=== PATIENT | female | born 1955 | race Caucasian/White ===

== ENCOUNTER → 2017-07-31 09:47 | Outpatient (CLI) | payer OTHER, SELFPAY ==
[2017-07-31 12:36] LABS: Absolute Lymphocyte Count 2.56 X10^3/ul (0.83-4.51); Absolute Neutrophil Count 3.4 X10^3/uL (2.0-7.7); Basophil# 0.04 X10^3/uL; Basophil% 0.6 % (0-1); Eosinophils% 4.4 % (0-5); Hematocrit 40.9 % (37-47); Hemoglobin 12.9 g/dl (12.0-15.0); Lymphocyte # 2.56 X10^3/ul (4.0); Lymphocyte % 37.5 % (19-41); Mean Corp Hgb Conc 31.5 g/gl (32-36); Mean Corpuscular Hgb 28.5 pg (27.0-32.0); Mean Corpuscular Volume 90.5 fL (81-99); Mean Platelet Vol. 10.8 fl (6.2-12.0); Monocyte# 0.53 X10^3/uL; Monocyte% 7.8 % (0-10); Neutrophil # 3.39 X10^3/uL (2.7-7.7); Neutrophil % 49.6 % (47-70); POSITIVE COUNT NO; POSITIVE DIFFERENTIAL NO; POSITIVE MORPHOLOGY NO; Platelet Count 311 K/mm3 (150-450); RBC Distribution Width CV 12.8 % (11.6-14.6); RBC Distribution Width SD 41.9 fl (35.1-43.9); Red Blood Count 4.52 M/mm3 (4.2-5.4); White Blood Count 6.8 K/mm3 (4.4-11.0)
[2017-07-31 12:59] LABS: ALB/GLOB Ratio 1.1 RATIO (0.9-2.4); AST(SGOT) 19 U/L (15-37); Alanine Aminotransfer ALT/SGPT 23 U/L (13-56); Albumin, Serum 3.7 g/dL (3.2-5.0); Alkaline Phosphatase 93 U/L (45-117); Anion Gap 7 (5-15); BUN 17 mg/dL (7-18); BUN/Creat Ratio 21.9 RATIO (10-20); Calcium,Total 8.9 mg/dL (8.5-10.1); Chloride 106 mmol/L (98-107); Cholesterol 204 mg/dL (200); Creatinine, Serum 0.78 mg/dL (0.55-1.02); EST Glomerular Filtration Rate 80 mL/min (>60); Est Glom Filt Rate - Afr Amer 97 mL/min (>60); Globulin 3.5 g/dL (2.2-4.2); Glucose 92 mg/dL (74-106); High Density Lipoprotein 53 mg/dL; Protein, Total 7.2 g/dL (6.4-8.2); Sodium Level 143 mmol/L (136-145); Triglycerides 93 mg/dL; Very Low Density Lipoprotein 19 mg/dL (5-40)
== END ==
PROVIDERS: Family Provider Family Medicine; PCP Family Medicine; Visit Provider Family Medicine
DX: Z00.01 Encounter for general adult medical examination with abnormal findings (principal); E55.9 Vitamin D deficiency, unspecified
CPT/HCPCS: 36415; 80053; 80061; 82306; 85025

== ENCOUNTER → 2017-08-04 16:40 | Outpatient (CLI) | payer OTHER, SELFPAY ==
--- NOTE | 2017-08-04 16:47 | BI_ITS ---
MAMMOGRAPHY - BILATERAL SCREENING REASON FOR EXAM: Female, 62 years old. Routine annual screening examination. PERTINENT HISTORY: Non-contributory. TECHNIQUE: Digital bilateral breast dayday (3D mammographic acquisition) in the CC and MLO projections. 2-D mediolateral oblique (MLO) and craniocaudad (CC) views of both breasts were obtained. CAD: Full Field Digital Mammography with Computer Added Detection was performed. COMPARISON: Comparison is made with prior study dated December 27, 2015. FINDINGS: Breast Composition: The breasts are heterogeneously dense, which may obscure small masses. There are no dominant masses or suspicious calcifications. No other significant abnormalities are identified. There has been no significant change since the prior study. BI/SCREENING MAMM (CAD), BILAT IMPRESSION: Stable bilateral screening mammogram. Yearly follow-up mammogram recommended. (A) ASSESSMENT CATEGORY: BIRADS Category 1: Negative. A letter regarding these results will be sent to the patient by the facility within 30 days. Approximately 10% of breast cancers are not detected by mammography. A normal mammogram should not delay biopsy of a clinically suspicious abnormality. [id number] Electronically Signed: Nando Weber MD at 8:36 EDT Tel [phone], Service support ,
== END ==
PROVIDERS: Family Provider Family Medicine; PCP Family Medicine; Visit Provider Obstetrics & Gynecology
DX: Z12.31 Encounter for screening mammogram for malignant neoplasm of breast (principal)
CPT/HCPCS: 77063; 77067

== ENCOUNTER → 2018-01-06 16:25 | Outpatient (CLI) | payer OTHER, SELFPAY ==
[2018-01-06 18:29] LABS: AST(SGOT) 16 U/L (15-37); Alanine Aminotransfer ALT/SGPT 23 U/L (13-56); Albumin, Serum 3.6 g/dL (3.2-5.0); Alkaline Phosphatase 107 U/L (45-117); Anion Gap 8 (5-15); BUN 19 mg/dL (7-18); BUN/Creat Ratio 18.1 RATIO (10-20); Calcium,Total 8.9 mg/dL (8.5-10.1); Chloride 104 mmol/L (98-107); Creatinine, Serum 1.05 mg/dL (0.55-1.02); EST Glomerular Filtration Rate 57 mL/min (>60); Est Glom Filt Rate - Afr Amer 69 mL/min (>60); Globulin 3.6 g/dL (2.2-4.2); Glucose 94 mg/dL (74-106); Iron 79 ug/dL (50-170); Potassium 4.3 mmol/L (3.5-5.1); Protein, Total 7.2 g/dL (6.4-8.2); Sodium Level 140 mmol/L (136-145); Thyroid Stim Hormone (TSH) 0.81 uIU/mL (0.358-3.74)
[2018-01-06 20:46] LABS: Vitamin B12 452 pg/mL (211-911); Vitamin D,25 Hydroxy 15.4 ng/mL (29.95-100.01)
== END ==
PROVIDERS: Family Provider Family Medicine; PCP Family Medicine; Visit Provider Family Medicine
DX: E55.9 Vitamin D deficiency, unspecified (principal); E53.8 Deficiency of other specified B group vitamins; E61.1 Iron deficiency; R53.83 Other fatigue
CPT/HCPCS: 36415; 80053; 82306; 82607; 83540; 84443

== ENCOUNTER → 2018-07-07 16:38 | Outpatient (CLI) | payer OTHER, SELFPAY ==
[2018-07-07 17:59] LABS: ALB/GLOB Ratio 1.1 RATIO (0.9-2.4); AST(SGOT) 15 U/L (15-37); Alanine Aminotransfer ALT/SGPT 23 U/L (13-56); Alkaline Phosphatase 80 U/L (45-117); Anion Gap 6 (5-15); BUN 18 mg/dL (7-18); Calcium,Total 8.7 mg/dL (8.5-10.1); Chloride 106 mmol/L (98-107); EST Glomerular Filtration Rate 68 mL/min (>60); Est Glom Filt Rate - Afr Amer 82 mL/min (>60); Globulin 3.5 g/dL (2.2-4.2); Glucose 87 mg/dL (74-106); Potassium 4.1 mmol/L (3.5-5.1); Protein, Total 7.5 g/dL (6.4-8.2); Sodium Level 139 mmol/L (136-145)
[2018-07-07 18:09] LABS: Vitamin B12 > 2000 pg/mL (211-911); Vitamin D,25 Hydroxy 90.1 ng/mL (29.95-100.01)
== END ==
PROVIDERS: Family Provider Family Medicine; PCP Family Medicine; Visit Provider Family Medicine
DX: E55.9 Vitamin D deficiency, unspecified (principal); E53.8 Deficiency of other specified B group vitamins; Z51.81 Encounter for therapeutic drug level monitoring
CPT/HCPCS: 36415; 80053; 82306; 82607

== ENCOUNTER → 2018-10-13 08:46 | Outpatient (CLI) | payer OTHER, SELFPAY ==
--- NOTE | 2018-10-13 08:50 | BI_ITS ---
MAMMOGRAPHY - BILATERAL SCREENING REASON FOR EXAM: Female, 63 years old. Routine annual screening examination. PERTINENT HISTORY: Non-contributory. TECHNIQUE: Digital bilateral breast faviola (3D mammographic acquisition) in the CC and MLO projections. 2-D mediolateral oblique (MLO) and craniocaudad (CC) views of both breasts were obtained. CAD: Full Field Digital Mammography with Computer Added Detection was performed. COMPARISON: Comparison is made with prior study dated August 04, 2017 and December 27, 2015. FINDINGS: Breast Composition: The breasts are heterogeneously dense, which may obscure small masses. Questionable subtle focal area of architectural distortion in the deep central portion of the left breast. Correlation with ultrasound is recommended. No other significant abnormalities are identified. BI/SCREEN MAMM (CAD) W/FAVIOLA BILAT IMPRESSION: Questionable focal area of architectural distortion in the deep central aspect of the left breast as described. Correlation with ultrasound is recommended. ASSESSMENT CATEGORY: BIRADS Category 0: Incomplete. Need additional imaging evaluation. A letter regarding these results will be sent to the patient by the facility within 30 days. Approximately 10% of breast cancers are not detected by mammography. A normal mammogram should not delay biopsy of a clinically suspicious abnormality. [id number] Electronically Signed: Nando Weber, at 9:39 EDT , Service support ,
== END ==
PROVIDERS: Family Provider Family Medicine; PCP Family Medicine; Referring Provider Obstetrics & Gynecology; Visit Provider Obstetrics & Gynecology
DX: Z12.31 Encounter for screening mammogram for malignant neoplasm of breast (principal)
CPT/HCPCS: 77063; 77067

== ENCOUNTER → 2018-10-14 | Outpatient (CLI) | payer OTHER, SELFPAY ==
--- NOTE | 2018-10-14 14:57 | US_ITS ---
STUDY: ULTRASOUND BREAST - LEFT REASON FOR EXAM: Female, 63 years old. Abnormal mammogram TECHNIQUE: Axial and longitudinal images of the LEFT breast were performed with a high resolution ultrasound transducer. COMPARISON: Mammogram from 10/13/2018. FINDINGS: LEFT Breast: There is a 0.4 x 0.3 x 0.2 cm well-defined anechoic retroareolar cyst. There are also prominent retroareolar ducts. There is no sonographic evidence of a suspicious shadowing solid mass or architectural distortion. US/Breast Limited Unilateral IMPRESSION: No suspicious sonographic findings, dilated ducts and a simple retroareolar cyst noted. ASSESSMENT CATEGORY: BIRADS Category 2: Benign. A letter regarding these results will be sent to the patient by the facility within 30 days. Electronically Signed: Jeison Obregon MD at 10:10 EDT , Service support ,
== END | disposition home or self-care (01) ==
LOC: OPUS 14:55
PROVIDERS: Family Provider Family Medicine; PCP Family Medicine; Referring Provider Obstetrics & Gynecology; Visit Provider Obstetrics & Gynecology
DX: N60.02 Solitary cyst of left breast (principal)
CPT/HCPCS: 76642

== ENCOUNTER → 2020-08-27 10:43 | Outpatient (CLI) | payer OTHER, SELFPAY ==
[2020-08-27 12:19] LABS: Absolute Lymphocyte Count 3.24 X10^3/uL (0.83-4.51); Absolute Neutrophil Count 3.3 X10^3/uL (2.0-7.7); Basophil# 0.07 X10^3/uL; Basophil% 0.9 % (0-1); Eosinophil# 0.33 X10^3/uL; Eosinophils% 4.5 % (0-5); Hematocrit 40.4 % (37-47); Hemoglobin 12.7 g/dL (12.0-15.0); Lymphocyte # 3.24 X10^3/ul (0.83-4.51); Lymphocyte % 43.7 % (19-41); Mean Corp Hgb Conc 31.4 g/dL (32-36); Mean Corpuscular Hgb 28.3 pg (27.0-32.0); Mean Platelet Vol. 10.5 fl (6.2-12.0); Monocyte# 0.49 X10^3/uL; Monocyte% 6.6 % (0-10); NRBC Flagged by Analyzer 0 % (0-5); Neutrophil # 3.26 X10^3/uL (2.7-7.7); Platelet Count 314 K/mm3 (150-450); RBC Distribution Width SD 39.7 fl (35.1-43.9); Red Blood Count 4.49 M/mm3 (4.2-5.4); White Blood Count 7.4 K/mm3 (4.4-11.0)
[2020-08-27 12:35] LABS: Ferritin 38 ng/mL (8-252); Iron 90 ug/dL (50-170)
[2020-08-27 12:40] LABS: Vitamin B12 523 pg/mL (211-911)
== END ==
PROVIDERS: PCP Family Medicine; Referring Provider Family Medicine; Visit Provider Family Medicine
DX: E61.1 Iron deficiency (principal); G25.81 Restless legs syndrome; R53.83 Other fatigue
CPT/HCPCS: 36415; 82607; 82728; 83540; 85025

== ENCOUNTER → 2020-12-12 | Outpatient (CLI) | payer OTHER, SELFPAY | END | disposition home or self-care (01) | PROVIDERS: Visit Provider Family Medicine | DX: J02.9 Acute pharyngitis, unspecified (principal) | CPT/HCPCS: 87070 ==

== ENCOUNTER 2021-01-02 06:33 | Day surgery (SDC) | payer OTHER, SELFPAY ==
[2021-01-02] VITALS (7 sets, daily range): BP systolic 115–134; BP diastolic 68–87; PULSE 99–116; RESP 16; TEMP 36.2–36.7; O2SAT 93–98; BMI 26.2
--- NOTE | 2021-01-02 | IMM_PTH ---
PATIENT: SLUAIMAN ESTES LOC: EN U#:[id number] AGE/SX: 65/F ROOM: RE01/02/[address]: Dr. Madonna Meadows MD : 1955 BED: DIS: 01/02/2021 SPEC #: [id number] RECD: 01/02/21 13:58 STATUS: PRIMO REKris #: [id number] DARREN: 01/02/21 00:[address]: Madonna Meadows DEPT: IMMUNOHISTOCHEMISTRY RECD BY: Laura Tobar ENTERED: 01/02/21 14:00 SP TYPE: IMMUNO OTHR DR: Dr. Silvana Arrieta, DO Tissues: Gastric mucous membrane Procedures: H Pylori (initial) PHYSICIAN & INSTITUTION [place] [id number] SPECIMEN INFORMATION: Tissue Source: Antrum biopsy Clinical Info: Chronic cough Specimen Number: [id number] CPT code: 60730 METHODOLOGY: Deparaffinized sections of prefer/formalin-fixed tissue or PAP/DQ stained slides are incubated with monoclonal/polyclonal antibodies/oligonucleotide probes. Localization is made via biotin free immunoperoxidase method. Appropriate controls are performed and reacted as expected. Results on target cell population are indicated in the following table: RESULTS: ANTIBODY / CLONE RESULT H Pylori (polyclonal) negative These tests were developed and their performance characteristics determined by [facility]. They may not have been cleared or approved by the U.S. Food and Drug Administration. The FDA has determined that such clearance or approval is not necessary. The above immunohistochemical/dualISH markers are ordered and reviewed by the Pathologist. INTERPRETATION: Gastric antrum, biopsy: Negative for Helicobacter pylori organisms. AM:chris 01/03/21
--- NOTE | 2021-01-02 06:54 | PCM.HP.BLA ---
History and Physical Date of Admission: 01/02/21 Date of Service: 12/24/20 MR#:[id number]:[id number]: SULAIMAN ESTES [facility] #:[id number]:1955 Provider:Jolene Beebe/Sex: 65/F [facility] Int[facility] Vital Signs 12/24/20 13:43 Height 5 ft 1 in Weight: 141 lb BMI 26.6 BP 122/76 H Blood Pressure Location Rt brachial Position Sitting Respiration 18 Pulse 115 H Pulse Source NIBP Temp 97.6 F L Temp Source Temporal Pulse Oximetry (%) 97 Intake Visit Reasons: EGD/Cough Chief Complaint: chronic cough Conservation Or Heritage Architect Required: No Is patient in pain?: No Allergies codeine Allergy (Mild, Verified 12/24/20 13:45) itching phenobarbital Allergy (Mild, Verified 12/24/20 13:45) rash Sulfa (Sulfonamide Antibiotics) Allergy (Mild, Verified 12/24/20 13:45) rash amoxicillin [From Augmentin] Adverse Reaction (Intermediate, Verified 12/24/20 13:45) gi upset clavulanic acid [From Augmentin] Adverse Reaction (Intermediate, Verified 12/24/20 13:45) gi upset Medications alprazolam 0.5 mg tablet 0.5 mg PO TID tab 12/24/20 [History Confirmed 12/24/20] cyanocobalamin (vitamin B-12) 1,000 mcg/mL injection solution 1,000 mcg IM QMONTH ml 12/24/20 [History Confirmed 12/24/20] duloxetine 30 mg capsule,delayed release cap PO 12/24/20 [History Confirmed 12/24/20] fluoxetine 20 mg capsule 20 mg PO DAILY cap 12/24/20 [History Confirmed 12/24/20] fluticasone furoate 100 mcg-vilanterol 25 mcg/dose inhalation powder ea INHALATION 12/24/20 [History Confirmed 12/24/20] Is last menstrual period known: No Post menopausal: Yes Patient : No PFSH Medical History (Updated 12/24/20 @ 16:[address] Madonna Meadows MD) Anxiety Chronic cough Depression Environmental and seasonal allergies Vitamin D deficiency Surgical History (Updated 12/24/20 @ 13:42 by Noris Lara) History of partial hysterectomy History of rotator cuff surgery Family History (Updated 12/24/20 @ 13:42 by Noris Lara) Mother Alzheimers disease Father Optic atrophy Hyperlipidemia Social History (Updated 12/24/20 @ 13:43 by Noris Lara) Smoking Status: Former smoker HPI HPI HPI: SULAIMAN ESTES, is a 65 F who presents to the office today for for chronic cough. Patient states she had this for about 13 years. Patient does have occasional reflux/burning of her esophagus. Patient has tried taking Nexium for a month or 2 and had no change in this chronic cough. Patient is never had a previous EGD has seen ENT and this had a looked irritated in that area. Patient states that the cough seems to be worse after food or later in the day. She states occasionally she will have some epigastric pain. Currently patient is not on any PPIs. Patient did a Cologuard about 2 years ago that was negative. Patient states she can feel better if she lays down. She also states that she feels like there is some itching sensation in her upper esophagus. ROS General General: Yes fatigue; No weight change, appetite, colon cancer, breast cancer or weakness HEENT HEENT: No difficulty swallowing, eye injury, eye surgery, swollen glands or hoarseness Endo Endocrine: No thyroid disease, diabetes mellitus, thyroid cancer, Hair loss, heat intolerance or cold intolerance Cardio Cardiovascular: No murmur, pacemaker, heart disease, atrial fibrillation, high blood pressure, heart attack, heart stent, palpitations, shortness of breat with exertion or chest pain Psych Psychiatric: Yes anxiety; No depression or hearing voices Resp Respiratory: Yes shortness of breath, No sleep apnea, Yes cough, No COPD, No asthma, No emphysema and No wheezing Gastro Gastrointestinal: No abdominal pain, No nausea or vomiting, No diarrhea, No constipation, No blood in stool, No acid reflux, No hemorrhoids, No ulcers, No gallbladder problem and No black,tarry stools Artemio Hematologic: No blood thinners, No blood disorders, No bleeding, No anemia and No blood clots Neuro Neurologic: No weakness Exam Const General: cooperative, healthy appearing, comfortable and no acute distress Neck Neck: normal visual inspection Resp Effort & Inspection: normal respiratory effort Cardio Rate: regular rate GI Inspection: non-distended Palpation: soft, no guarding and nontender Skin General: no rashes or lesions noted Neuro General: patient oriented x3 Psych Affect: normal affect COVID (Procedure Consent) Procedure Criteria Procedure Criteria: Yes Elective The surgeon/proceduralist and patient have discussed in detail the risk of exposure to and/or potential harm posed by the COVID-19 virus with having a surgery/procedure at this time versus the risk of delaying the surgery/procedure. It is not possible to know either the risk of delaying the surgery or procedure or chance of getting an infection with perfect accuracy, but a joint decision was made between the patient and the surgeon/proceduralist to proceed at this time with the scheduled surgery/procedure as indicated on the consent form. Assessment and Plan Assessment and Plan (1) Chronic cough: Status: Acute Plan - Dr. Madonna Meadows MD: Discussed with patient that her symptoms are atypical reflux especially with the Nexium not really working too well. But did discuss that with the EGD we could take a look possibly biopsy her esophagus or least rule out reflux/gastritis. Patient was agreeable to proceed. As she has already seen styrene dehydration reactor operator as well as ENT in the past. I have discussed the above with the patient. I have offered the patient EGD for evaluation. I have explained the risks/benefits of the procedure and described the procedure. I have discussed the risks with the patient, including but not limited to: infection, bleeding, perforation of the GI tract requiring emergency surgery, inability to complete the procedure, injury to any internal organs, complications of anesthesia, etc. - the patient understands and agrees to proceed. I have answered all the patient's questions to the patient's satisfaction and the patient has no further questions. Ranjit Larkin MD Pager: [facility] [address] [place] [address], [address] [place] [address] Office: Plan Details Other Orders: Orders: EGD Today Coding Level of Care Code Off vis,new,level 3 Diagnoses Chronic cough R05 12/24/20 1639<Electronically signed by Madonna Meadows MD>Date Madonna Meadows MD
[2021-01-02] MEDS: Lactated Ringers 1,000 ML 100 ML IV (07:04)
--- NOTE | 2021-01-02 08:07 | OP.EGD_ITS ---
Patient Name: Camilla Calzada Procedure Date: 01/02/2021 7:44 AM Date of : 1955 Age: 65 Procedure: Upper GI endoscopy Indications: Chronic cough Providers: Madonna Meadows MD Medicines: Monitored Anesthesia Care Patient Profile: This is a 65 year old female. Complications: No immediate complications. Procedure: Pre-Anesthesia Assessment: - Prior to the procedure, a History and Physical was performed, and patient medications and allergies were reviewed. The patient's tolerance of previous anesthesia was also reviewed. The risks and benefits of the procedure and the sedation options and risks were discussed with the patient. All questions were answered, and informed consent was obtained. Prior Anticoagulants: The patient has taken no previous anticoagulant or antiplatelet agents. ASA Grade Assessment: Per anesthesia. After reviewing the risks and benefits, the patient was deemed in satisfactory condition to undergo the procedure. After obtaining informed consent, the endoscope was passed under direct vision. Throughout the procedure, the patient's blood pressure, pulse, and oxygen saturations were monitored continuously. The gastroscope was introduced through the mouth, and advanced to the second part of duodenum. The upper GI endoscopy was accomplished without difficulty. The patient tolerated the procedure well. Scope In: 7:55:52 AM Scope Out: 8:00:07 AM Total Procedure Duration Time 0 hours 4 minutes 15 seconds Findings: The Z-line was variable and was found 35 cm from the incisors. Biopsies were taken with a cold forceps for histology. Mildly erythematous mucosa without bleeding was found in the gastric antrum. Biopsies were taken with a cold forceps for histology. Biopsies were taken with a cold forceps for Helicobacter pylori cultures. The cardia and gastric fundus were normal on retroflexion. Impression: - Z-line variable, 35 cm from the incisors. Biopsied. - Erythematous mucosa in the antrum. Biopsied. Recommendation: - Await pathology results. - Discharge patient to home. - Resume previous diet. - Continue present medications. Procedure Code(s): --- Professional --- 04258, Esophagogastroduodenoscopy, flexible, transoral; with biopsy, single or multiple Diagnosis Code(s): --- Professional --- K22.8, Other specified diseases of esophagus K31.89, Other diseases of stomach and duodenum R05, Cough CPT copyright 2017 [employer]. All rights reserved. The codes documented in this report are preliminary and upon seismograph observer review may be revised to meet current compliance requirements. MD Madonna Taylor MD 01/02/2021 8:06:49 AM This report has been signed electronically. Number of Addenda: 0 Note Initiated On: 01/02/2021 7:44 AM
--- NOTE | 2021-01-02 08:30 | EGD_PTH ---
PATIENT: SULAIMAN ESTES LOC: EN U#:[id number] AGE/SX: 65/F ROOM: RE01/02/[address]: Dr. Madonna Meadows MD : 1955 BED: DIS: 01/02/2021 SPEC #: [id number] RECD: 01/02/21 11:11 STATUS: PRIMO PAVEL #: [id number] DARREN: 01/02/21 08:[address]: Madonna Meadows DEPT: SURGICAL PATHOLOGY RECD BY: Lauren Waterman ENTERED: 01/02/21 12:56 SP TYPE: EGD BIOPSY [facility] DR: Dr. Silvana Arrieta DO Tissues: A - Gastric mucous membrane B - Stomach, NOS Procedures: Surgery Specimen Level IV HEADER OPERATION: EGD ([facility]) PRE-OP DIAGNOSIS: Chronic cough TISSUE SUBMITTED: A. Antrum biopsy, B. GE junction biopsy MICROSCOPIC DIAGNOSIS A. Gastric antrum, biopsy: Mild chronic inflammation. B.GE junction, biopsy: Mild chronic inflammation. No evidence of goblet cell metaplasia. AM:am 01/03/21 COMMENT A. Immunohistochemistry ([id number]) for H. pylori will be reported separately. B. AB/PAS stain with matched control is negative for goblet cells MICROSCOPIC DESCRIPTION Slides are reviewed. GROSS DESCRIPTION A. Received is one container labeled with the patient name and designated antrum biopsy. The specimen consists of one irregular fragment of light chao soft tissue that measures 0.2 x 0.2 x 0.1m. The specimen is totally submitted in one cassette. B. Received is one container labeled with the patient name and designated GE junction. The specimen consists of two irregular fragment of light chao soft tissue that together measure 0.7 x 0.5 x <0.1cm. The specimen is totally submitted in one cassette. /AM:am 01/02/21 TC:3 CPT:50113e7, 15931
== END 2021-01-02 08:56 | disposition home or self-care (01) ==
LOC: EN 06:34 → AC 06:37
PROVIDERS: PCP Family Medicine; Referring Provider Surgery; Visit Provider Surgery
PROC: 0DJ08ZZ Inspection of Upper Intestinal Tract, Via Natural or Artificial Opening Endoscopic (ICD-10-PCS; CPT 43235; principal; 2021-01-02 08:25)
DX: K22.8 Other specified diseases of esophagus (principal); K31.89 Other diseases of stomach and duodenum; R05 Cough; F41.9 Anxiety disorder, unspecified; Z79.899 Other long term (current) drug therapy; Z87.891 Personal history of nicotine dependence
CPT/HCPCS: 43239; 88305; 88342; J7120; J2405

== ENCOUNTER → 2021-01-03 | Outpatient (CLI) | payer OTHER, SELFPAY | END | disposition home or self-care (01) | LOC: LABSPEC 13:42 | PROVIDERS: PCP Family Medicine; Referring Provider Family Medicine; Visit Provider Family Medicine | DX: Z20.822 Contact with and (suspected) exposure to COVID-19 (principal) | CPT/HCPCS: 87635; U0005; U0003 ==

== ENCOUNTER 2021-07-01 15:47 | Outpatient (CLI) | payer OTHER, SELFPAY ==
--- NOTE | 2021-07-01 15:50 | BI_ITS ---
MAMMOGRAPHY - BILATERAL SCREENING REASON FOR EXAM: Female, 65 years old. Routine annual screening examination. PERTINENT HISTORY: Non-contributory. TECHNIQUE: Digital bilateral breast faviola (3D mammographic acquisition) in the CC and MLO projections. 2-D mediolateral oblique (MLO) and craniocaudad (CC) views of both breasts were obtained. CAD: Full Field Digital Mammography with Computer Added Detection was performed. COMPARISON: Comparison is made with prior study dated 10/13/2018 and 08/04/2017. FINDINGS: Breast Composition: The breasts are heterogeneously dense, which may obscure small masses. I suspect a 1.1 cm nodular density in the central deep portion of the right breast. Correlation with ultrasound is recommended. Stable small benign-appearing bilateral axillary lymph nodes. No other significant abnormalities are identified. BI/SCRN MAMM (CAD)W/FAVIOLA BILAT IMPRESSION: 1.1 cm nodular density in the central deep portion of the right breast. Correlation with ultrasound is recommended. ASSESSMENT CATEGORY: BIRADS Category 0: Incomplete. Need additional imaging evaluation. A letter regarding these results will be sent to the patient by the facility within 30 days. Approximately 10% of breast cancers are not detected by mammography. A normal mammogram should not delay biopsy of a clinically suspicious abnormality. [id number] Electronically Signed: Nando Weber MD at 8:07 EST ,
== END 2021-07-01 23:59 | disposition home or self-care (01) ==
LOC: OPBI 15:48
PROVIDERS: PCP Family Medicine; Visit Provider Family Medicine
DX: Z12.31 Encounter for screening mammogram for malignant neoplasm of breast (principal)
CPT/HCPCS: 77063; 77067

== ENCOUNTER 2021-07-03 07:56 | Outpatient (CLI) | payer OTHER, SELFPAY ==
--- NOTE | 2021-07-03 07:58 | US_ITS ---
STUDY: ULTRASOUND BREAST - RIGHT REASON FOR EXAM: Female, 65 years old. Abnormal screening mammogram. TECHNIQUE: Axial and longitudinal images of the RIGHT breast were performed with a high resolution ultrasound transducer. # OF IMAGES: 30 COMPARISON: Comparison is made with prior mammogram dated 07/01/2021. FINDINGS: RIGHT Breast: Targeted imaging of the right breast was obtained. There is dense fibroglandular tissue. No sonographic abnormality is seen. Additional mammographic views will be obtained of the right breast. US/Breast Limited Unilateral IMPRESSION: Unremarkable sonographic examination. Additional mammographic views will be obtained. ASSESSMENT CATEGORY: BIRADS Category 0: Incomplete. Need additional imaging evaluation. A letter regarding these results will be sent to the patient by the facility within 30 days. Electronically Signed: Nando Weber MD at 13:58 EST ,
--- NOTE | 2021-07-03 08:15 | BI_ITS ---
MAMMOGRAPHY - UNILATERAL DIAGNOSTIC: RIGHT BREAST REASON FOR EXAM: Female, 65 years old. Abnormal screening mammogram. PERTINENT HISTORY: Non-contributory. TECHNIQUE: Rolled medial and lateral views of the right breast were obtained. CAD: Full Field Digital Mammography with Computer Added Detection was performed. COMPARISON: Comparison is made with prior mammogram dated 07/01/2021. FINDINGS: Breast Composition: The breasts are heterogeneously dense, which may obscure small masses. There are no dominant masses or suspicious calcifications. No other significant abnormalities are identified. BI/DIAG MAMM W/CAD, UNILAT IMPRESSION: Stable unilateral diagnostic mammogram. One year follow-up mammogram recommended. (A) ASSESSMENT CATEGORY: BIRADS Category 2: Benign. A letter regarding these results will be sent to the patient by the facility within 30 days. Approximately 10% of breast cancers are not detected by mammography. A normal mammogram should not delay biopsy of a clinically suspicious abnormality. Electronically Signed: Nando Weber MD at 9:15 EST ,
== END 2021-07-03 23:59 | disposition home or self-care (01) ==
PROVIDERS: PCP Family Medicine; Visit Provider Family Medicine
DX: R92.8 Other abnormal and inconclusive findings on diagnostic imaging of breast (principal)
CPT/HCPCS: 76642; 77065

== ENCOUNTER → 2021-11-07 | Outpatient (CLI) | payer OTHER, SELFPAY ==
[2021-11-07 12:10] LABS: Erythrocyte Sedimentation Rate 31 mm/hr (0-30)
[2021-11-07 12:11] LABS: Absolute Lymphocyte Count 2.93 X10^3/uL (0.83-4.51); Absolute Neutrophil Count 3.1 X10^3/uL (2.0-7.7); Basophil# 0.04 X10^3/uL; Basophil% 0.6 % (0-1); Eosinophil# 0.44 X10^3/uL; Eosinophils% 6.1 % (0-5); Hematocrit 39.5 % (37-47); Hemoglobin 12.9 g/dL (12.0-15.0); Lymphocyte # 2.93 X10^3/ul (0.83-4.51); Lymphocyte % 40.5 % (19-41); Mean Corp Hgb Conc 32.7 g/dL (32-36); Mean Corpuscular Hgb 28.7 pg (27.0-32.0); Mean Platelet Vol. 10.6 fl (6.2-12.0); Monocyte# 0.73 X10^3/uL; Monocyte% 10.1 % (0-10); NRBC Flagged by Analyzer 0 % (0-5); Neutrophil # 3.08 X10^3/uL (2.7-7.7); Neutrophil % 42.4 % (47-70); Platelet Count 303 K/mm3 (150-450); RBC Distribution Width CV 12.4 % (11.6-14.6); RBC Distribution Width SD 40.1 fl (35.1-43.9); Red Blood Count 4.49 M/mm3 (4.2-5.4); White Blood Count 7.2 K/mm3 (4.4-11.0)
[2021-11-07 12:28] LABS: Vitamin B12 427 pg/mL (211-911); Vitamin D,25 Hydroxy 41.9 ng/mL
[2021-11-07 12:43] LABS: AST(SGOT) 17 U/L (15-37); Alanine Aminotransfer ALT/SGPT 19 U/L (13-56); Albumin, Serum 3.6 g/dL (3.2-5.0); Alkaline Phosphatase 87 U/L (45-117); Anion Gap 5 (5-15); BUN 16 mg/dL (7-18); BUN/Creat Ratio 18.2 RATIO (10-20); CRP 4.21 mg/L (0.0-3.0); Calcium,Total 9.3 mg/dL (8.5-10.1); Chloride 106 mmol/L (98-107); Creatinine, Serum 0.88 mg/dL (0.55-1.02); EST Glomerular Filtration Rate 69 mL/min (>60); Est Glom Filt Rate - Afr Amer 83 mL/min (>60); Ferritin 32 ng/mL (8-252); Free T3 3.1 pg/mL (2.18-3.98); Globulin 3.6 g/dL (2.2-4.2); Glucose 97 mg/dL (74-106); Iron 68 ug/dL (50-170); Potassium 4.1 mmol/L (3.5-5.1); Protein, Total 7.2 g/dL (6.4-8.2); Sodium Level 138 mmol/L (136-145); T4 Free Direct 0.93 ng/dL (0.76-1.46); Thyroid Stim Hormone (TSH) 0.47 uIU/mL (0.358-3.74)
[2021-11-08 09:33] LABS: Rheumatoid Factor < 10.0 IU/mL (<15)
[2021-11-12 13:58] LABS: CCP IgG Antibodies 9 units (0-19)
[2021-11-14 14:50] LABS: ANTINUCLEAR ANTIBODIES DIRECT Negative (Negative)
== END | disposition home or self-care (01) ==
PROVIDERS: PCP Family Medicine; Referring Provider Family Medicine; Visit Provider Family Medicine
DX: M25.50 Pain in unspecified joint (principal); M79.10 Myalgia, unspecified site; E55.9 Vitamin D deficiency, unspecified; E53.8 Deficiency of other specified B group vitamins; D64.9 Anemia, unspecified; R53.83 Other fatigue
CPT/HCPCS: 36415; 80053; 82306; 82607; 82728; 83540; 84439; 84443; 84481; 85025; 85652; 86038; 86140; 86200; 86225; 86235; 86431

== ENCOUNTER → 2022-04-23 | Outpatient (CLI) | payer OTHER, SELFPAY ==
--- NOTE | 2022-04-23 10:00 | ECHOD_ITS ---
Reason For Study: Tachycardia Procedure This was a 2D Doppler, Color Flow transthoracic echocardiogram. The exam was of adequate technical quality. Exam performed in department. Left Ventricle Normal LV size. Left ventricular systolic function is normal. The estimated ejection fraction is 65 %. No evidence for diastolic dysfunction. No regional wall motion abnormalities noted. Right Ventricle Normal RV size. Normal systolic function. Atria Normal left atrium. Normal right atrium. No doppler evidence for ASD. Mitral Valve There is no mitral annular calcification. Normal mitral valve. Mild (1+) mitral valve insufficiency. Tricuspid Valve Normal tricuspid valve. Aortic Valve Trisinus/trileaflet aortic valve. Normal aortic valve. Pulmonic Valve The pulmonic valve is not well visualized. Mild (1+) eccentric pulmonic valve insufficiency. Great Vessels Normal sized aortic root. Pericardium/Pleural No pericardial effusion. MMode/2D Measurements & Calculations LVIDd: 3.3 cm IVSd: 1.0 cm Ao root diam: 2.8 cm LVIDs: 1.7 cm LVPWd: 0.90 cm RVDd: 2.6 cm FS: 49.5 % LAV(MOD-bp): 21.4 ml LVAd ap4: 17.6 cm2 LVAd ap2: 18.4 cm2 LAV(MOD-bp) Indexed: 13.7 ml/m2 LVLd ap4: 6.7 cm LVLd ap2: 6.6 cm LAV(MOD-sp2): 24.8 ml EDV(MOD-sp4): 38.3 ml EDV(MOD-sp2): 42.5 ml LAV(MOD-sp4): 18.7 ml EDV(sp4-el): 39.3 ml EDV(sp2-el): 43.2 ml LVAs ap4: 9.3 cm2 LVAs ap2: 10.8 cm2 LVLs ap4: 5.7 cm LVLs ap2: 6.1 cm ESV(MOD-sp4): 13.5 ml ESV(MOD-sp2): 17.0 ml ESV(sp4-el): 12.9 ml ESV(sp2-el): 16.1 ml EF(MOD-sp4): 64.7 % EF(MOD-sp2): 59.9 % EF(sp4-el): 67.2 % SV(MOD-sp4): 24.8 ml SV(MOD-sp2): 25.5 ml SV(sp4-el): 26.4 ml LA dimension(2D): 3.2 cm LA A4 area: 10.2 cm2 RA A4 area: 9.1 cm2 Doppler Measurements & Calculations MV E max amos: 55.9 cm/sec Lat Peak E' Amos: 8.9 cm/sec Med Peak E' Amos: 7.5 cm/sec MV A max amos: 84.5 cm/sec E/E' lat: 6.3 E/E' med: 7.4 MV E/A: 0.66 Ao V2 max: 116.3 cm/sec LV V1 max: 91.8 cm/sec PA V2 max: 103.8 cm/sec Ao max P.4 mmHg LV V1 max P.4 mmHg ECHO/Echo Complete Interpretation Summary Left ventricular systolic function is normal. The estimated ejection fraction is 65 %. Mild (1+) mitral valve insufficiency. Mild (1+) eccentric pulmonic valve insufficiency. No evidence for diastolic dysfunction. Ordering Physician: Silvana Arrieta Referring Physician: Silvana Arrieta Performed By: Leonela Fernandez RDCS
== END | disposition home or self-care (01) ==
PROVIDERS: PCP Family Medicine; Referring Provider Family Medicine; Visit Provider Family Medicine
DX: I10 Essential (primary) hypertension (principal); R00.0 Tachycardia, unspecified
CPT/HCPCS: 93306

== ENCOUNTER → 2023-08-27 | Outpatient (CLI) | payer MEDICARE, SELFPAY ==
--- NOTE | 2023-08-27 12:43 | RAD_ITS ---
INDICATION: PAIN, INJURY EXAMINATION/TECHNIQUE: X-RAY - LEFT XR Foot Min 3 Views 4 VIEWS COMPARISON: No relevant prior comparison study available FINDINGS: SOFT TISSUES: No soft tissue swelling or gas. No radiopaque foreign body. BONES/JOINTS: Hairline nondisplaced fracture of the base of the fifth metatarsal. No evidence of dislocation. Normal alignment. Preservation of the joint space.. Small plantar calcaneal spur. RAD/Foot min 3 Views IMPRESSION: Nondisplaced fracture of the base of the fifth metatarsal. Electronically Signed: Dmitri Gonsalez MD at 13:07 EDT ,
--- NOTE | 2023-08-27 12:43 | RAD_ITS ---
INDICATION: PAIN, INJURY EXAMINATION/TECHNIQUE: X-RAY - LEFT XR Ankle Min 3 Views 3 VIEWS COMPARISON: No relevant prior comparison study available FINDINGS: SOFT TISSUES: Soft tissue swelling of the lateral aspect of the ankle. No radiopaque foreign body. BONES/JOINTS: Small avulsion fracture of the tip of the lateral malleolus. Nondisplaced fracture of the base of the fifth metatarsal better visualized on the radiographs of the foot. No evidence of dislocation. No sclerotic or destructive changes observed. RAD/Ankle min 3 Views IMPRESSION: 1. Avulsion fracture of the tip of the lateral malleolus. 2. Nondisplaced fracture of the base of the fifth metatarsal. 3. Soft tissue swelling of the lateral aspect of the ankle. Electronically Signed: Dmitri Gonsalez MD at 13:09 EDT ,
== END | disposition home or self-care (01) ==
PROVIDERS: PCP Family Medicine; Referring Provider Family Medicine; Visit Provider Family Medicine
DX: M79.672 Pain in left foot (principal); S93.409A Sprain of unspecified ligament of unspecified ankle, initial encounter
CPT/HCPCS: 73610; 73630

== ENCOUNTER → 2023-09-10 | Outpatient (CLI) | payer MEDICARE, SELFPAY ==
[2023-09-10 16:56] LABS: Absolute Lymphocyte Count 3.11 X10^3/uL (0.83-4.51); Basophil# 0.06 X10^3/uL; Basophil% 0.8 % (0-1); Eosinophil# 0.39 X10^3/uL; Eosinophils% 5.5 % (0-5); Hematocrit 40.5 % (37-47); Hemoglobin 12.7 g/dL (12.0-15.0); Lymphocyte # 3.11 X10^3/ul (0.83-4.51); Lymphocyte % 44.1 % (19-41); Mean Corp Hgb Conc 31.4 g/dL (32-36); Mean Corpuscular Hgb 28.5 pg (27.0-32.0); Mean Platelet Vol. 10.4 fl (6.2-12.0); Monocyte# 0.51 X10^3/uL; Monocyte% 7.2 % (0-10); NRBC Flagged by Analyzer 0 % (0-5); Neutrophil # 2.98 X10^3/uL (2.7-7.7); Neutrophil % 42.3 % (47-70); Platelet Count 344 K/mm3 (150-450); RBC Distribution Width CV 13.1 % (11.6-14.6); RBC Distribution Width SD 43.7 fl (35.1-43.9); Red Blood Count 4.45 M/mm3 (4.2-5.4); White Blood Count 7.1 K/mm3 (4.4-11.0)
[2023-09-10 17:32] LABS: ALB/GLOB Ratio 1.1 RATIO (0.9-2.4); AST(SGOT) 22 U/L (15-37); Alanine Aminotransfer ALT/SGPT 26 U/L (13-56); Albumin, Serum 3.7 g/dL (3.2-5.0); Alkaline Phosphatase 71 U/L (45-117); Anion Gap 4 (5-15); BUN 25 mg/dL (7-18); BUN/Creat Ratio 23.4 RATIO (10-20); Calcium,Total 9.4 mg/dL (8.5-10.1); Chloride 108 mmol/L (98-107); Creatinine, Serum 1.07 mg/dL (0.55-1.02); EST Glomerular Filtration Rate 55 mL/min (>60); Est Glom Filt Rate - Afr Amer 66 mL/min (>60); Free T3 2.2 pg/mL (2.18-3.98); Globulin 3.5 g/dL (2.2-4.2); Glucose 102 mg/dL (74-106); Potassium 4.1 mmol/L (3.5-5.1); Protein, Total 7.2 g/dL (6.4-8.2); Sodium Level 139 mmol/L (136-145); T4 Free Direct 0.95 ng/dL (0.76-1.46); Thyroid Stim Hormone (TSH) 0.85 uIU/mL (0.358-3.74)
[2023-09-10 18:36] LABS: Vitamin B12 336 pg/mL (211-911); Vitamin D,25 Hydroxy 43.8 ng/mL
[2023-09-11 13:59] LABS: Erythrocyte Sedimentation Rate 20 mm/hr (0-30)
== END | disposition home or self-care (01) ==
LOC: BFHLAB 14:37
PROVIDERS: PCP Family Medicine; Referring Provider Family Medicine; Visit Provider Family Medicine
DX: E03.9 Hypothyroidism, unspecified (principal); E53.8 Deficiency of other specified B group vitamins; E55.9 Vitamin D deficiency, unspecified; M25.50 Pain in unspecified joint; M79.10 Myalgia, unspecified site
CPT/HCPCS: 36415; 80053; 82306; 82607; 84439; 84443; 84481; 85025; 85652; 86140

== ENCOUNTER → 2023-12-15 | Outpatient (CLI) | payer MEDICARE, SELFPAY ==
--- NOTE | 2023-12-15 08:08 | BI_ITS ---
MAMMOGRAPHY - BILATERAL SCREENING REASON FOR EXAM: Female, 68 years old. Routine annual screening examination. PERTINENT HISTORY: Non-contributory. TECHNIQUE: Digital bilateral breast faviola (3D mammographic acquisition) in the CC and MLO projections. 2-D mediolateral oblique (MLO) and craniocaudad (CC) views of both breasts were obtained. CAD: Full Field Digital Mammography with Computer Added Detection was performed. COMPARISON: Comparison is made with prior study dated July 01, 2021 and July 03, 2021. FINDINGS: Breast Composition: The breasts are heterogeneously dense, which may obscure small masses. There are no dominant masses or suspicious calcifications. Stable small benign-appearing bilateral axillary lymph nodes. No other significant abnormalities are identified. There has been no significant change since the prior study. BI/SCRN MAMM (CAD)W/FAVIOLA BILAT IMPRESSION: Stable bilateral screening mammogram. Yearly follow-up mammogram recommended. (A) ASSESSMENT CATEGORY: BIRADS Category 2: Benign. A letter regarding these results will be sent to the patient by the facility within 30 days. Approximately 10% of breast cancers are not detected by mammography. A normal mammogram should not delay biopsy of a clinically suspicious abnormality. [id number] Electronically Signed: Nando Weber MD at 10:14 EDT ,
== END | disposition home or self-care (01) ==
LOC: OPBI 08:08
PROVIDERS: PCP Family Medicine; Referring Provider Family Medicine; Visit Provider Family Medicine
DX: Z12.31 Encounter for screening mammogram for malignant neoplasm of breast (principal)
CPT/HCPCS: 77063; 77067

== ENCOUNTER → 2024-03-16 | Outpatient (CLI) | payer MEDICARE, SELFPAY ==
--- NOTE | 2024-03-16 13:25 | RAD_ITS ---
INDICATION: RULE OUT PNEUMONIA EXAMINATION/TECHNIQUE: X-RAY - XR Chest 2 Views COMPARISON: Prior study dated: 06/19/2014 FINDINGS: LINES/DEVICES: None. LUNGS: No consolidation, edema or effusion. No pneumothorax. MEDIASTINUM AND CARDIOVASCULAR STRUCTURES: Cardiac silhouette not enlarged. Atherosclerotic calcifications of the aortic arch. Central airways and mediastinal contour are unremarkable. BONES AND SOFT TISSUES: Surgical pins overlying the left humeral head. RAD/Chest PA and Lateral IMPRESSION: No radiographic evidence of acute cardiopulmonary disease. Electronically Signed: Dmitri Gonsalez MD at 15:32 EST ,
== END | disposition home or self-care (01) ==
LOC: MTRAD 13:23
PROVIDERS: PCP Family Medicine; Referring Provider Nurse Practitioner Family; Visit Provider Nurse Practitioner Family
DX: R05.9 Cough, unspecified (principal); R09.89 Other specified symptoms and signs involving the circulatory and respiratory systems
CPT/HCPCS: 71046

== ENCOUNTER → 2025-01-19 | Outpatient (CLI) | payer MEDICARE, SELFPAY ==
--- NOTE | 2025-01-19 06:56 | BI_ITS ---
EXAM: SCRN MAMM (CAD)W/FAVIOLA BILAT DATE: 01/19/2025 CLINICAL HISTORY: F, Age 69 y/o , SCREENING TECHNIQUE: Procedure Code: [id number] Modality: MG Procedure: SCRN MAMM (CAD)W/FAVIOLA BILAT COMPARISON: Prior exam(s) were compared FINDINGS: TISSUE DENSITY: The breasts are heterogeneously dense, which may obscure small masses. Bilateral Breast Mammographic Findings: No suspicious masses, calcifications or other abnormalities are identified. BI/SCRN MAMM (CAD)W/AFVIOLA BILAT IMPRESSION: No mammographic evidence of malignancy in either breast. OVERALL FINAL ASSESSMENT BI-RADS 1: NEGATIVE. RECOMMENDATION: Routine annual follow-up in 1 Year Additional Recommendation none A letter with findings and recommendations will be mailed to the patient. Reading Location: [id number]
--- OUTSIDE RECORDS SUMMARY | 2025-01-19 06:58 | XMS RPT_ITS | CCD ---
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 Silvana Ontiveros Primary Care Provider Dr. Ariel Child Attending Provider Unavailable Primary Care Provider Unavailabl e PROVIDER, UNKNOWN Referring Unavailable PROVIDER, UNKNOWN Referring Unavailable DC HAYES Attending Unav ailable Pcp RETAIL SUPPORT SPECIALIST, No Primary Care Provider Unavailabl e Unavailable Primary Care Provider Unavailabl e Silvana Arrieta DO Primary Care Provider [phone] MALYS, SILVANA A Primary Care Unavailable MIRANDA, COREY Referring Unavailable MALYS, SILVANA A Primary Care Unavailable MIRANDA, COREY Admitting Unavailable MIRANDA, COREY Attending Unavailable MERVIN, HALA Referring Unavailable LAKSHMI, AHILA Attending Unavailable SELF Referring Unavailable SCOOBYBRIAN Attending Unavailable SCOOBY BRIAN Referring Unavailable ESCUDERO, TANNA Referring Unavailable BENFERNERBRIAN Attending Unavailable BENNINGERBRIAN Attending Unavailable SELF Referring Unavailable SCOOBY, BRIAN Referring Unavailable LAKSHMI, AHILA Attending Unavailable RUSSELER BRIAN Attending Unavailable MALYS, SILVANA A Primary Care Unavailable MIRANDA, COREY Attending Unavailable MERVIN, HALA Referring Unavailable BENNINGER BRIAN Attending Unavailable SELF Referring Unavailable ESCUDERO, TANNA Referring Unavailable MIRANDA, COREY Attending Unavailable ESCUDERO, TANNA Referring Unavailable ESCUDERO, TANNA Referring Unavailable MALYS, SILVANA A Primary Care Unavailable SCOOBYBRIAN Attending Unavailable MERVIN, HALA Attending Unavailable LIAT CHACON Attending Unavailable LAKSHMI, AHILA Referring Unavailable LAKSHMI, AHILA Referring Unavailable JohnOdilia Attending Unavailable John, Odilia Referring Unavailable Malys, Silvana Primary Care Unavailable Malys, Silvana Referring Unavailable Leonarda Rae Consulting Unavailable Silvana Arrieta Primary Care Unavailable Silvana Arrieta Attending Unavailable Allergies Allergy Classification Reported Allergen(s) Allergy Type Date of Onset Reaction(s) Facility (3 sources) Amoxicillin Drug Allergy 12-28-[address] [facility] (3 sources) Clavulanate Drug Allergy 12-28-[address] [facility] (20 sources) Codeine; Translations: [CODEINE] Drug Allergy 12-25-19 21 Itching, Rash [facility] Work Phone: (20 sources) PHENobarbital; Translations: [PHENOBARBITAL] Drug Allergy 12-25-19 Hives, Itching, Rash [facility] Work Phone: (20 sources) Sulfonamides (Antibiotic); Translations: [SULFA (SULFONAMIDE ANTIBIOTICS)] Allergy to substance 12-25-19 Rash [facility] Work Phone: (20 sources) Sulfamethoxazole / Trimethoprim; Translations: [SULFAMETHOXAZOLE-TR IMETHOPRIM] Drug Allergy 07-23-19 23 Hives [facility] Work Phone: (1 source) Amoxicillin Drug Allergy 12-28-[address] [facility] (1 source) Clavulanate Drug Allergy 12-28-[address] [facility] (1 source) Codeine Drug Allergy 12-28-[address] [facility] (1 source) PHENobarbital Drug Allergy 12-28-[address] [facility] Medications Current Medications Medication Drug Class(es) Dates Sig (Normalized) Sig (Original) acetaminophen 325 mg / oxyCODONE hydrochloride 5 mg oral tablet (1 source) Opioid Agonist Start: 01-03-2025 End: 01-08-2025 take 1 tablet by mouth every six hours as needed for pain oxyCODONE-acetamin ophen (PERCOCET) 5-325 mg tablet Indications: Post-op pain Take 1 tablet by mouth every 6 hours as needed for pain for up to 5 days. 15 tablet 01/03/2025 01/08/2025 Active ALPRAZolam 0.5 mg oral tablet (20 sources) Benzodiazepine Start: 12-24-2020 ALPRAZolam (XANAX) 0.5 mg tablet 07/16/2022 Active amitriptyline hydrochloride 10 mg oral tablet (3 sources) Tricyclic Antidepressant Start: 12-27-2020 take 20 mg by mouth at bedtime Amitriptyline Active 20 MG PO AT BEDTIME December 27, 2020 12:00am amoxicillin 875 mg / clavulanate 125 mg oral tablet (1 source) Penicillin-class Antibacterial Start: 01-03-2025 End: 01-13-2025 take 1 tablet by mouth every twelve hours amoxicillin-clavul anate potassium (AUGMENTIN) 875-125 mg per tablet Take 1 tablet by mouth every 12 hours for 10 days. 20 tablet 01/03/2025 01/13/2025 Active Budesonide / formoterol (15 sources) Corticosteroid, beta2-Adrenergic Agonist Start: 09-22-2024 take 2 puff(s) by inhalation twice daily budesonide-formote rol (SYMBICORT) 160-4.5 mcg/actuation inhaler Indications: Severe persistent asthma without complication (HCC) , Asthma with chronic obstructive pulmonary disease (COPD) (HCC) , Cough variant asthma (HCC) , Chronic cough Inhale 2 puffs as instructed two times a day. 30.6 g 5 09/22/2024 Active 12 hr chlorpheniramine polistirex 1.6 mg/ml / HYDROcodone polistirex 2 mg/ml extended release suspension (20 sources) Histamine-1 Receptor Antagonist, Opioid Agonist HYDROcodone-chlorp heniramine (TUSSIONEX) 10-8 mg/5 mL suspension Take by mouth every 12 hours as needed. Active Comment on above: Take by mouth every 12 hours as needed. DULoxetine 30 mg delayed release oral capsule (3 sources) Serotonin and Norepinephrine Reuptake Inhibitor Start: 12-24-2020 take 1 capsule by mouth once daily Duloxetine Active 20 CAP PO DAILY December 24, 2020 12:00am 2 ml dupilumab 150 mg/ml auto-injector (16 sources) Interleukin-4 Receptor alpha Antagonist Start: 11-17-2024 End: 11-17-2025 inject 300 mg by subcutaneous injection every other week dupilumab (DUPIXENT PEN) 300 mg/2 mL pen injection Indications: Steroid-dependent asthma, severe persistent, uncomplicated (HCC) Inject 300 mg (1 pen) subcutaneously every 2 weeks. 4 mL 11 12/07/2024 10:54 AM EDT 11/17/2024 11/17/2025 Active Start: 11-17-2024 End: 11-19-2024 dupilumab (DUPIXENT PEN) 300 mg/2 mL pen injection Indications: Steroid-dependent asthma, severe persistent, uncomplicated (HCC) Inject 600 mg (2 pens) subcutaneously on day one, then inject 300 mg (1 pen) subcutaneously every 2 weeks. 4 mL 11/17/2024 11/19/2024 Active Start: 11-17-2024 End: 11-17-2024 inject 600 mg by subcutaneous injection once dupilumab (DUPIXENT PEN) 300 mg/2 mL pen injection Indications: Steroid-dependent asthma, severe persistent, uncomplicated (HCC) Inject 600 mg subcutaneously one time only for 1 dose. 4 mL 11/17/2024 11/17/2024 Active fluconazole 100 mg oral tablet (1 source) Azole Antifungal Start: 04-08-2024 End: 04-16-2024 take 1 tablet by mouth once daily, then take 2 tablets by mouth once daily, then take 1 tablet by mouth once daily fluconazole (DIFLUCAN) 100 mg tablet Indications: Thrush Take 1 tablet by mouth once daily for 8 days. Take two pills first day, then one pill daily for the rest of the week 8 tablet 04/08/2024 04/16/2024 Active FLUoxetine 20 mg oral capsule (20 sources) Serotonin Reuptake Inhibitor Start: 12-24-2020 End: 03-02-2024 take 20 mg by mouth once daily Fluoxetine Active 20 MG PO DAILY December 24, 2020 12:00am Comment on above: Take 20 mg by mouth once daily. one tab daily 30 actuat fluticasone furoate 0.1 mg/actuat / vilanterol 0.025 mg/actuat dry powder inhaler (3 sources) Corticosteroid, beta2-Adrenergic Agonist Start: 12-24-2020 Fluticasone Furoate-Vilanterol Active 1 INH INHALATION TWICE A DAY December 24, 2020 12:00am Hydrocodone-Guaife nesin (3 sources) Start: 12-27-2020 take 1 mL by mouth twice daily Hydrocodone-Guaifen esin Active 5 ML PO TWICE A DAY December 26, 2020 11:00pm Start: 12-27-2020 take 1 mL by mouth t wice daily Hydrocodone-Guaifenesin Active 5 ML PO TWICE A DAY December 27, 2020 12:00am 200 actuat levalbuterol 0.045 mg/actuat metered dose inhaler (20 sources) beta2-Adrenergic Agonist Start: 11-24-2022 take 2 puff(s) by inhalation every six hours as needed for wheezing levalbuterol tartrate HFA (XOPENEX HFA) 45 mcg/actuation inhaler Inhale 2 Puffs as instructed every 6 hours as needed for wheezing/shortness of breath. 1 Each 5 11/24/2022 Active Start: 05-07-2022 End: 11-24-2022 take 1-2 puff(s) by inhalation every four hours as needed for wheezing levalbuterol tartrate HFA (XOPENEX HFA) 45 mcg/actuation inhaler Indications: Chronic obstructive pulmonary disease, unspecified COPD type (HCC) Inhale 1-2 Puffs as instructed every 4 hours as needed for wheezing/shortness of breath. 1 Each 0 05/07/2022 11/24/2022 Discontinued Comment on above: Inhale 1-2 Puffs as instructed every 4 hours as needed for wheezing/shortness of breath. Inhale 2 Puffs as in structed every 6 hours as needed for wheezing/shortness of breath. meloxicam 15 mg oral tablet (1 source) Nonsteroidal Anti-inflammatory Drug Start: 07-23-19 End: 08-22-19 take 1 tablet by mouth once daily meloxicam (MOBIC) 15 mg tablet Take 1 tablet by mouth once daily. 30 tablet 1 07/22/2022 08/21/2022 Active Comment on above: Take 1 tablet by [facility] once daily. mupirocin 0.02 mg/mg topical ointment (11 sources) RNA Synthetase Inhibitor Antibacterial Start: 11-19-19 mupirocin (BACTROBAN) 2 % ointment Indications: Nasal crusting Patient to mix one 22g tube with 1L of saline and rinse nose twice a day. Seven 22g tubes equals 1 mos supply. . 22 g 5 11/18/2024 Active omeprazole 20 mg delayed release oral capsule (7 sources) Proton Pump Inhibitor Start: 12-31-19 take 1 capsule by mouth once daily omeprazole (PRILOSEC) 20 mg capsule Indications: Chronic cough TAKE 1 CAPSULE BY MOUTH EVERY DAY 90 capsule 1 12/30/2024 Active Start: 12-07-2024 End: 12-30-2024 take 1 tablet by mouth once daily Omeprazole Magnesium (PRILOSEC OTC) 20 mg tablet Indications: Chronic cough Take 1 tablet by mouth once daily. 30 tablet 1 12/07/2024 12/30/2024 Discontinued pramipexole dihydrochloride 0.125 mg oral tablet (20 sources) Nonergot Dopamine Agonist take 1 tablet by mouth three times daily pramipexole (MIRAPEX) 0.125 mg tablet Take 0.125 mg by mouth three times daily. one tab daily Active Comment on above: Take 0.125 mg by elena th three times daily. one tab daily sertraline 25 mg oral tablet (20 sources) Serotonin Reuptake Inhibitor take 1 tablet by mouth once daily sertraline (ZOLOFT) 25 mg tablet Take 25 mg by mouth once daily. Active tiotropium 0.018 mg inhalation powder (15 sources) Anticholinergic Start: take 1 capsule by inhalation once daily tiotropium (SPIRIVA) 18 mcg inhalation capsule Indications: Asthma with chronic obstructive pulmonary disease (COPD) (HCC) Inhale 1 capsule as instructed once daily. 90 capsule 3 09/22/2024 Active 30 actuat umeclidinium 0.0625 mg/actuat / vilanterol 0.025 mg/actuat dry powder inhaler (20 sources) Anticholinergic, beta2-Adrenergic Agonist Start: End: take 1 dose by inhalation once daily umeclidinium-vilan terol (ANORO ELLIPTA) 62.5-25 mcg/actuation inhaler Indications: Chronic obstructive pulmonary disease, unspecified COPD type (HCC) Inhale 1 Inhalation as instructed once daily. 60 Each 07/22/2023 08/18/2023 Discontinued Start: 03-06-2023 End: 07-22-2023 take 1 puff(s) by mouth once daily ANORO ELLIPTA 62.5-25 mcg/actuation inhaler Indications: Chronic obstructive pulmonary disease, unspecified COPD type (HCC) inhale 1 puff by mouth and into the lungs once daily 60 Each 03/06/2023 07/22/2023 Discontinued Start: 05-26-2022 End: 03-06-2023 take 1 dose by inhalation once daily umeclidinium-vilanterol (ANORO ELLIPTA) 62.5-25 mcg/actuation inhaler Indications: Chronic obstructive pulmonary disease, unspecified COPD type (HCC) Inhale 1 Inhalation as instructed once daily. 1 Each 3 10/23/2022 03/06/2023 Discontinued Comment on above: Inhale 1 Inhalation as instructed once daily. inhale 1 puff by elena th and into the lungs once daily vitamin b12 1 mg/ml injectable solution (20 sources) Vitamin B12 Start: 12-24-2020 cyanocobalamin 1,000 mcg/mL Inject intramuscularly. 12/24/2020 Active Start: 12-24-2020 inject 1000 ug by in tramuscular injection every month Cyanocobalamin (Vitamin B-12) Active 1000 MCG IM EVERY MONTH December 24, 2020 12:00am Comment on above: Inject intramuscular ly. Completed/Discontinued Medications Medication Drug Class(es) Dates Sig (Normalized) Sig (Original) acetaminophen 500 mg oral tablet (1 source) Start: 01-03-2025 End: 01-03-2025 take 1 dose by mouth once 1,000 mg, ORAL, PRE-OP ONCE, 1 dose, On Thu01/03/25 at 1000, Preprocedure Start: 01-03-2025 End: 01-03-2025 take 1 dose by mouth once 1,000 mg, ORAL, PRE-OP ONCE, 1 dose, On Thu01/03/25 at 1000, Preprocedure albuterol 0.83 mg/ml inhalation solution (1 source) beta2-Adrenergic Agonist Start: 01-03-2025 End: 01-04-2025 take 2.5 mg by inhalation every six hours as needed 2.5 mg, INHALATION, EVERY 6 HOURS NEEDED, Starting on Thu01/03/25 at 1452, Until Thu01/04/25 at 0303, wheezing/shortness of breath calcium chloride 0.0014 meq/ml / potassium chloride 0.004 meq/ml / sodium chloride 0.103 meq/ml / sodium lactate 0.028 meq/ml injectable solution (2 sources) Start: 01-03-2025 End: 01-04-2025 take 30 mL intravenously every hour 30 mL/hr, INTRAVENOUS, CONTINUOUS, Starting on Thu01/03/25 at 1300, Until Thu01/04/25 at 0303 carvedilol 3.125 mg oral tablet (20 sources) alpha-Adrenergic Aretha, beta-Adrenergic Aretha End: 03-02-2024 take 1 tablet by mouth twice daily at mealtime carvedilol (COREG) 3.125 mg tablet Take 3.125 mg by mouth twice daily with meals. Take one(1) tablet two(2) times daily. 03/02/2024 Discontinued Comment on above: Take 3.125 mg by elena th twice daily with meals. Take one(1) tablet two(2) times daily. diphenhydrAMINE (1 source) Histamine-1 Receptor Antagonist Start: 01-03-2025 End: 01-04-2025 25 mg, INTRAVENOUS, NEEDED, 1 dose, Starting on Thu01/03/25 at 1250, Until Thu01/04/25 at 0303, Nausea/Vomiting - First Line - Parenteral ergocalciferol, vitamin D2, (CALCIFEROL ORAL) (20 sources) End: 03-02-2024 take 1 tablet by mouth every week ergocalciferol, vitamin D2, (CALCIFEROL ORAL) Take by mouth. one tab weekly 50,000 units 03/02/2024 Discontinued take 1 tablet by mouth every wee k ergocalciferol, vitamin D2, (CALCIFEROL ORAL) Take by mouth. one tab weekly 50,000 units Active take 1 tablet by mouth every wee k ergocalciferol, vitamin D2, (CALCIFEROL ORAL) Take by mouth. one tab weekly 50,000 units 0 Active Comment on above: Take by mouth. one t ab weekly 50,000 units famotidine 40 mg oral tablet (1 source) Histamine-2 Receptor Antagonist Start: 07-23-19 End: 09-23-19 famotidine (PEPCID) 40 mg tablet 07/22/2024 09/22/2024 Discontinued 1 ml fentaNYL 0.05 mg/ml injection (1 source) Opioid Agonist Start: 01-04-20 End: 01-05-20 50 mcg, INTRAVENOUS, NEEDED, Starting on Thu01/03/25 at 1250, Until Thu01/04/25 at 0303, FIRST LINE THERAPY for moderate or severe pain, FIRST LINE THERAPY Every 5 minutes, To a Maximum Total Dose of 100 mcg Hold for respiratory rate less than 8 USE FOR MODERATE PAIN ONLY IF PATIENT IS UNABLE TO TOLERATE ORAL THERAPY fluticasone / salmeterol (20 sources) Corticosteroid, beta2-Adrenergic Agonist Start: 04-22-20 End: 08-04-19 take 1 puff(s) by inhalation twice daily fluticasone-salmeter ol (ADVAIR, WIXELA) 250-50 mcg/dose inhaler Indications: Chronic obstructive pulmonary disease, unspecified COPD type (HCC) Inhale 1 Puff as instructed two times a day. 60 Each 11 04/22/2024 08/03/2024 Discontinued Start: 04-22-2024 take 1 puff(s) by in halation twice daily fluticasone-salmeterol (ADVAIR, WIXELA) 250-50 mcg/dose inhaler Indications: Chronic obstructive pulmonary disease, unspecified COPD type (HCC) Inhale 1 Puff as instructed two times a day. 60 Each 11 04/22/2024 Active Start: 02-02-2024 End: 04-21-2024 take 1 puff(s) by mouth twice daily fluticasone-salmeterol (ADVAIR, WIXELA) 250-50 mcg/dose inhaler Indications: Chronic obstructive pulmonary disease, unspecified COPD type (HCC) inhale 1 puff by mouth and into the lungs twice a day 60 Each 2 02/02/2024 04/21/2024 Discontinued Start: 02-02-2024 take 1 puff(s) by mo uth twice daily fluticasone-salmeterol (ADVAIR, WIXELA) 250-50 mcg/dose inhaler Indications: Chronic obstructive pulmonary disease, unspecified COPD type (HCC) inhale 1 puff by mouth and into the lungs twice a day 60 Each 2 02/02/2024 Active Start: 08-18-2023 End: 02-02-2024 take 1 puff(s) by inhalation twice daily fluticasone-salmeterol (WIXELA INHUB) 250-50 mcg/dose inhaler Indications: Chronic obstructive pulmonary disease, unspecified COPD type (HCC) Inhale 1 Puff as instructed two times a day. 1 Each 4 08/18/2023 02/02/2024 Discontinued Start: 08-18-2023 take 1 puff(s) by in halation twice daily fluticasone-salmeterol (WIXELA INHUB) 250-50 mcg/dose inhaler Indications: Chronic obstructive pulmonary disease, unspecified COPD type (HCC) Inhale 1 Puff as instructed two times a day. 1 Each 4 08/18/2023 Active 30 actuat fluticasone furoate 0.1 mg/actuat / umeclidinium 0.0625 mg/actuat / vilanterol 0.025 mg/actuat dry powder inhaler (12 sources) Anticholinergic, Corticosteroid, beta2-Adrenergic Agonist Start: 07-26-2024 End: 09-22-2024 take 1 puff(s) by inhalation once daily dywgvvdlliv-sxnihxxev-qdurspjj (TRELEGY ELLIPTA) 100-62.5-25 mcg inhalation powder Indications: Chronic obstructive pulmonary disease, unspecified COPD type (HCC) Inhale 1 puff as instructed once daily. 180 each 3 08/03/2024 09/22/2024 Discontinued gabapentin 300 mg oral capsule (15 sources) Anti-epileptic Agent Start: 03-02-2024 End: 06-22-2024 take 1 capsule by mouth once daily at bedtime gabapentin (NEURONTIN) 300 mg capsule Take 1 capsule by mouth daily at bedtime for 90 days. 30 capsule 2 03/02/2024 06/22/2024 Discontinued 0.5 ml HYDROmorphone hydrochloride 1 mg/ml prefilled syringe (1 source) Opioid Agonist Start: 01-03-2025 End: 01-04-2025 0.5 mg, INTRAVENOUS, NEED ED, Starting on Thu01/03/25 at 1250, Until Thu01/04/25 at 0303, SECOND LINE THERAPY for moderate or severe pain, SECOND LINE THERAPY Every 30 minutes to Total Dose of 1 mg Hold for respiratory rate less than 8 USE FOR MODERATE PAIN ONLY IF PATIENT IS UNABLE TO TOLERATE ORAL THERAPY Caution: IV hydromorphone is approximately 8 times MORE POTENT than IV morphine. For example, hydromorphone 1mg IV = morphine 8mg IV ipratropium bromide 0.021 mg/actuat metered dose nasal spray (20 sources) Anticholinergic Start: 06-23-2024 End: 12-28-2024 Ipratropium Broad Top (ATROVEN T) 21 mcg (0.03 %) nasal spray Use 2 Sprays in the nose every 8 hours as needed (FOR RUNNY NOSE). 60 mL 2 06/23/2024 12/28/2024 Discontinued Start: 03-02-2024 End: 06-22-2024 ipratropium bromide (ATROVEN T) 42 mcg (0.06 %) nasal spray Use 2 Sprays in the nose three times a day as needed (runny nose). 15 mL 4 03/25/2024 06/22/2024 Discontinued milnacipran (18 sources) Serotonin and Norepinephrine Reuptake Inhibitor Start: 07-09-2022 End: 03-02-2024 SAVELLA 12.5 mg (5)-25 mg(8)-50 mg(42) DsPk as directed. 07/09/2022 03/02/2024 Discontinued Start: 07-09-2022 SAVELLA 12.5 m g (5)-25 mg(8)-50 mg(42) DsPk as directed. 07/09/2022 Active Start: 07-09-2022 SAVELLA 12.5 m g (5)-25 mg(8)-50 mg(42) DsPk as directed. 0 07/09/2022 Active Comment on above: as directed. mometasone furoate 0.05 mg/actuat metered dose nasal spray (20 sources) Corticosteroid Start: 12-21-2023 End: 09-22-2024 take 2 spray(s) nasal route once daily mometasone (NASONEX) 50 mcg/actuation nasal spray USE 2 SPRAYS NASALLY ONCE DAILY 17 g 12/21/2023 09/22/2024 Discontinued Start: 11-24-2022 End: 12-21-2023 mometasone (NASONEX) 50 mcg/ actuation nasal spray Use 2 Sprays in the nose once daily. 17 g 3 07/22/2023 12/21/2023 Discontinued Comment on above: Use 2 Sprays in the nose once daily. 2 ml ondansetron 2 mg/ml injection (1 source) Serotonin-3 Receptor Antagonist Start: End: 09-10-202 5 4 mg, INTRAVENOUS, NEEDED, 1 dose, Starting on Thu01/03/25 at 1250, Until Thu01/04/25 at 0303, Nausea/Vomiting - Second Line - Parenteral, Give IV push over 2 minutes oxyCODONE hydrochloride 5 mg oral tablet (1 source) Opioid Agonist Start: 5 End: 5 5-10 mg, ORAL, NEEDED, 1 dose, Starting on Thu01/03/25 at 1250, Until Thu01/04/25 at 0303, Moderate Pain (4-6) - Enteral pantoprazole 40 mg delayed release oral tablet (20 sources) Proton Pump Inhibitor Start: 3 End: 5 take 1 tablet by mouth once daily pantoprazole DR (PROTONIX) 40 mg tablet Take 40 mg by mouth once daily. 06/11/2022 09/22/2024 Discontinued Start: 01-02-2021 End: 09-09-2021 take 1 tablet by mouth once daily Pantoprazole Discontinued 0 .ROUTE .COMPLEX August 02, 2021 2:49pm September 09, 2021 8:11am take 1 tablet by mouth once daily Comment on above: Take 40 mg by mouth once daily. predniSONE 10 mg oral tablet (16 sources) Start: 12-08-2024 End: 12-28-2024 predniSONE (DELTASONE) 10 mg tablet Take 4 tablets daily for 5 days then 2 tablets daily for 5 days then 1 tablet daily for 5 days then stop. 35 tablet 12/08/2024 12/28/2024 Discontinued Start: 11-24-2022 End: 03-02-2024 take 2 tablets by mouth once daily at mealtime predniSONE (DELTASONE) 20 mg tablet Take 2 tablets by mouth once daily. Take with food 10 tablet 11/24/2022 03/02/2024 Discontinued Comment on above: Take 2 tablets by mo ut once daily. Take with food promethazine hydrochloride 12.5 mg oral tablet (1 source) Phenothiazine Start: 01-04-20 End: 01-04-20 take 1 dose by mouth once 12.5 mg, ORAL, PRE-OP ONCE, 1 dose, On Thu01/03/25 at 1000, Preprocedure Start: 01-03-2025 End: 01-03-2025 take 1 dose by mouth once 12.5 mg, ORAL, PRE-OP ONCE, 1 dose, On Thu01/03/25 at 1000, Preprocedure 1 ml triamcinolone acetonide 40 mg/ml injection (6 sources) Corticosteroid Start: 07-21-2024 End: 07-21-2024 triamcinolone acetonide 80 mg injection (KeNALog 40) Start: 07-21-2024 End: 07-21-2024 80 mg, OTHER, ONCE, 1 dose, On Janie 07/21/24 at 1430 Start: 06-23-2024 End: 06-23-2024 triamcinolone acetonide 80 m g injection (KeNALog 40) Start: 06-23-2024 End: 06-23-2024 80 mg, OTHER, ONCE, 1 dose, On Janie 06/23/24 at 1400 Start: 05-26-2024 End: 05-26-2024 triamcinolone acetonide 80 m g injection (KeNALog 40) Start: 05-26-2024 End: 05-26-2024 80 mg, OTHER, ONCE, 1 dose, On Janie 05/26/24 at 1330 Problems Active Problems Problem Classification Problem Date Documented Date Episodic/Chronic Acute bronchitis (3 sources) Acute bronchitis; Translations: [Acute bronchitis, unspecified] 07-27-2019 Episodic Anxiety disorders (8 sources) Anxiety; Translations: [Anxiety disorder, unspecified] Onset: 12-10-2024 12-27-2020 Chronic Asthma (20 sources) Uncomplicated severe persistent asthma; Translations: [Severe persistent asthma, uncomplicated] Onset: 09-22-2024 09-22-2024 Chronic Chronic obstructive pulmonary disease and bronchiectasis (18 sources) Chronic obstructive lung disease; Translations: [Chronic obstructive pulmonary disease, unspecified] Onset: 05-02-2021 Chronic Chronic obstructive pulmonary disease and bronchiectasis (1 source) Chronic obstructive pulmonary disease and bronchiectasis; Translations: [Asthma with chronic obstructive pulmonary disease (COPD) (HCC)] Onset: 09-22-2024 Disorders of lipid metabolism (7 sources) Hyperlipidemia; Translations: [Hyperlipidemia, unspecified] Onset: 12-03-2023 12-13-2024 Chronic Esophageal disorders (20 sources) Laryngopharyngeal reflux; Translations: [Gastro-esophageal reflux disease without esophagitis] Onset: 03-02-2024 03-02-2024 Chronic Headache; including migraine (6 sources) Headache; Translations: [Headaches] Onset: 12-13-2024 12-13-2024 Episodic Mood disorders (8 sources) Depressive disorder; Translations: [Depression] Onset: 12-10-2024 12-27-2020 Chronic Mycoses (1 source) Candidiasis of mouth; Translations: [Candidal stomatitis] 04-08-2024 Episodic Nausea and vomiting (7 sources) Postoperative nausea and vomiting; Translations: [Nausea with vomiting, unspecified] Onset: 12-13-2024 12-13-2024 Episodic Osteoporosis (1 source) Age-related osteoporosis without current pathological fracture; Translations: [Age-related osteoporosis without current pathological fracture] Onset: 01-12-2025 Chronic Other connective tissue disease (1 source) Pain in both feet; Translations: [Pain in right foot] Episodic Other connective tissue disease (1 source) Plantar fasciitis; Translations: [Plantar fascial fibromatosis] Episodic Other injuries and conditions due to external causes (2 sources) Allergic condition; Translations: [Allergy, unspecified, sequela] 11-24-2022 Episodic Other lower respiratory disease (2 sources) Nodule of lung; Translations: [Solitary pulmonary nodule] Episodic Other lower respiratory disease (3 sources) Dyspnea; Translations: [Shortness of breath] Episodic Other lower respiratory disease (2 sources) Wheezing; Translations: [Wheezing] 03-02-2024 Episodic Other nervous system disorders (3 sources) Sensory neuropathy; Translations: [Polyneuropathy, unspecified] 05-26-2024 Chronic Other nervous system disorders (1 source) Polyneuropathy, unspecified; Translations: [Sensory neuropathy] Onset: 09-15-2024 Chronic Other nervous system disorders (3 sources) Disorder of vagus nerve; Translations: [Disorders of vagus nerve] 05-26-2024 Episodic Other nervous system disorders (1 source) Postoperative pain ; Translations: [Other acute postprocedural pain] 01-03-2025 Episodic Other screening for suspected conditions (not mental disorders or infectious disease) (1 source) Encounter for screening mammogram for malignant neoplasm of breast; Translations: [Encounter for screening mammogram for malignant neoplasm of breast] Onset: 01-12-2025 Episodic Other upper respiratory disease (20 sources) Chronic rhinitis; Translations: [Chronic rhinitis] Onset: 03-02-2024 03-02-2024 Chronic Other upper respiratory disease (2 sources) Chronic pharyngitis; Translations: [Chronic pharyngitis] 03-02-2024 Chronic Other upper respiratory disease (3 sources) Allergic rhinitis due to pollen; Translations: [Allergic rhinitis due to pollen] 05-26-2024 Chronic Other upper respiratory disease (2 sources) Vasomotor rhinitis; Translations: [Vasomotor rhinitis] 11-18-2024 Chronic Other upper respiratory disease (1 source) Vasomotor rhinitis; Translations: [Vasomotor rhinitis] Onset: 01-03-2025 Chronic Other upper respiratory disease (1 source) Chronic rhinitis; Translations: [Chronic rhinitis] Onset: 03-02-2024 Chronic Other upper respiratory disease (1 source) Chronic pharyngitis; Translations: [Chronic pharyngitis] Onset: 06-22-2024 Chronic Other upper respiratory disease (2 sources) Hoarse; Translations: [Dysphonia] 03-02-2024 Episodic Other upper respiratory disease (9 sources) Laryngeal spasm; Translations: [Laryngeal spasm] Onset: 12-13-2024 05-26-2024 Episodic Other upper respiratory disease (2 sources) Deviated nasal septum; Translations: [Deviated nasal septum] 06-23-2024 Episodic Other upper respiratory disease (2 sources) Nasal discharge; Translations: [Other specified disorders of nose and nasal sinuses] 11-18-2024 Episodic Other upper respiratory disease (1 source) Crusting on nose; Translations: [Other specified disorders of nose and nasal sinuses] 11-18-2024 Episodic Other upper respiratory disease (1 source) Hypertrophy of nasal turbinates; Translations: [Hypertrophy of nasal turbinates] 11-18-2024 Episodic Other upper respiratory disease (1 source) Hypertrophy of nasal turbinates; Translations: [Hypertrophy of inferior nasal turbinate] Onset: 01-03-2025 Episodic Other upper respiratory disease (1 source) Deviated nasal septum; Translations: [Deviated nasal septum] Onset: 01-03-2025 Episodic Other upper respiratory disease (2 sources) Other specified disorders of nose and nasal sinuses; Translations: [Rhinorrhea] Onset: 11-18-2024 Episodic Other upper respiratory disease (2 sources) Laryngeal spasm; Translations: [Laryngeal spasm] Onset: 09-15-2024 Episodic Other upper respiratory infections (20 sources) Chronic pansinusitis; Translations: [Chronic pansinusitis] Onset: 09-22-2024 09-22-2024 Chronic Residual codes; unclassified (1 source) Other specified postprocedural states; Translations: [Post-operative nausea and vomiting] Onset: 12-13-2024 Episodic Unclassified (1 source) Radiology NM Onset: 06-17-2022 Unclassified (4 sources) Autogenerated Problem Onset: 12-04-2024 12-04-2024 Unclassified (1 source) Headaches; Translations: [Headaches] Onset: 12-13-2024 Unclassified (1 source) Cough, unspecified; Translations: [Cough, unspecified] Onset: 04-11-2024 Past or Other Problems Problem Classification Problem Date Documented Da te Episodic/Chronic Other aftercare (20 sources) Long-term current use of inhaled steroid; Translations: [shelter (current) use of inhaled steroids] Onset: 09-22-2024 09-22-2024 Episodic Other aftercare (1 source) intermediate manager (current) use of inhaled steroids; Translations: [shelter current use of inhaled steroid] Onset: 09-22-2024 Episodic Other injuries and conditions due to external causes (1 source) Allergy, unspecified, sequela; Translations: [Allergy, sequela] Onset: 03-02-2024 Episodic Other lower respiratory disease (20 sources) Chronic cough; Translations: [Chronic cough] Onset: 03-02-2024 Episodic Other lower respiratory disease (20 sources) Multiple nodules of lung; Translations: [Other nonspecific abnormal finding of lung field] Onset: 09-22-2024 Episodic Other lower respiratory disease (3 sources) Other nonspecific abnormal finding of lung field; Translations: [Lung nodules] Onset: 06-17-2022 Episodic Other lower respiratory disease (1 source) Wheezing; Translations: [Wheezing] Onset: 06-22-2024 Episodic Other nervous system disorders (1 source) Disorders of vagus nerve; Translations: [Vagal nerve sensitivity] Onset: 09-15-2024 Episodic Other upper respiratory disease (1 source) Dysphonia; Translations: [Hoarse voice quality] Onset: 06-22-2024 Episodic Screening and history of mental health and substance abuse codes (20 sources) Ex-smoker; Translations: [Personal history of nicotine dependence] Onset: 09-22-2024 Episodic Results Test Name Value Interpretation Reference Range Facility [id number] 01-12-2025 CNOV Office Visit (OTOLMN ) SULAIMAN ESTES ([id number]) 1955 F Date Time Provider Department 01/12/25 9:30 AM COREY MIRANDA OTOLMN During your visit today, we recorded the following information about you: Corey Miranda MD 01/12/2025 10:02 AM Signed SECTION OF RHINOLOGY, SINUS AND SKULL BASE [facility] This patient is a new patient. They are seen at the request of: No referring provider defined for this encounter. CC: runny nose HPI: Sulaiman Estes is a 69 year old female presenting for evaluation of runny nose.. She is s/p septoplasty, turbinat ereduction, and rhinaer procedure. Patient reports being . PHYSICAL EXAM: GENERAL: No acute distress, calm and cooperative, alert and oriented. HEAD/FACE: Normocephalic, atraumatic, facial structures stable and symmetric. EYES: Extraocular movements intact. No ocular lesions noted. EARS: No auricular deformity noted. ORAL CAVITY/OROPHARYNX: No mucosal lesions noted, tongue/uvula midline, tonsils unremarkable. NECK: No obvious masses, full range of motion present. RESPIRATORY: Unlabored breathing on room air. Voice is strong. No stridor or other noisy breathing. NEUROLOGIC: Cranial nerves 3-12 are grossly intact. PROCEDURE NOTE: Procedure: Nasal endoscopy with debridement Indication: Rhinorrhea Findings: After topical application of lidocaine and Afrin sprays for anesthesia and decongestion, rigid nasal endoscopy was performed. Splints were removed. Septum is intact. No active bleeding. Turbinates healing well. The patient tolerated the procedure well. ASSESSMENT: Sulaiman Estes is a 69 year old female with: Right sided septal deviation Bilateral ITH Vasomotor Rhinitis 4. S/p septoplasty, rhinaer and inf turbinat ereduction. PLAN: Removed splints Restart saline irrigations Start flonase. Patient doing well / f/u in 4 weeks with Corey Lacey MD 01/12/2025 12:08 PM Signed Addended by: COREY MIRANDA on: 01/12/2025 12:08 PM Modules accepted: Orders Allergies As of Date: 01/12/2025 Noted Allergy Reaction CODEINE 12/24/2020 9 - Itching 2 - Rash PHENOBARBITAL 12/24/2020 4 - Hives 9 - Itching 2 - Rash SULFAMETHOXAZOLE-TRIME THOPRIM 07/22/2022 4 - Hives SULFA (SULFONAMIDE ANTIBIOTICS) 12/24/2020 2 - Rash Date Reviewed: 01/12/2025 Reviewed by: Nhi Carlson RN - Fully Assessed Primary Visit Diagnosis:Hypertrophy of inferior nasal turbinate [J34.3] Other Visit Diagnoses:Deviated nasal septum [J34.2] Rhinorrhea [J34.89] Order(s):fluticasone (FLONASE ALLERGY RELIEF) 50 mcg/actuation nasal sprayUse 2 sprays in each nostril once daily.Disp: 1 eachRfl: 11 Prescriptions as of 01/12/2025 - HYDROcodone-chlorpheni ramine (TUSSIONEX) 10-8 mg/5 mL suspension Take 1 mL by mouth every 12 hours as needed. - fluticasone (FLONASE ALLERGY RELIEF) 50 mcg/actuation nasal spray Use 2 sprays in each nostril once daily. - amoxicillin-clavulanat e potassium (AUGMENTIN) 875-125 mg per tablet Take 1 tablet by mouth every 12 hours for 10 days. - omeprazole (PRILOSEC) 20 mg capsule TAKE 1 CAPSULE BY MOUTH EVERY DAY - mupirocin (BACTROBAN) 2 % ointment Patient to mix one 22g tube with 1L of saline and rinse nose twice a day. Seven 22g tubes equals 1 mos supply. . - dupilumab (DUPIXENT PEN) 300 mg/2 mL pen injection Inject 300 mg (1 pen) subcutaneously every 2 weeks. - budesonide-formoterol (SYMBICORT) 160-4.5 mcg/actuation inhaler Inhale 2 puffs as instructed two times a day. - tiotropium (SPIRIVA) 18 mcg inhalation capsule Inhale 1 capsule as instructed once daily. - sertraline (ZOLOFT) 25 mg tablet Take 25 mg by mouth once daily. - levalbuterol tartrate HFA (XOPENEX HFA) 45 mcg/actuation inhaler Inhale 2 Puffs as instructed every 6 hours as needed for wheezing/shortness of breath. - cyanocobalamin 1,000 mcg/mL Inject intramuscularly. - ALPRAZolam (XANAX) 0.5 mg tablet - pramipexole (MIRAPEX) 0.125 mg tablet Take 0.125 mg by mouth three times daily. one tab daily - HYDROcodone-chlorpheni ramine (TUSSIONEX) 10-8 mg/5 mL suspension Take by mouth every 12 hours as needed. Problem List As Of Date 01/12/2025 Noted Resolved LPRD (laryngopharyngeal reflux disease) [K21.9] 03/02/2024 Chronic cough [R05.3] 03/02/2024 Chronic rhinitis [J31.0] 03/02/2024 Severe persistent asthma without complication (*09/22/2024 Asthma with chronic obstructive pulmonary disea*09/22/2024 History of smoking 10-25 pack years [Z87.891] 09/22/2024 Pulmonary nodules [R91.8] 09/22/2024 intermediate manager current use of inhaled steroid [Z79.5*09/22/2024 Cough variant asthma (HCC) [J45.991] 09/22/2024 Chronic pansinusitis [J32.4] 09/22/2024 Anxiety [F41.9] 12/10/2024 Hyperlipidemia [E78.5] 12/03/2023 COPD (chronic obstructive pulmonary disease) ca*05/02/2021 Depressive disorder [F32.A] (more content not included)... Normal [facility] ANES POSTPROC EVALon 025 ANES POSTPROC EVAL HNO ID: [id number] Author: ZACHARY SWANSON MD Service: Anesthesiology Author Type: Anesthesiologist Type: Anesthesia Postprocedure Evaluation Filed: 01/03/2025 13:35 Note Text: POST ANESTHESIA EVALUATION NOTE : 1955 Procedure Summary Date: 01/03/25 Room / Location: [address] Anesthesia Start: 1107 Anesthesia Stop: 1247 Procedures: NASAL/SINUS ENDOSCOPY, SURGICAL; W/ DESTRUCTION BY RF ABLATION, POSTERIOR NASAL NERVE (Bilateral: Nose) ABLATION, INFERIOR TURBINATES, BY TISSUE VOLUME REDUCTION; SUBMUCOSAL (Bilateral: Nose) ENDOSCOPIC SEPTOPLASTY (Nose) Diagnosis: Hypertrophy of inferior nasal turbinate Deviated nasal septum Rhinorrhea Vasomotor rhinitis (Hypertrophy of inferior nasal turbinate [J34.3]) (Deviated nasal septum [J34.2]) (Rhinorrhea [J34.89]) (Vasomotor rhinitis [J30.0]) Surgeons: Corey Miranda MD Responsible Provider: Zachary Swanson MD Anesthesia Type: general ASA Status: 3 Anesthesia Type: general Airway Type: ETT Last Vitals Vitals Value Taken Time BP 166/83 01/03/25 13:30 Temp 36 ?C (96.8 ?F) 01/03/25 12:45 Pulse 115 01/03/25 13:33 Resp 16 01/03/25 13:15 SpO2 97 % 01/03/25 13:33 Vitals shown include unfiled device data. Post Anesthesia Patient Status Patient Evaluation: PACU. PACU/ICU Patient Condition: stable. Anticipated Disposition: phase 2 then home. Neurological Status: aware and responsive. Pulmonary Status: breathing comfortably on room air Airway Control: returned to baseline unsupported. Cardiovascular Status: stable. Pain Management: clinically adequate Postoperative Hydration: acceptable. Intraoperative Events: no significant anesthesia events Post Operative Nausea/Vomiting Status: no significant post operative nausea or vomiting Recommendation: continue current plan of care. Anesthesia Observations No Documentation SIGNATURE: Zachary Swanson MD PATIENT NAME: uSlaiman Estes DATE: January 03, 2025 TIME: 1:35 PM CSN: [id number] [facility] ANES PRE-OPon 01-03-2025 ANES PRE-OP HNO ID: [id number] Author: ZACHARY SWANSON MD Service: Anesthesiology Author Type: Anesthesiologist Type: Anesthesia Preprocedure Evaluation Filed: 01/03/2025 09:44 Note Text: ANESTHESIOLOGY DAY OF SURGERY NOTE : 1955 Procedure Information Date/Time: 01/03/25 1040 Procedures: NASAL/SINUS ENDOSCOPY, SURGICAL; W/ DESTRUCTION BY RF ABLATION, POSTERIOR NASAL NERVE (Bilateral: Nose) ABLATION, INFERIOR TURBINATES, BY TISSUE VOLUME REDUCTION; SUBMUCOSAL (Bilateral) ENDOSCOPIC SEPTOPLASTY (Nose) Location: [address] Surgeons: Corey Miranda MD Estimated body mass index is 25.78 kg/m? as calculated from the following: Height as of 12/13/24: 152.4 cm (5'). Weight as of 12/13/24: 59.9 kg (132 lb). Most recent hematocrit and potassium results: Hematocrit 41.4 09/24/2024 Relevant Problems ANESTHESIA (+) Post-operative nausea and vomiting NEURO-PSYCH (+) Headaches PULMONARY (+) Asthma with chronic obstructive pulmonary disease (COPD) (HCC) (+) Cough variant asthma (HCC) (+) Severe persistent asthma without complication (HCC) I - PHYSICAL EVALUATION AIRWAY Patient intubated: No. Tracheostomy tube not present Mallampati: II. TM distance: >3 FB. Neck ROM: full ROM without neurological symptoms. Mouth opening: >3 FB. Short neck: no. Thick neck: no DENTAL Dental findings: teeth intact. Additional exam findings: yes. CARDIOVASCULAR Normal cardiovascular observations. Rhythm: regular Rate: normal PULMONARY Normal pulmonary observations. Breath sounds clear to auscultation. II - ANESTHESIA PLAN ASA Score: 3 Anesthetic Plan: general Airway type: ETT The patient is not a current smoker. NPO Status: adequate Monitoring Plan Monitoring plan: standard ASA. Post Procedure Analgesic Plan Postoperative analgesic plan: parenteral or oral opioids. Informed Consent Anesthetic risks, benefits, alternatives, personnel and consent discussed: yes. Patient / Responsible Green Party agrees to proceed: yes Patient / Surrogate agrees to blood products: blood products not planned DNR status not reviewed with patient and/or family prior to surgery. Significant changes in the patient condition since the History and Physical, not otherwise documented in primary service progress note: no. Potential Anesthesia issues that may suggest increased risk of complications or contraindication to planned procedure: none. Discussed the possibility of lip / dental damage: yes No vitals data found for the desired time range. Facility-Administered Medications as of 01/03/2025 Medication Dose Route Frequency scopolamine (delivers 1 mg over 3 days) 1 patch (TRANSDERM-SCOP) 1 patch TRANSDERMAL q 72 HR And [START ON 01/06/2025] scopolamine - REMOVE PATCH OTHER q 72 HR And scopolamine - VERIFY patch OTHER q 8 H Outpatient Medications as of 01/03/2025 Medication Sig [] dupilumab (DUPIXENT PEN) 300 mg/2 mL pen injection Inject 600 mg (2 pens) subcutaneously on day one, then inject 300 mg (1 pen) subcutaneously every 2 weeks. dupilumab (DUPIXENT PEN) 300 mg/2 mL pen injection Inject 300 mg (1 pen) subcutaneously every 2 weeks. budesonide-formoterol (SYMBICORT) 160-4.5 mcg/actuation inhaler Inhale 2 puffs as instructed two times a day. tiotropium (SPIRIVA) 18 mcg inhalation capsule Inhale 1 capsule as instructed once daily. sertraline (ZOLOFT) 25 mg tablet Take 25 mg by mouth once daily. levalbuterol tartrate HFA (XOPENEX HFA) 45 mcg/actuation inhaler Inhale 2 Puffs as instructed every 6 hours as needed for wheezing/shortness of breath. (Patient not taking: Reported on 09/22/2024) cyanocobalamin 1,000 mcg/mL Inject intramuscularly. ALPRAZolam (XANAX) 0.5 mg tablet pramipexole (MIRAPEX) 0.125 mg tablet Take 0.125 mg by mouth three times daily. one tab daily HYDROcodone-chlorpheni ramine (TUSSIONEX) 10-8 mg/5 mL suspension Take by mouth every 12 hours as needed. (Patient taking differently: Take 2 mL by mouth two times a day.) I have interviewed and examined the patient. I have reviewed the medical record and/or the pre-anesthesia evaluation, pertinent labs, and test results. This contains updated information obtained within 48 hours of Surgery/Procedure. SIGNATURE: Zachary Swanson MD PATIENT NAME: Sulaiman Estes DATE: January 03, 2025 TIME: 9:44 AM CSN: [id number] [facility] OPERATIVE NOon 01-03-2025 OPERATIVE NO HNO ID: [id number] Author: COREY MIRANDA MD Service: Otolaryngology Author Type: Resident Type: Operative Report Filed: 01/05/2025 12:27 Note Text: Attestation signed by Corey Miranda MD at 01/05/2025 12:27 PM I was present and available for the entire surgical procedure with the resident and fellow physician assisting under direct supervision. Corey Miranda MD [facility] OPERATIVE/PROCEDURE REPORT LOG ID: [id number] SURGERY/PROCEDURE DATE: 01/03/2025 INCISION/PROCEDURE START TIME: 11:24 AM INCISION CLOSE/PROCEDURE END TIME: 12:20 PM SURGEON(S)/PROCEDURALI ST(S) AND FOLDER TIER(S): Surgeons and Role: * Corey Miranda MD - Primary * Rut Allan MD - Assisting No Additional Staff ANESTHESIA: General [facility] OP REPORT Performed by: Rut Allan MD Authorized by: Corey Miranda MD Sinus Surgery 1. Endoscopic septoplasty 2. Bilateral inferior turbinate reduction 3. Bilateral posterior nasal nerve ablation Pre-Op Diagnosis/Indication: Deviated nasal septum, inferior turbinate hypertrophy, vasomotor rhinitis Post-Op Diagnoses: Same as pre-op OPERATIVE FINDINGS/ADDITIONAL DETAILS 1. Broad septal deviation to the right with left posterior spur and right inferior spur Maxillary Antrostomy - Septoplasty: Yes Indication: Nasal congestion Septoplasty Packing: Loo Turbinate Reduction: Bilateral - Outfracture and Coblation Nasal Dressing: None Mucosal Bleed (Boezaart Scale): Slight bleeding no suction required Did you perform any extended maxillary/frontal procedures? No POST PROCEDURE DETAILS Patient Tolerance of Procedure: patient tolerated the procedure well with no immediate complications Sponge/Instrument/Need le Counts: Final Counts Correct Estimated Blood Loss (mLs): 15 Specimens: None Operative Indications: Sulaiman Estes is a 69 year old female with the above preoperative diagnosis who was taken to the operating room for septoplasty, inferior turbinate reduction, and Rhinaer procedure after appropriate medical management did not adequately relieve symptoms. Description of Procedure: The patient was brought into the operating room. A surgical huddle was performed with the patient and all operating room staff, confirming the patient's identity and the procedure to be performed. General endotracheal anesthesia was induced. The nasal cavities were sprayed with 0.5% Afrin. The patient was prepped and draped in the standard fashion for endoscopic sinonasal surgery. The bilateral nasal cavities were inspected using a 0 degree endoscope. The patient was noted to have enlarged inferior turbinates bilaterally. 1% lidocaine with 1:100,000 epinephrine was used to inject the septum, inferior turbinates, and axilla and anterior aspect of each middle turbinate. Attention was then turned towards the nasal septum. A #15 blade was used to make an incision on the left anterior portion of the septum at the level of the head of the inferior turbinate. A [place] elevator was used to elevate a mucoperichondrial and mucoperiosteal flap on the septum. An anterior chondrotomy was performed using a [place] and then the contralateral flap was elevated. The deviated cartilage and bone was removed, and the septum was once again inspected and was now found to be straight. A plain gut suture was used to perform a quilting stitch to bring the flaps together. The inferior turbinates were next addressed. Starting on the right, a mucoperiosteal flap was raised using the turbinate coblator wand starting at the anterior aspect of the inferior turbinate. The submucosal tissue was then removed using the coblator. This process was then repeated on the left. Finally, a freer elevator was used to out-fracture the inferior turbinates. There was a substantial reduction in size of both inferior turbinates. Hemostasis was obtained with the turbinate coblator as needed. Attention was then turned to the posterior nasal nerve ablation. Starting on the left side, the Rhinaer wand was placed on the lateral nasal wall at the attachment of the middle turbinate attachment to the lateral nasal wall. The wand was held in place for 12 seconds and moved inferiorly at 12 second intervals along the lateral nasal wall to the area just in front of the eustachian tube. The wand was then moved anteriorly along the inferior turbinate. The opposite side of the nose was treated in the exact same manner. The sinonasal cavities were once again inspected. Loo splints were placed in each nasal cavity into the middle meatus to medialize the middle turbinates and secured through the septum with a 3-0 Prolene suture. Good hemostasis was noted. The nasopharynx was suctioned, as well as the stomach using an orogastric tube. Having tolerated the procedure well, the (more content not included)... Normal [facility] HISTORY PHYSICALon HISTORY PHYSICAL HNO ID: [id number] Author: VANESSA MARTINEZ APRN.VEGETABLE FARM MANAGER Service: ? Author Type: Nurse Practitioner Type: H&P Filed: 12/15/2024 12:56 Note Text: [facility] HISTORY AND PHYSICAL EXAMINATION SERVICE DATE: 12/13/2024 SERVICE TIME: 12:56 PM PRIMARY CARE PHYSICIAN: Silvana Arrieta, DO Assessment Patient has the following medical conditions which may affect dina-operative course: 1. Headaches (R51.9) - Headaches associated with prednisone use; resolved with Tylenol. 2. Severe persistent asthma without complication (HCC) (J45.50) 3. Asthma with chronic obstructive pulmonary disease (COPD) (HCC) (J44.89) - Severe, persistent asthma with history of being untreated for 17 years, now with COPD. - Using inhalers: Spiriva, Symbicort, and Dupixent; prednisone for inflammation and itch. - Spirometry in August showed moderate airflow obstruction with normal lung volumes. - Chest CT in June showed no acute process. - Follows Pulmonology - Aware of procedure. Office Visit with Brian Mondragon MD (12/07/2024) 4. Pulmonary nodules (R91.8) - Chest CT in June showed no acute pulmonary process. CT CHEST WO IVCON (07/14/2024 8:42 AM) IMPRESSION: No acute pulmonary process is identified. Stable nodular opacities within the lungs, when compared to the prior examination. No miesha lymphadenopathy is seen within the chest. 5. Post-operative nausea and vomiting (R11.2) - Reports from prior procedures. Requesting antiemetics for control of N/V. 6. Hyperlipidemia, unspecified hyperlipidemia type (E78.5) - Denies - Patient not currently on any medications. 7. LPRD (laryngopharyngeal reflux disease) (K21.9) - Previously treated with Prilosec; advised to continue on day of procedure. 8. Laryngeal spasm (J38.5) - Laryngeal spasms occur after coughing spells, chronic and noted 04/2024. - Follows Pulmonology - possible botox in the future if warranted. - Denies any issues with intubation in the past. ANESTHESIA FINDINGS: Intubation History: No history of difficult intubation. No abnormal airway history Significant Anesthesia Considerations: + history of laryngeal spasms after coughing. potential postop nausea/vomiting Airway History: No history of difficult airway No abnormal airway history Davis Activity Status Index: METS: Walk indoors, such as around the house (1.75 METs) Do light work around the house, such as dusting or washing dishes (2.70 METs) Take care of self; that is eating, dressing, bathing, using the toilet (2.75 METs) Walk a block or two on level ground (2.75 METs) Do moderate work around the house, such as vacuuming, sweeping floors, or carrying in groceries (3.50 METs) Climb a flight of stairs or walk up a hill (5.50 METs) DASI Score: 18.95 Patient denies any chest pain or undue shortness of breath with the above physical activity. Clinical Frailty Scale: 3. Well, with treated comorbid disease STOP-Bang Score: Patient over 50 years old Denies snoring loudly Denies feeling tired, fatigued, or sleepy during the daytime Has not been observed to stop breathing or choking/gasping during sleep Denies having high blood pressure BMI less than or equal to 35 kg/m2 Does not have a large neck Non-male patient STOP-Bang Score: 1 I - PHYSICAL EVALUATION AIRWAY Patient intubated: No. Tracheostomy tube not present Mallampati: II. TM distance: >3 FB. Neck ROM: full ROM without neurological symptoms. Mouth opening: adequate. Short neck: no. Thick neck: no DENTAL Dental findings: missing tooth/teeth. II - ANESTHESIA PLAN Anesthetic plan additional comments: *PACC/TCI - anesthesia choice. Beta Aretha Monitoring Plan Post Procedure Analgesic Plan Prepared for Surgery: optimally prepared for surgery. CONSULTS: Patient does not require consults for optimization at this time Planned Anesthetic: anesthesia choice The Following Tests/Procedures Have Been Initiated: No orders of the defined types were placed in this encounter. REASON FOR VISIT: Sulaiman Estes is a 69 year old female who is scheduled for Procedure(s): NASAL/SINUS ENDOSCOPY, SURGICAL; W/ DESTRUCTION BY RF ABLATION, POSTERIOR NASAL NERVE (Bilateral) ABLATION, INFERIOR TURBINATES, BY TISSUE VOLUME REDUCTION; SUBMUCOSAL (Bilateral) ENDOSCOPIC SEPTOPLASTY (N/A) at the request of Dr. Corey Miranda for consultation. My final recommendation will be communicated back to the requesting physician by way of shared medical record or letter. Subjective The patient has the following: COVID-19 Immunization Status This patient has no relevant Health Maintenance data. CHIEF COMPLAINT: pre op HPI: Sulaiman Estes is a 69-year-old female with a history of severe asthma, chronic cough, and chronic non-allergic rhinitis, presenting for preoperative evaluation. Sulaiman has a history of severe asthma, chronic cough, and chronic n (more content not included)... Normal [facility] CNOVon 12-07-2024 CNOV Office Visit (PULMBR ) MEERASULAIMAN Caitlin ([id number]) 1955 F Date Time Provider Department 12/07/24 10:40 AM BRIAN MONDRAGON During your visit today, we recorded the following information about you: Pulse Blood pressure Weight Height 103/minute 165/90 60.3 kg 1.541 m Brian Mondragon MD 12/07/2024 11:13 AM Signed PULMONARY MEDICINE CONSULT FOLLOW UP NOTE CHRONIC COUGH CLINIC Patient Name: Sulaiman Estes PRIMARY CARE PHYSICIAN: No primary care provider on file. My final recommendations will be communicated to the requesting health care provider by way of the shared medical record for internal providers or letter via the [employer] for external providers. ASSESSMENT AND PLAN: I have collected the history from the patient and chart. I have personally examined the patient, and have also independently reviewed the imaging and any available laboratory data. I addressed the questions of the patient, and patient has expressed understanding and acceptance of my answers. 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 Spirometry 09/22/2024 - Moderate airflow obstruction, FEV1 64%, NO Significant bronchodilator response. Lung volumes 09/22/2024 - Normal DLCO Normal Exhaled NO 09/22/2024 - [address] CHEST 07/14/2024 -- IMPRESSION: No acute pulmonary process is identified. Stable nodular opacities within the lungs, when compared to the prior examination. No miesha lymphadenopathy is seen within the chest. There are stable nodular opacities seen within the lungs. For example, there is a stable, approximately 1.2 x 0.6 cm nodular opacity seen within the right apex (series 5, image #28). There is a stable, approximately 1.1 x 0.5 cm nodular density seen within the right upper lobe (series 5, image #50). Other pulmonary nodules are also stable. For example, there is a stable, approximately 6 mm groundglass attenuation nodule seen within the left apex (series 5, image #32). There is no pneumothorax or endobronchial lesion. Plan: - Stop Trelegy 09/2024 Stop Protonix Stop pepcid Started Symbicort 160/4.5 - 2 puffs twice daily 09/2024 - continue - Please rinse your mouth very thoroughly and spit after each use. - Continue to use albuterol (Proair / Ventolin) as needed for shortness of breath/Chest tightness, Cough and/or Wheezing - Avoid asthma triggers Started Spiriva - one puff once daily 09/2024 - continue - Please call me with any signs of exacerbations/URI as discussed during the visit -- Start Omeprazole 20 mg daily Chronic pansinusitis [J32.4] Check CT sinus 09/2024 Minimal opacity along the posterior margin of the dominant right sphenoid sinus, but otherwise essentially clear paranasal sinuses. No secondary changes to suggest sequelae of chronic sinusitis. Latest Ref Rng 09/24/2024 IgE <114.0 kU/l 22.5 Latest Ref Rng 09/24/2024 Abs Eosin <0.46 k/uL 0.16 Start Dupixent for Severe steroid dependent asthma and chronic rhinosinusitis - 11/25/2024 Prednisone 10 mg - 12/07/2024 Take 4 tablets daily for 5 days then 2 tablets daily for 5 days then 1 tablet daily for 5 days then stop. Total 35 tabs Call me with updates after you finish this course. (R91.8) Pulmonary nodules (Z87.891) History of smoking 10-25 pack years Comment: CT CHEST 06/2024 compared to 04/2022 stable bilateral nodules ? Dipnech. Stable overall with no evidence of changes or new nodules Plan: - Agree with a CT scan annually 06/2025 Immunization history review: Pneumovax -- Recommended Prevnar 13 -- Not indicated Prevnar 20 -- recommended Influenza -- Recommend annually RSV Vaccine - Recommended Pulmonary Rehab -- Indicated Follow Up: Return in about 3 months (around 03/09/2025). Brian Mondragon MD Pulmonary and Critical Care Medicine Staff Director of Chronic Cough Clinic Mentally Impaired Teacherpony worker and Pulmonary Rehabilitation - [facility] 12/07/2024 CHIEF COMPLAINT: Chronic Cough HISTORY OF PRESENT ILLNESS: 09/22/2024 Sulaiman Estes is a 69 year old female, with a medical history of Depression/anxiety, chronic rhinitis, GERD, who is here for evaluation and management of chronic cough. ENT EVAL 09/15/2024 Brian Tate MD She has a chronic cough. She does worse initially after an injection but then does better. She has episodes of laryngeal spasm and cannot catch her breath. Since then she has had a URI and sinus infecti (more content not included)... [facility]ULAIM[facility] EST[facility] ([id number]) 1955 F Date Time Provider Department 11/22/24 COREY MIRANDA HNQ During your visit today, we recorded the following information about you: Elsi Calles 11/22/2024 12:29 PM Signed Called and left message for patient regarding surgical scheduling. Allergies As of Date: 11/22/2024 Noted Allergy Reaction CODEINE 12/24/2020 9 - Itching 2 - Rash PHENOBARBITAL 12/24/2020 4 - Hives 9 - Itching 2 - Rash SULFAMETHOXAZOLE-TRIME THOPRIM 07/22/2022 4 - Hives SULFA (SULFONAMIDE ANTIBIOTICS) 12/24/2020 2 - Rash Date Reviewed: 11/18/2024 Reviewed by: Cheryle Anton OCCA - Fully Assessed Reason for Visit: Schedule Surgery [1330] Prescriptions as of 11/22/2024 - mupirocin (BACTROBAN) 2 % ointment Patient to mix one 22g tube with 1L of saline and rinse nose twice a day. Seven 22g tubes equals 1 mos supply. . - dupilumab (DUPIXENT PEN) 300 mg/2 mL pen injection Inject 300 mg (1 pen) subcutaneously every 2 weeks. - budesonide-formoterol (SYMBICORT) 160-4.5 mcg/actuation inhaler Inhale 2 puffs as instructed two times a day. - tiotropium (SPIRIVA) 18 mcg inhalation capsule Inhale 1 capsule as instructed once daily. - Ipratropium Broad Top (ATROVENT) 21 mcg (0.03 %) nasal spray Use 2 Sprays in the nose every 8 hours as needed (FOR RUNNY NOSE). - sertraline (ZOLOFT) 25 mg tablet Take 25 mg by mouth once daily. - levalbuterol tartrate HFA (XOPENEX HFA) 45 mcg/actuation inhaler Inhale 2 Puffs as instructed every 6 hours as needed for wheezing/shortness of breath. - cyanocobalamin 1,000 mcg/mL Inject intramuscularly. - ALPRAZolam (XANAX) 0.5 mg tablet - pramipexole (MIRAPEX) 0.125 mg tablet Take 0.125 mg by mouth three times daily. one tab daily - HYDROcodone-chlorpheni ramine (TUSSIONEX) 10-8 mg/5 mL suspension Take by mouth every 12 hours as needed. 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 [Z79.5*09/22/2024 Cough variant asthma (HCC) [J45.991] 09/22/2024 Chronic pansinusitis [J32.4] 09/22/2024 Encounter Status:Closed by ELSI CALLES on 11/22/24 [facility] 11-18-2024 CNOV Office Visit (OTOLTW ) SULAIMAN ESTES ([id number]) 1955 F Date Time Provider Department 11/18/24 9:45 AM COREY MIRANDA OTLUCIW During your visit today, we recorded the following information about you: Corey Miranda MD 11/18/2024 2:14 PM Signed SECTION OF RHINOLOGY, SINUS AND SKULL BASE SURGERY Head and Neck Beals, [facility] INITIAL VISIT NOTE This patient is a new patient. They are seen at the request of: No referring provider defined for this encounter. CC: runny nose HPI: Sulaiman Estes is a 69 year old female presenting for evaluation of runny nose. Pt is currently taking Dupixent 300 mg once weekly and using ipratropium bromide 2 sprays each side every 8 hours PRN. Pt was ordered the dupixent for cough variant asthma and copd. Pt has no allergies. Pt has not started the dupixent, she also does not use the ipratropium nasal spray because it gives her headaches. Pt states it does help when she uses. But she gets a headache after she uses. Pt has tried other nasal sprays like astelin and flonase for over a year they have not helped at all. Just had a CT scan and it looked okay. She has had the runny nose for many years. She states it has been worse over the past 5 years. She states she gets 4-5 antibitoics per years. Pt states that most of the time the antibiotics does not work but steroids do help. Pt states she feels like she has a lot of inflammation in her nose, and her nose hurts. Pt gets a lot of facial pressure and pain. She endorses frequent drainage with changes in environment, temperature and posture. She endorses lack of sense of smell. SNOT-22 Nasal Score Ear/Facial Score Sleep Score Function Score Emotion Score Total Score 11/17/2024 18 7 5 3 8 41 06/20/2024 22 10 6 10 11 59 05/22/2024 19 7 5 8 8 47 PAST MEDICAL HISTORY: PAST MEDICAL HISTORY Diagnosis Date Sinus tachycardia PAST SURGICAL HISTORY: No past surgical history on file. FAMILY HISTORY Problem Relation Age of Onset Asthma Mother Social History Tobacco Use Smoking status: Former Types: Cigarettes Smokeless tobacco: Never Substance Use Topics Alcohol use: Not Currently Drug use: Never MEDICATIONS: Current Outpatient Medications Medication Sig dupilumab (DUPIXENT PEN) 300 mg/2 mL pen injection Inject 600 mg subcutaneously one time only for 1 dose. dupilumab (DUPIXENT PEN) 300 mg/2 mL pen injection Inject 300 mg subcutaneously every 2 weeks. budesonide-formoterol (SYMBICORT) 160-4.5 mcg/actuation inhaler Inhale 2 puffs as instructed two times a day. tiotropium (SPIRIVA) 18 mcg inhalation capsule Inhale 1 capsule as instructed once daily. Ipratropium Broad Top (ATROVENT) 21 mcg (0.03 %) nasal spray Use 2 Sprays in the nose every 8 hours as needed (FOR RUNNY NOSE). sertraline (ZOLOFT) 25 mg tablet Take 25 mg by mouth once daily. levalbuterol tartrate HFA (XOPENEX HFA) 45 mcg/actuation inhaler Inhale 2 Puffs as instructed every 6 hours as needed for wheezing/shortness of breath. (Patient not taking: Reported on 09/22/2024) cyanocobalamin 1,000 mcg/mL Inject intramuscularly. ALPRAZolam (XANAX) 0.5 mg tablet pramipexole (MIRAPEX) 0.125 mg tablet Take 0.125 mg by mouth three times daily. one tab daily HYDROcodone-chlorpheni ramine (TUSSIONEX) 10-8 mg/5 mL suspension Take by mouth every 12 hours as needed. No current facility-administered medications for this visit. ALLERGIES: ALLERGIES Allergen Reactions Codeine Itching, Rash Phenobarbital Hives, Itching, Rash Sulfamethoxazole-Tr* Hives Sulfa (Sulfonamide * Rash PHYSICAL EXAM: GENERAL: No acute distress, calm and cooperative, alert and oriented. HEAD/FACE: Normocephalic, atraumatic, facial structures stable and symmetric. EYES: Extraocular movements intact. No ocular lesions noted. EARS: No auricular deformity noted. ORAL CAVITY/OROPHARYNX: No mucosal lesions noted, tongue/uvula midline, tonsils unremarkable. NECK: No obvious masses, full range of motion present. RESPIRATORY: Unlabored breathing on room air. Voice is strong. No stridor or other noisy breathing. NEUROLOGIC: Cranial nerves 3-12 are grossly intact. PROCEDURE NOTE: Procedure: Nasal endoscopy Indication: Rhinorrhea Findings: After topical application of lidocaine and Afrin sprays for anesthesia and decongestion, rigid nasal endoscopy was performed. This revealed Left sided MM is clear. Anterior septal crusting visualized. Right sided Anterior septal crusting visualized. R MM clear. Significant Right sided septal deviation. Bilateral ITH. The patient tolerated the procedure well. ASSESSMENT: Sulaiman Estes is a 69 year old female with: Right sided septal deviation Bilateral ITH Vasomotor Rhinitis PLAN: Nasal endoscopy today demonstrated Bilateral anterior septal crusting, Right sided septal deviation. Discussed with poss (more content not included)... Normal [facility] CT SINUS WO IVCONon 10-12-[address] SINUS WO IVCON * * *Final Report* * * DATE OF EXAM: Oct 11 2024 8:40AM [facility] [id number] - CT SINUS WO IVCON / PROCEDURE REASON: Chronic pansinusitis * * * * Physician Interpretation * * * * EXAMINATION: CT SINUS WO IVCON Clinical history: As provided by the ordering clinician via order question entries: Sinusitis, chronic or recurrent. Chronic pansinusitis. TECHNIQUE: Spiral high resolution axial unenhanced CT images were obtained through the paranasal sinuses with sagittal, coronal reconstructions. M: CTSI_1 Dose-Length Product (DLP): 154 mGy*cm. CT Dose Reduction Employed: Automated exposure control (AEC) and iterative recon Comparison: None RESULT: Mildly motion degraded exam. Post-Surgical Findings: None Sinus Chambers: Clear frontal sinuses and frontal sinus drainage pathways. Clear ethmoid air cells. Minimal dependent irregular opacity along the posterior margin of the dominant right sphenoid sinus. Clear left sphenoid sinus. Patent left sphenoethmoidal ostium and trace opacity traversing the right sphenoethmoidal ostium. Motion degraded assessment of the lower bilateral maxillary sinuses with no apparent mucosal thickening measuring greater than 2 mm in maximal thickness. No mucoperiosteal thickening. Clear ostiomeatal complexes. See below for [place] score for degree of sinus opacification. 0 is less than 2mm thickness of mucosal thickening. 1 is partial opacification. 2 is almost complete or complete opacification. *The ostiomeatal complex is assigned a score of either 0 (not obstructed) or 2 (obstructed). Air Fluid Levels: Trace dependent opacity in the dominant right sphenoid sinus, but no further secretions or air-fluid level. High attenuation sinus disease: There is no high attenuation sinus disease. Left Frontal Sinus: 0 Left Anterior Ethmoid Air Cells: 0 Left Posterior Ethmoid Air Cells: 0 Left Sphenoid Sinus: 0 Left Maxillary Sinus: 0 Left Ostiomeatal Complex: 0 LEFT Dev Jason Score: 0 Right Frontal Sinus: 0 Right Anterior Ethmoid Air Cells: 0 Right Posterior Ethmoid Air Cells: 0 Right Sphenoid Sinus: 0 Right Maxillary Sinus: 0 Right Ostiomeatal Complex: 0 RIGHT [place] Score: 0 TOTAL [place] Score: 0 Nasal Cavities: Patent nasal passages. Intact nasal septum with minimal rightward anterior nasal septal deviation. Other: The visualized mastoid air cells and middle ear cavities are clear. Minimal atheromatous calcifications in the carotid siphons. Bilateral pseudophakia. Otherwise, unremarkable appearance of the orbits. The soft tissues of the face are within normal limits within the limitations of the study. Production Sanitizer (topogram) images: Noncontributory IMPRESSION: Minimal opacity along the posterior margin of the dominant right sphenoid sinus, but otherwise essentially clear paranasal sinuses. No secondary changes to suggest sequelae of chronic sinusitis. Team Automobile Assembler: MIKE Transcribe Date/Time: Oct 11 2024 9:43A Dictated by : YAZAN RAMIREZ MD This examination was interpreted and the report reviewed and electronically signed by: YAZAN RAMIREZ MD on Oct 11 2024 9:47AM EST [id number] Normal [facility] CT Sinuses WO contraston IMPRESSION: Minimal opacity along the posterior margin of the dominant right sphenoid sinus, but otherwise essentially clear paranasal sinuses. No secondary changes to suggest sequelae of chronic sinusitis. Team Automobile Assembler: [facility] Transcribe Date/Time: Oct 11 2024 9:43A Dictated by : YAZAN RAMIREZ MD This examination was interpreted and the report reviewed and electronically signed by: YAZAN RAMIREZ MD on Oct 11 2024 9:47AM EST DIVISION OF RADIOLOGY * * *Final Report* * * DATE OF EXAM: Oct 11 2024 8:40AM [facility] [id number] - CT SINUS WO IVCON / PROCEDURE REASON: Chronic pansinusitis * * * * Physician Interpretation * * * * EXAMINATION: CT SINUS WO IVCON Clinical history: As provided by the ordering clinician via order question entries: Sinusitis, chronic or recurrent. Chronic pansinusitis. TECHNIQUE: Spiral high resolution axial unenhanced CT images were obtained through the paranasal sinuses with sagittal, coronal reconstructions. M: CTSI_1 Dose-Length Product (DLP): 154 mGy*cm. CT Dose Reduction Employed: Automated exposure control (AEC) and iterative recon Comparison: None RESULT: Mildly motion degraded exam. Post-Surgical Findings: None Sinus Chambers: Clear frontal sinuses and frontal sinus drainage pathways. Clear ethmoid air cells. Minimal dependent irregular opacity along the posterior margin of the dominant right sphenoid sinus. Clear left sphenoid sinus. Patent left sphenoethmoidal ostium and trace opacity traversing the right sphenoethmoidal ostium. Motion degraded assessment of the lower bilateral maxillary sinuses with no apparent mucosal thickening measuring greater than 2 mm in maximal thickness. No mucoperiosteal thickening. Clear ostiomeatal complexes. See below for [place] score for degree of sinus opacification. 0 is less than 2mm thickness of mucosal thickening. 1 is partial opacification. 2 is almost complete or complete opacification. *The ostiomeatal complex is assigned a score of either 0 (not obstructed) or 2 (obstructed). Air Fluid Levels: Trace dependent opacity in the dominant right sphenoid sinus, but no further secretions or air-fluid level. High attenuation sinus disease: There is no high attenuation sinus disease. Left Frontal Sinus: 0 Left Anterior Ethmoid Air Cells: 0 Left Posterior Ethmoid Air Cells: 0 Left Sphenoid Sinus: 0 Left Maxillary Sinus: 0 Left Ostiomeatal Complex: 0 LEFT [place] Score: 0 Right Frontal Sinus: 0 Right Anterior Ethmoid Air Cells: 0 Right Posterior Ethmoid Air Cells: 0 Right Sphenoid Sinus: 0 Right Maxillary Sinus: 0 Right Ostiomeatal Complex: 0 RIGHT [place] Score: 0 TOTAL [place] Score: 0 Nasal Cavities: Patent nasal passages. Intact nasal septum with minimal rightward anterior nasal septal deviation. Other: The visualized mastoid air cells and middle ear cavities are clear. Minimal atheromatous calcifications in the carotid siphons. Bilateral pseudophakia. Otherwise, unremarkable appearance of the orbits. The soft tissues of the face are within normal limits within the limitations of the study. Production Sanitizer (topogram) images: Noncontributory DIVISION [facility] RAD[facility]OLOGY [facility] * * *Final Report* * * DATE OF EXAM: Oct 11 2024 8:40AM [place] [id number] - CT SINUS WO IVCON / PROCEDURE REASON: Chronic pansinusitis * * * * Physician Interpretation * * * * EXAMINATION: CT SINUS WO IVCON Clinical history: As provided by the ordering clinician via order question entries: Sinusitis, chronic or recurrent. Chronic pansinusitis. TECHNIQUE: Spiral high resolution axial unenhanced CT images were obtained through the paranasal sinuses with sagittal, coronal reconstructions. M: CTSI_1 Dose-Length Product (DLP): 154 mGy*cm. CT Dose Reduction Employed: Automated exposure control (AEC) and iterative recon Comparison: None RESULT: Mildly motion degraded exam. Post-Surgical Findings: None Sinus Chambers: Clear frontal sinuses and frontal sinus drainage pathways. Clear ethmoid air cells. Minimal dependent irregular opacity along the posterior margin of the dominant right sphenoid sinus. Clear left sphenoid sinus. Patent left sphenoethmoidal ostium and trace opacity traversing the right sphenoethmoidal ostium. Motion degraded assessment of the lower bilateral maxillary sinuses with no apparent mucosal thickening measuring greater than 2 mm in maximal thickness. No mucoperiosteal thickening. Clear ostiomeatal complexes. See below for Dev Jason score for degree of sinus opacification. 0 is less than 2mm thickness of mucosal thickening. 1 is partial opacification. 2 is almost complete or complete opacification. *The ostiomeatal complex is assigned a score of either 0 (not obstructed) or 2 (obstructed). Air Fluid Levels: Trace dependent opacity in the dominant right sphenoid sinus, but no further secretions or air-fluid level. High attenuation sinus disease: There is no high attenuation sinus disease. Left Frontal Sinus: 0 Left Anterior Ethmoid Air Cells: 0 Left Posterior Ethmoid Air Cells: 0 Left Sphenoid Sinus: 0 Left Maxillary Sinus: 0 Left Ostiomeatal Complex: 0 LEFT [place] Score: 0 Right Frontal Sinus: 0 Right Anterior Ethmoid Air Cells: 0 Right Posterior Ethmoid Air Cells: 0 Right Sphenoid Sinus: 0 Right Maxillary Sinus: 0 Right Ostiomeatal Complex: 0 RIGHT [place] Score: 0 TOTAL Dev Jason Score: 0 Nasal Cavities: Patent nasal passages. Intact nasal septum with minimal rightward anterior nasal septal deviation. Other: The visualized mastoid air cells and middle ear cavities are clear. Minimal atheromatous calcifications in the carotid siphons. Bilateral pseudophakia. Otherwise, unremarkable appearance of the orbits. The soft tissues of the face are within normal limits within the limitations of the study. Production Sanitizer (topogram) images: Noncontributory IMPRESSION IMPRESSION: Minimal opacity along the posterior margin of the dominant right sphenoid sinus, but otherwise essentially clear paranasal sinuses. No secondary changes to suggest sequelae of chronic sinusitis. Team Automobile Assembler: MIKE Transcribe Date/Time: Oct 11 2024 9:43A Dictated by : YAZAN RAMIREZ MD This examination was interpreted and the report reviewed and electronically signed by: YAZAN RAMIREZ MD on Oct 11 2024 9:47AM EST [facility] Radiology Study observation (narrative) [facility] CT Sinuses WO contrastOrdere d By: Ccf Provider on 10-11-2024 [facility] CBC W Auto Differential pane l (Bld)on 09-24-2024 Basophils (Bld) [#/Vol] 0.06 10*3/uL Normal <0.11 [facility] Comment on above: Order Comment: Speci men Type: BLOOD SPECIMENOrdering Facility: [facility] Address: [address] [place] [address] Performed By: #### 5 7021-8 ####[facility] LABCLIA [id number] [place] [address] [place] Basophils/100 WBC (Bld) 0.5 % Normal [facility] Comment on above: Order Comment: Speci roslyn Type: BLOOD SPECIMENOrdering Facility: [facility] Address: [address] [place] [address] Performed By: #### 5 7021-8 ####[facility] LABCLIA [id number] [place] [address] [place] Differential cell count method Nom (Bld) Auto Normal [facility] Comment on above: Order Comment: Speci men Type: BLOOD SPECIMENOrdering Facility: [facility] Address: [address] [place] [address] Performed By: #### 5 7021-8 ####[facility] LABCLIA [id number] [place] [address] [place] Eosinophils (Bld) [#/Vol] 0.16 10*3/uL Normal <0.46 [facility] Comment on above: Order Comment: Speci men Type: BLOOD SPECIMENOrdering Facility: [facility] Address: [address] [place] [address] Performed By: #### 5 7021-8 ####[facility] LABCLIA [id number] [facility] [address] [place] Eosinophils/100 WBC (Bld) 1.4 % Normal [facility] Comment on above: Order Comment: Speci men Type: BLOOD SPECIMENOrdering Facility: [facility] Address: [address] [place] [address] Performed By: #### 5 7021-8 ####[facility] LABIA [id number] [address], [place] [address] [place] Erythrocyte distribution width (RBC) [Ratio] 12.6 % Normal 11.5-15.0 [facility] Comment on above: Order Comment: Speci men Type: BLOOD SPECIMENOrdering Facility: [facility] Address: [address] [place] [address] Performed By: #### 5 7021-8 ####[facility] LABIA [id number] [place] [address] [place] Hematocrit (Bld) [Volume fraction] 41.4 % Normal 36.0-46.0 [facility] Comment on above: Order Comment: Speci men Type: BLOOD SPECIMENOrdering Facility: [facility] Address: [address] [place] [address] Performed By: #### 5 7021-8 ####[facility] LABIA [id number] [place] [address] [place] Hemoglobin (Bld) [Mass/Vol] 13.1 g/dL Normal 11.5-15.5 [facility] Comment on above: Order Comment: Speci men Type: BLOOD SPECIMENOrdering Facility: [facility] Address: [address] [place] [address] Performed By: #### 5 7021-8 ####[facility] LABCLIA [id number] [place] [address] [place] Immature granulocytes (Bld) [#/Vol] 0.03 10*3/uL Normal <0.10 [facility] Comment on above: Order Comment: Speci men Type: BLOOD SPECIMENOrdering Facility: [facility] Address: [address] [place] [address] Performed By: #### 5 7021-8 ####[facility] LABCLIA [id number] [address] [place] Immature granulocytes/100 WBC (Bld) 0.3 % Normal [facility] Comment on above: Order Comment: Speci men Type: BLOOD SPECIMENOrdering Facility: [facility] Address: [address] [place] [address] Performed By: #### 5 7021-8 ####[facility] LABCLIA [id number] [place] [address] [place] Lymphocytes (Bld) [#/Vol] 4.20 10*3/uL High 1.00-4.00 [facility] Comment on above: Order Comment: Speci men Type: BLOOD SPECIMENOrdering Facility: [facility] Address: [address] [place] [address] Performed By: #### 5 7021-8 ####[facility] LABCLIA [id number] [place] [id number] [place] Lymphocytes/100 WBC (Bld) 37.9 % Normal [facility] Comment on above: Order Comment: Speci men Type: BLOOD SPECIMENOrdering Facility: [facility] Address: [address] [place] [address] Performed By: #### 5 7021-8 ####[facility] LABCLIA [id number] [address] [place] [address] [place] MCH (RBC) [Entitic mass] 30.4 pg Normal 26.0-34.0 [facility] Comment on above: Order Comment: Speci men Type: BLOOD SPECIMENOrdering Facility: [facility] Address: [address] [place] [address] Performed By: #### 5 7021-8 ####[facility] LABCLIA [id number] [place] [address] [place] MCHC (RBC) [Mass/Vol] 31.6 g/dL Normal 30.5-36.0 [facility] Comment on above: Order Comment: Speci men Type: BLOOD SPECIMENOrdering Facility: [facility] Address: [address] [place] [address] Performed By: #### 5 7021-8 ####[facility] LABCLIA [id number] [place] [address] [place] MCV (RBC) [Entitic vol] 96.1 fL Normal 80.0-100.0 [facility] Comment on above: Order Comment: Speci men Type: BLOOD SPECIMENOrdering Facility: [facility] Address: [address] [place] [address] Performed By: #### 5 7021-8 ####[facility] LABIA [id number] [place] [address] [place] Monocytes (Bld) [#/Vol] 0.86 10*3/uL Normal <0.87 [facility] Comment on above: Order Comment: Speci men Type: BLOOD SPECIMENOrdering Facility: [facility] Address: [address] [place] [address] Performed By: #### 5 7021-8 ####[facility] LABCLIA [id number] [address] [place] Monocytes/100 WBC (Bld) 7.8 % Normal [facility] Comment on above: Order Comment: Speci men Type: BLOOD SPECIMENOrdering Facility: [facility] Address: [address] [place] [address] Performed By: #### 5 7021-8 ####[facility] LABCLIA [id number] [place] [address] [place] Neutrophils (Bld) [#/Vol] 5.78 10*3/uL Normal 1.45-7.50 [facility] Comment on above: Order Comment: Speci men Type: BLOOD SPECIMENOrdering Facility: [facility] Address: [address] [place] [address] Performed By: #### 5 7021-8 ####[facility] LABCLIA [id number] [place] [address] [place] Neutrophils/100 WBC (Bld) 52.1 % Normal [facility] Comment on above: Order Comment: Speci men Type: BLOOD SPECIMENOrdering Facility: [facility] Address: [address] [place] [address] Performed By: #### 5 7021-8 ####[facility] LABCLIA [id number] [place] [address] [place] Nucleated RBC (Bld) [#/Vol] 10*3/uL Normal <0.01 [facility] Comment on above: Order Comment: Speci men Type: BLOOD SPECIMENOrdering Facility: [facility] Address: [address] [place] [address] Performed By: #### 5 7021-8 ####[facility] LABCLIA [id number] [facility] [address], [facility] [place] Nucleated RBC/100 WBC (Bld) [Ratio] 0.0 /100 WBC Normal [facility] Comment on above: Order Comment: Speci men Type: BLOOD SPECIMENOrdering Facility: [facility] Address: [address] [place] [address] Performed By: #### 5 7021-8 ####[facility] LABCLIA [id number] [place] [id number] [place] Platelet mean volume (Bld) [Entitic vol] 9.9 fL Normal 9.0-12.7 [facility] Comment on above: Order Comment: Speci men Type: BLOOD SPECIMENOrdering Facility: [facility] Address: [address] [place] [address] Performed By: #### 5 7021-8 ####[facility] LABIA [id number] [place] [address] [place] Platelets (Bld) [#/Vol] 362 10*3/uL Normal 150-400 [facility] Comment on above: Order Comment: Speci men Type: BLOOD SPECIMENOrdering Facility: [facility] Address: [address] [place] [address] Performed By: #### 5 7021-8 ####[facility] LABIA [id number] [place] [address] [place] RBC (Bld) [#/Vol] 4.31 10*6/uL Normal 3.90-5.20 [facility] Comment on above: Order Comment: Speci men Type: BLOOD SPECIMENOrdering Facility: [facility] Address: [address] [place] [address] Performed By: #### 5 7021-8 ####[facility] LABIA [id number] [place] [address] [place] WBC (Bld) [#/Vol] 11.09 10*3/uL High 3.70-11.00 [facility] Comment on above: Order Comment: Speci men Type: BLOOD SPECIMENOrdering Facility: [facility] Address: [address] [place] [address] Performed By: #### 5 7021-8 ####[facility] LABIA [id number] [place] [id number] [place] IgE SerPl-aCncon 09-24-2024 IgE Qn 22.5 kU/l Normal <114.0 [facility] Comment on above: Order Comment: Speci men Type: BLOOD SPECIMENOrdering Facility: [facility] Address: [address] [place] [address] Performed By: #### 1 9113-0 ####[facility] LABCLIA [id number] [place] [address] CNOVon 09-22-2024 CNOV Office Visit (PULMMN ) SULAIMAN ESTES ([id number]) 1955 F Date Time Provider Department 09/22/24 10:00 AM BRIAN OMNDRAGON During your visit today, we recorded the following information about you: Temperature Pulse Respiration Blood pressure 98.4 degrees 120/minute 16/minute 147/82 Weight 66.3 kg Brian Mondragon MD 09/22/2024 10:38 AM Signed PULMONARY MEDICINE CONSULT CHRONIC COUGH CLINIC Patient Name: Sulaiman Estes PRIMARY CARE PHYSICIAN: No primary care provider on file. REASON FOR CONSULT: New Consult - Chronic Cough REQUESTING PROVIDER: Cielo Jeffries MD My final recommendations will be communicated to the requesting health care provider by way of the shared medical record for internal providers or letter via the [employer] for external providers. ASSESSMENT AND PLAN: I have collected the history from the patient and chart. I have personally examined the patient, and have also independently reviewed the imaging and any available laboratory data. I addressed the questions of the patient, and patient has expressed understanding and acceptance of my answers. 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 Spirometry 09/22/2024 - Moderate airflow obstruction, FEV1 64%, NO Significant bronchodilator response. Lung volumes 09/22/2024 - Normal DLCO Normal Exhaled NO 09/22/2024 - [address] CHEST 07/14/2024 -- IMPRESSION: No acute pulmonary process is identified. Stable nodular opacities within the lungs, when compared to the prior examination. No miesha lymphadenopathy is seen within the chest. There are stable nodular opacities seen within the lungs. For example, there is a stable, approximately 1.2 x 0.6 cm nodular opacity seen within the right apex (series 5, image #28). There is a stable, approximately 1.1 x 0.5 cm nodular density seen within the right upper lobe (series 5, image #50). Other pulmonary nodules are also stable. For example, there is a stable, approximately 6 mm groundglass attenuation nodule seen within the left apex (series 5, image #32). There is no pneumothorax or endobronchial lesion. Plan: - Stop Trelegy Stop Protonix Stop pepcid Start Symbicort 160/4.5 - 2 puffs twice daily - Please rinse your mouth very thoroughly and spit after each use. - Continue to use albuterol (Proair / Ventolin) as needed for shortness of breath/Chest tightness, Cough and/or Wheezing - Avoid asthma triggers Start Spiriva - one puff once daily - Please call me with any signs of exacerbations/URI as discussed during the visit Chronic pansinusitis [J32.4] Check CT sinus Plan to check CBC with diff and IgE Plan to start Dupixent for Severe steroid dependent asthma and chronic rhinosinusitis (R91.8) Pulmonary nodules (Z87.891) History of smoking 10-25 pack years Comment: CT CHEST 06/2024 compared to 04/2022 stable bilateral nodules ? Dipnech. Stable overall with no evidence of changes or new nodules Plan: - Agree with a CT scan annually Immunization history review: Pneumovax -- Recommended Prevnar 13 -- Not indicated Prevnar 20 -- recommended Influenza -- Recommend annually RSV Vaccine - Recommended Pulmonary Rehab -- Indicated Follow Up: Return in about 4 months (around 01/23/2025). 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 ENT EVAL 09/15/2024 Brian Tate MD She has a chronic cough. She does worse initially after an injection but then does better. She has episodes of laryngeal spasm and cannot catch her breath. Since then she has had a URI and sinus infection that responded eventually to steroids and antibiotics. Overall she was better but not a dramatic improvement. The itching sensation has improved. I talked to her about repeat nerve blocks or Botox and we will arrange Botox of laryngeal spasm in the near future. She has chronic rhinitis and is getting in to see Dr. Miranda ALLERGY EVAL 07/06/2024 Ian Martins MD 1) Chronic cough - suspect multifactorial from post nasal drip, GERD, bronchospas (more content not included)... 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 Start of test and EOFE criteria met. Medications and Allergies were reviewed for possible drug interactions per policy. No contraindications or sensitivities were noted. Meds taken: Trellegy 3 hours before testing. 4 puffs levalbuterol (180 mcg) delivered by MDI via holding chamber. HR pre = 120/min, HR post = 122/min. (Pt stated she always has a higher HR) TGV repeatable x2. Current ATS/ERS acceptability and repeatability standards for DLCO met with 2 acceptable maneuvers. //FP IMPRESSION: Spirometry indicates moderate obstruction. There is no significant bronchodilator response. The TLC, RV and RV/TLC are normal. The diffusing capacity is normal. Electronically Signed On 09-22-2024 16:29:23 EDT by Dave Mckenzie MD ID: [id number] Name: SULAIMAN ESTES Race: White Ht: 60.63 in Wt: 146.17 lbs Age: 69 Gender: Female : 1955 Dx: Chronic cough_ Smoking Hx: Non-smoker Doctor: TANNA ESCUDERO Test Date: 09/22/2024 Site: Tech: Lonnie Lazcano PRE-BRONCH POST-BRONCH Joana LLN Pred ULN %Pred ZScore Joana %Pred %Chg ZScore SPIROMETRY FVC 2.19 1.74 2.44 3.16 89 -0.58 2.05 83 -5 -0.92 FEV1 1.32 1.37 1.94 2.48 67 -1.78 1.25 64 -3 -1.97 FEV1/FVC 0.60 0.67 0.80 0.90 75 -2.38 0.61 76 1 -2.31 FEFMax 4.64 3.81 5.35 6.88 86 -0.76 5.01 93 7 -0.36 FEF50 0.70 1.29 2.89 4.50 24 -2.24 0.47 16 -32 -2.48 FIF50 2.68 1.76 -34 FEF50/FIF50 0.26 90-100 0.27 2 FIVC 2.11 1.97 -6 [id number] 0.39 0.87 1.83 3.17 21 -2.88 0.27 14 -30 -3.31 ExpiredTime 13.45 10.87 -19 TimeToFEFMax 0.10 0.07 -31 RAUL 0.09 0.06 -31 VolExtrap% 4 3 -26 LUNG VOLUMES FRC(Pleth) 1.85 1.71 2.57 3.43 72 -1.37 ERV 0.05 0.81 6 RV(Pleth) 1.79 1.34 1.96 2.59 91 -0.46 SVC 2.20 1.74 2.44 3.16 90 -0.57 IC 2.06 1.63 126 TLC(Pleth) 3.87 3.67 4.55 5.43 85 -1.26 RV/TLC(Pleth) 46 33 42 51 109 0.71 LUNG DIFFUSION DLCOunc 17.85 13.29 19.46 25.63 91 -0.43 DLCOStdPB 17.63 13.29 19.46 25.63 90 -0.49 VA 3.28 3.41 4.51 5.61 72 -1.84 Kco 5.45 3.30 4.31 5.46 126 1.64 Comments: Pre/Post- Current ATS/ERS acceptability and repeatability standards for spirometry met. Start of test and EOFE criteria met. Medications and Allergies were reviewed for possible drug interactions per policy. No contraindications or sensitivities were noted. Meds taken: Trellegy 3 hours before testing. 4 puffs levalbuterol (180 mcg) delivered by MDI via holding chamber. HR pre = 120/min, HR post = 122/min. (Pt stated she always has a higher HR) TGV repeatable x2. Current ATS/ERS acceptability and repeatability standards for DLCO met with 2 acceptable maneuvers. 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 Start of test and EOFE criteria met. Medications and Allergies were reviewed for possible drug interactions per policy. No contraindications or sensitivities were noted. Meds taken: Trellegandry 3 hours before testing. 4 puffs levalbuterol (180 mcg) delivered by MDI via holding chamber. HR pre = 120/min, HR post = 122/min. (Pt stated she always has a higher HR) TGV repeatable x2. Current ATS/ERS acceptability and repeatability standards for DLCO met with 2 acceptable maneuvers. //FP IMPRESSION: Spirometry indicates moderate obstruction. There is no significant bronchodilator response. The TLC, RV and RV/TLC are normal. The diffusing capacity is normal. Electronically Signed On 09-22-2024 16:29:23 EDT by Dave Mckenzie MD ID: [id number] Name: SULAIMAN SETES Race: White Ht: 60.63 in Wt: 146.17 lbs Age: 69 Gender: Female : 1955 Dx: Chronic cough_ Smoking Hx: Non-smoker Doctor: TANNA ESCUDERO Test Date: 09/22/2024 Site: Tech: Lonnie Lazcano PRE-BRONCH POST-BRONCH Joana LLN Pred ULN %Pred ZScore Joana %Pred %Chg ZScore SPIROMETRY FVC 2.19 1.74 2.44 3.16 89 -0.58 2.05 83 -5 -0.92 FEV1 1.32 1.37 1.94 2.48 67 -1.78 1.25 64 -3 -1.97 FEV1/FVC 0.60 0.67 0.80 0.90 75 -2.38 0.61 76 1 -2.31 FEFMax 4.64 3.81 5.35 6.88 86 -0.76 5.01 93 7 -0.36 FEF50 0.70 1.29 2.89 4.50 24 -2.24 0.47 16 -32 -2.48 FIF50 2.68 1.76 -34 FEF50/FIF50 0.26 90-100 0.27 2 FIVC 2.11 1.97 -6 [id number] 0.39 0.87 1.83 3.17 21 -2.88 0.27 14 -30 -3.31 ExpiredTime 13.45 10.87 -19 TimeToFEFMax 0.10 0.07 -31 RAUL 0.09 0.06 -31 VolExtrap% 4 3 -26 LUNG VOLUMES FRC(Pleth) 1.85 1.71 2.57 3.43 72 -1.37 ERV 0.05 0.81 6 RV(Pleth) 1.79 1.34 1.96 2.59 91 -0.46 SVC 2.20 1.74 2.44 3.16 90 -0.57 IC 2.06 1.63 126 TLC(Pleth) 3.87 3.67 4.55 5.43 85 -1.26 RV/TLC(Pleth) 46 33 42 51 109 0.71 LUNG DIFFUSION DLCOunc 17.85 13.29 19.46 25.63 91 -0.43 DLCOStdPB 17.63 13.29 19.46 25.63 90 -0.49 VA 3.28 3.41 4.51 5.61 72 -1.84 Kco 5.45 3.30 4.31 5.46 126 1.64 Comments: Pre/Post- Current ATS/ERS acceptability and repeatability standards for spirometry met. Start of test and EOFE criteria met. Medications and Allergies were reviewed for possible drug interactions per policy. No contraindications or sensitivities were noted. Meds taken: Lynda 3 hours before testing. 4 puffs levalbuterol (180 mcg) delivered by MDI via holding chamber. HR pre = 120/min, HR post = 122/min. (Pt stated she always has a higher HR) TGV repeatable x2. Current ATS/ERS acceptability and repeatability standards for DLCO met with 2 acceptable maneuvers. //FP Normal [facility] NITRIC OXIDE, EXHALEDon 05-2 Lonnie Bush, JACQUELYN 09/22/2024 9:31 AM RESPIRATORY THERAPY ORAL EXHALED NITRIC OXIDE SERVICE DATE: 09/22/2024 SERVICE TIME: 9:31 AM Oral Exhaled Nitric Oxide measurement: 12.0 (ppb) Normal: Adult <25 ppb, pediatric (<12 years) <20 ppb High Normal / Increased: Adult 25-50 ppb, pediatric (<12 years) 20-35 ppb Moderately raised exhaled Nitric Oxide may indicate underlying inflammation, but note that: Cold and influenza can raise exhaled Nitric Oxide and some patients have higher baseline exhaled Nitric Oxide levels than others. High: Adult >50 ppb, pediatric (<12 years) >35 ppb Indicative of ongoing eosinophilic inflammation. Symptomatic patient likely to respond to steroids. Possible causes (if already on steroids): Poor compliance, recent allergen exposure, steroid dose inadequate, and steroid resistance. Note that not all patients with high exhaled nitric oxide levels display symptoms. 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 Start of test and EOFE criteria met. Medications and Allergies were reviewed for possible drug interactions per policy. No contraindications or sensitivities were noted. Meds taken: Trellegy 3 hours before testing. 4 puffs levalbuterol (180 mcg) delivered by MDI via holding chamber. HR pre = 120/min, HR post = 122/min. (Pt stated she always has a higher HR) TGV repeatable x2. Current ATS/ERS acceptability and repeatability standards for DLCO met with 2 acceptable maneuvers. //FP IMPRESSION: Spirometry indicates moderate obstruction. There is no significant bronchodilator response. The TLC, RV and RV/TLC are normal. The diffusing capacity is normal. Electronically Signed On 09-22-2024 16:29:23 EDT by Dave Mckenzie MD ID: [id number] Name: SULAIMAN ESTES Race: White Ht: 60.63 in Wt: 146.17 lbs Age: 69 Gender: Female : 1955 Dx: Chronic cough_ Smoking Hx: Non-smoker Doctor: TNANA ESCUDERO Test Date: 09/22/2024 Site: Tech: Lonnie Lazcano PRE-BRONCH POST-BRONCH Joana LLN Pred ULN %Pred ZScore Joana %Pred %Chg ZScore SPIROMETRY FVC 2.19 1.74 2.44 3.16 89 -0.58 2.05 83 -5 -0.92 FEV1 1.32 1.37 1.94 2.48 67 -1.78 1.25 64 -3 -1.97 FEV1/FVC 0.60 0.67 0.80 0.90 75 -2.38 0.61 76 1 -2.31 FEFMax 4.64 3.81 5.35 6.88 86 -0.76 5.01 93 7 -0.36 FEF50 0.70 1.29 2.89 4.50 24 -2.24 0.47 16 -32 -2.48 FIF50 2.68 1.76 -34 FEF50/FIF50 0.26 90-100 0.27 2 FIVC 2.11 1.97 -6 [id number] 0.39 0.87 1.83 3.17 21 -2.88 0.27 14 -30 -3.31 ExpiredTime 13.45 10.87 -19 TimeToFEFMax 0.10 0.07 -31 RAUL 0.09 0.06 -31 VolExtrap% 4 3 -26 LUNG VOLUMES FRC(Pleth) 1.85 1.71 2.57 3.43 72 -1.37 ERV 0.05 0.81 6 RV(Pleth) 1.79 1.34 1.96 2.59 91 -0.46 SVC 2.20 1.74 2.44 3.16 90 -0.57 IC 2.06 1.63 126 TLC(Pleth) 3.87 3.67 4.55 5.43 85 -1.26 RV/TLC(Pleth) 46 33 42 51 109 0.71 LUNG DIFFUSION DLCOunc 17.85 13.29 19.46 25.63 91 -0.43 DLCOStdPB 17.63 13.29 19.46 25.63 90 -0.49 VA 3.28 3.41 4.51 5.61 72 -1.84 Kco 5.45 3.30 4.31 5.46 126 1.64 Comments: Pre/Post- Current ATS/ERS acceptability and repeatability standards for spirometry met. Start of test and EOFE criteria met. Medications and Allergies were reviewed for possible drug interactions per policy. No contraindications or sensitivities were noted. Meds taken: Lynda 3 hours before testing. 4 puffs levalbuterol (180 mcg) delivered by MDI via holding chamber. HR pre = 120/min, HR post = 122/min. (Pt stated she always has a higher HR) TGV repeatable x2. Current ATS/ERS acceptability and repeatability standards for DLCO met with 2 acceptable maneuvers. //FP FVC_PRE (L) : 2.19 L FVC_POST (L) : 2.05 L FVC_PRED (L) : 2.44 L FVC_LLN (L) : 1.74 L FVC_ULN (L) : 3.16 L FEV1_PRE (L) : 1.32 L FEV1_POST (L) : 1.25 L FEV1_PRED (L) : 1.94 L FEV1_LLN (L) : 1.37 L FEV1_ULN (L) : 2.48 L FEV1/FVC_PRE (%) : 60 % FEV1/FVC_POST (%) : 61 % FEV1/FVC_PRED (%) : 80 % FEV1/FVC_LLN (%) : 67 % DAJ85_SUU (L/S) : 3.62 L/S EYT47_VOGN (L/S) : 2.45 L/S UUZ32_BOU (L/S) : 0.12 L/S MPC04_TTAU (L/S) : 0.08 L/S LIX06_FOAW (L/S) : 0.45 L/S BCR61_RPL (L/S) : 0.17 L/S HJX81_UOX (L/S) : 1.15 L/S VYW70-52%_PRE (L/S) : 0.39 L/S JBP21-60%_POST (L/S) : 0.27 L/S HUL34-95%_PRED (L/S) : 1.83 L/S QRZ38-50%_LLN (L/S) : 0.87 L/S PEF_PRE (L/S) : 4.64 L/S PEF_POST (L/S) : 5.01 L/S PEFMAX_LLN (L/S) : 3.81 L/S PEFMAX_ULN (L/S) : 6.88 L/S VC BOX (L) : 2.20 L SVC_PRED (L) : 2.44 L/S SVC_LLN (L) : 1.74 L/S SVC_ULN (L/S) : 3.16 L/S IC BOX (L) : 2.06 L IC_PRED (L) : 1.63 L/S ERV BOX (L) : 0.05 L ERV_PREDICTED (L) : 0.81 L/S DLCO (ML/MIN/MMHG) : 17.85 ml/min/mmHg DLCO_PRED (ML/MIN/MMHG) : 19.46 ml/min/mmHg DLCO_LLN(ML/MIN/MMHG) : 13.29 ml/min/mmHg DLCO_ULN (ML/MIN/MMHG) : 25.63 ml/min/mmHg FET_PRE (S) : 13.45 S FET_POST (S) : 10.87 S FRC BOX (L) : 1.85 L RV BOX (L) : 1.79 L RV_PLETH_PRED (L) : 1.96 L TLC BOX (L) : 3.87 L TLC_PLETH_PRED (L) : 4.55 L RV/TLC BOX (%) : 46 % RV_TLC_PLETH_PRED (%) : 42 % VA (L) : 3.28 L VA_PRD (L) : 4.51 L DLCO/VA (ML/MIN/MMHG/L) : 0.05 ml/min/mmHg/L DLCO_VA_PRED (L) : 0.04 ml/min/mmHg/L DLCOCOR_PRED (ML/MIN/MMHG) : 19.46 ml/min/mmHg [facility] 09-21-2024 YEN Telephone ([facility]) SULAIMAN ESTES ([id number]) 1955 F Date Time Provider Department 09/21/24 BRIAN TATE During your visit today, we recorded the following information about you: Ricoebonie (Pharmacy Alexia) Elisa 09/21/2024 9:[address] S[address] Good morning Dr. Tate, Additional info needed. Please see below. Ricoebonie ([facility]arm[facility]), Elisa 09/23/2024 7:[address] Tate, Additional info needed. Please see below. Vilma (Pharmacy Se[facility]ist), Elisa 09/27/2024 6:[address] S[address] Good morning [address] Tate, Additional info needed. Please see below. Edgar Johns 09/29/2024 9:40 AM Signed michael Gudino for the day Is there any update on this Thank you Allergies As of Date: 09/21/2024 Noted Allergy Reaction CODEINE 12/24/2020 9 - Itching 2 - Rash PHENOBARBITAL 12/24/2020 4 - Hives 9 - Itching 2 - Rash SULFAMETHOXAZOLE-TRIME THOPRIM 07/22/2022 4 - Hives SULFA (SULFONAMIDE ANTIBIOTICS) 12/24/2020 2 - Rash Date Reviewed: 07/21/2024 Reviewed by: Ana Soriano LPN - Fully Assessed Reason for Visit: Insurance Authorization [[id number]] Cmt: Prior Auth Delayed:Additional info needed Prescriptions as of 09/29/2024 - budesonide-formoterol (SYMBICORT) 160-4.5 mcg/actuation inhaler Inhale 2 puffs as instructed two times a day. - tiotropium (SPIRIVA) 18 mcg inhalation capsule Inhale 1 capsule as instructed once daily. - Ipratropium Broad Top (ATROVENT) 21 mcg (0.03 %) nasal spray Use 2 Sprays in the nose every 8 hours as needed (FOR RUNNY NOSE). - sertraline (ZOLOFT) 25 mg tablet Take 25 mg by mouth once daily. - levalbuterol tartrate HFA (XOPENEX HFA) 45 mcg/actuation inhaler Inhale 2 Puffs as instructed every 6 hours as needed for wheezing/shortness of breath. - cyanocobalamin 1,000 mcg/mL Inject intramuscularly. - ALPRAZolam (XANAX) 0.5 mg tablet - pramipexole (MIRAPEX) 0.125 mg tablet Take 0.125 mg by mouth three times daily. one tab daily - HYDROcodone-chlorpheni ramine (TUSSIONEX) 10-8 mg/5 mL suspension Take by mouth every 12 hours as needed. Problem List As Of Date 09/21/2024 Noted Resolved LPRD (laryngopharyngeal reflux disease) [K21.9] 03/02/2024 Chronic cough [R05.3] 03/02/2024 Chronic rhinitis [J31.0] 03/02/2024 Encounter Status:Closed by VILMA ([facility])ELISA on 09/21/24 [facility] 07-26-2024 CNPN Telephone (PULMBD) SULAIMAN ESTES ([id number]) 1955 F Date Time Provider Department 07/26/24 CIELO JEFFRIES During your visit today, we recorded the following information about you: Cielo Jeffries MD 07/26/2024 4:14 PM Signed I called Ms Estes to update on stability of CT of the chest and discuss that this is likely related to an indolent infection such as VY Nodules have not changed over the years, she has a history of smoking in the past. CT of the chest ordered in 1 year Cielo Jeffries MD July 26, 2024 4:14 PM Allergies As of Date: 07/26/2024 Noted Allergy Reaction CODEINE 12/24/2020 9 - Itching 2 - Rash PHENOBARBITAL 12/24/2020 4 - Hives 9 - Itching 2 - Rash SULFAMETHOXAZOLE-TRIME THOPRIM 07/22/2022 4 - Hives SULFA (SULFONAMIDE ANTIBIOTICS) 12/24/2020 2 - Rash Date Reviewed: 07/21/2024 Reviewed by: nAa Soriano LPN - Fully Assessed Primary Visit Diagnosis:Lung nodules [R91.8] Order(s):CT CHEST WO APRILON [[id number]] Order #: [id number] FUTURE Prescriptions as of 07/26/2024 - fluticasone-umeclidin- vilanter (TRELEGY ELLIPTA) 100-62.5-25 mcg inhalation powder Inhale 1 Puff as instructed once daily. - Ipratropium Broad Top (ATROVENT) 21 mcg (0.03 %) nasal spray Use 2 Sprays in the nose every 8 hours as needed (FOR RUNNY NOSE). - sertraline (ZOLOFT) 25 mg tablet Take 25 mg by mouth once daily. - fluticasone-salmeterol (ADVAIR, WIXELA) 250-50 mcg/dose inhaler Inhale 1 Puff as instructed two times a day. - mometasone (NASONEX) 50 mcg/actuation nasal spray USE 2 SPRAYS NASALLY ONCE DAILY - levalbuterol tartrate HFA (XOPENEX HFA) 45 mcg/actuation inhaler Inhale 2 Puffs as instructed every 6 hours as needed for wheezing/shortness of breath. - pantoprazole DR (PROTONIX) 40 mg tablet Take 40 mg by mouth once daily. - cyanocobalamin 1,000 mcg/mL Inject intramuscularly. - ALPRAZolam (XANAX) 0.5 mg tablet - pramipexole (MIRAPEX) 0.125 mg tablet Take 0.125 mg by mouth three times daily. one tab daily - HYDROcodone-chlorpheni ramine (TUSSIONEX) 10-8 mg/5 mL suspension Take by mouth every 12 hours as needed. Problem List As Of Date 07/26/2024 Noted Resolved LPRD (laryngopharyngeal reflux disease) [K21.9] 03/02/2024 Chronic cough [R05.3] 03/02/2024 Chronic rhinitis [J31.0] 03/02/2024 Encounter Status:Closed by CIELO JEFFRIES on 07/26/24 [facility] CNOVon 07-21-2024 CNOV Office Visit (OTOLTW ) SULAIMAN ESTES ([id number]) 1955 F Date Time Provider Department 07/21/24 1:50 PM BRIAN TATE OTMISSY During your visit today, we recorded the following information about you: Brian Tate MD 07/21/2024 2:09 PM Signed CC: Sulaiman Estes is a 68 year old female seen as a return patient with a history of chronic cough IMPRESSION AND PLANS: (R05.3) Chronic cough (primary encounter diagnosis) (G52.2) 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 She does have episodes that sound like laryngospasm with paroxysms of cough, so if the third injection is not successful than we can consider Botox. She has had some nasal obstruction with a septal deviation to the right and no response to Flonase. We briefly discussed septal surgery but we will discuss in the future if she wants to consider. Atrovent helps when her nose is running. She is on reflux treatment and Pepcid has recently been added. 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 She initially did worse but is now 95% better. We proceeded with a second SLN block today. She has chronic rhinitis with a past history of allergies and shots with no response. She more recently she had IgE negative response. She also has gustatory rhinitis. She has tried a number of different nasal sprays buy they cause headaches. Examination shows Nasal septal deviation to the right, moderate. Moderate left inferior turbinate hypertrophy. No purulence or polyps. She has not tried ipratropium bromide that she is going to use as needed before eating if she is in company or going out. She is on reflux treatment and has had her dose increased to bid recently ALLERGIES Allergen Reactions Codeine Itching, Rash Phenobarbital Hives, Itching, Rash Sulfamethoxazole-Tr* Hives Sulfa (Sulfonamide * Rash Current Outpatient Medications Medication Sig Ipratropium Broad Top (ATROVENT) 21 mcg (0.03 %) nasal spray Use 2 Sprays in the nose every 8 hours as needed (FOR RUNNY NOSE). sertraline (ZOLOFT) 25 mg tablet Take 25 mg by mouth once daily. fluticasone-salmeterol (ADVAIR, WIXELA) 250-50 mcg/dose inhaler Inhale 1 Puff as instructed two times a day. levalbuterol tartrate HFA (XOPENEX HFA) 45 mcg/actuation inhaler Inhale 2 Puffs as instructed every 6 hours as needed for wheezing/shortness of breath. pantoprazole DR (PROTONIX) 40 mg tablet Take 40 mg by mouth once daily. cyanocobalamin 1,000 mcg/mL Inject intramuscularly. ALPRAZolam (XANAX) 0.5 mg tablet pramipexole (MIRAPEX) 0.125 mg tablet Take 0.125 mg by mouth three times daily. one tab daily HYDROcodone-chlorpheni ramine (TUSSIONEX) 10-8 mg/5 mL suspension Take by mouth every 12 hours as needed. mometasone (NASONEX) 50 mcg/actuation nasal spray USE 2 SPRAYS NASALLY ONCE DAILY No current facility-administered medications for this visit. PAST MEDICAL HISTORY Diagnosis Date Sinus tachycardia No past surgical history on file. Social History: Social History Tobacco Use Smoking status: Former Types: Cigarettes Smokeless tobacco: Never Substance Use Topics Alcohol use: Not Currently Drug use: Never PHYSICAL EXAM: On physical examination Sulaiman Estes is a well-developed, well nourished female. The voice is a little raspy. Cranial nerves II-XII are grossly intact Mental status revealed patient to be alert and oriented. Mood is appropriate. Details of the physical examination: HEAD AND FACE: Physical examination of the head, neck, external nose, external ears, mouth and face fails to demonstrate any significant abnormality or asymmetry to critical face to face observation. Skin and scalp are normal. NOSE: ORAL CAVITY/OROPHARYNX: No masses or lesions LARYNX: Recommend flexible laryngoscopy with stroboscopy NECK: No adenopathy LCQ: Patient Entered Questionnaires 05/22/2024 06/20/2024 07/14/2024 [place] Cough Physical Sum Score 4.25 3.5 3.5 Psychological Sum Score 3.14 2.57 3.43 Social Sum Score 4 2.75 3.25 Total Score 11.39 (Lower scores are indicative of increased impact or lower quality of life. ) 8.82 (Lower scores are indicative of increased impact or lower quality of life. ) 10.18 (Lower scores are indicative of increased impact or lower quality of life. ) Brian Watts (more content not included)... Normal [facility] CT CHEST WO IVCONon 07-15-19 CT CHEST WO IVCON * * *Final Report* * * DATE OF EXAM: Jul 14 2024 8:42[facility] 0541 - CT CHEST WO IVCON / PROCEDURE REASON: Lung nodules * * * * Physician Interpretation * * * * EXAMINATION: CHEST CT WITHOUT CONTRAST CLINICAL HISTORY: Lung nodules Technique: Spiral CT acquisition of the chest from the thoracic inlet to the upper abdomen without contrast. MQ: [id number]_6 CT Radiation dose: Integrated Dose-length product (DLP) for this visit = 176 mGy*cm CT Dose Reduction Employed: Automated exposure control(AEC) and iterative recon Comparison: 06/22/2023, 01/01/2023 RESULT: Limitations: None. Lines, tubes, and devices: None. Lung parenchyma and airways: There are stable nodular opacities seen within the lungs. For example, there is a stable, approximately 1.2 x 0.6 cm nodular opacity seen within the right apex (series 5, image #28). There is a stable, approximately 1.1 x 0.5 cm nodular density seen within the right upper lobe (series 5, image #50). Other pulmonary nodules are also stable. For example, there is a stable, approximately 6 mm groundglass attenuation nodule seen within the left apex (series 5, image #32). There is no pneumothorax or endobronchial lesion. Pleural space: There is no pleural effusion. Lower neck, lymph nodes, and mediastinum: There are no pathologically enlarged axillary, mediastinal, or hilar lymph nodes. Heart, pericardium, and thoracic vessels: Atherosclerotic calcifications are present within the thoracic aorta and coronary arteries. The heart is normal in size. There is no significant pericardial effusion. Bones and soft tissues: There is no destructive bony lesion. Again seen are suture anchors within the humeral heads, bilaterally. Upper abdomen: Nonspecific wall thickening of the stomach likely relates to underdistention. There is nonspecific thickening of adrenal glands, bilaterally. Prominent, less than 1 cm abdominal lymph nodes are likely reactive. IMPRESSION: No acute pulmonary process is identified. Stable nodular opacities within the lungs, when compared to the prior examination. No miesha lymphadenopathy is seen within the chest. [employer]: [facility] Transcribe Date/Time: Jul 18 2024 9:53A Dictated by : RITO HARRIS MD This examination was interpreted and the report reviewed and electronically signed by: RITO HARRIS MD on Jul 18 2024 8:45PM EST [id number] Normal [facility] CNOVon 06-23-2024 CNOV Office Visit (OTOLTW ) SULAIMAN ESTES ([id number]) 1955 F Date Time Provider Department 06/23/24 1:30 PM BRIAN TATE OTOLTW During your visit today, we recorded the following information about you: Brian Tate MD 06/23/2024 1:38 PM Signed CC: Sulaiman Estes is a 68 year old female seen as a return patient with a history of chronic cough IMPRESSION AND PLANS: (R05.3) Chronic cough (primary encounter diagnosis) (G52.2) 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 She initially did worse but is now 95% better. We proceeded with a second SLN block today. She has chronic rhinitis with a past history of allergies and shots with no response. She more recently she had IgE negative response. She also has gustatory rhinitis. She has tried a number of different nasal sprays buy they cause headaches. Examination shows Nasal septal deviation to the right, moderate. Moderate left inferior turbinate hypertrophy. No purulence or polyps. She has not tried ipratropium bromide that she is going to use as needed before eating if she is in company or going out. 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 This worsened a few years ago following a respiratory tract infection. She has been followed by allergy immunology, and pulmonary medicine and they have not been able to get her cough under control. She has also had an EGD and a GI workup and treated for reflux. She is on pulmonary inhalers. She is not on any medications which would be associated with chronic cough. Dr Rubin has given her a trial of neuromodulators with gabapentin. And she has tried tramadol with mild improvement. 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 She also will have episodes of incontinence wit the cough and at times it seems paroxysmal which might suggest laryngospasm. She has also responded to tramadol. I discussed with her that long-term use of tramadol for chronic cough could predispose to opioid dependence. I also discussed with her superior laryngeal nerve blocks, that consists of a series of 3 injections, with a steroid and local anesthetic. - Informed consent obtained. - First round of SLN injection today tolerated well. She will come back in one and 2 months for repeat injections If not effective we can consider Botox for laryngospasm ALLERGIES Allergen Reactions Codeine Itching, Rash Phenobarbital Hives, Itching, Rash Sulfamethoxazole-Tr* Hives Sulfa (Sulfonamide * Rash Current Outpatient Medications Medication Sig Ipratropium Broad Top (ATROVENT) 21 mcg (0.03 %) nasal spray Use 2 Sprays in the nose every 8 hours as needed (FOR RUNNY NOSE). sertraline (ZOLOFT) 25 mg tablet Take 25 mg by mouth once daily. fluticasone-salmeterol (ADVAIR, WIXELA) 250-50 mcg/dose inhaler Inhale 1 Puff as instructed two times a day. mometasone (NASONEX) 50 mcg/actuation nasal spray USE 2 SPRAYS NASALLY ONCE DAILY levalbuterol tartrate HFA (XOPENEX HFA) 45 mcg/actuation inhaler Inhale 2 Puffs as instructed every 6 hours as needed for wheezing/shortness of breath. pantoprazole DR (PROTONIX) 40 mg tablet Take 40 mg by mouth once daily. cyanocobalamin 1,000 mcg/mL Inject intramuscularly. ALPRAZolam (XANAX) 0.5 mg tablet pramipexole (MIRAPEX) 0.125 mg tablet Take 0.125 mg by mouth three times daily. one tab daily HYDROcodone-chlorpheni ramine (TUSSIONEX) 10-8 mg/5 mL suspension Take by mouth every 12 hours as needed. No current facility-administered medications for this visit. PAST MEDICAL HISTORY Diagnosis Date Sinus tachycardia No past surgical history on file. Social History: Social History Tobacco Use Smoking status: Former Types: Cigarettes Smokeless tobacco: Never Substance Use Topics Alcohol use: Not Currently Drug use: Never PHYSICAL EXAM: On physical examination Sulaiman Estes is a well-developed, well nourished female. The voice is mildly raspy. Cranial nerves II-XII are grossly intact Mental status revealed patient to be alert and oriented. Mood is appropriate. Details of the physical examination: HEAD AND FACE: Physical examination of the head, neck, external nose, external ears, mouth and face fails to demonstrate any (more content not included)... [facility] Tele[facility] (OTOLTW) SULAIMAN ESTES ([id number]) 1955 F Date Time Provider Department 06/21/24 BRIAN TATE During your visit today, we recorded the following information about you: Katie Jaimes 06/21/2024 1:44 PM Addendum Sulaiman is calling Brian Tate MD today to request Insurance Authorization [employer] member services is calling. [phone] Case #[id number] All need prior authorizations. Previous injection on 05/26/24 should have been authorized first and needs to have a post authorization done. Future injection on 06/23/24 needs to have an authorization done before the patient can have it done. Please call the patient when this has been completed. [phone] Patient has been identified by name and birthdate. Duration of symptoms: N/A Person calling: John Was an appointment scheduled: No Katie Grossman Allergies As of Date: 06/21/2024 Noted Allergy Reaction CODEINE 12/24/2020 9 - Itching 2 - Rash PHENOBARBITAL 12/24/2020 4 - Hives 9 - Itching 2 - Rash SULFAMETHOXAZOLE-TRIME THOPRIM 07/22/2022 4 - Hives SULFA (SULFONAMIDE ANTIBIOTICS) 12/24/2020 2 - Rash Date Reviewed: 05/26/2024 Reviewed by: Ana Soriano LPN - Fully Assessed Reason for Visit: Insurance Authorization [[id number]] Prescriptions as of 07/20/2024 - Ipratropium Broad Top (ATROVENT) 21 mcg (0.03 %) nasal spray Use 2 Sprays in the nose every 8 hours as needed (FOR RUNNY NOSE). - sertraline (ZOLOFT) 25 mg tablet Take 25 mg by mouth once daily. - fluticasone-salmeterol (ADVAIR, WIXELA) 250-50 mcg/dose inhaler Inhale 1 Puff as instructed two times a day. - mometasone (NASONEX) 50 mcg/actuation nasal spray USE 2 SPRAYS NASALLY ONCE DAILY - levalbuterol tartrate HFA (XOPENEX HFA) 45 mcg/actuation inhaler Inhale 2 Puffs as instructed every 6 hours as needed for wheezing/shortness of breath. - pantoprazole DR (PROTONIX) 40 mg tablet Take 40 mg by mouth once daily. - cyanocobalamin 1,000 mcg/mL Inject intramuscularly. - ALPRAZolam (XANAX) 0.5 mg tablet - pramipexole (MIRAPEX) 0.125 mg tablet Take 0.125 mg by mouth three times daily. one tab daily - HYDROcodone-chlorpheni ramine (TUSSIONEX) 10-8 mg/5 mL suspension Take by mouth every 12 hours as needed. Problem List As Of Date 06/21/2024 Noted Resolved LPRD (laryngopharyngeal reflux disease) [K21.9] 03/02/2024 Chronic cough [R05.3] 03/02/2024 Chronic rhinitis [J31.0] 03/02/2024 Encounter Status:Closed by KATIE JAIMES on 07/20/24 [facility] 06-01-2024 YEN Telephone ([facility]) SULAIMAN ESTES ([id number]) 1955 F Date Time Provider Department 06/01/24 TANNA ESCUDERO During your visit today, we recorded the following information about you: Tanna Escudero APRN.CNP 06/01/2024 4:21 PM Signed ----- Message from Gisele Larose sent at 06/01/2024 3:04 PM EST ----- Regarding: FW: Chronic cough - not amenable to many treatments Internal referral - just wanted to check what testing would be needed before forwarding to scheduling. Thank you! ----- Message ----- From: Odilia Holder DO Sent: 06/01/2024 2:49 PM EST To: Cielo Jeffries MD; Cindy Conn RN; Gisele Barker Subject: RE: Chronic cough - not amenable to many trina# Thanks for reaching out, happy to help. Looping in Gisele and Cindy who can assist with coordinating a visit with one of the chronic cough physicians Odilia Beckett ----- Message ----- From: Cielo Jeffries MD Sent: 06/01/2024 1:23 PM EST To: Odilia Holder DO Subject: Chronic cough - not amenable to many treatme# Good afternoon Dr. Holder, My name is Shahab, I am one of the pulmonologists here with [facility]. I am reaching out regarding my patients Ms. Sulaiman Estes This lady has had debilitating chronic cough, for which she is on cough syrup containing opioids (its only thing that seems to be helping for her). Treatments in the past included inhalers, gabapentin, pregabalin, and TCAs. None of those offered any relief She follows up with Dr. Chacon from [employer] [employer], she was seen by ENT for injections. She did have 1 last month, which exacerbated her cough. She is scheduled for follow-up injections later this month LAMA-LABA combination seems to cause a lot of side effects. We did stick to ICS-LABA I promised her I would reach out to the chronic cough program, see if there is anything that could be offered to help. Please let me know if I should schedule her with someone in this program if they are able to offer other insight and help in this regard, I am afraid I reached the maximum I can do from my standpoint. Thank you very much Allergies As of Date: 06/01/2024 Noted Allergy Reaction CODEINE 12/24/2020 9 - Itching 2 - Rash PHENOBARBITAL 12/24/2020 4 - Hives 9 - Itching 2 - Rash SULFAMETHOXAZOLE-TRIME THOPRIM 07/22/2022 4 - Hives SULFA (SULFONAMIDE ANTIBIOTICS) 12/24/2020 2 - Rash Date Reviewed: 05/26/2024 Reviewed by: Ana Soriano LPN - Fully Assessed Primary Visit Diagnosis:Chronic cough [R05.3] Order(s):SPIROMETRY WITH DILATOR IF OBSTRUCTED [3510458] Order #: [id number] FUTURE LUNG DIFFUSION CAPACITY (DLCO) [] Order #: [id number] FUTURE LUNG VOLUMES [] Order #: [id number] FUTURE NITRIC OXIDE, EXHALED [[id number]] Order #: [id number] FUTURE Prescriptions as of 06/01/2024 - sertraline (ZOLOFT) 25 mg tablet Take 25 mg by mouth once daily. - fluticasone-salmeterol (ADVAIR, WIXELA) 250-50 mcg/dose inhaler Inhale 1 Puff as instructed two times a day. - ipratropium bromide (ATROVENT) 42 mcg (0.06 %) nasal spray Use 2 Sprays in the nose three times a day as needed (runny nose). - gabapentin (NEURONTIN) 300 mg capsule Take 1 capsule by mouth daily at bedtime for 90 days. - mometasone (NASONEX) 50 mcg/actuation nasal spray USE 2 SPRAYS NASALLY ONCE DAILY - levalbuterol tartrate HFA (XOPENEX HFA) 45 mcg/actuation inhaler Inhale 2 Puffs as instructed every 6 hours as needed for wheezing/shortness of breath. - pantoprazole DR (PROTONIX) 40 mg tablet Take 40 mg by mouth once daily. - cyanocobalamin 1,000 mcg/mL Inject intramuscularly. - ALPRAZolam (XANAX) 0.5 mg tablet - pramipexole (MIRAPEX) 0.125 mg tablet Take 0.125 mg by mouth three times daily. one tab daily - HYDROcodone-chlorpheni ramine (TUSSIONEX) 10-8 mg/5 mL suspension Take by mouth every 12 hours as needed. Problem List As Of Date 06/01/2024 Noted Resolved LPRD (laryngopharyngeal reflux disease) [K21.9] 03/02/2024 Chronic cough [R05.3] 03/02/2024 Chronic rhinitis [J31.0] 03/02/2024 Encounter Status:Closed by TANNA ESCUDERO on 06/01/24 [facility] CNOVon 05-26-2024 CNOV Office Visit (OTOLTW ) SULAIMAN ESTES ([id number]) 1955 F Date Time Provider Department 05/26/24 12:30 PM BRIAN TATE OTOLTW During your visit today, we recorded the following information about you: Brian Tate MD 05/26/2024 1:15 PM Signed CC: Sulaiman Estes is a 68 year old female seen as a return patient but new to me with a history of chronic cough IMPRESSION AND PLANS: (R05.3) Chronic cough (primary encounter diagnosis) (K21.9) LPRD (laryngopharyngeal reflux disease) (J30.1) Seasonal allergic rhinitis due to pollen (G62.9) Sensory neuropathy (G52.2) Vagal nerve sensitivity (J38.5) Laryngospasm The patient has a history of chronic cough that has been present for the last 17 to 20 years. This worsened a few years ago following a respiratory tract infection. She has been followed by allergy immunology, and pulmonary medicine and they have not been able to get her cough under control. She has also had an EGD and a GI workup and treated for reflux. She is on pulmonary inhalers. She is not on any medications which would be associated with chronic cough. Dr Rubin has given her a trial of neuromodulators with gabapentin. And she has tried tramadol with mild improvement. 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 She also will have episodes of incontinence wit the cough and at times it seems paroxysmal which might suggest laryngospasm. She has also responded to tramadol. I discussed with her that long-term use of tramadol for chronic cough could predispose to opioid dependence. I also discussed with her superior laryngeal nerve blocks, that consists of a series of 3 injections, with a steroid and local anesthetic. - Informed consent obtained. - First round of SLN injection today tolerated well. She will come back in one and 2 months for repeat injections If not effective we can consider Botox for laryngospasm HPI: 15 to 20-year history of chronic cough. Thorough pulmonary, allergy, speech, GI workups. Has had a trial of gabapentin and tramadol. Endorses cough-related incontinence. Saw Dr. Torres on 04/17/22: Assessment/Plan: ASSESSMENT/PLAN: 1. 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 It is daily. Has known allergies, allergy tx didn't help though. Has had endoscopy which was negative. Has some swallowing dysfunction with liquids after coughing. No unintended weight loss. No odynophagia, or changes in symptoms. Smoked for 10 years and quit many years ago. Has become unbearable since she caught a viral illness in December 2021 from her granddaughter. Has also seen Dr. Chacon on 05/03/24: IMPRESSION AND PLAN: Consultation requested by Dr. Martins for evaluation and recommendations regarding management of chronic cough. Sulaiman Estes is a 68 year old female with a history of GERD, bronchospasm (asthma / COPD), post nasal drainage, and allergic rhinitis, presents with a 15 year history of chronic cough, triggered primarily by exposure to smells. Has had extensive workup for cough. Only relief is hydrocodone syrup. Recently put on a trial of gabapentin for possible neurogenic cough but discontinued because it made her COPD worse. Can't tolerate Lyrica. Her laryngeal exam is unremarkable. 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 I will refer her to Dr. Tate for sinus and PND assessment, as well as discussion of possible SLN blocks and or Botox injections for cough control. PROCEDURE: The patient was sprayed with 2% lidocaine and 1% phenylephrine. After an approximate amount of time for vasoconstriction and anesthesia to be achieved, a flexible fiberoptic laryngoscope was inserted into the nasal cavity, nasopharynx, down to the oropharynx. A laryngeal function study which included videoendoscopy with stroboscopy was performed. FINDINGS: Findings revealed that the epiglottis, AE folds, vallecula, and pyriform sinuses appeared normal. No cobblestoning or erythema was appreciated along the posterior oropharyngeal wall. Inspection of the larynx revealed there were no lesions, tumor, masses, ulcerations or areas of leukoplakia identified. The subglottis was patent, no evidence of any stenosis was appreciated. Range of motion of the vocal folds is within normal limits bilaterally. There is no edema or eryhtema. The vocal folds appear with good color. The edges are straight. During phonation, the pattern of glottal closure is complete. Amplitude of v (more content not included)... Normal [facility] CNOVon 05-03-2024 CNOV Office Visit (OTSPLP ) SULAIMAN ESTES ([id number]) 1955 F Date Time Provider Department 05/03/24 8:00 AM LIAT CHACON OTSPLP During your visit today, we recorded the following information about you: Liat Chacon, PhD, [facility]RAND BUTTING MACHINE OPERATOR 05/03/2024 8:51 AM Addendum [facility] Liat Chacon, Ph.D NAME: Sulaiman Estes CLINIC NO: [id number] DATE OF SERVICE: May 02, 2024 IMPRESSION AND PLAN: Consultation requested by Dr. Martins for evaluation and recommendations regarding management of chronic cough. Sulaiman Estes is a 68 year old female with a history of GERD, bronchospasm (asthma / COPD), post nasal drainage, and allergic rhinitis, presents with a 15 year history of chronic cough, triggered primarily by exposure to smells. Has had extensive workup for cough. Only relief is hydrocodone syrup. Recently put on a trial of gabapentin for possible neurogenic cough but discontinued because it made her COPD worse. Can't tolerate Lyrica. Her laryngeal exam is unremarkable. 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 I will refer her to Dr. Tate for sinus and PND assessment, as well as discussion of possible SLN blocks and or Botox injections for cough control. HISTORY OF PRESENT PROBLEM: Sulaiman Estes is a 68 year old patient who presents with chief complaint of chronic cough Chronic cough x 15 years with significant work up, only thing that really seems to help is hydrocodone cough syrup. Coughs mostly during the day. 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 Frequent coughing fits. Tried inhalers with no relief. Cough can be associated with losing her voice. Worse with exercise in the beginning but less when continuing exercise. Wheezing is expiratory. No hoarseness. No difficulty swallowing. She took gabapentin for 6 weeks but discontinued because she developed a wheeze. She is taking Protonix at bedtime. Dx COPD, follows with pulmonary, chest CT with stable nodules. Hx 20 PY smoking history (quit 34 years ago). Frequent sinus infections. 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 [place] Cough Questionnaire: 1- Physical Summation Score: 35/8 = 4.37 2- Psychosocial Summation Score: 34/7 = 4.85 3- Social Summation Score: 21/4 = 5.25 Total Score: (1+2+3) = 14.47 Mild >17 Moderate severity 12-17 Severe <12 Minimal important change is 1.3 Good response >2 PAST MEDICAL HISTORY Diagnosis Date Sinus tachycardia Current Outpatient Medications on File Prior to Visit Medication Sig sertraline (ZOLOFT) 25 mg tablet Take 25 mg by mouth once daily. fluticasone-salmeterol (ADVAIR, WIXELA) 250-50 mcg/dose inhaler Inhale 1 Puff as instructed two times a day. ipratropium bromide (ATROVENT) 42 mcg (0.06 %) nasal spray Use 2 Sprays in the nose three times a day as needed (runny nose). mometasone (NASONEX) 50 mcg/actuation nasal spray USE 2 SPRAYS NASALLY ONCE DAILY levalbuterol tartrate HFA (XOPENEX HFA) 45 mcg/actuation inhaler Inhale 2 Puffs as instructed every 6 hours as needed for wheezing/shortness of breath. pantoprazole DR (PROTONIX) 40 mg tablet Take 40 mg by mouth once daily. cyanocobalamin 1,000 mcg/mL Inject intramuscularly. ALPRAZolam (XANAX) 0.5 mg tablet pramipexole (MIRAPEX) 0.125 mg tablet Take 0.125 mg by mouth three times daily. one tab daily HYDROcodone-chlorpheni ramine (TUSSIONEX) 10-8 mg/5 mL suspension Take by mouth every 12 hours as needed. gabapentin (NEURONTIN) 300 mg capsule Take 1 capsule by mouth daily at bedtime for 90 days. (Patient not taking: Reported on 05/03/2024) No current facility-administered medications on file prior to visit. PROCEDURE: The patient was sprayed with 2% lidocaine and 1% phenylephrine. After an approximate amount of time for vasoconstriction and anesthesia to be achieved, a flexible fiberoptic laryngoscope was inserted into the nasal cavity, nasopharynx, down to the oropharynx. A laryngeal function study which included videoendoscopy with stroboscopy was performed. FINDINGS: Findings revealed that the epiglottis, AE folds, vallecula, and pyriform sinuses appeared normal. No cobblestoning or erythema was appreciated along the posterior oropharyngeal wall. Inspection of the larynx revealed there were no lesions, tumor, masses, ulcerations or areas of leukoplakia identified. The subglottis was patent, no evidence of any stenosis was appreciated. Range of motion of the vocal folds is within normal limits bilaterally. There is no edema or eryhtema. The vocal folds appear with good color. The edges are straight. During phonation, the pattern of glottal closure is complete. Amplitude of vibration and mucosal waves are within normal limits bilaterally. The scope was withdrawn and the patient tolerated the procedure well. I reviewed the video with Consuelo (more content not included)... Normal [facility] Chest PA and Lateralon 03-16 Chest PA and Lateral [facility] Imaging Services [address] [place] [address] Chest PA and Lateral MR#: [id number] Acct: [id number] Name: SULAIMAN ESTES Rep #: [id number] : 1955 F 68 From: Dmitri Suarez PCP: Dr. Silvana Arrieta, DO Status: [facility] CLI Study: Chest PA and Lateral Date of Exam: 03/16/24 Exam# [id number] Ordering Dr: Odilia Lopez [employer]-C [id number] INDICATION: RULE OUT PNEUMONIA EXAMINATION/TECHNIQUE: X-RAY - XR Chest 2 Views COMPARISON: Prior study dated: 06/19/2014 FINDINGS: LINES/DEVICES: None. LUNGS: No consolidation, edema or effusion. No pneumothorax. MEDIASTINUM AND CARDIOVASCULAR STRUCTURES: Cardiac silhouette not enlarged. Atherosclerotic calcifications of the aortic arch. Central airways and mediastinal contour are unremarkable. BONES AND SOFT TISSUES: Surgical pins overlying the left humeral head. RAD/Chest PA and Lateral IMPRESSION: No radiographic evidence of acute cardiopulmonary disease. Electronically Signed: Dmitri Gonsalez MD at 15:32 EST , CC: BONIFACIO Lopez; Dr. Silvana Arrieta DO Team Automobile Assembler: Signed Normal [facility] ALGN RESP DISEASE PROF REG 5 on 03-03-2024 A. alternata IgE Qn (S) <0.35 Normal <0.35 [facility] Comment on above: Order Comment: Speci men Type: BLOOD SPECIMENOrdering Facility: [facility] Address: [address] [place] [address] Performed By: #### L [id number] ####[facility] LABIA [id number] [place] [address] [place] A. alternata IgE RAST class (S) Class 0 Normal Class 0 [facility] Comment on above: Order Comment: Speci men Type: BLOOD SPECIMENOrdering Facility: [facility] Address: [address] [place] [address] Performed By: #### L [id number] ####[facility] [id number] [place] [address] [place] A. fumigatus IgE Qn (S) <0.35 Normal <0.35 [facility] Comment on above: Order Comment: Speci men Type: BLOOD SPECIMENOrdering Facility: [facility] Address: [address] [place] [address] Performed By: #### L [id number] ####[facility] LABCLIA [id number] [place] [address] [place] A. fumigatus IgE RAST class (S) Class 0 Normal Class 0 [facility] Comment on above: Order Comment: Speci men Type: BLOOD SPECIMENOrdering Facility: [facility] Address: [address] [place] [address] Performed By: #### L [id number] ####[facility] LABCLIA [id number] [place] [address] [place] Kenyan house dust mite IgE Qn (S) <0.35 Normal <0.35 [facility] Comment on above: Order Comment: Speci men Type: BLOOD SPECIMENOrdering Facility: [facility] Address: [address] [place] [address] Performed By: #### L [id number] ####[facility] LABCLIA [id number] [place] [address] [place] Kenyan house dust mite IgE RAST class (S) Class 0 Normal Class 0 [facility] Comment on above: Order Comment: Speci men Type: BLOOD SPECIMENOrdering Facility: [facility] Address: [address] [place] [address] Performed By: #### L [id number] ####[facility] LABCLIA [id number] [place] [address] [place] Bermuda grass IgE Qn (S) <0.35 Normal <0.35 [facility] Comment on above: Order Comment: Speci men Type: BLOOD SPECIMENOrdering Facility: [facility] Address: [address] [place] [address] Performed By: #### L [id number] ####[facility] LABCLIA [id number] [place] [address] [place] Bermuda grass IgE RAST class (S) Class 0 Normal Class 0 [facility] Comment on above: Order Comment: Speci men Type: BLOOD SPECIMENOrdering Facility: [facility] Address: [address] [place] [address] Performed By: #### L [id number] ####[facility] LABCLIA [id number] [place] [address] [place] Boxelder IgE Qn (S) <0.35 Normal <0.35 [facility] Comment on above: Order Comment: Speci men Type: BLOOD SPECIMENOrdering Facility: [facility] Address: [address] [place] [address] Performed By: #### L [id number] ####[facility] LABCLIA [id number] [place] [address] [place] Boxelder IgE RAST class (S) Class 0 Normal Class 0 [facility] Comment on above: Order Comment: Speci men Type: BLOOD SPECIMENOrdering Facility: [facility] Address: [address] [place] [address] Performed By: #### L [id number] ####[facility] LABCLIA [id number] [place] [address] [place] C. herbarum IgE Qn (S) <0.35 Normal <0.35 [facility] Comment on above: Order Comment: Speci men Type: BLOOD SPECIMENOrdering Facility: [facility] Address: [address] [place] [address] Performed By: #### L [id number] ####[facility] LABCLIA [id number] [place] [address] [place] C. herbarum IgE RAST class (S) Class 0 Normal Class 0 [facility] Comment on above: Order Comment: Speci men Type: BLOOD SPECIMENOrdering Facility: [facility] Address: [address] [place], [place] [address] Performed By: #### L [id number] ####[facility] LABCLIA [id number] [place] [address] [place] Cat dander IgE Qn (S) <0.35 Normal <0.35 [facility] Comment on above: Order Comment: Speci men Type: BLOOD SPECIMENOrdering Facility: [facility] Address: [address] [place], [place] [address] Performed By: #### L [id number] ####[facility] LABCLIA [id number] [place] [address] [place] Cat dander IgE RAST class (S) Class 0 Normal Class 0 [facility] Comment on above: Order Comment: Speci men Type: BLOOD SPECIMENOrdering Facility: [facility] Address: [address] [place] [address] Performed By: #### L [id number] ####[facility] LABCLIA [id number] [place] [address] [place] Cocklebur IgE Qn (S) <0.35 Normal <0.35 [facility] Comment on above: Order Comment: Speci men Type: BLOOD SPECIMENOrdering Facility: [facility] Address: [address] [place] [address] Performed By: #### L [id number] ####[facility] LABCLIA [id number] [place] [address] [place] Cocklebur IgE RAST class (S) Class 0 Normal Class 0 [facility] Comment on above: Order Comment: Speci men Type: BLOOD SPECIMENOrdering Facility: [facility] Address: [address] [place], [place] [address] Performed By: #### L [id number] ####[facility] LABCLIA [id number] [place] [address] [place] Cockroach IgE Qn (S) <0.35 Normal <0.35 [facility] Comment on above: Order Comment: Speci men Type: BLOOD SPECIMENOrdering Facility: [facility] Address: [address] [place] [address] Performed By: #### L [id number] ####[facility] LABCLIA [id number] [place] [address] [place] Cockroach IgE RAST class (S) Class 0 Normal Class 0 [facility] Comment on above: Order Comment: Speci men Type: BLOOD SPECIMENOrdering Facility: [facility] Address: [address] [place] [address] Performed By: #### L [id number] ####[facility] LABCLIA [id number] [place] [address] [place] Common Pigweed IgE Qn (S) <0.35 Normal <0.35 [facility] Comment on above: Order Comment: Speci men Type: BLOOD SPECIMENOrdering Facility: [facility] Address: [address] [place] [address] Performed By: #### L [id number] ####[facility] LABCLIA [id number] [place] [address] [place] Common Pigweed IgE RAST class (S) Class 0 Normal Class 0 [facility] Comment on above: Order Comment: Speci men Type: BLOOD SPECIMENOrdering Facility: [facility] Address: [address] [place], [place] [address] Performed By: #### L [id number] ####[facility] LABCLIA [id number] [place] [address] [place] Common Ragweed IgE Qn (S) <0.35 Normal <0.35 [facility] Comment on above: Order Comment: Speci men Type: BLOOD SPECIMENOrdering Facility: [facility] Address: [address] [place] [address] Performed By: #### L [id number] ####[facility] LABCLIA [id number] [place] [address] [place] Common Ragweed IgE RAST class (S) Class 0 Normal Class 0 [facility] Comment on above: Order Comment: Speci men Type: BLOOD SPECIMENOrdering Facility: [facility] Address: [address] [place] [address] Performed By: #### L [id number] ####[facility] LABCLIA [id number] [place] [address] [place] Elliott IgE Qn (S) <0.35 Normal <0.35 [facility] Comment on above: Order Comment: Speci men Type: BLOOD SPECIMENOrdering Facility: [facility] Address: [address] [place] [address] Performed By: #### L [id number] ####[facility] LABCLIA [id number] [place] [address] [place] Elliott IgE RAST class (S) Class 0 Normal Class 0 [facility] Comment on above: Order Comment: Speci men Type: BLOOD SPECIMENOrdering Facility: [facility] Address: [address] [place] [address] Performed By: #### L [id number] ####[facility] LABCLIA [id number] [place] [address] [place] Dog dander IgE Qn (S) <0.35 Normal <0.35 [facility] Comment on above: Order Comment: Speci men Type: BLOOD SPECIMENOrdering Facility: [facility] Address: [address] [place] [address] Performed By: #### L [id number] ####[facility] LABCLIA [id number] [place] [address] [place] Dog dander IgE RAST class (S) Class 0 Normal Class 0 [facility] Comment on above: Order Comment: Speci men Type: BLOOD SPECIMENOrdering Facility: [facility] Address: [address] [place] [address] Performed By: #### L [id number] ####[facility] LABCLIA [id number] [place] [address] [place] Citizen [place] plantain IgE Qn (S) <0.35 Normal <0.35 [facility] Comment on above: Order Comment: Speci men Type: BLOOD SPECIMENOrdering Facility: [facility] Address: [address] [place] [address] Performed By: #### L [id number] ####[facility] LABCLIA [id number] [place] [address] [place] Citizen [place] plantain IgE RAST class (S) Class 0 Normal Class 0 [facility] Comment on above: Order Comment: Speci men Type: BLOOD SPECIMENOrdering Facility: [facility] Address: [address] [place] [address] Performed By: #### L [id number] ####[facility] LABCLIA [id number] [place] [address] [place] house dust mite IgE Qn (S) <0.35 Normal <0.35 [facility] Comment on above: Order Comment: Speci men Type: BLOOD SPECIMENOrdering Facility: [facility] Address: [address] [place] [address] Performed By: #### L [id number] ####[facility] LABCLIA [id number] [place] [address] [place] house dust mite IgE RAST class (S) Class 0 Normal Class 0 [facility] Comment on above: Order Comment: Speci men Type: BLOOD SPECIMENOrdering Facility: [facility] Address: [address] [place], [place] [address] Performed By: #### L [id number] ####[facility] LABCLIA [id number] [place] [address] [place] Goosefoot IgE Qn (S) <0.35 Normal <0.35 [facility] Comment on above: Order Comment: Speci men Type: BLOOD SPECIMENOrdering Facility: [facility] Address: [address] [place] [address] Performed By: #### L [id number] ####[facility] [facility] LABCLIA [id number] [place] [address] [place] IgE RAST class (S) Class 0 Normal Class 0 [facility] Comment on above: Order Comment: Speci men Type: BLOOD SPECIMENOrdering Facility: [facility] Address: [address] [place] [address] Performed By: #### L [id number] ####[facility] LABCLIA [id number] [place] [address] [place] David grass smut IgE Qn (S) <0.35 Normal <0.35 [facility] Comment on above: Order Comment: Speci men Type: BLOOD SPECIMENOrdering Facility: [facility] Address: [address] [place] [address] Performed By: #### L [id number] ####[facility] LABCLIA [id number] [place] [address] [place] David grass smut IgE RAST class (S) Class 0 Normal Class 0 [facility] Comment on above: Order Comment: Speci men Type: BLOOD SPECIMENOrdering Facility: [facility] Address: [address] [place], [place] [address] Performed By: #### L [id number] ####[facility] LABCLIA [id number] [place] [address] [place] IgE Qn (S) <0.35 Normal <0.35 [facility] Comment on above: Order Comment: Speci men Type: BLOOD SPECIMENOrdering Facility: [facility] Address: [address] [place] [address] Performed By: #### L [id number] ####[facility] LABCLIA [id number] [place] [address] [place] IgE RAST class (S) Class 0 Normal Class 0 [facility] Comment on above: Order Comment: Speci men Type: BLOOD SPECIMENOrdering Facility: [facility] Address: [address] [place] [address] Performed By: #### L [id number] ####[facility] LABCLIA [id number] [place] [address] [place] Tracy Elder IgE Qn (S) <0.35 Normal <0.35 [facility] Comment on above: Order Comment: Speci men Type: BLOOD SPECIMENOrdering Facility: [facility] Address: [address] [place] [address] Performed By: #### L [id number] ####[facility] LABCLIA [id number] [place] [address] [place] Tracy Elder IgE RAST class (S) Class 0 Normal Class 0 [facility] Comment on above: Order Comment: Speci men Type: BLOOD SPECIMENOrdering Facility: [facility] Address: [address] [place] [address] Performed By: #### L [id number] ####[facility] LABCLIA [id number] [place] [address] [place] Mouse urine proteins IgE Qn (S) <0.35 Normal <0.35 [facility] Comment on above: Order Comment: Speci men Type: BLOOD SPECIMENOrdering Facility: [facility] Address: [address] [place] [address] Performed By: #### L [id number] ####[facility] LABCLIA [id number] [place] [address] [place] Mouse urine proteins IgE RAST class (S) Class 0 Normal Class 0 [facility] Comment on above: Order Comment: Speci men Type: BLOOD SPECIMENOrdering Facility: [facility] Address: [address] [place] [address] Performed By: #### L [id number] ####[facility] LABCLIA [id number] [place] [address] [place] Pecan or [place] IgE Qn (S) <0.35 Normal <0.35 [facility] Comment on above: Order Comment: Speci men Type: BLOOD SPECIMENOrdering Facility: [facility] Address: [address] [place] [address] Performed By: #### L [id number] ####[facility] LABCLIA [id number] [place] [address] [place] Pecan or [place] IgE RAST class (S) Class 0 Normal Class 0 [facility] Comment on above: Order Comment: Speci men Type: BLOOD SPECIMENOrdering Facility: [facility] Address: [address] [place] [address] Performed By: #### L [id number] ####[facility] LABCLIA [id number] [place] [address] [place] Sheep [place] IgE Qn (S) <0.35 Normal <0.35 [facility] Comment on above: Order Comment: Speci men Type: BLOOD SPECIMENOrdering Facility: [facility] Address: [address] [place] [address] Performed By: #### L [id number] ####[facility] LABCLIA [id number] [place] [address] [place] Sheep [place] IgE RAST class (S) Class 0 Normal Class 0 [facility] Comment on above: Order Comment: Speci men Type: BLOOD SPECIMENOrdering Facility: [facility] Address: [address] [place] [address] Performed By: #### L [id number] ####[facility] LABCLIA [id number] [place] [address] [place] Silver Birch IgE Qn (S) <0.35 Normal <0.35 [facility] Comment on above: Order Comment: Speci men Type: BLOOD SPECIMENOrdering Facility: [facility] Address: [address] [place] [address] Performed By: #### L [id number] ####[facility] LABCLIA [id number] [place] [address] [place] Silver [place]ch IgE RAST class (S) Class 0 Normal Class 0 [facility] Comment on above: Order Comment: Speci men Type: BLOOD SPECIMENOrdering Facility: [facility] Address: [address] [place] [address] Performed By: #### L [id number] ####[facility] LABCLIA [id number] [address] [place] Ghassan IgE Qn (S) <0.35 Normal <0.35 [facility] Comment on above: Order Comment: Speci men Type: BLOOD SPECIMENOrdering Facility: [facility] Address: [address] [place] [address] Performed By: #### L [id number] ####[facility] LABCLIA [id number] [place] [address] [place] Ghassan IgE RAST class (S) Class 0 Normal Class 0 [facility] Comment on above: Order Comment: Speci men Type: BLOOD SPECIMENOrdering Facility: [facility] Address: [address] [place] [address] Performed By: #### L [id number] ####[facility] LABCLIA [id number] [place] [address] [place] White [place] IgE Qn (S) <0.35 Normal <0.35 [facility] Comment on above: Order Comment: Speci men Type: BLOOD SPECIMENOrdering Facility: [facility] Address: [address] [place], [place] [address] Performed By: #### L [id number] ####[facility] LABCLIA [id number] [place] [id number] [place] White Ildefonso IgE RAST class (S) Class 0 Normal Class 0 [facility] Comment on above: Order Comment: Speci men Type: BLOOD SPECIMENOrdering Facility: [facility] Address: [address] [place], [place] [address] Performed By: #### L [id number] ####[facility] LABCLIA [id number] [place] [address] [place] IgE Qn (S) <0.35 Normal <0.35 [facility] Comment on above: Order Comment: Speci men Type: BLOOD SPECIMENOrdering Facility: [facility] Address: [address] [place] [address] Performed By: #### L [id number] ####[facility] LABCLIA [id number] [place] [address] [place] IgE RAST class (S) Class 0 Normal Class 0 [facility] Comment on above: Order Comment: Speci men Type: BLOOD SPECIMENOrdering Facility: [facility] Address: [address] [place] [address] Performed By: #### L [id number] ####[facility] LABCLIA [id number] [place] [id number] [place] White mulberry IgE Qn (S) <0.35 Normal <0.35 [facility] Comment on above: Order Comment: Speci men Type: BLOOD SPECIMENOrdering Facility: [facility] Address: [address] [place], [place] [address] Performed By: #### L [id number] ####[facility] LABCLIA [id number] [place] [id number] [place] White mulberry IgE RAST class (S) Class 0 Normal Class 0 [facility] Comment on above: Order Comment: Speci men Type: BLOOD SPECIMENOrdering Facility: [facility] Address: [address] [place] [address] Performed By: #### L [id number] ####[facility] LABCLIA [id number] [place] [address] [place] IgE Qn (S) <0.35 Normal <0.35 [facility] Comment on above: Order Comment: Speci men Type: BLOOD SPECIMENOrdering Facility: [facility] Address: [address] [place] [address] Performed By: #### L [id number] ####[facility] LABCLIA [id number] [place] [address] [place] IgE RAST class (S) Class 0 Normal Class 0 [facility] Comment on above: Order Comment: Speci men Type: BLOOD SPECIMENOrdering Facility: [facility] Address: [address] [place] [address] Performed By: #### L [id number] ####[facility] LABCLIA [id number] [place] [address] [place] ALLERGEN, DOG COMPONENTS IGE on 03-03-2024 Dog recombinant (rCan f) 1 IgE Qn (S) <0.10 Normal <0.10 [facility] Comment on above: Order Comment: Speci men Type: BLOOD SPECIMENOrdering Facility: [facility] Address: [address] [place] [address] Performed By: #### D OGCP ####[facility] LABCLIA [id number] [place] [address] [place] Dog recombinant (rCan f) 2 IgE Qn (S) <0.10 Normal <0.10 [facility] Comment on above: Order Comment: Speci men Type: BLOOD SPECIMENOrdering Facility: [facility] Address: [address] [place] [address] Performed By: #### D OGCP ####[facility] LABCLIA [id number] [place] [address] [place] Dog recombinant 5 IgE Qn (S) <0.10 Normal <0.10 [facility] Comment on above: Order Comment: Speci men Type: BLOOD SPECIMENOrdering Facility: [facility] Address: [address] [place] [address] Performed By: #### D OGCP ####[facility] LABCLIA [id number] [address] [place] RCAN F3 <0.10 Normal <0.10 [facility] Comment on above: Order Comment: Speci men Type: BLOOD SPECIMENOrdering Facility: [facility] Address: [address] [place] [address] Performed By: #### D OGCP ####[facility] LABCLIA [id number] [address] [place] RCAN F4 <0.10 Normal <0.10 [facility] Comment on above: Order Comment: Speci men Type: BLOOD SPECIMENOrdering Facility: [facility] Address: [address] [place] [address] Performed By: #### D OGCP ####[facility] LABCLIA [id number] [address] [place] RCAN F6??? <0.10 Normal <0.10 [facility] Comment on above: Order Comment: Speci men Type: BLOOD SPECIMENOrdering Facility: [facility] Address: [address] [place] [address] Performed By: #### D OGCP ####[facility] LABCLIA [id number] [place] [address] [place] [address] CHEST WO IVCONon 01-02-[address] [facility] [address] CHEST WO IVCONon 09-24-19 23 [facility] CBC W Auto Differential pane l (Bld)on 06-23-2022 Basophils (Bld) [#/Vol] 0.07 10*3/uL <0.11 k/uL [facility] Basophils/100 WBC (Bld) 0.9 % [facility] Differential cell count method Nom (Bld) Auto [facility] Eosinophils (Bld) [#/Vol] 0.33 10*3/uL <0.46 k/uL [facility] Eosinophils/100 WBC (Bld) 4.4 % [facility] Erythrocyte distribution width (RBC) [Ratio] 11.9 % 11.5 - 15.0 % [facility] Hematocrit (Bld) [Volume fraction] 39.5 % 36.0 - 46.0 % [facility] Hemoglobin (Bld) [Mass/Vol] 12.9 g/dL 11.5 - 15.5 g/dL [facility] Immature granulocytes (Bld) [#/Vol] <0.10 k/uL [facility] Immature granulocytes/100 WBC (Bld) 0.1 % [facility] Lymphocytes (Bld) [#/Vol] 3.45 10*3/uL 1.00 - 4.00 k/uL [facility] Lymphocytes/100 WBC (Bld) 45.8 % [facility] MCH (RBC) [Entitic mass] 28.7 pg 26.0 - 34.0 pg [facility] MCHC (RBC) [Mass/Vol] 32.7 g/dL 30.5 - 36.0 g/dL [facility] MCV (RBC) [Entitic vol] 87.8 fL 80.0 - 100.0 fL [facility] Monocytes (Bld) [#/Vol] 0.66 10*3/uL <0.87 k/uL [facility] Monocytes/100 WBC (Bld) 8.8 % [facility] Neutrophils (Bld) [#/Vol] 3.02 10*3/uL 1.45 - 7.50 k/uL [facility] Neutrophils/100 WBC (Bld) 40.0 % [facility] Nucleated RBC (Bld) [#/Vol] <0.01 k/uL [facility] Nucleated RBC/100 WBC (Bld) [Ratio] 0.0 /100 WBC [facility] Platelet mean volume (Bld) [Entitic vol] 9.7 fL 9.0 - 12.7 fL [facility] Platelets (Bld) [#/Vol] 307 10*3/uL 150 - 400 k/uL [facility] RBC (Bld) [#/Vol] 4.50 10*6/uL 3.90 - 5.2 0 m/uL [facility] WBC (Bld) [#/Vol] 7.54 10*3/uL 3.70 - 11. 00 k/uL [facility] No Panel Informationon 06-23 EMT01-05% POST (L/S) 0.56 L[facility] E[facility]85-19% PRE (L/S) 0.40 L/S [employer] [facility] FEV1 PRE (L) 1.32 L [facility] FEV1/FVC POST (%) 63 % [facility] FEV1/FVC PRE (%) 60 % [facility] FEV1_POST (L) 1.38 L [facility] FVC POST (L) 2.20 L [facility] FVC PRE (L) 2.18 L [facility] PEF POST (L/S) 5.39 L/S [facility] PEF PRE (L/S) 5.25 L/S [facility] PET/CT SKULL-THIGH INITon 06-17-2022 NM PET/CT SKULL-THIGH INIT * * *Final Report* * * DATE OF EXAM: Jun 17 2022 9:14AM MDP 0060 - NM PET/CT SKULL-THIGH INIT / PROCEDURE REASON: R91.8-Lung nodules * * * * Physician Interpretation * * * * FDG PET/CT SCAN: CLINICAL HISTORY: Lung nodule. INDICATION: Initial treatment strategy. TECHNIQUE: 11.2 mCi 18-FDG IV, followed about 1 hour later by PET imaging from base of the skull to proximal femur. Non contrast CT was performed for attenuation correction and anatomic localization purposes. CT Dose-Length Product (DLP): 280 mGy*cm. CT Dose Reduction Employed: Yes Correlation: CT chest 05/23/2022 RESULT: Reference mediastinal blood pool SUV 2.2, liver SUV 2.6 NECK: Likely physiological activity in the oral cavity, tonsillar regions, salivary glands. No suspicious hypermetabolic foci. Mild activity with degenerative changes in the cervical spine. There is no hypermetabolic cervical lymphadenopathy. CHEST: There are aortic and coronary calcifications. There is no hypermetabolic hilar or mediastinal lymphadenopathy. There is no hypermetabolic axillary lymphadenopathy. Multiple scattered bilateral nodular opacities seen on the CT chest are associated with low-level FDG activity and are not hypermetabolic for example right upper lobe nodule 0.5 x 1.2 cm (max SUV 0.9), two adjacent subcentimeter nodular densities in the lateral right upper lung (max SUV 0.7), 0.7 cm nodule left apex (Max SUV 0.6). There are no hypermetabolic foci in the lungs. ABDOMEN AND PELVIS: The liver is slightly heterogeneous activity but no focal lesions are identified. There are no hypermetabolic foci in the liver, spleen, adrenals. There is no hypermetabolic abdominal or pelvic lymphadenopathy. Physiologic activity is noted in the liver, renal collecting system, bladder and bowel. SKELETON: There are no hypermetabolic osseous lesions. Production Sanitizer (topogram) images:No additional findings. - IMPRESSION: 1. Neck: No suspicious hypermetabolic foci 2. Chest: No evidence of FDG avid neoplastic process. No significant FDG activity associated with the bilateral lung nodules noted on the CT chest. No hypermetabolic foci in the lungs. No hypermetabolic lymphadenopathy. 3. Abdomen and pelvis: No evidence of FDG avid neoplastic process 4. Skeleton: No hypermetabolic osseous lesions [employer]: [facility] Transcribe Date/Time: Jun 17 2022 12:09P Dictated by : ANA DAVALOS MD This examination was interpreted and the report reviewed and electronically signed by: ANA DAVALOS MD on Jun 17 2022 12:22PM EST [id number] Normal [facility] PET/CT SKULL-THIGH INITIA Boy 06-17-[address] [facility] [address] CHEST WO IVCONon 05-23-19 Radiology Result ACTIONABLE Abnormal [facility] CBC W Auto Differential pane l (Bld)on 05-07-2022 Basophils (Bld) [#/Vol] 0.06 10*3/uL <0.11 k/uL [facility] Basophils/100 WBC (Bld) 0.9 % [facility] Differential cell count method Nom (Bld) Auto [facility] Eosinophils (Bld) [#/Vol] 0.42 10*3/uL <0.46 k/uL [facility] Eosinophils/100 WBC (Bld) 6.1 % [facility] Erythrocyte distribution width (RBC) [Ratio] 12.0 % 11.5 - 15.0 % [facility] Hematocrit (Bld) [Volume fraction] 37.1 % 36.0 - 46.0 % [facility] Hemoglobin (Bld) [Mass/Vol] 12.1 g/dL 11.5 - 15.5 g/dL [facility] Immature granulocytes (Bld) [#/Vol] <0.10 k/uL [facility] Immature granulocytes/100 WBC (Bld) 0.1 % [facility] Lymphocytes (Bld) [#/Vol] 3.22 10*3/uL 1.00 - 4.00 k/uL [facility] Lymphocytes/100 WBC (Bld) 47.1 % [facility] MCH (RBC) [Entitic mass] 28.8 pg 26.0 - 34.0 pg [facility] MCHC (RBC) [Mass/Vol] 32.6 g/dL 30.5 - 36.0 g/dL [facility] MCV (RBC) [Entitic vol] 88.3 fL 80.0 - 100.0 fL [facility] Monocytes (Bld) [#/Vol] 0.69 10*3/uL <0.87 k/uL [facility] Monocytes/100 WBC (Bld) 10.1 % [facility] Neutrophils (Bld) [#/Vol] 2.44 10*3/uL 1.45 - 7.50 k/uL [facility] Neutrophils/100 WBC (Bld) 35.7 % [facility] Nucleated RBC (Bld) [#/Vol] <0.01 k/uL [facility] Nucleated RBC/100 WBC (Bld) [Ratio] 0.0 /100 WBC [facility] Platelet mean volume (Bld) [Entitic vol] 9.8 fL 9.0 - 12.7 fL [facility] Platelets (Bld) [#/Vol] 321 10*3/uL 150 - 400 k/uL [facility] RBC (Bld) [#/Vol] 4.20 10*6/uL 3.90 - 5.2 0 m/uL [facility] WBC (Bld) [#/Vol] 6.84 10*3/uL 3.70 - 11. 00 k/uL [facility] No Panel Informationon 05-07 DLCO (ml/min/mmHg) 26.80 ml/min/mmHg [facility] DLCO/VA (ml/min/mmHg/L) 4.99 ml/min/mmHg/L [facility] SMH22-78% POST (L/S) 0.49 L[facility]S [facility] EVZ91-20% PRE (L/S) 0.36 L/S [place] [facility] FEV1 PRE (L) 1.14 L [facility] FEV1/FVC POST (%) 59 % [facility] nd [facility] FEV1/FVC PRE (%) 56 % [facility] FEV1_POST (L) 1.24 L [facility] FVC POST (L) 2.11 L [facility] FVC PRE (L) 2.03 L [facility] PEF POST (L/S) 4.79 L/S [facility] PEF PRE (L/S) 4.23 L/S [facility] VA (L) 5.37 L [facility] Absolute lymphocyte counton 11-07-2021 Lymphocytes Auto (Unsp spec) [#/Vol] 2.93 10*3/uL 0.83-4.[address] [facility] Work Phone: Basophil percentageon 2021 Basophils/100 WBC (Bld) 0.6 % 0-[address] [facility] Work Phone: Bilirubin [Mass/Vol] 0.30 mg/dL 0.20-1.00 [facility] Work Phone: Comment on above: For patients on eltr ombopag therapy, use of Dimension [place] TBIL is not recommended. Chloride [Moles/Vol] 106 mmol/L 98-107 [facility] Work Phone: Eosinophils/100 WBC (Bld) 6.1 % 0-[address] [facility] Work Phone: Glucose [Mass/Vol] 97 mg/dL 74-106 [facility] Work Phone: [phone] Neutrophils (Bld) [#/Vol] 3.1 10*3/uL 2.0-7.[address] [facility] Work Phone: [phone] Neutrophils/100 WBC (Bld) 42.4 % 47-[address] [facility] Work Phone: [phone] Potassium [Moles/Vol] 4.1 mmol/L 3.5-5.[address] [facility] Work Phone: [phone] Protein [Mass/Vol] 7.2 g/dL 6.4-8.2 [facility] Work Phone: [phone] Sodium [Moles/Vol] 138 mmol/L 136-145 [facility] Work Phone: [phone] WBC (Bld) [#/Vol] 7.2 10*3/uL 4.4-11.0 [facility] Work Phone: Blood erythrocytes count (nu mber/volume)on 11-07-2021 RBC (Bld) [#/Vol] 4.49 10*6/uL 4.2-[facility].4 [facility]: Blood hemoglobin measurement (mass/volume)on 11-07-2021 Hemoglobin (Bld) [Mass/Vol] 12.9 g/dL 12.0-15.[address] [facility] Work Phone: Blood lymphocytes/100 leukoc yteson 11-07-2021 Lymphocytes/100 WBC (Bld) 40.5 % 19-[address] [facility] Work Phone: Blood monocytes/100 leukocyt eson 11-07-2021 Monocytes/100 WBC (Bld) 10.1 % 0-[address] [facility] Work Phone: Blood platelet mean volumeon 11-07-2021 Platelet mean volume (Bld) [Entitic vol] 10.6 fL 6.2-12.[address] [facility] Work Phone: Determination of erythrocyte mean corpuscular volume (MCV)on 11-07-2021 MCV (RBC) [Entitic vol] 88.0 fL 81-[address] [facility] Work Phone: Erythrocyte sedimentation ra rosalina 11-07-2021 ESR (Bld) [Velocity] 31 mm/h 0-30 [facility] Work Phone: Hematocrit Auto (Bld) [Volum e fraction]on 11-07-2021 Hematocrit (Bld) [Volume fraction] 39.5 % 37-[address] [facility] Work Phone: Iron measurement (mass/mass) on 11-07-2021 Iron (Unsp spec) [Mass/Mass] 68 ug/dL 50-[address] [facility] Work Phone: Laboratory - Chemistry and C hemistry - challengeon 11-07-2021 ALP [Catalytic activity/Vol] 87 U/L 45-[address] [facility] Work Phone: ALT [Catalytic activity/Vol] 19 U/L 13-[address] [facility] Work Phone: CO2 [Moles/Vol] 27.0 mmol/L 21.0-32.[address] [facility] Work Phone: Cobalamin (Vitamin B12) [Mass/Vol] 427 pg/mL 211-[address] [facility] Work Phone: Free T4 [Mass/Vol] 0.93 ng/dL 0.76-1.46 [facility] Work Phone: Globulin (S) [Mass/Vol] 3.6 g/dL 2.2-4.[address] [facility] Work Phone: Urea nitrogen/Creatinine [Mass ratio] 18.2 mg/mg 10-[address] [facility] Work Phone: Laboratory - Hematology and Cell countson 11-07-2021 Erythrocyte distribution width (RBC) [Entitic vol] 40.1 fL 35.1-43.[address] [facility] Work Phone: Erythrocyte distribution width (RBC) [Ratio] 12.4 % 11.6-14.[address] [facility] Work Phone: Immature granulocytes/100 WBC (Bld) 0.300 % 0.0-0.[address] [facility] Work Phone: Comment on above: IG% - Immature Granu locytes (promyelocytes, myelocytes and metamyelocytes) > 1% indicates that a LEFT SHIFT is Present. MCH (RBC) [Entitic mass] 28.7 pg 27.0-32.[address] [facility] Work Phone: Nucleated RBC/100 WBC (Bld) [Ratio] 0 % 0-[address] [facility] Work Phone: MCHC Auto (RBC) [Mass/Vol]on 11-07-2021 MCHC (RBC) [Mass/Vol] 32.7 g/dL 32-36 [facility] Work Phone: No Panel Informationon 11-07 Estimated GFR (MDRD) Amer 83 mL/min >[address] [facility] Work Phone: Comment on above: GFR Calc Estimated GFR (MDRD) Non-Af Amer 69 mL/min >[address] [facility] Work Phone: Comment on above: Non- GFR Calc Free Triiodothyronine (T3) pg/dL 3.1 pg/mL 2.18-3.[address] [facility] Work Phone: Thyroid Stimulating Hormone (TSH) 0.47 uIU/mL 0.358-3.[address] [facility] Work Phone: Vitamin D 25-Hydroxy 41.9 ng/mL [facility] Work Phone: Comment on above: Vitamin D 25(OH) Sta tus Range Deficiency <20 ng/mL (50nmol/L) Insufficiency 20 - 30 ng/mL (50 - 75 nmol/L) Sufficiency 30 - 100 ng/mL (75 - 250 nmol/L) Toxicity >100 ng/mL (>250 nmol/L) Platelets bldon 11-07-2021 Platelets (Bld) [#/Vol] 303 10*3/uL 150-[address] [facility] Work Phone: Serum or plasma C reactive p rotein measurement (mass/volume)on 11-07-2021 CRP [Mass/Vol] 4.21 mg/L 0.0-3.[address] [facility] Work Phone: Comment on above: C-Reactive Protein ( CRP) provides useful information for thediagnosis, therapy and monitoring of inflammatory processesand associated diseases. For the evaluation of Relative Riskfor Cardiovascular Disease, a High Sensitivity CRP (HSCRP)should be ordered. Serum or plasma albumin joana urement (mass/volume)on 11-07-2021 Albumin [Mass/Vol] 3.6 g/dL 3.2-5.0 [facility] Work Phone: Serum or plasma albumin/glob ulin mass ratioon 11-07-2021 Albumin/Globulin [Mass ratio] 1.0 {ratio} 0.9-2.[address] [facility] Work Phone: Serum or plasma calcium joana urement (mass/volume)on 11-07-2021 Calcium [Mass/Vol] 9.3 mg/dL 8.5-10.1 [facility] Work Phone: Serum or plasma creatinine m easurement (mass/volume)on 11-07-2021 Creatinine [Mass/Vol] 0.88 mg/dL 0.55-1.02 [facility] Work Phone: Comment on above: The validity of the calculated GFR & GFRAA in patients over 70 years has not been determined. Clinical correlation is essential. Serum or plasma ferritin tanvi surement (mass/volume)on 11-07-2021 Ferritin [Mass/Vol] 32 ng/mL 8-252 [facility] Work Phone: Serum or plasma urea nitroge n measurement (mass/volume)on 11-07-2021 Urea nitrogen [Mass/Vol] 16 mg/dL 7-[address] [facility] Work Phone: Serum rheumatoid factor dete ctionon 11-07-2021 Rheumatoid factor Ql (S) < 10.0 IU/mL <[address] [facility] Work Phone: Thin prep Papanicolaou smear with manual screeningon 11-07-2021 Thin prep Papanicolaou smear with manual screening 17 U/L 15-[address] [facility] Work Phone: Thin prep Papanicolaou smear with manual screening 5 5-[address] [facility] Work Phone: Vital Signs Date Time Vital Sign Value Performing Clinician Faci lity 01-03-2025 14:00-0400 Body temperature 98.4 [degF] Corey Miranda MD Work Phone: [facility] 01-03-2025 14:00-0400 Diastolic blood pressure 87 mm[Hg] Corey Miranda MD Work Phone: [facility] 01-03-2025 14:00-0400 Heart rate 110 /min Corey Miranda MD Work Phone: [facility] 01-03-2025 14:00-0400 SaO2% (BldA) [Mass fraction] 94 % Corey Miranda MD Work Phone: [facility] 01-03-2025 14:00-0400 Systolic blood pressure 170 mm[Hg] Corey Miranda MD Work Phone: [facility] 01-03-2025 13:30-0400 Respiratory rate 18 /min Corey Miranda MD Work Phone: [facility] 01-03-2025 09:55-0400 Body mass index (BMI) [Ratio] 25.4 kg/m2 Corey Miranda MD Work Phone: [facility] 01-03-2025 09:55-0400 Body weight 59 kg Corey Miranda MD Work Phone: [facility] 12-13-2024 09:01-0400 Body height 152.[address] [facility] 1 Work Phone: [facility] 12-13-2024 09:01-0400 Body mass index (BMI) [Ratio] 25.78 kg/m2 Pacc 1 Work Phone: [facility] 12-13-2024 09:01-0400 Body temperature 97.39 [degF] Pacc 1 Work Phone: [facility] 12-13-2024 09:01-0400 Body weight 59.88 kg Pacc 1 Work Phone: [facility] 12-13-2024 09:01-0400 Diastolic blood pressure 60 mm[Hg] Pacc 1 Work Phone: [facility] 12-13-2024 09:01-0400 Heart rate 120 /min Pacc 1 Work Phone: [facility] 12-13-2024 09:01-0400 Respiratory rate 12 /min Pacc 1 Work Phone: [facility] 12-13-2024 09:01-0400 SaO2% (BldA) [Mass fraction] 95 % Pacc 1 Work Phone: [facility] 12-13-2024 09:01-0400 Systolic blood pressure 140 mm[Hg] Pacc 1 Work Phone: [facility] 12-07-2024 10:10-0400 Body height 154.1 cm Brian Mondragon MD Work Phone: [facility] 12-07-2024 10:10-0400 Body mass index (BMI) [Ratio] 25.41 kg/m2 Brian Mondragon MD Work Phone: [facility] 12-07-2024 10:10-0400 Body weight 60.33 kg Brian Mondragon MD Work Phone: [facility] 12-07-2024 10:10-0400 Diastolic blood pressure 90 mm[Hg] Brian Mondragon MD Work Phone: [facility] 12-07-2024 10:10-0400 Heart rate 103 /min Brian Mondragon MD Work Phone: [facility] 12-07-2024 10:10-0400 SaO2% (BldA) [Mass fraction] 98 % Brian Mondragon MD Work Phone: [facility] 12-07-2024 10:10-0400 Systolic blood pressure 165 mm[Hg] Brian Mondragon MD Work Phone: [facility] 09-22-2024 09:47-0400 Body mass index (BMI) [Ratio] 27.96 kg/m2 Brian Mondragon MD Work Phone: [facility] 09-22-2024 09:47-0400 Body temperature 98.4 [degF] Brian Mondragon MD Work Phone: [facility] 09-22-2024 09:47-0400 Body weight 66.3 kg Brian Mondragon MD Work Phone: [facility] 09-22-2024 09:47-0400 Diastolic blood pressure 82 mm[Hg] Brian Mondragon MD Work Phone: [facility] 09-22-2024 09:47-0400 Heart rate 120 /min Brian Mondragon MD Work Phone: [facility] 09-22-2024 09:47-0400 Respiratory rate 16 /min Brian Mondragon MD Work Phone: [facility] 09-22-2024 09:47-0400 SaO2% (BldA) [Mass fraction] 99 % Brian Mondragon MD Work Phone: [facility] 09-22-2024 09:47-0400 Systolic blood pressure 147 mm[Hg] Brian Mondragon MD Work Phone: [facility] 09-22-2024 09:31-0400 Body mass index (BMI) [Ratio] 27.96 kg/m2 Pulm 1 Work Phone: [facility] 09-22-2024 09:31-0400 Body weight 66.3 kg Pulm 1 Work Phone: [facility] 06-23-2022 10:49-0500 Body temperature 97.7 [degF] Cielo Jeffries MD Work Phone: [facility] 06-23-2022 10:49-0500 Body weight 63.4 kg Cielo Jeffries MD Work Phone: [facility] 06-23-2022 10:49-0500 Diastolic blood pressure 77 mm[Hg] Cielo Jeffries MD Work Phone: [facility] 06-23-2022 10:49-0500 Heart rate 94 /min Cielo Jeffries MD Work Phone: [facility] 06-23-2022 10:49-0500 Respiratory rate 18 /min Cielo Jeffries MD Work Phone: [facility] 06-23-2022 10:49-0500 SaO2% (BldA) [Mass fraction] 98 % Cielo Jeffries MD Work Phone: [facility] 06-23-2022 10:49-0500 Systolic blood pressure 138 mm[Hg] Cielo Jeffries MD Work Phone: [facility] 05-07-2022 08:50-0500 Body height 154 cm Cielo Jeffries MD Work Phone: [facility] 05-07-2022 08:50-0500 Body temperature 97.3 [degF] Cielo Jeffries MD Work Phone: [facility] 05-07-2022 08:50-0500 Body weight 63.2 kg Cielo Jeffries MD Work Phone: [facility] 05-07-2022 08:50-0500 Diastolic blood pressure 75 mm[Hg] Cielo Jeffries MD Work Phone: [facility] 05-07-2022 08:50-0500 Heart rate 85 /min Cielo Jeffries MD Work Phone: [facility] 05-07-2022 08:50-0500 Respiratory rate 18 /min Cielo Jeffries MD Work Phone: [facility] 05-07-2022 08:50-0500 SaO2% (BldA) [Mass fraction] 98 % Cielo Jeffries MD Work Phone: [facility] 05-07-2022 08:50-0500 Systolic blood pressure 132 mm[Hg] Cielo Jeffries MD Work Phone: [facility] Encounters Encounter Date Encounter Type Care Provider Facility Start: 01-19-2025 ambulatory Silvana Malys Facility:[facility] Start: 01-12-2025 End: 01-12-2025 ambulatory SILVANA A MALYS Facility:[facility] Start: 01-03-2025 ambulatory SILVANA A MAINOR Facility:[facility] Start: 01-03-2025 End: 01-03-2025 Subsequent hospital visit by physician Corey Miranda MD Work Phone: Ambulatory Surgery Comment on above: Hypertrophy of infer ior nasal turbinate [J34.3], Deviated nasal septum [J34.2], Rhinorrhea [J34.89], Vasomotor rhinitis [J30.0] Start: 12-30-2024 End: 12-30-2024 Refill Brian Mondragon MD Work Phone: Pulmonary Medicine Comment on above: Med Change Request Start: 12-29-2024 End: 12-29-2024 Specialty Pharmacy Mishel Teixeira [facility] Comment on above: SPP Inflammatory Con ditions - Medication Refill (Dupixent) Start: 12-26-2024 End: 12-28-2024 ambulatory Brian Mondragon MD Work Phone: Pulmonary Medicine Comment on above: Prednisone update Start: 12-13-2024 End: 12-13-2024 Admission to establishment Pacc David 1 Work Phone: Pre Anesthesia Start: 12-13-2024 End: 12-13-2024 Anesthesia consultation Pac David 1 Work Phone: Pre Anesthesia Comment on above: Headaches (Primary D x); Severe persistent asthma without complication (HCC); Pulmonary nodules; Post-operative nausea and vomiting; Hyperlipidemia, unspecified hyperlipidemia type; Asthma with chronic obstructive pulmonary disease (COPD) (HCC); LPRD (laryngopharyngeal reflux disease); Laryngeal spasm Start: 12-13-2024 End: 12-13-2024 ambulatory SILVANA ARRIETA Facility:[facility] Start: 12-07-2024 End: 12-07-2024 Patient encounter procedure Brian Mondragon MD Work Phone: Pulmonary Medicine Comment on above: Severe persistent as thma without complication (HCC) (Primary Dx); Chronic cough; Chronic rhinitis; Asthma with chronic obstructive pulmonary disease (COPD) (HCC); History of smoking 10-25 pack years; Pulmonary nodules; Cough variant asthma (HCC); LPRD (laryngopharyngeal reflux disease); Chronic pansinusitis; shelter current use of inhaled steroid Start: 12-07-2024 End: 12-07-2024 ambulatory SILVANA ARRIETA Facility:[facility] Start: 12-05-2024 End: 12-05-2024 Specialty Pharmacy Mishel Teixeira [facility] Comment on above: SPP Inflammatory Con ditions - Medication Refill (Dupixent) Cough Start: 11-22-2024 End: 11-22-2024 Telephone encounter Corey Miranda MD Work Phone: Head [facility] Comment on above: Schedule Surgery Start: 11-21-2024 End: 11-28-2024 ambulatory Corey Miranda MD Work Phone: Otolaryngology Comment on above: Message Start: 11-18-2024 End: 11-18-2024 Patient encounter procedure Mishel Teixeira [facility] Comment on above: SPP Inflammatory Con ditions - Treatment Referral (Dupixent); Insurance Authorization (PA submission pending ) Nasal crusting (Prim hillary Dx); Hypertrophy of inferior nasal turbinate; Deviated nasal septum; Rhinorrhea; Vasomotor rhinitis Start: 11-18-2024 End: 11-18-2024 ambulatory Mishel Teixeira [facility] Start: 11-14-2024 End: 11-17-2024 ambulatory Brian Mondragon MD Work Phone: Pulmonary Medicine Comment on above: Medications Start: 10-11-2024 ambulatory BRIAN Tilley ty:[facility] Start: 10-11-2024 End: 10-11-2024 Subsequent hospital visit by physician Jo [facility] Work Phone: Cat Scan Comment on above: Chronic pansinusitis [J32.4] Start: 09-24-2024 End: 09-24-2024 ambulatory BRIAN MONDRAGON Facility:[facility] Start: 09-22-2024 End: 09-22-2024 ambulatory [facility] Work Phone: Pulmonary Medicine Comment on above: Spirometry Start: 09-22-2024 End: 09-22-2024 Patient encounter procedure [facility] Work Phone: Pulmonary Medicine Comment on above: Severe persistent as thma without complication (HCC) (Primary Dx); Asthma with chronic obstructive pulmonary disease (COPD) (HCC); Pulmonary nodules; History of smoking 10-25 pack years; 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 Comment on above: Insurance Authorizat ion (Prior Auth Delayed:Additional info needed) Start: 09-15-2024 End: 09-15-2024 ambulatory BRIAN TATE Facility:[facility] Start: 09-05-2024 End: 09-05-2024 ambulatory Brian Tate MD Work Phone: Otolaryngology Comment on above: Questions on treatme nts. Start: 09-01-2024 End: 09-01-2024 ambulatory Ian Martins MD Work Phone: Allergy Comment on above: Dear Dr. Martins , Start: 07-27-2024 End: 08-03-2024 ambulatory Cielo Jeffries MD Work Phone: Pulmonary Medicine Comment on above: Nontuberculous Mycob acteria (NTM) Infections Start: 07-26-2024 End: 07-26-2024 ambulatory Cielo Jeffries MD Work Phone: Pulmonary Medicine Comment on above: Inhalers Start: 07-26-2024 End: 07-26-2024 Telephone encounter Cielo Jeffries MD Work Phone: Pulmonary Medicine Start: 07-21-2024 End: 07-21-2024 ambulatory BRIAN TATE Facility:[facility] Start: 07-21-2024 End: 07-21-2024 Patient encounter procedure Brian Tate MD Work Phone: Otolaryngology Comment on above: Chronic cough (Prima ry Dx); Vagal nerve sensitivity; Laryngospasm; Sensory neuropathy; LPRD (laryngopharyngeal reflux disease); Seasonal allergic rhinitis due to pollen Start: 07-19-2024 End: 07-22-2024 ambulatory Brian Tate MD Work Phone: Otolaryngology Comment on above: Insurance Start: 07-14-2024 End: 07-14-2024 ambulatory CIELO JEFFRIES Facility:[facility] Start: 07-14-2024 End: 07-14-2024 Subsequent hospital visit by physician Jo [facility] ([facility] Work Phone: Cat Scan Comment on above: Lung nodules [R91.8] Start: 06-23-2024 End: 06-23-2024 ambulatory BRIAN TATE Facility:[facility] Start: 06-23-2024 End: 06-23-2024 Patient encounter procedure Brian Tate MD Work Phone: Otolaryngology Comment on above: Chronic cough (Prima ry Dx); Vagal nerve sensitivity; Laryngospasm; Seasonal allergic rhinitis due to pollen; LPRD (laryngopharyngeal reflux disease); Sensory neuropathy; Nasal septal deviation Start: 06-22-2024 End: 06-22-2024 Telemedicine consultation with patient Ian Martins MD Work Phone: Allergy Start: 06-22-2024 End: 06-22-2024 ambulatory Ian Martins MD Work Phone: Allergy Comment on above: Chronic rhinitis (Pr imary Dx); Hoarse voice quality; Chronic pharyngitis; Wheezing; LPRD (laryngopharyngeal reflux disease); Gastroesophageal reflux disease, unspecified whether esophagitis present; Chronic cough Start: 06-21-2024 End: 07-20-2024 Telephone encounter Brian Tate MD Work Phone: Otolaryngology Comment on above: Insurance Authorizat ion Start: 06-01-2024 End: 06-01-2024 Telephone encounter Tanna Escudero APRJOSE EDUARDO Work Phone: [facility] Provider Adult Start: 05-30-2024 End: 06-01-2024 ambulatory Cielo Jeffries MD Work Phone: Pulmonary Medicine Comment on above: Inhaler Start: 05-26-2024 End: 05-31-2024 ambulatory Brian Tate MD Work Phone: Otolaryngology Start: 05-26-2024 End: 05-31-2024 Patient encounter procedure Brian Tate MD Work Phone: Otolaryngology Comment on above: Chronic cough (Prima ry Dx); LPRD (laryngopharyngeal reflux disease); Seasonal allergic rhinitis due to pollen; Sensory neuropathy; Vagal nerve sensitivity; Laryngospasm Appointment Start: 05-23-2024 End: 05-23-2024 ambulatory Cielo Jeffries MD Work Phone: Pulmonary Medicine Comment on above: Chronic obstructive pulmonary disease, unspecified COPD type (HCC) (Primary Dx); Chronic cough Start: 05-23-2024 End: 05-23-2024 Telemedicine consultation with patient Cielo Jeffries MD Work Phone: Pulmonary Medicine Start: 05-10-2024 End: 05-10-2024 ambulatory Ian Martins MD Work Phone: Allergy Start: 05-10-2024 End: 05-10-2024 Patient encounter procedure Ian Martins MD Work Phone: Allergy Comment on above: Appointment Start: 05-03-2024 End: 05-03-2024 ambulatory LIAT CHACON Facility:[facility] Start: 05-03-2024 End: 05-03-2024 Patient encounter procedure Liat Chacon PhD, [facility] [employer]TING MACHINE OPERATOR Work Phone: Otolaryngology Comment on above: Chronic rhinitis (Pr imary Dx); Chronic cough Start: 04-25-2024 End: 04-25-2024 ambulatory Ian Martins MD Work Phone: Allergy Comment on above: Gabapentin Start: 04-08-2024 End: 04-08-2024 Orders Only Cielo Jeffries MD Work Phone: Pulmonary Medicine Comment on above: Thrush (Primary Dx) Start: 04-05-2024 End: 04-22-2024 ambulatory Cielo Jeffries MD Work Phone: Pulmonary Medicine Start: 04-05-2024 End: 04-22-2024 Patient encounter procedure Cielo Jeffries MD Work Phone: Pulmonary Medicine Comment on above: Appointment Start: 03-24-2024 End: 03-25-2024 Refill Ian Martins MD Work Phone: Allergy Comment on above: Med Change Request Start: 03-16-2024 End: 03-16-2024 ambulatory Odilia Lopez Facility:[facility] Start: 03-07-2024 End: 03-07-2024 ambulatory Ian Martins MD Work Phone: Allergy Comment on above: Medication Start: 03-03-2024 End: 03-07-2024 ambulatory Ian Martins MD Work Phone: Allergy Comment on above: Gapapentin Start: 03-02-2024 End: 03-02-2024 ambulatory Ian Martins MD Work Phone: Allergy Comment on above: Chronic cough (Prima ry Dx); Allergy, sequela; Chronic rhinitis; LPRD (laryngopharyngeal reflux disease); Hoarse voice quality; Wheezing; Chronic pharyngitis; Gastroesophageal reflux disease, unspecified whether esophagitis present Start: 03-02-2024 End: 03-02-2024 Telemedicine consultation with patient Ian Martins MD Work Phone: Allergy Start: 01-30-2024 End: 02-02-2024 Refill Cielo Jeffries MD Work Phone: Pulmonary Medicine Comment on above: Refill Request Start: 01-20-2024 End: 01-20-2024 ambulatory Cielo Jeffries MD Work Phone: Pulmonary Medicine Comment on above: Question about charlie frazier Start: 01-20-2024 End: 01-20-2024 E-mail encounter from caregiver Cielo Jeffries MD Work Phone: Pulmonary Medicine Start: 01-19-2024 End: 01-21-2024 ambulatory Cielo Jeffries MD Work Phone: Pulmonary Medicine Comment on above: Allergies Start: 12-21-2023 End: 12-21-2023 Refill Halle Parham PA-C Work Phone: Pulmonary Medicine Comment on above: Refill Request Start: 08-27-2023 End: 08-27-[address] [facility] Work Phone: Start: 08-27-2023 End: 08-27-2023 Patient encounter procedure [facility] [place] Work Phone: Start: 08-14-2023 ambulatory Cielo Jeffries MD Work Phone: Pulmonary Medicine Comment on above: Insurance difficulti es Start: 07-22-2023 ambulatory Cielo Jeffries MD Work Phone: Pulmonary Medicine Comment on above: Prescription denied Start: 07-21-2023 Refill Cielo Jeffries MD Work Phone: Pulmonary Medicine Comment on above: Refill Request Start: 07-03-2023 Telephone encounter Cielo Suarez Work Phone: Pulmonary Medicine Start: 03-06-2023 Refill Cielo Jeffries MD Work Phone: Pulmonary Medicine Comment on above: Refill Request Start: 02-05-2023 ambulatory Cielo Jeffries MD Work Phone: Provider Adult Comment on above: Plans for chest imag ing Start: 02-05-2023 E-mail encounter fro m caregiver Cielo Jeffries MD Work Phone: [facility] Start: 01-07-2023 Orders Only Cielo Jeffries MD Work Phone: Pulmonary Medicine Comment on above: Lung nodule (Primary Dx) Start: 01-01-2023 End: 01-01-2023 Subsequent hospital visit by physician [facility] ([facility] Work Phone: Cat Scan Comment on above: Lung nodules [R91.8] Start: 11-24-2022 End: 11-24-2022 ambulatory Kathleen Leosmaris [employer]DY[employer]GETABLE FARM MANAGER Work Phone: Pulmonary Medicine Comment on above: COPD with exacerbati on (HCC) (Primary Dx); Allergy, sequela; Lung nodules Start: 11-24-2022 End: 11-24-2022 Telemedicine consultation with patient Kathleen Walker APRN.VEGETABLE FARM MANAGER Work Phone: [facility] Start: 10-23-2022 End: 10-23-2022 ambulatory Cielo Jeffries MD Work Phone: Pulmonary Medicine Comment on above: Shortness of breath (Primary Dx); Chronic obstructive pulmonary disease, unspecified COPD type (HCC); Lung nodules Start: 10-23-2022 End: 10-23-2022 Telemedicine consultation with patient Cielo Jeffries MD Work Phone: [facility] Start: 10-01-2022 Orders Only Cielo Jeffries MD Work Phone: Pulmonary Medicine Comment on above: Lung nodules (Primar y Dx) Start: 09-23-2022 End: 09-23-2022 Subsequent hospital visit by physician [facility] Work Phone: Cat Scan Comment on above: Lung nodules [R91.8] Start: 09-01-2022 End: 09-02-2022 ambulatory DC [facility] Facility:[id number] Start: 07-22-2022 End: 07-22-2022 Patient encounter procedure Dc Call Work Phone: Podiatry Comment on above: Plantar fasciitis (P rimary Dx) Start: 07-18-2022 Orders Only Dc flowers Work Phone: Podiatry Comment on above: Bilateral foot pain (Primary Dx) Start: 07-07-2022 Telephone encounter Lizandro edwards MD Work Phone: Pulmonary Medicine Comment on above: Medication Problem ( Called pt. Will hold Anoro and see if symptoms improve. To use PRN Xopenex if needed. She will contact in 1 week to keep us informed with how she is feeling) Start: 07-05-2022 ambulatory Cielo Jeffries MD Work Phone: Pulmonary Medicine Comment on above: ANORO Start: 06-23-2022 End: 06-23-2022 ambulatory Pulm Beac Work Phone: Pulmonary Lab Comment on above: Spirometry Start: 06-23-2022 End: 06-23-2022 Patient encounter procedure Cielo Jeffries MD Work Phone: Pulmonary Medicine Comment on above: Lung nodules (Primar y Dx); Chronic obstructive pulmonary disease, unspecified COPD type (HCC); Shortness of breath; Chronic cough Start: 06-17-2022 ambulatory UNKNOWN PROVIDER Facili ty:[facility] Start: 06-17-2022 End: 06-17-2022 Subsequent hospital visit by physician [facility] Work Phone: [facility] Comment on above: Lung nodules [R91.8] Start: 06-02-2022 ambulatory Marisel Montez andry Work Phone: Pulmonary Medicine Start: 05-26-2022 Telephone encounter Cielo Suarez Work Phone: Pulmonary Medicine Comment on above: Results; Patient Upd ate Start: 05-23-2022 End: 05-23-2022 Subsequent hospital visit by physician [facility] Work Phone: Cat Scan Comment on above: Lung nodules [R91.8] Start: 05-08-2022 ambulatory Cielo Jeffries MD Work Phone: Pulmonary Medicine Comment on above: X Ray results and fu rther imaging Question regarding X R CHEST 2V FRONTAL/LAT Start: 05-08-2022 E-mail encounter fro m caregiver Cielo Jeffries MD Work Phone: [facility] Start: 05-07-2022 End: 05-07-2022 ambulatory Pulm Beac Work Phone: Pulmonary Lab Comment on above: Spirometry Start: 05-07-2022 End: 05-07-2022 Patient encounter procedure [facility] Work [facility] Start: 05-07-2022 End: 05-07-2022 Subsequent hospital visit by physician X[facility] Work Phone: Radiology [place] Comment on above: Chronic cough [R05.3 ] Start: 05-07-2022 End: 05-07-2022 ambulatory Pulm Beac Work Phone: Pulmonary Lab Comment on above: Spirometry Start: 05-07-2022 End: 05-07-2022 Patient encounter procedure [facility] Work Phone[facility] Comment on above: Chronic obstructive pulmonary disease, unspecified COPD type (HCC) (Primary Dx); Chronic cough; Ex-smoker Start: 04-23-2022 Non-patient / Non-visit Dr. Basia Arrieta Work Phone: [facility] Start: 04-23-2022 End: 04-23-[address] Silvana Arrieta Work Phone: [facility] Work Phone: Start: 04-23-2022 End: 04-23-[address] Silvana Arrieta Work Phone: [facility] Start: 04-17-2022 End: 04-17-2022 Patient encounter procedure Jared Torres MD Work Phone: Otolaryngology Comment on above: Chronic cough (Prima ry Dx) Start: 11-07-2021 End: 11-07-2021 Patient encounter procedure [facility] [facility] [place] Procedures Date Procedure Procedure Detail Performing Clinician Start: 01-03-2025 HNI OP REPORT Rut rosario MD Work Phone: Start: 01-03-2025 End: 01-03-2025 Abltj sof tiss inf turbs uni/bi supfc intramural Corey Miranda MD Work Phone: Start: 01-03-2025 End: 01-03-2025 NASAL/SINUS NDSC DSTRJ RF ABLATION PST NSL NRV Corey Miranda MD Work Phone: Start: 01-03-2025 End: 01-03-2025 Septoplasty/submucous resecj w/wo cartilage grf Corey Miranda MD Work Phone: Start: 10-11-2024 Ct maxillofacial w/o contrast material Brian Mondragon MD Work Phone: Start: 09-22-2024 Nitric oxide gas determination Tanna Escudero APRN.VEGETABLE FARM MANAGER Work Phone: Start: 09-22-2024 Brncdilat rspse spmt ry pre&post-brncdilat admn Tanna Escudero APRN.[employer]GETABLE FARM MANAGER Work Phone: Start: 08-27-2023 Radiography of ankle Start: 08-27-2023 X-ray of both feet Start: 01-01-2023 Ct thorax w/o contra st material Cielo Jeffries MD Work Phone: Start: 09-23-2022 Ct thorax w/o contra st material Cielo Jeffries MD Work Phone: Start: 06-23-2022 Brncdilat rspse spmt ry pre&post-brncdilat admumair Jeffries MD Work Phone: Start: 06-17-[address] atten uation skull base mid-thigh Cielo Jeffries MD Work Phone: Start: 05-23-2022 Ct thorax w/o contra st material Cielo Jeffries MD Work Phone: Start: 05-07-2022 Radiologic exam ches t 2 views Cielo Jeffries MD Work Phone: Start: 05-07-2022 Brncdilat rspse spmt ry pre&post-brncdilat admn Cielo Mervin MD Work Phone: Start: 04-26-2014 Mammography Jared block MD Work Phone: Plan of Treatment Date Care Activity Detail Author Start: 07-26-2025 End: 08-25-2025 CT Chest WO contrast CT CHEST WO IVCON Radiology Routine Lung nodules Expected: 07/26/2025, Expires: 08/25/2025 [facility] Work Phone: Comment on above: Expected: 07/26/2025 , Expires: 08/25/2025 Start: 03-10-2025 End: 03-10-2025 Patient encounter procedure 03/10/2025 8:40 AM EST Office Visit Pulmonary Medicine [address] [place], [place] [address] Brian Mondragon MD [address] [place], [place] [id number] 3 month follow up Pulmonary Medicine Comment on above: 3 month follow up Start: 01-13-2025 End: 01-13-2025 Patient encounter procedure 01/13/2025 9:30 AM EDT Office Visit Otolaryngology [address] [place] [address] Amarjit More MD [address] [place] [id number] POST OP Otolaryngology Comment on above: POST OP Start: 01-06-2025 End: 01-06-2025 Specialty Pharmacy 01/06/2025 10:15 AM EDT Specialty Pharmacy [facility] [address] [place] [address] [address] [place] [address] Pharmacist, [facility] [address] [place] [address] Refill - Dupixent (maintenance) - PAx 05/22/2501/07 sent wamb txt 12/29 lvm 01/03 [facility] Comment on above: Refill - Dupixent (m aintenance) - PAx 05/22/2501/07 sent wamb txt 12/29 lvm 01/03 Start: 01-03-2025 End: 01-03-2025 Abltj sof tiss inf turbs uni/bi supfc intramural ABLATION, INFERIOR TURBINATES, BY TISSUE VOLUME REDUCTION; SUBMUCOSAL Hypertrophy of inferior nasal turbinate Deviated nasal septum Rhinorrhea Vasomotor rhinitis 01/03/2025 10:40 AM EDT [facility] Start: 01-03-2025 End: 01-03-2025 Admission to same day surgery center 01/03/2025 10:40 AM EDT - 01/03/2025 1:35 PM EDT Surgery Ambulatory Surgery [address] [place] [address] Corey Miranda MD [address] [place] [address] NASAL/SINUS ENDOSCOPY, SURGICAL; W/ DESTRUCTION BY RF ABLATION, POSTERIOR NASAL NERVE Ambulatory Surgery Comment on above: NASAL/SINUS ENDOSCOP Y, SURGICAL; W/ DESTRUCTION BY RF ABLATION, POSTERIOR NASAL NERVE Start: 01-03-2025 End: 01-03-2025 NASAL/SINUS ENDOSCOPY, SURGICAL; W/ DESTRUCTION BY RF ABLATION, POSTERIOR NASAL NERVE NASAL/SINUS ENDOSCOPY, SURGICAL; W/ DESTRUCTION BY RF ABLATION, POSTERIOR NASAL NERVE Hypertrophy of inferior nasal turbinate Deviated nasal septum Rhinorrhea Vasomotor rhinitis 01/03/2025 10:40 AM EDT [facility] Start: 01-03-2025 End: 01-03-2025 Septoplasty/submucous resecj w/wo cartilage grf ENDOSCOPIC SEPTOPLASTY Hypertrophy of inferior nasal turbinate Deviated nasal septum Rhinorrhea Vasomotor rhinitis 01/03/2025 10:40 AM EDT [facility] Start: 01-03-2025 End: 01-03-2025 Subsequent hospital visit by physician Ambulatory Surgery Comment on above: Hypertrophy of infer ior nasal turbinate [J34.3], Deviated nasal septum [J34.2], Rhinorrhea [J34.89], Vasomotor rhinitis [J30.0] Refill - Dupixent (m joslyn) - PAx 05/22/2501/07 sent wamb txt 12/29 Start: 12-29-2024 End: 12-29-2024 Specialty Pharmacy 12/29/2024 10:15 AM EDT Specialty Pharmacy [facility] [address] [place] [id number] Pharmacist, [facility] [address] [place] [address] [place] [address] Refill - Dupixent (maintenance) - PAx 05/22/2501/07 [facility] Comment on above: Refill - Dupixent (m aintenance) - PAx 05/22/2501/07 Start: 12-28-2024 End: 12-28-2024 Specialty Pharmacy 12/28/2024 10:00 AM EDT Specialty Pharmacy [facility] [address] [place] [address] Pharmacist, [facility] [address] [place] [address] [place] [address] Refill - Dupixent (maintenance) - PAx 05/22/2501/07 [facility] Comment on above: Refill - Dupixent (m aintenance) - PAx 05/22/2501/07 Start: 12-26-2024 Influenza vaccination Influenza Vacc ine (#1) [facility] Start: 12-13-2024 End: 12-13-2024 Anesthesia consultation 12/13/2024 9:20 AM EDT PAT Pre Anesthesia [address] [place], [place] [id number] 1, [facility] [address] [place] [address] 01/03 DECLINED VV NASAL/SINUS ENDOSCOPY, SURGICAL; W/ DESTRUCTION BY RF ABLATION, POSTERIOR NASAL NERVE [[id number]] - Nose - Bilateral Pre Anesthesia Comment on above: 01/03 DECLINED VV NASA L/SINUS ENDOSCOPY, SURGICAL; W/ DESTRUCTION BY RF ABLATION, POSTERIOR NASAL NERVE [[id number]] - Nose - Bilateral Start: 12-07-2024 End: 12-07-2024 Patient encounter procedure 12/07/2024 10:40 AM EDT Office Visit Pulmonary Medicine [address] [place] [id number] Brian Mondragon MD [address] [place] [address] cough Pulmonary Medicine Comment on above: cough Start: 12-02-2024 End: 12-02-2024 Specialty Pharmacy 12/02/2024 10:15 AM EDT Specialty Pharmacy [facility] [address] [id number] [place], [place] [id number] Pharmacist, [facility] 2 [address] [place] [address] Refill - Dupixent (maintenance) - PAx 05/22/25 [facility] Comment on above: Refill - Dupixent (m aintenance) - PAx 05/22/25 Start: 11-18-2024 End: 11-18-2024 Patient encounter procedure 11/18/2024 9:45 AM EDT Office Visit Otolaryngology [address] [place], [place] [address] Corey Miranda MD [address] [place], [place] [phone] Sinus headache/infections/sor e throat/sores inside nose from constant running Otolaryngology Comment on above: Sinus headache/infec tions/sore throat/sores inside nose from constant running Start: 11-11-2024 Screening for malignant neoplasm of colon [facility] Start: 10-10-2024 End: 10-10-2024 Patient encounter procedure 10/10/2024 1:30 PM EDT Office Visit Otolaryngology [address] [address] Brian aTte MD [address] [place] [address] BOTOX Otolaryngology Comment on above: BOTOX Start: 09-23-2024 End: 09-23-2024 ambulatory 09/23/2024 3:00 PM EDT Results Only [facility] Station [address] [place] [address] [facility] Start: 09-22-2024 End: 12-22-2024 CBC W Auto Differential panel - Blood COMPLETE BLOOD COUNT AND DIFFERENTIAL Lab Routine Severe persistent asthma without complication (HCC) Cough variant asthma (HCC) Expected: 09/22/2024, Expires: 12/22/2024 [facility] Comment on above: Expected: 09/22/2024 , Expires: 12/22/2024 Start: 09-22-2024 End: 12-22-2024 IgE [Units/volume] in Serum or Plasma IMMUNOGLOBULIN E Lab Routine Severe persistent asthma without complication (HCC) Cough variant asthma (HCC) Expected: 09/22/2024, Expires: 12/22/2024 [facility] Comment on above: Expected: 09/22/2024 , Expires: 12/22/2024 Start: 09-22-2024 End: 09-22-2024 Patient encounter procedure 09/22/2024 10:00 AM EDT Office Visit Pulmonary Medicine [address] [address] Brian Mondragon MD [address] [place] [address] Provider: chronic cough provider Pulmonary Medicine Comment on above: Provider: chronic co ug provider Start: 09-22-2024 End: 09-22-2024 ambulatory Pulmonary Medicine Comment on above: chronic cough Start: 09-15-2024 End: 09-15-2024 Follow-up encounter 09/15/2024 3:30 PM EDT [facility] Otolaryngology [address] [place] [address] Brian Tate MD [address] [place] [address] 2 month follow up Otolaryngology Comment on above: 2 month follow up Start: 07-21-2024 End: 07-21-2024 Patient encounter procedure 07/21/2024 1:50 PM EDT Office Visit Otolaryngology [address] [place], [place] [phone] Brian Tate MD [address] [place] [address] SLN #3 Otolaryngology Comment on above: SLN #3 Start: 07-14-2024 End: 07-14-2024 Patient encounter procedure 07/14/2024 8:20 AM EDT Appointment Cat Scan [address] [place] [address] Lung nodules [R91.8] Cat Scan Comment on above: Lung nodules [R91.8] Start: 07-02-2024 End: 08-01-2024 CT Chest WO contrast CT CHEST WO IVCON Radiology Routine Lung nodules Expected: 07/02/2024 (Approximate), Expires: 08/01/2024 [facility] Work Phone: Comment on above: Expected: 07/02/2024 (Approximate), Expires: 08/01/2024 Start: 06-23-2024 End: 06-23-2024 Patient encounter procedure 06/23/2024 1:30 PM EST Office Visit Otolaryngology [address] [place] [address] Brian Tate MD [address] [place] [address] SLN # 2 Otolaryngology Comment on above: SLN # 2 Start: 06-22-2024 End: 06-22-2024 Follow-up encounter 06/22/2024 11:30 AM EST [facility] [address] [place] [address] [place] [address] [place] [address] VIRTUAL FOLLOW UP Allergy Comment on above: VIRTUAL FOLLOW UP Start: 06-02-2024 End: 06-02-2024 Patient encounter procedure 06/02/2024 11:30 AM EST Office Visit Allergy [address] [place] [address] [place] [address] [place] [address] FOLLOW UP Allergy Comment on above: FOLLOW UP Start: 05-26-2024 End: 05-26-2024 Patient encounter procedure 05/26/2024 12:30 PM EST Office Visit Otolaryngology [address] [place] [address] Brian Tate MD [address] [place], [place] [phone] Chronic cough [R05.3] and Chronic rhinitis- reffered by Liat Chacon, PhD, CCC-[employer] MACHINE OPERATOR Otolaryngology Comment on above: Chronic cough [R05.3 ] and Chronic rhinitis- reffered by Liat Chacon, PhD, CCC-[employer]TING MACHINE OPERATOR Start: 05-23-2024 End: 05-23-2024 ambulatory 05/23/2024 1:30 PM EST [facility] [address], [place] [address] Cielo Jeffries MD [address] [facility] [address] [place], [place] [phone] copd Pulmonary Medicine Comment on above: copd Start: 05-11-2024 End: 05-11-2024 Follow-up encounter 05/11/2024 11:30 AM EST [facility] [address] [place] [address] [place] [address] [place] [address] VIRTUAL FOLLOW UP Allergy Comment on above: VIRTUAL FOLLOW UP Start: 05-10-2024 End: 05-10-2024 Patient encounter procedure 05/10/2024 1:45 PM EST Office Visit Otolaryngology [address] [place], [place] [phone] Liat Chacon, PhD, CCC-[employer] MACHINE OPERATOR [address] [place], [place] [phone] Chronic cough [R05.3] Otolaryngology Comment on above: Chronic cough [R05.3 ] Start: 05-03-2024 End: 05-03-2024 Patient encounter procedure 05/03/2024 8:00 AM EST Office Visit Otolaryngology [address] [place] [address] Liat Chacon, PhD, [facility]-[employer] BUTTING MACHINE OPERATOR [address] [place] [address] Chronic cough [R05.3] Otolaryngology Comment on above: Chronic cough [R05.3 ] Start: 04-27-2024 Advance Directive Discussion Advance Directive Discussion [facility] Start: 04-27-2024 Medicare Advantage Annual Wellness Visit Medicare [facility] Annual Wellness Visit [facility] Start: 04-05-2024 End: 04-05-2024 Patient encounter procedure 04/05/2024 4:30 PM EST Office Visit Pulmonary Medicine [address] [facility] [address] [place] [address] Cielo Jeffries MD [address] [facility] [address] [place] [address] copd Pulmonary Medicine Comment on above: copd Start: 03-03-2024 End: 03-03-2024 ambulatory 03/03/2024 10:00 AM EST Results Only [facility] Station [address] [place] [address] [facility] Draw Station Start: 03-02-2024 End: 06-01-2024 ALGN RESP DISEASE PROF REG 5 ALGN RESP DISEASE PROF REG 5 Lab Routine Chronic cough Chronic rhinitis Expected: 03/02/2024, Expires: 06/01/2024 [facility] Work Phone: Comment on above: Expected: 03/02/2024 , Expires: 06/01/2024 Start: 03-02-2024 End: 06-01-2024 ALLERGEN, DOG COMPONENTS IGE ALLERGEN, DOG COMPONENTS IGE Lab Routine Chronic cough Chronic rhinitis Expected: 03/02/2024, Expires: 06/01/2024 [facility] Comment on above: Expected: 03/02/2024 , Expires: 06/01/2024 Start: 12-27-2023 Covid-19 Vaccine () Covid-19 Vaccine () [facility] Start: 12-27-2023 Influenza vaccination Influenza Vacc ine (#1) [facility] Start: 06-29-2023 End: 03-06-2024 Ct thorax w/o contrast material CT CHEST WO IVCON Radiology Routine Lung nodules Expected: 06/29/2023, Expires: 03/06/2024 [facility] Work Phone: Comment on above: Expected: 06/29/2023 , Expires: 03/06/2024 Start: 06-04-2023 Covid-19 Vaccine () Covid-19 Vaccine () [facility] Start: 04-27-2023 Advance Directive Discussion Advance Directive Discussion [facility] Start: 04-27-2023 Behavioral Health Screening Behavioral Health Screening [facility] Start: 04-27-2023 Depression Assessment Depression Ass essment [facility] Start: 01-01-2023 End: 10-31-2023 Ct thorax w/o contrast material CT CHEST WO IVCON Radiology Routine Lung nodules Expected: 01/01/2023 (Approximate), Expires: 10/31/2023 [facility] Work Phone: Comment on above: Expected: 01/01/2023 (Approximate), Expires: 10/31/2023 Start: 12-26-2022 Covid-19 Vaccine () Covid-19 Vaccine () [facility] Start: 12-26-2022 Influenza vaccination [facility] Start: 09-20-2022 End: 07-23-2023 Ct thorax w/o contrast material CT CHEST WO IVCON Radiology Routine Lung nodules Expected: 09/20/2022, Expires: 07/23/2023 [facility] Work Phone: Comment on above: Expected: 09/20/2022 , Expires: 07/23/2023 Start: 2022 ADVANCE DIRECTIVE DISCUSSION ADVANCE DIRECTIVE DISCUSSION [facility] Start: 2022 BONE DENSITY BONE DENSITY [facility] Start: 2022 Bone Density Screening Bone Density Screening [facility] Start: 2022 Screening for osteoporosis Bone Density Screening [facility] Start: 06-23-2022 End: 08-23-2022 ALGN INHALANTS GROUP [facility] Work Phone: Comment on above: Expected: 06/23/2022 , Expires: 08/23/2022 Start: 06-23-2022 End: 08-23-2022 IgE [Units/volume] in Serum or Plasma [facility] Work Phone: Comment on above: Expected: 06/23/2022 , Expires: 08/23/2022 Start: 06-07-2022 End: 06-06-2023 SPIROMETRY WITH DILATOR IF OBSTRUCTED SPIROMETRY WITH DILATOR IF OBSTRUCTED PFT Routine Chronic obstructive pulmonary disease, unspecified COPD type (HCC) Expected: 06/07/2022 (Approximate), Expires: 06/06/2023 [facility] Work Phone: Comment on above: Expected: 06/07/2022 (Approximate), Expires: 06/06/2023 Start: 05-26-2022 End: 06-25-[address] attenuation skull base mid-thigh NM PET/CT SKULL-THIGH INITIAL Radiology STAT Lung nodules Expected: 05/26/2022 (Approximate), Expires: 06/25/2023 [facility] Work Phone: Comment on above: Expected: 05/26/2022 (Approximate), Expires: 06/25/2023 Start: 04-27-2022 DEPRESSION ASSESSMENT DEPRESSION ASS ESSMENT [facility] Start: 11-11-2021 COVID-19 VACCINE (5 - Booster for Pfizer series) COVID-19 VACCINE (5 - Booster for Pfizer series) [facility] Start: 11-11-2021 COVID-19 VACCINE (5 - Pfizer series) COVID-19 VACCINE (5 - Pfizer series) [facility] Start: 04-27-2021 DEPRESSION ASSESSMENT DEPRESSION ASS ESSMENT [facility] Start: 2017 RSV Vaccine (1 - 1-dose 60+ series) RSV Vaccine (1 - 1-dose 60+ series) [facility] Start: 2017 RSV Vaccine (1 - Ris k 60-74 years 1-dose series) RSV Vaccine (1 - Risk 60-74 years 1-dose series) [facility] Start: 04-26-2015 Mammography [facility] Start: 04-26-2015 Screening for malignant neoplasm of breast Mammogram Screening [facility] Start: 07-31-2007 SHINGRIX VACCINE (1 of 2) SHINGRIX VACCINE (1 of 2) [facility] Start: 2002 COLOGUARD (FIT-DNA) COLOGUARD (FIT-D NA) [facility] Start: 2002 Colonoscopy COLONOSCOPY [facility] Start: 2002 COLORECTAL CANCER SCREENING COLORECTAL CANCER SCREENING [facility] Start: [address] COLONOGRAPHY [facility] Start: 2002 DIABETES SCREEN DIABETES SCREEN [facility] Start: 2002 Diabetes Screening Diabetes Screenin g [facility] Start: 2002 FECAL OCCULT BLOOD FECAL OCCULT BLOO D [facility] Start: 2002 Lipid 1996 panel - Serum or Plasma Lipid Screening [facility] Start: 2002 Lipid panel Lipid Screening [facility] Start: 2002 LIPID SCREEN LIPID SCREEN [facility] Start: 2002 Screening for malignant neoplasm of colon [facility] Start: 2002 SIGMOIDOSCOPY SIGMOIDOSCOPY [facility] Start: 07-31-1987 HPV TESTING HPV TESTING [facility] Start: 07-31-1987 Zoledronic acid therapy ALPHA-1 ANTITRYPSIN DEFICIENCY SCREENING [facility] Start: 1978 PAP TESTING PAP TESTING [facility] Start: 1976 Pneumococcal Vaccine : 50+ (1 of 2 - PCV) Pneumococcal Vaccine: 50+ (1 of 2 - PCV) [facility] Start: 1976 Urine microalbumin profile [facility] Start: 07-31-1975 ANNUAL PCP TEAM CHRONIC DISEASE VISIT ANNUAL PCP TEAM CHRONIC DISEASE VISIT [facility] Start: 07-31-1975 Anxiety Screening Anxiety Screening [facility] Start: 07-31-1975 Depression Screening Depression Scre ening [facility] Start: 07-31-1975 HEPATITIS C SCREENING HEPATITIS C [facility] Start: 07-31-1975 Hepatitis C screening Hepatitis C [facility] Start: 07-31-1975 HIV SCREENING HIV SCREENING [facility] Start: 07-31-1975 HIV screening HIV Screening [facility] Start: 07-31-1963 PNEUMOCOCCAL (1 - PCV) PNEUMOCOCCAL (1 - PCV) [facility] Start: 07-31-1963 Pneumococcal Vaccine : 65+ (1 - PCV) Pneumococcal Vaccine: 65+ (1 - PCV) [facility] Start: 07-31-1963 Pneumococcal Vaccine : 65+ (1 of 2 - PCV) Pneumococcal Vaccine: 65+ (1 of 2 - PCV) [facility] Start: 07-31-1963 PNEUMOCOCCAL: 65+ (1 - PCV) PNEUMOCOCCAL: 65+ (1 - PCV) [facility] Abltj sof tiss inf turbs uni/bi supfc intramural ABLATION, INFERIOR TURBINATES, BY TISSUE VOLUME REDUCTION; SUBMUCOSAL Hypertrophy of inferior nasal turbinate Deviated nasal septum Rhinorrhea Vasomotor rhinitis [facility] Antibody to lupus [place] protein measurement [facility] Work Phone: Antibody to SS-A measurement [facility] Work Phone: Centromere protein B Ab [Units/volume] in Serum [facility] Work Phone: Chromatin Ab [Units/volume] in Serum or Plasma [facility] Work Phone: CT Chest WO contrast CT CHEST WO IVCON Radiology Routine Lung nodules 07/14/2024 8:42 AM EDT [facility] Work Phone: End: 10-22-2025 CT Sinuses WO contrast CT SINUS WO IVCON Radiology Routine Chronic pansinusitis 1 Occurrences starting 09/22/2024 until 10/22/2025 [facility] Work Phone: Comment on above: 1 Occurrences starti ng 09/22/2024 until 10/22/2025 End: 06-07-2023 Ct thorax w/o contrast material CT CHEST WO IVCON Radiology STAT Lung nodules 1 Occurrences starting 05/08/2022 until 06/07/2023 [facility] Work Phone: Comment on above: 1 Occurrences starti ng 05/08/2022 until 06/07/2023 Cyclic citrullinated peptide IgG Ab [Units/volume] in Serum or Plasma [facility] Work Phone: DNA double strand Ab [Units/volume] in Serum [facility] Work Phone: HNI OP REPORT HNI OP REPORT Ot her Routine 01/03/2025 11:06 AM EDT [facility] Work Phone: [id number] extractable nuclear Ab [Units/volume] in Serum [facility] Work Phone: End: 06-06-2023 LUNG DIFFUSION CAPACITY (DLCO) LUNG DIFFUSION CAPACITY (DLCO) PFT Routine Chronic cough 1 Occurrences starting 05/07/2022 until 06/06/2023 [facility] Work Phone: Comment on above: 1 Occurrences starti ng 05/07/2022 until 06/06/2023 End: 07-01-2025 LUNG DIFFUSION CAPACITY (DLCO) LUNG DIFFUSION CAPACITY (DLCO) PFT Routine Chronic cough 1 Occurrences starting 06/01/2024 until 07/01/2025 [facility] Comment on above: 1 Occurrences starti ng 06/01/2024 until 07/01/2025 LUNG DIFFUSION CAPACITY (DLCO) LUNG DIFFUSION CAPACITY (DLCO) PFT Routine Chronic cough 09/22/2024 8:47 AM EDT [facility] Work Phone: End: 07-01-2025 LUNG VOLUMES LUNG VOLUMES PFT Routine Chronic cough 1 Occurrences starting 06/01/2024 until 07/01/2025 [facility] Comment on above: 1 Occurrences starti ng 06/01/2024 until 07/01/2025 LUNG VOLUMES LUNG VOLUMES PFT Routine Chronic cough 09/22/2024 8:47 AM EDT [facility] Work Phone: NASAL/SINUS ENDOSCOP Y, SURGICAL; W/ DESTRUCTION BY RF ABLATION, POSTERIOR NASAL NERVE NASAL/SINUS ENDOSCOPY, SURGICAL; W/ DESTRUCTION BY RF ABLATION, POSTERIOR NASAL NERVE Hypertrophy of inferior nasal turbinate Deviated nasal septum Rhinorrhea Vasomotor rhinitis [facility] End: 07-01-2025 NITRIC OXIDE, EXHALED NITRIC OXIDE, EXHALED PFT Routine Chronic cough 1 Occurrences starting 06/01/2024 until 07/01/2025 [facility] Comment on above: 1 Occurrences starti ng 06/01/2024 until 07/01/2025 Nuclear Ab [Presence ] in Serum [facility] Work Phone: [id number] extractable nuclear Ab [Units/volume] in Serum by Immunoassay [facility] Work Phone: Septoplasty/submucou s resecj w/wo cartilage grf ENDOSCOPIC SEPTOPLASTY Hypertrophy of inferior nasal turbinate Deviated nasal septum Rhinorrhea Vasomotor rhinitis RITCHIE Keys extractable nuclear Ab [Presence] in Serum [facility] Work Phone: End: 07-01-2025 SPIROMETRY WITH DILATOR IF OBSTRUCTED SPIROMETRY WITH DILATOR IF OBSTRUCTED PFT Routine Chronic cough 1 Occurrences starting 06/01/2024 until 07/01/2025 [facility] Work Phone: Comment on above: 1 Occurrences starti ng 06/01/2024 until 07/01/2025 SPIROMETRY WITH DILATOR IF OBSTRUCTED SPIROMETRY WITH DILATOR IF OBSTRUCTED PFT Routine Chronic cough 09/22/2024 8:47 AM EDT [facility] Work Phone: End: 08-17-2023 XR FOOT GENERAL 3V AP/LAT/OBL BILATERAL XR FOOT GENERAL 3V AP/LAT/OBL BILATERAL Radiology Routine Bilateral foot pain 1 Occurrences starting 07/18/2022 until 08/17/2023 [facility] Work Phone: Comment on above: 1 Occurrences starti ng 07/18/2022 until 08/17/2023 End: 08-21-2023 XR FOOT GENERAL 3V AP/LAT/OBL BILATERAL XR FOOT GENERAL 3V AP/LAT/OBL BILATERAL Radiology Routine 1 Occurrences starting 07/22/2022 until 08/21/2023 [facility] Work Phone: Comment on above: 1 Occurrences starti ng 07/22/2022 until 08/21/2023 XR FOOT GENERAL 3V AP/LAT/OBL BILATERAL XR FOOT GENERAL 3V AP/LAT/OBL BILATERAL Radiology Routine Pain in joint involving ankle and foot, unspecified laterality 07/22/2022 9:00 AM EDT [facility] Work Phone: [facility] Immunizations Immunization Date Immunization Notes Care Provider Kg jasso 03-01-2024 influenza virus vacc ine, unspecified formulation Pulm 1 Work Phone: [facility] 02-12-2023 influenza (aIIV4) vaccine, age 65+ yr, quadrivalent, PF (FLUAD QUAD) Pulm 1 Work Phone: [facility] 02-12-2023 influenza virus vacc ine, unspecified formulation Halle Parham PA-C Work Phone: [facility] 02-26-2022 influenza, injectabl e, quadrivalent, preservative free Pulm 1 Work Phone: [facility] 02-26-2022 influenza virus vacc ine, unspecified formulation Cielo Jeffries MD Work Phone: [facility] 09-16-2021 COVID-19 original vaccine, age 12+ yr, monovalent (PFIZER-BIONTECH - CARDENAS TOP) Jared Torres MD Work Phone: [facility] 02-20-2021 COVID-19 original vaccine, age 12+ yr, monovalent (PFIZER-BIONTECH - PURPLE TOP) Jared Torres MD Work Phone: [facility] 02-13-2021 influenza, injectabl e, quadrivalent, preservative free Pulm 1 Work Phone: [facility] 07-12-2020 COVID-19 original vaccine, age 12+ yr, monovalent (PFIZER-BIONTECH - PURPLE TOP) Jared Torres MD Work Phone: [facility] 06-21-2020 COVID-19 original vaccine, age 12+ yr, monovalent (PFIZER-BIONTECH - PURPLE TOP) Jarde Torres MD Work Phone: [facility] 01-26-2019 Influenza, injectabl e, Madin [place] Canine Kidney, preservative free, quadrivalent Pulm 1 Work Phone: [facility] 01-25-2018 Influenza, injectabl e, Madin [place] Canine Kidney, preservative free, quadrivalent Pulm 1 Work Phone: [facility] 01-20-2017 Influenza, injectabl e, Madin [place] Canine Kidney, preservative free, quadrivalent Pulm 1 Work Phone: [facility] 06-04-2009 novel influenza-H1N1 -09, preservative-free, injectable Pulm 1 Work Phone: [facility] Payers Date Payer Category Payer Medicare [employer] MEDICARE A ETNA MEDICARE PPO [id number] 2023-Present [phone] [address] [place] [address] PPO [id number] 2023 Medicare (Managed Care) [employer] [place] DICARE [id number] 2023 Private Health Insurance [facility] [id number] 2022 Self-pay [id number] 2021 Unknown [id number] 2012 Unknown [id number] 1957 Unknown [id number] Unknown [id number] Unknown [id number] Social History Date Type Detail Facility Start: 12-27-2020 End: 12-27-2020 Tobacco smoking status WIIS Unknown if ever smoked [facility] Start: 1955 Sex Assigned At Female [facility] Start: 1955 Sex Assigned At Not on file [facility] Start: 05-07-2022 Tobacco smoking stat us WIIS Ex-smoker [facility] Work Phone: History of tobacco use Current smoker [facility] Work Phone: History of tobacco use Cigarette Smoker [facility] Work Phone: Start: 05-07-2022 Tobacco use and exposure Smokeless tobacco non-user [facility] Work Phone: Start: 07-22-2022 End: 12-13-2024 Alcohol intake Ex-drinker (finding) [facility] Start: 07-22-2022 End: 12-02-2024 History of Social function [facility] Start: 07-22-2022 End: 12-02-2024 Tobacco use panel [facility] Start: 03-28-2012 National Score (1-100), lower number is lower risk 75 [facility] Start: 02-24-2024 Gender identity Identifies as female gender (finding) [facility] Goals Date Patient Goal Desired Activity /State Personal health goal Clinical Notes 04-17-2022 to 01-12-2025 Corey Miranda MD - 01/03/2025 10:46 AM Corey Schneider MD - 01/03/2025 10:46 AM EDTDischarge Instr - Other OrdersTelephone Encounter - Yareli Freed MA - 12/30/2024 2:27 PM EDT Note Date & Type Note Facility 01-12-2025 Note HNO ID: [id number] Author: COREY MIRANDA MD Service: ? Author Type: Physician Type: Progress Notes Filed: 01/12/2025 10:02 Note Text: SECTION OF RHINOLOGY, SINUS AND SKULL BASE SURGERY Head and Neck Beals, [facility] INITIAL VISIT NOTE This patient is a new patient. They are seen at the request of: No referring provider defined for this encounter. CC: runny nose HPI: Sulaiman Estes is a 69 year old female presenting for evaluation of runny nose.. She is s/p septoplasty, turbinat ereduction, and rhinaer procedure. Patient reports being . PHYSICAL EXAM: GENERAL: No acute distress, calm and cooperative, alert and oriented. HEAD/FACE: Normocephalic, atraumatic, facial structures stable and symmetric. EYES: Extraocular movements intact. No ocular lesions noted. EARS: No auricular deformity noted. ORAL CAVITY/OROPHARYNX: No mucosal lesions noted, tongue/uvula midline, tonsils unremarkable. NECK: No obvious masses, full range of motion present. RESPIRATORY: Unlabored breathing on room air. Voice is strong. No stridor or other noisy breathing. NEUROLOGIC: Cranial nerves 3-12 are grossly intact. PROCEDURE NOTE: Procedure: Nasal endoscopy with debridement Indication: Rhinorrhea Findings: After topical application of lidocaine and Afrin sprays for anesthesia and decongestion, rigid nasal endoscopy was performed. Splints were removed. Septum is intact. No active bleeding. Turbinates healing well. The patient tolerated the procedure well. ASSESSMENT: Sulaiman Estes is a 69 year old female with: Right sided septal deviation Bilateral ITH Vasomotor Rhinitis 4. S/p septoplasty, rhinaer and inf turbinat ereduction. PLAN: Removed splints Restart saline irrigations Start flonase. Patient doing well / f/u in 4 weeks with El[facility] 01-03-2025 Note HNO ID: [id number] Author: JOANNE GARCIA APRN.CRNA Service: Anesthesiology Author Type: Nurse Director [employer] Type: Anesthesia Procedure Notes Filed: 01/03/2025 11:42 Note Text: ANESTHESIOLOGY PROCEDURE NOTE Airway General Information Procedure Start Time/Medication Administration: 01/03/2025 11:12 AM Procedure End Time: 01/03/2025 11:17 AM Patient location during procedure: OR Timeout Performed Pre-procedure: timeout performed Consent Obtained: Yes Patient identity confirmed: arm band, care human resources team member and patient Staffing BUCKET HOOKER: Joanne Garcia APRN.BUCKET HOOKER Performed by: BUCKET HOOKER and anesthesiologist Indications and Patient Condition Indications for airway management: anesthesia and airway protection Preoxygenated: yes anesthesia circuit Patient position: sniffing Method: asleep In-line stabilization: Head/Neck neutral position.. Difficult Mask: No Final Airway Details Final airway type: endotracheal airwayFinal Endotracheal Airway: ETT Cuffed: yes (MOV) Successful intubation technique: video laryngoscopy Devices used: Neri and intubating stylet Endotracheal tube insertion site: oral Blade: Cali Blade size: Blade size X3. ETT size (mm): 7.0 Measured from: lips Measurement (cm): 21.5 Placement verified by: chest auscultation and capnometry Cormack-Lehane Classification: grade I - full view of glottis Number of attempts at approach: 1 Airway trauma: Atraumatic. Failed airway: no Unrecognized esophageal intubation: no Airway not difficult SIGNATURE: Joanne Garcia APRN.BUCKET HOOKER PATIENT NAME: Sulaiman Estes DATE: January 03, 2025 TIME: 11:39 AM CSN: [id number] [facility] 01-03-2025 Attending History and physical note UPDATED HISTORY AND PHYSICAL EXAMINATION SERVICE DATE: 01/03/2025 SERVICE TIME: 1046 PHYSICAL EXAM MUST BE COMPLETED ON ADMISSION The History and Physical (completed in the past 30 days) has been reviewed and the patient has been examined. The contents accurately reflect the patient's condition with the following additions or revisions since the H&P was completed. Examination indicates no changes. This H&P can be found in the attached. SIGNATURE: Corey Miranda MD PATIENT NAME: Sulaiman Estes DATE: January 03, 2025 TIME: 10:46 AM Source Note - Vanessa Martinez APRN.VEGETABLE FARM MANAGER - 12/13/2024 9:24 AM EDT Images from the original note were not included. [facility] HISTORY AND PHYSICAL EXAMINATION SERVICE DATE: 12/13/2024 SERVICE TIME: 12:56 PM PRIMARY CARE PHYSICIAN: Silvana Arrieta, Assessment Patient has the following medical conditions which may affect dina-operative course: 1. Headaches (R51.9) - Headaches associated with prednisone use; resolved with Tylenol. 2. Severe persistent asthma without complication (HCC) (J45.50) 3. Asthma with chronic obstructive pulmonary disease (COPD) (HCC) (J44.89) - Severe, persistent asthma with history of being untreated for 17 years, now with COPD. - Using inhalers: Spiriva, Symbicort, and Dupixent; prednisone for inflammation and itch. - Spirometry in August showed moderate airflow obstruction with normal lung volumes. - Chest CT in June showed no acute process. - Follows Pulmonology - Aware of procedure. Office Visit with Brian Mondragon MD (12/07/2024) 4. Pulmonary nodules (R91.8) - Chest CT in June showed no acute pulmonary process. CT CHEST WO IVCON (07/14/2024 8:42 AM) IMPRESSION: No acute pulmonary process is identified. Stable nodular opacities within the lungs, when compared to the prior examination. No miesha lymphadenopathy is seen within the chest. 5. Post-operative nausea and vomiting (R11.2) - Reports from prior procedures. Requesting antiemetics for control of N/V. 6. Hyperlipidemia, unspecified hyperlipidemia type (E78.5) - Denies - Patient not currently on any medications. 7. LPRD (laryngopharyngeal reflux disease) (K21.9) - Previously treated with Prilosec; advised to continue on day of procedure. 8. Laryngeal spasm (J38.5) - Laryngeal spasms occur after coughing spells, chronic and noted 04/2024. - Follows Pulmonology - possible botox in the future if warranted. - Denies any issues with intubation in the past. ANESTHESIA FINDINGS: Intubation History: No history of difficult intubation. No abnormal airway history Significant Anesthesia Considerations: + history of laryngeal spasms after coughing. potential postop nausea/vomiting Airway History: No history of difficult airway No abnormal airway history Davis Activity Status Index: METS: Walk indoors, such as around the house (1.75 METs) Do light work around the house, such as dusting or washing dishes (2.70 METs) Take care of self; that is eating, dressing, bathing, using the toilet (2.75 METs) Walk a block or two on level ground (2.75 METs) Do moderate work around the house, such as vacuuming, sweeping floors, or carrying in groceries (3.50 METs) Climb a flight of stairs or walk up a hill (5.50 METs) DASI Score: 18.95 Patient denies any chest pain or undue shortness of breath with the above physical activity. Clinical Frailty Scale: 3. Well, with treated comorbid disease STOP-Bang Score: Patient over 50 years old Denies snoring loudly Denies feeling tired, fatigued, or sleepy during the daytime Has not been observed to stop breathing or choking/gasping during sleep Denies having high blood pressure BMI less than or equal to 35 kg/m^2 Does not have a large neck Non-male patient STOP-Bang Score: 1 I - PHYSICAL EVALUATION AIRWAY Patient intubated: No. Tracheostomy tube not present Mallampati: II. TM distance: >3 FB. Neck ROM: full ROM without neurological symptoms. Mouth opening: adequate. Short neck: no. Thick neck: no DENTAL Dental findings: missing tooth/teeth. II - ANESTHESIA PLAN Anesthetic plan additional comments: *PACC/TCI - anesthesia choice. Beta Aretha Monitoring Plan Post Procedure Analgesic Plan Prepared for Surgery: optimally prepared for surgery. CONSULTS: Patient does not require consults for optimization at this time Planned Anesthetic: anesthesia choice The Following Tests/Procedures Have Been Initiated: No orders of the defined types were placed in this encounter. REASON FOR VISIT: Sulaiman Estes is a 69 year old female who is scheduled for Procedure(s): NASAL/SINUS ENDOSCOPY, SURGICAL; W/ DESTRUCTION BY RF ABLATION, POSTERIOR NASAL NERVE (Bilateral) ABLATION, INFERIOR TURBINATES, BY TISSUE VOLUME REDUCTION; SUBMUCOSAL (Bilateral) ENDOSCOPIC SEPTOPLASTY (N/A) at the request of Dr. Corey Miranda for consultation. My final recommendation will be communicated back to the requesting physician by way of shared medical record or letter. Subjective The patient has the following: COVID-19 Immunization Status This patient has no relevant Health Maintenance data. CHIEF COMPLAINT: pre op HPI: Sulaiman Estes is a 69-year-old female with a history of severe asthma, chronic cough, and chronic non-allergic rhinitis, presenting for preoperative evaluation. Sulaiman has a history of severe asthma, chronic cough, and chronic non-allergic rhinitis. She reports a persistent cough that occurs throughout the day but not at night. She experiences laryngeal spasms following coughing spells, which are relieved by lying down. She is currently taking inhalers, including Spiriva and Symbicort, and recently started Dupixent on 11/26/2023. She is also on prednisone for inflammation and itching. She has a rescue inhaler (albuterol) but does not use it. She denies using supplemental oxygen. REVIEW OF SYSTEMS: General: No weight loss, malaise or fevers. Neurological: Positive for: headaches. Negative for: delirium, dementia, impaired sensorium, peripheral neuropathy, seizures, TIA and strokes. Respiratory: Positive for: asthma, COPD and current cough. Negative for: bronchitis, bronchodilator used daily for the last 3 months, dyspnea, home oxygen, orthopnea, pneumonia within 6 weeks, tobacco use, URI < 2 weeks and obstructive sleep apnea. Cardiovascular: Denies any heart palpitations, edema, chest pain, worsening shortness of breath, syncope, activity intolerance, or dizziness. Positive for: hyperlipidemia Negative for: abdominal aortic aneurysm, AICD/PPM, angina, anticoagulation therapy, arrhythmia, atrial fibrillation, CAD, chest pain, CHF, congenital heart defect, DVT/PE, hypertension, recent MA, murmur/valvular heart disease, PTCA, PVD, open heart surgery and valve surgery. GI: Negative for: abdominal pain, GERD, GI bleed <30 days, hepatitis, liver disease, nausea, vomiting and ETOH >2 drinks/day. : denies CKD Negative for: on dialysis, dysuria, flank pain, frequent urination, hematuria, renal failure and urinary tract infection. Endocrine: Negative for: diabetes mellitus, hyperthyroidism and hypothyroidism. Hematology: Negative for: anemia, bruises/bleeds easily, factor V Leiden, hemophilia, thrombocytopenia, von Willebrand disease, transfusion of at least 4 units within 72 hours prior to surgery and chronic anti-coagulation/platelet meds. Oncology: Negative for: CA metastasis, chemo within 30 days, disseminated cancer and radiotherapy within 90 days. Psych: Positive for: anxiety and depression. Musculoskeletal: Negative for joint pain or swelling, back pain or muscle pain. Skin: Negative for lesions, rash and itching. Implanted Devices: No implanted devices. PAST MEDICAL HISTORY Diagnosis Date Sinus tachycardia PAST SURGICAL HISTORY Procedure Laterality Date REPAIR ROTATOR CUFF,ACUTE Bilateral 2011, 2012 REVISION OF UPPER EYELID VAGINAL HYSTERECTOMY FAMILY HISTORY Problem Relation Age of Onset Asthma Mother Anesthesia Problems No Family History SOCIAL HISTORY[1] Prior to Admission medications as of 12/13/24 0925 Medication Sig Last Dose Taking predniSONE (DELTASONE) 10 mg tablet Take 4 tablets daily for 5 days then 2 tablets daily for 5 days then 1 tablet daily for 5 days then stop. Yes Omeprazole Magnesium (PRILOSEC OTC) 20 mg tablet Take 1 tablet by mouth once daily. Yes mupirocin (BACTROBAN) 2 % ointment Patient to mix one 22g tube with 1L of saline and rinse nose twice a day. Seven 22g tubes equals 1 mos supply. . Yes dupilumab (DUPIXENT PEN) 300 mg/2 mL pen injection Inject 300 mg (1 pen) subcutaneously every 2 weeks. Yes budesonide-formoterol (SYMBICORT) 160-4.5 mcg/actuation inhaler Inhale 2 puffs as instructed two times a day. Yes tiotropium (SPIRIVA) 18 mcg inhalation capsule Inhale 1 capsule as instructed once daily. Yes sertraline (ZOLOFT) 25 mg tablet Take 25 mg by mouth once daily. Yes cyanocobalamin 1,000 mcg/mL Inject intramuscularly. Yes ALPRAZolam (XANAX) 0.5 mg tablet Yes pramipexole (MIRAPEX) 0.125 mg tablet Take 0.125 mg by mouth three times daily. one tab daily Yes HYDROcodone-chlorpheniramine (TUSSIONEX) 10-8 mg/5 mL suspension Take by mouth every 12 hours as needed. Patient taking differently: Take 2 mL by mouth two times a day. Yes Ipratropium Broad Top (ATROVENT) 21 mcg (0.03 %) nasal spray Use 2 Sprays in the nose every 8 hours as needed (FOR RUNNY NOSE). levalbuterol tartrate HFA (XOPENEX HFA) 45 mcg/actuation inhaler Inhale 2 Puffs as instructed every 6 hours as needed for wheezing/shortness of breath. Patient not taking: Reported on 09/22/2024 No medication comments found. ALLERGIES Allergen Reactions Codeine Itching, Rash Phenobarbital Hives, Itching, Rash Sulfamethoxazole-Tr* Hives Sulfa (Sulfonamide * Rash Objective PHYSICAL EXAM: General: alert and oriented and healthy appearance. Pertinent negatives noted - not distressed. Skin: normal color, no rash or lesions. HEENT: EOM intact, pupils equal round and pupils reactive to light. Pertinent negatives noted - no carotid bruit. Cardiovascular: regular rate and rhythm, normal S1 and S2, no rub, murmurs, or gallop. Respiratory: normal breath sounds, no wheezes or crackles. No chest wall deformity or tenderness. Abdomen: bowel sounds present and soft. Pertinent negatives noted - not tender. Extremities: no deformity, no edema or tenderness, no joint swelling or clubbing. Neurological: normal cognition and motor skills. Gait normal. No weakness or sensory deficit. PAIN ASSESSMENT: VITALS: BP 140/60 Pulse 120 Temp (Src) 97.4 (Temporal) Resp 12 Ht 5' 0 (1.52m) Wt 132 lb (59.9kg) SpO2 95% BMI 25.78 kg/(m^2). Diagnostic tests reviewed for today's visit: Lab Value Units Date High Low HB 13.1 g/dL 09/24/2024 15.5 11.5 HCT 41.4 % 09/24/2024 46.0 36.0 WBC 11.09 k/uL 09/24/2024 11.00 3.70 PLT 362 k/uL 09/24/2024 400 150 NA No results within date range. K No results within date range. GLUC No results within date range. BUN No results within date range. CREAT No results within date range. PTSEC No results within date range. INR No results within date range. APTT No results within date range. ALT No results within date range. AST No results within date range. TBILI No results within date range. TSH No results within date range. Lab Value Units Date High Low HCGQT No results within date range. UHCG No results within date range. HCG, BODY* No results within date range. Lab Value Units Date High Low ABORHD No results within date range. ABSCREEN No results within date range. No results found for: HBA1C No results found for this or any previous visit (from the past 8760 hours). No results found for this or any previous visit (from the past 62810 hours). Instructions Given to Patient: Instructions located in the after visit summary. Patient given verbal and written preop instructions and voices comprehension and compliance. Recording using ambient [employer] software for draft documentation of the visit was discussed with the patient/authorized inbound customer service representative; all questions welcomed and answered. Patient/authorized inbound customer service representative agreed to proceed SIGNATURE: Vanessa Martinez APRN.CNP PATIENT NAME: Sulaiman Estes DATE: December 13, 2024 TIME: 9:24 AM PAGER/CONTACT #: [1] Social History Tobacco Use Smoking status: Former Types: Cigarettes Smokeless tobacco: Never Vaping Use Vaping status: Never Used Substance Use Topics Alcohol use: Not Currently Drug use: Never [facility] 01-03-2025 History and physical note UPDATED HISTORY AND PHYSICAL EXAMINATION SERVICE DATE: 01/03/2025 SERVICE TIME: 1046 PHYSICAL EXAM MUST BE COMPLETED ON ADMISSION The History and Physical (completed in the past 30 days) has been reviewed and the patient has been examined. The contents accurately reflect the patient's condition with the following additions or revisions since the H&P was completed. Examination indicates no changes. This H&P can be found in the attached. SIGNATURE: Corey Miranda MD PATIENT NAME: Sulaiman Estes DATE: January 03, 2025 TIME: 10:46 AM Source Note - Vanessa Martinez APRN.CNP - 12/13/2024 9:24 AM EDT Images from the original note were not included. [facility] HISTORY AND PHYSICAL EXAMINATION SERVICE DATE: 12/13/2024 SERVICE TIME: 12:56 PM PRIMARY CARE PHYSICIAN: Silvana Arrieta DO Assessment Patient has the following medical conditions which may affect dina-operative course: 1. Headaches (R51.9) - Headaches associated with prednisone use; resolved with Tylenol. 2. Severe persistent asthma without complication (HCC) (J45.50) 3. Asthma with chronic obstructive pulmonary disease (COPD) ([facility]) (J44.89) - Severe, persistent asthma with history of being untreated for 17 years, now with COPD. - Using inhalers: Spiriva, Symbicort, and Dupixent; prednisone for inflammation and itch. - Spirometry in August showed moderate airflow obstruction with normal lung volumes. - Chest CT in June showed no acute process. - Follows Pulmonology - Aware of procedure. Office Visit with Brian Mondragon MD (12/07/2024) 4. Pulmonary nodules (R91.8) - Chest CT in June showed no acute pulmonary process. CT CHEST WO IVCON (07/14/2024 8:42 AM) IMPRESSION: No acute pulmonary process is identified. Stable nodular opacities within the lungs, when compared to the prior examination. No miesha lymphadenopathy is seen within the chest. 5. Post-operative nausea and vomiting (R11.2) - Reports from prior procedures. Requesting antiemetics for control of N/V. 6. Hyperlipidemia, unspecified hyperlipidemia type (E78.5) - Denies - Patient not currently on any medications. 7. LPRD (laryngopharyngeal reflux disease) (K21.9) - Previously treated with Prilosec; advised to continue on day of procedure. 8. Laryngeal spasm (J38.5) - Laryngeal spasms occur after coughing spells, chronic and noted 04/2024. - Follows Pulmonology - possible botox in the future if warranted. - Denies any issues with intubation in the past. ANESTHESIA FINDINGS: Intubation History: No history of difficult intubation. No abnormal airway history Significant Anesthesia Considerations: + history of laryngeal spasms after coughing. potential postop nausea/vomiting Airway History: No history of difficult airway No abnormal airway history Davis Activity Status Index: METS: Walk indoors, such as around the house (1.75 METs) Do light work around the house, such as dusting or washing dishes (2.70 METs) Take care of self; that is eating, dressing, bathing, using the toilet (2.75 METs) Walk a block or two on level ground (2.75 METs) Do moderate work around the house, such as vacuuming, sweeping floors, or carrying in groceries (3.50 METs) Climb a flight of stairs or walk up a hill (5.50 METs) DASI Score: 18.95 Patient denies any chest pain or undue shortness of breath with the above physical activity. Clinical Frailty Scale: 3. Well, with treated comorbid disease STOP-Bang Score: Patient over 50 years old Denies snoring loudly Denies feeling tired, fatigued, or sleepy during the daytime Has not been observed to stop breathing or choking/gasping during sleep Denies having high blood pressure BMI less than or equal to 35 kg/m^2 Does not have a large neck Non-male patient STOP-Bang Score: 1 I - PHYSICAL EVALUATION AIRWAY Patient intubated: No. Tracheostomy tube not present Mallampati: II. TM distance: >3 FB. Neck ROM: full ROM without neurological symptoms. Mouth opening: adequate. Short neck: no. Thick neck: no DENTAL Dental findings: missing tooth/teeth. II - ANESTHESIA PLAN Anesthetic plan additional comments: *PACC/TCI - anesthesia choice. Beta Aretha Monitoring Plan Post Procedure Analgesic Plan Prepared for Surgery: optimally prepared for surgery. CONSULTS: Patient does not require consults for optimization at this time Planned Anesthetic: anesthesia choice The Following Tests/Procedures Have Been Initiated: No orders of the defined types were placed in this encounter. REASON FOR VISIT: Sulaiman Estes is a 69 year old female who is scheduled for Procedure(s): NASAL/SINUS ENDOSCOPY, SURGICAL; W/ DESTRUCTION BY RF ABLATION, POSTERIOR NASAL NERVE (Bilateral) ABLATION, INFERIOR TURBINATES, BY TISSUE VOLUME REDUCTION; SUBMUCOSAL (Bilateral) ENDOSCOPIC SEPTOPLASTY (N/A) at the request of Dr. Corey Miranda for consultation. My final recommendation will be communicated back to the requesting physician by way of shared medical record or letter. Subjective The patient has the following: COVID-19 Immunization Status This patient has no relevant Health Maintenance data. CHIEF COMPLAINT: pre op HPI: Sulaiman Estes is a 69-year-old female with a history of severe asthma, chronic cough, and chronic non-allergic rhinitis, presenting for preoperative evaluation. Sulaiman has a history of severe asthma, chronic cough, and chronic non-allergic rhinitis. She reports a persistent cough that occurs throughout the day but not at night. She experiences laryngeal spasms following coughing spells, which are relieved by lying down. She is currently taking inhalers, including Spiriva and Symbicort, and recently started Dupixent on 11/26/2023. She is also on prednisone for inflammation and itching. She has a rescue inhaler (albuterol) but does not use it. She denies using supplemental oxygen. REVIEW OF SYSTEMS: General: No weight loss, malaise or fevers. Neurological: Positive for: headaches. Negative for: delirium, dementia, impaired sensorium, peripheral neuropathy, seizures, TIA and strokes. Respiratory: Positive for: asthma, COPD and current cough. Negative for: bronchitis, bronchodilator used daily for the last 3 months, dyspnea, home oxygen, orthopnea, pneumonia within 6 weeks, tobacco use, URI < 2 weeks and obstructive sleep apnea. Cardiovascular: Denies any heart palpitations, edema, chest pain, worsening shortness of breath, syncope, activity intolerance, or dizziness. Positive for: hyperlipidemia Negative for: abdominal aortic aneurysm, AICD/PPM, angina, anticoagulation therapy, arrhythmia, atrial fibrillation, CAD, chest pain, CHF, congenital heart defect, DVT/PE, hypertension, recent MA, murmur/valvular heart disease, PTCA, PVD, open heart surgery and valve surgery. GI: Negative for: abdominal pain, GERD, GI bleed <30 days, hepatitis, liver disease, nausea, vomiting and ETOH >2 drinks/day. : denies CKD Negative for: on dialysis, dysuria, flank pain, frequent urination, hematuria, renal failure and urinary tract infection. Endocrine: Negative for: diabetes mellitus, hyperthyroidism and hypothyroidism. Hematology: Negative for: anemia, bruises/bleeds easily, factor V Leiden, hemophilia, thrombocytopenia, von Willebrand disease, transfusion of at least 4 units within 72 hours prior to surgery and chronic anti-coagulation/platelet meds. Oncology: Negative for: CA metastasis, chemo within 30 days, disseminated cancer and radiotherapy within 90 days. Psych: Positive for: anxiety and depression. Musculoskeletal: Negative for joint pain or swelling, back pain or muscle pain. Skin: Negative for lesions, rash and itching. Implanted Devices: No implanted devices. PAST MEDICAL HISTORY Diagnosis Date Sinus tachycardia PAST SURGICAL HISTORY Procedure Laterality Date REPAIR ROTATOR CUFF,ACUTE Bilateral 2011, 2012 REVISION OF UPPER EYELID VAGINAL HYSTERECTOMY FAMILY HISTORY Problem Relation Age of Onset Asthma Mother Anesthesia Problems No Family History SOCIAL HISTORY[1] Prior to Admission medications as of 12/13/24 0916 Medication Sig Last Dose Taking predniSONE (DELTASONE) 10 mg tablet Take 4 tablets daily for 5 days then 2 tablets daily for 5 days then 1 tablet daily for 5 days then stop. Yes Omeprazole Magnesium (PRILOSEC OTC) 20 mg tablet Take 1 tablet by mouth once daily. Yes mupirocin (BACTROBAN) 2 % ointment Patient to mix one 22g tube with 1L of saline and rinse nose twice a day. Seven 22g tubes equals 1 mos supply. . Yes dupilumab (DUPIXENT PEN) 300 mg/2 mL pen injection Inject 300 mg (1 pen) subcutaneously every 2 weeks. Yes budesonide-formoterol (SYMBICORT) 160-4.5 mcg/actuation inhaler Inhale 2 puffs as instructed two times a day. Yes tiotropium (SPIRIVA) 18 mcg inhalation capsule Inhale 1 capsule as instructed once daily. Yes sertraline (ZOLOFT) 25 mg tablet Take 25 mg by mouth once daily. Yes cyanocobalamin 1,000 mcg/mL Inject intramuscularly. Yes ALPRAZolam (XANAX) 0.5 mg tablet Yes pramipexole (MIRAPEX) 0.125 mg tablet Take 0.125 mg by mouth three times daily. one tab daily Yes HYDROcodone-chlorpheniramine (TUSSIONEX) 10-8 mg/5 mL suspension Take by mouth every 12 hours as needed. Patient taking differently: Take 2 mL by mouth two times a day. Yes Ipratropium Broad Top (ATROVENT) 21 mcg (0.03 %) nasal spray Use 2 Sprays in the nose every 8 hours as needed (FOR RUNNY NOSE). levalbuterol tartrate HFA (XOPENEX HFA) 45 mcg/actuation inhaler Inhale 2 Puffs as instructed every 6 hours as needed for wheezing/shortness of breath. Patient not taking: Reported on 09/22/2024 No medication comments found. ALLERGIES Allergen Reactions Codeine Itching, Rash Phenobarbital Hives, Itching, Rash Sulfamethoxazole-Tr* Hives Sulfa (Sulfonamide * Rash Objective PHYSICAL EXAM: General: alert and oriented and healthy appearance. Pertinent negatives noted - not distressed. Skin: normal color, no rash or lesions. HEENT: EOM intact, pupils equal round and pupils reactive to light. Pertinent negatives noted - no carotid bruit. Cardiovascular: regular rate and rhythm, normal S1 and S2, no rub, murmurs, or gallop. Respiratory: normal breath sounds, no wheezes or crackles. No chest wall deformity or tenderness. Abdomen: bowel sounds present and soft. Pertinent negatives noted - not tender. Extremities: no deformity, no edema or tenderness, no joint swelling or clubbing. Neurological: normal cognition and motor skills. Gait normal. No weakness or sensory deficit. PAIN ASSESSMENT: VITALS: BP 140/60 Pulse 120 Temp (Src) 97.4 (Temporal) Resp 12 Ht 5' 0 (1.52m) Wt 132 lb (59.9kg) SpO2 95% BMI 25.78 kg/(m^2). Diagnostic tests reviewed for today's visit: Lab Value Units Date High Low HB 13.1 g/dL 09/24/2024 15.5 11.5 HCT 41.4 % 09/24/2024 46.0 36.0 WBC 11.09 k/uL 09/24/2024 11.00 3.70 PLT 362 k/uL 09/24/2024 400 150 NA No results within date range. K No results within date range. GLUC No results within date range. BUN No results within date range. CREAT No results within date range. PTSEC No results within date range. INR No results within date range. APTT No results within date range. ALT No results within date range. AST No results within date range. TBILI No results within date range. TSH No results within date range. Lab Value Units Date High Low HCGQT No results within date range. UHCG No results within date range. HCG, BODY* No results within date range. Lab Value Units Date High Low ABORHD No results within date range. ABSCREEN No results within date range. No results found for: HBA1C No results found for this or any previous visit (from the past 8760 hours). No results found for this or any previous visit (from the past 66601 hours). Instructions Given to Patient: Instructions located in the after visit summary. Patient given verbal and written preop instructions and voices comprehension and compliance. Recording using Delivery Agent software for draft documentation of the visit was discussed with the patient/authorized inbound customer service representative; all questions welcomed and answered. Patient/authorized inbound customer service representative agreed to proceed SIGNATURE: Vanessa Martinez APRN.[facility] PATIENT NAME: Sulaiman Estes DATE: December 13, 2024 TIME: 9:24 AM PAGER/CONTACT #: [[phone]] Social History Tobacco Use Smoking status: Former Types: Cigarettes Smokeless tobacco: Never Vaping Use Vaping status: Never Used Substance Use Topics Alcohol use: Not Currently Drug use: Never documented in this encounter [facility] 01-03-2025 Hospital Discharg e instructions Rut Allan MD - 01/03/2025 10:39 AM EDT Nasal Surgery At Home Instructions The following instructions will help you know what to expect in the days following your surgery. Do not hesitate to call if you have questions or concerns. Please have the following items available at your home/recovery residence ? NeilMed Sinus Rinse bottle for post-surgical nasal irrigations ? Afrin (to be used ONLY if you have a nosebleed) ? 4 x 4 gauze and paper tape ? Tylenol (to be used if necessary after you are out of alternative pain medication) Activities ? You may shower this evening. ? Avoid sneezing or blowing your nose for 2 weeks after surgery (gently sniff rather than blow, if you do sneeze, do so with your mouth open). ? Activities should be limited for 1 week after surgery. ? Do not lift heavy objects (greater than 10 pounds) for 1 week after surgery. ? Walking is strongly encouraged. ? Most patients do not return to work for about 5 to 7 days after surgery; however some return sooner, and others may need more time. The level of pain and frustration caused by the nasal congestion and blockage may be different from patient to patient. Diet ? A normal diet may be resumed. Fever ? A low-grade fever, less than 101 F is not uncommon for 2 to 3 days after surgery. If fever continues or is higher than 101 F, call your physician. Use Tylenol to control the fever. Pain Control ? Many patients do not have much pain after nasal surgery, but everyone is different. Most patients feel pressure and congestion. ? For mild pain, acetaminophen (Tylenol ) will do. We will prescribe stronger pain medication for after surgery. Drink plenty of water as these stronger pain medications can be constipating. Also take the prescribed stool softeners on a regular basis while taking narcotic pain medications. ? Avoid taking aspirin, ibuprofen (Advil , Motrin ), naproxen (Aleve , Naprosyn ), and other nonsteroidal anti-inflammatory medications (NSAIDs) for a week following nasal surgery. These drugs can increase bleeding. ? Pain should lessen with time. If pain increases, call the office. Drainage ? You can expect to have bloody nasal drainage after nasal or sinus surgery. To catch this drainage and to help avoid continuous nose wiping, we usually put a gauze mustache dressing under the nose and tape it to the cheeks for as long as the drainage continues. ? BLEEDING: Some blood in the nasal drainage after surgery is to be expected. This may be dark red or brown. If the nose is bleeding freely or you think the amount is too much, call the office immediately. Avoid nose blowing and try to sneeze with your mouth open if needed. Sleeping with your head elevated will also help prevent bleeding and reduce congestion. If you have a nosebleed, you can try spraying oxymetazoline spray (Afrin ) in the nose. Care of the Nose ? SPLINTS: We sometimes place a splint on the inside of the nose. Your nose may feel stuffy or blocked. We will have you use an over the counter saline spray such as Crucible Nasal [place] to rinse. Do this in both nostrils 4 times per day. This will help loosen the crusting. We will remove the splints 7 to 10 days after your surgery at your follow up visit. ? Never use your fingers to clear blockages in your nose. ? If you have had a septoplasty with splints, use Crucible Nasal [place] (2 to 3 sprays in each nostril 3 to 4 times a day) until the splints are removed. ? ANTIBIOTICS: You may be given antibiotics, which you should begin taking the day after surgery. Follow up Your appointment for follow up after your surgery should have been scheduled at the time of your surgery. If not, call the office for an appointment scheduled for 7 to 10 days after the date of your surgery. Call the office or GO TO THE EMERGENCY ROOM if you have: ? Excessive pain, swelling, bleeding or drainage ? Shortness of breath or difficulty breathing ? Persistent nausea and vomiting ? Fever that continues or is higher than 101 F ? Neck stiffness (cannot touch your chin to your chest) ? Confusion ? Worsening headaches ? Clear drainage dripping from your nose like a leaky faucet (note that this may happen and is normal up to 30 minutes following saline sprays) ? Salty or metallic taste (note that you may experience a salty taste which is normal up to 30 minutes following saline sprays) Future Appointments Date Time Provider Department Center 01/13/2025 9:30 AM Amarjit More MD [facility] 03/10/2025 8:40 AM Brian Mondragon MD [facility] Do not hesitate to call if you have any questions or concerns: Offices of Dr. Audie Thurston or Dr. Corey Miranda ([facility] ([place] ([place]) [email or web address] Index # [id number] documented in this encounter [facility] 12-30-2024 Telephone encounter Note 03/10/25 ANTELMO 12/07/24 Patient electronically sent a request for the following prescription(s) Requested Prescriptions Pending Prescriptions Disp Refills omeprazole (PRILOSEC) 20 mg capsule [Pharmacy Med Name: OMEPRAZOLE DR 20 MG CAPSULE] 90 capsule 1 Sig: TAKE 1 CAPSULE BY MOUTH EVERY DAY Patient aware RX will be sent to pharmacy. No need to notify patient. Please review. Yareli Freed MA [facility] 12-30-2024 Miscellaneous Notes 03/10/25 ANTELMO 12/07/24 Patient electronically sent a request for the following prescription(s) Requested Prescriptions Pending Prescriptions Disp Refills omeprazole (PRILOSEC) 20 mg capsule [Pharmacy Med Name: OMEPRAZOLE DR 20 MG CAPSULE] 90 capsule 1 Sig: TAKE 1 CAPSULE BY MOUTH EVERY DAY Patient aware RX will be sent to pharmacy. No need to notify patient. Please review. Yareli Freed MA documented in this encounter [facility] 12-29-2024 Note HNO ID: [id number] Author: ?, ?, ? Service: ? Author Type: ? Type: Progress Notes Filed: 01/06/2025 13:26 Note Text: [facility] Refill Assessment Medication(s): Dupixent Patient's current medication list and adherence status to current therapy were reviewed by Specialty Pharmacy clinical pharmacist to identify any new drug interactions or non-compliance to therapy. Therapy continues to be appropriate for disease, patient response, and medical condition. Verification of therapeutic benefit and effectiveness with current therapy was completed. Adverse events, barriers in adherence, and side effects were assessed and addressed if applicable. Will proceed with refill with no changes in therapy - patient progressing towards achieving therapeutic goals based on medication-specific laboratory parameters, disease state markers and outcomes. Office/provider notes have been reviewed prior to dispensing the medication. Electro Winning Operator Assessment Patient confirmed: Yes Med/dose confirmed: Yes Supplies needed: No supplies needed Missed doses: No Estimated days supply on hand: 0 Next cycle/dose due: 01/07/25 Copay amount: 0 Payment confirmed: Yes Delivery method: FedEx Signature required: Waived on patient request Delivery Address Options from [facility]: [facility] Home Delivery Address Calculated: [address] [place] [address] Delivery date: 01/07/25 Questions or concerns for the pharmacist?: No Did you have any side effects believed to be related to this medication, that resulted in hospitalization?: No Current Outpatient Medications on File Prior to Visit Medication Sig oxyCODONE-acetaminophen (PERCOCET) 5-325 mg tablet Take 1 tablet by mouth every 6 hours as needed for pain for up to 5 days. amoxicillin-clavulanate potassium (AUGMENTIN) 875-125 mg per tablet Take 1 tablet by mouth every 12 hours for 10 days. mupirocin (BACTROBAN) 2 % ointment Patient to mix one 22g tube with 1L of saline and rinse nose twice a day. Seven 22g tubes equals 1 mos supply. . dupilumab (DUPIXENT PEN) 300 mg/2 mL pen injection Inject 300 mg (1 pen) subcutaneously every 2 weeks. budesonide-formoterol (SYMBICORT) 160-4.5 mcg/actuation inhaler Inhale 2 puffs as instructed two times a day. tiotropium (SPIRIVA) 18 mcg inhalation capsule Inhale 1 capsule as instructed once daily. sertraline (ZOLOFT) 25 mg tablet Take 25 mg by mouth once daily. levalbuterol tartrate HFA (XOPENEX HFA) 45 mcg/actuation inhaler Inhale 2 Puffs as instructed every 6 hours as needed for wheezing/shortness of breath. (Patient not taking: Reported on 09/22/2024) cyanocobalamin 1,000 mcg/mL Inject intramuscularly. ALPRAZolam (XANAX) 0.5 mg tablet pramipexole (MIRAPEX) 0.125 mg tablet Take 0.125 mg by mouth three times daily. one tab daily HYDROcodone-chlorpheniramine (TUSSIONEX) 10-8 mg/5 mL suspension Take by mouth every 12 hours as needed. (Patient taking differently: Take 2 mL by mouth two times a day.) No current facility-administered medications on file prior to visit. [facility] SPECIALTY CLINICAL ASSESSMENT - INFLAMMATORY CONDITIONS V6: Assessment to use: Refill Date of influenza vaccination reminder: 11/24/2024 Date of most recent vaccination assessment: 11/24/2024 Treatment Plan Information: Dupixent 300 mg/2 mL: Inject 600 mg (2 pens) subcutaneously on day one, then inject 300 mg (1 pen) subcutaneously every 2 weeks. (J45.50) Severe persistent asthma without complication (HCC) (primary encounter diagnosis) Dupilumab (Dupixent) - IL-4 Inhibitor Monitor for signs/symptoms of hypersensitivity reactions and ocular adverse effects (consider eye exam in patients with signs/symptoms of keratitis or unresolved conjunctivitis); signs of infection (particularly parasitic [helminth] in pediatric patients <12 years); signs/symptoms of arthralgia (consider rheumatological evaluation if occurs); pulmonary function in patients treated for asthma. Current Outpatient Medications on File Prior to Visit: mupirocin (BACTROBAN) 2 % ointment, Patient to mix one 22g tube with 1L of saline and rinse nose twice a day. Seven 22g tubes equals 1 mos supply. . dupilumab (DUPIXENT PEN) 300 mg/2 mL pen injection, Inject 600 mg (2 pens) subcutaneously on day one, then inject 300 mg (1 pen) subcutaneously every 2 weeks. dupilumab (DUPIXENT PEN) 300 mg/2 mL pen injection, Inject 300 mg (1 pen) subcutaneously every 2 weeks. budesonide-formoterol (SYMBICORT) 160-4.5 mcg/actuation inhaler, Inhale 2 puffs as instructed two times a day. tiotropium (SPIRIVA) 18 mcg inhalation capsule, Inhale 1 capsule as instructed once daily. Ipratropium Broad Top (ATROVENT) 21 mcg (0.03 %) nasal spray, Use 2 Sprays in the nose every 8 hours as needed (FOR RUNNY NOSE). sertraline (ZOLOFT) 25 mg tablet, Take 25 mg by mouth once daily. levalbuterol tartrate HFA (XOPENEX HFA) 45 mcg/actuation inhaler, Inhale 2 Puffs as instructed every 6 hours as n (more content not included)... [facility] 12-13-2024 History and physical note Images from the original note were not included. [facility] HISTORY AND PHYSICAL EXAMINATION SERVICE DATE: 12/13/2024 SERVICE TIME: 10:00 AM PRIMARY CARE PHYSICIAN: Silvana Arrieta, DO Assessment Patient has the following medical conditions which may affect dina-operative course: 1. Headaches (R51.9) - Headaches associated with prednisone use; resolved with Tylenol. 2. Severe persistent asthma without complication ([facility]) (J45.50) 3. Asthma with chronic obstructive pulmonary disease (COPD) ([facility]) (J44.89) - Severe, persistent asthma with history of being untreated for 17 years, now with COPD. - Using inhalers: Spiriva, Symbicort, and Dupixent; prednisone for inflammation and itch. - Spirometry in August showed moderate airflow obstruction with normal lung volumes. - Chest CT in June showed no acute process. - Follows Pulmonology - Aware of procedure. Office Visit with Brian Mondragon MD (12/07/2024) 4. Pulmonary nodules (R91.8) - Chest CT in June showed no acute pulmonary process. CT CHEST WO IVCON (07/14/2024 8:42 AM) IMPRESSION: No acute pulmonary process is identified. Stable nodular opacities within the lungs, when compared to the prior examination. No miesha lymphadenopathy is seen within the chest. 5. Post-operative nausea and vomiting (R11.2) - Reports from prior procedures. Requesting antiemetics for control of N/V. 6. Hyperlipidemia, unspecified hyperlipidemia type (E78.5) - Denies - Patient not currently on any medications. 7. LPRD (laryngopharyngeal reflux disease) (K21.9) - Previously treated with Prilosec; advised to continue on day of procedure. 8. Laryngeal spasm (J38.5) - Laryngeal spasms occur after coughing spells; advised to inform anesthesia team prior to any procedure. ANESTHESIA FINDINGS: Intubation History: No history of difficult intubation. No abnormal airway history Significant Anesthesia Considerations: + history of laryngeal spasms after coughing. potential postop nausea/vomiting Airway History: No history of difficult airway No abnormal airway history Davis Activity Status Index: METS: Walk indoors, such as around the house (1.75 METs) Do light work around the house, such as dusting or washing dishes (2.70 METs) Take care of self; that is eating, dressing, bathing, using the toilet (2.75 METs) Walk a block or two on level ground (2.75 METs) Do moderate work around the house, such as vacuuming, sweeping floors, or carrying in groceries (3.50 METs) Climb a flight of stairs or walk up a hill (5.50 METs) DASI Score: 18.95 Patient denies any chest pain or undue shortness of breath with the above physical activity. Clinical Frailty Scale: 3. Well, with treated comorbid disease STOP-Bang Score: Patient over 50 years old Denies snoring loudly Denies feeling tired, fatigued, or sleepy during the daytime Has not been observed to stop breathing or choking/gasping during sleep Denies having high blood pressure BMI less than or equal to 35 kg/m^2 Does not have a large neck Non-male patient STOP-Bang Score: 1 I - PHYSICAL EVALUATION AIRWAY Patient intubated: No. Tracheostomy tube not present Mallampati: II. TM distance: >3 FB. Neck ROM: full ROM without neurological symptoms. Mouth opening: adequate. Short neck: no. Thick neck: no DENTAL Dental findings: missing tooth/teeth. II - ANESTHESIA PLAN Anesthetic plan additional comments: *PACC/TCI - anesthesia choice. Beta Aretha Monitoring Plan Post Procedure Analgesic Plan Prepared for Surgery: optimally prepared for surgery. CONSULTS: Patient does not require consults for optimization at this time Planned Anesthetic: anesthesia choice The Following Tests/Procedures Have Been Initiated: No orders of the defined types were placed in this encounter. REASON FOR VISIT: Sulaiman Estes is a 69 year old female who is scheduled for Procedure(s): NASAL/SINUS ENDOSCOPY, SURGICAL; W/ DESTRUCTION BY RF ABLATION, POSTERIOR NASAL NERVE (Bilateral) ABLATION, INFERIOR TURBINATES, BY TISSUE VOLUME REDUCTION; SUBMUCOSAL (Bilateral) ENDOSCOPIC SEPTOPLASTY (N/A) at the request of Dr. Corey Miranda for consultation. My final recommendation will be communicated back to the requesting physician by way of shared medical record or letter. Subjective The patient has the following: COVID-19 Immunization Status This patient has no relevant Health Maintenance data. CHIEF COMPLAINT: pre op HPI: Sulaiman Estes is a 69-year-old female with a history of severe asthma, chronic cough, and chronic non-allergic rhinitis, presenting for preoperative evaluation. Sulaiman has a history of severe asthma, chronic cough, and chronic non-allergic rhinitis. She reports a persistent cough that occurs throughout the day but not at night. She experiences laryngeal spasms following coughing spells, which are relieved by lying down. She is currently taking inhalers, including Spiriva and Symbicort, and recently started Dupixent on 11/26/2023. She is also on prednisone for inflammation and itching. She has a rescue inhaler (albuterol) but does not use it. She denies using supplemental oxygen. REVIEW OF SYSTEMS: General: No weight loss, malaise or fevers. Neurological: Positive for: headaches. Negative for: delirium, dementia, impaired sensorium, peripheral neuropathy, seizures, TIA and strokes. Respiratory: Positive for: asthma, COPD and current cough. Negative for: bronchitis, bronchodilator used daily for the last 3 months, dyspnea, home oxygen, orthopnea, pneumonia within 6 weeks, tobacco use, URI < 2 weeks and obstructive sleep apnea. Cardiovascular: Denies any heart palpitations, edema, chest pain, worsening shortness of breath, syncope, activity intolerance, or dizziness. Positive for: hyperlipidemia Negative for: abdominal aortic aneurysm, AICD/PPM, angina, anticoagulation therapy, arrhythmia, atrial fibrillation, CAD, chest pain, CHF, congenital heart defect, DVT/PE, hypertension, recent MA, murmur/valvular heart disease, PTCA, PVD, open heart surgery and valve surgery. GI: Negative for: abdominal pain, GERD, GI bleed <30 days, hepatitis, liver disease, nausea, vomiting and ETOH >2 drinks/day. : denies CKD Negative for: on dialysis, dysuria, flank pain, frequent urination, hematuria, renal failure and urinary tract infection. Endocrine: Negative for: diabetes mellitus, hyperthyroidism and hypothyroidism. Hematology: Negative for: anemia, bruises/bleeds easily, factor V Leiden, hemophilia, thrombocytopenia, von Willebrand disease, transfusion of at least 4 units within 72 hours prior to surgery and chronic anti-coagulation/platelet meds. Oncology: Negative for: CA metastasis, chemo within 30 days, disseminated cancer and radiotherapy within 90 days. Psych: Positive for: anxiety and depression. Musculoskeletal: Negative for joint pain or swelling, back pain or muscle pain. Skin: Negative for lesions, rash and itching. Implanted Devices: No implanted devices. PAST MEDICAL HISTORY Diagnosis Date Sinus tachycardia PAST SURGICAL HISTORY Procedure Laterality Date REPAIR ROTATOR CUFF,ACUTE Bilateral 2011, 2012 REVISION OF UPPER EYELID VAGINAL HYSTERECTOMY FAMILY HISTORY Problem Relation Age of Onset Asthma Mother Anesthesia Problems No Family History SOCIAL HISTORY[1] Prior to Admission medications as of 12/13/24 0925 Medication Sig Last Dose Taking predniSONE (DELTASONE) 10 mg tablet Take 4 tablets daily for 5 days then 2 tablets daily for 5 days then 1 tablet daily for 5 days then stop. Yes Omeprazole Magnesium (PRILOSEC OTC) 20 mg tablet Take 1 tablet by mouth once daily. Yes mupirocin (BACTROBAN) 2 % ointment Patient to mix one 22g tube with 1L of saline and rinse nose twice a day. Seven 22g tubes equals 1 mos supply. . Yes dupilumab (DUPIXENT PEN) 300 mg/2 mL pen injection Inject 300 mg (1 pen) subcutaneously every 2 weeks. Yes budesonide-formoterol (SYMBICORT) 160-4.5 mcg/actuation inhaler Inhale 2 puffs as instructed two times a day. Yes tiotropium (SPIRIVA) 18 mcg inhalation capsule Inhale 1 capsule as instructed once daily. Yes sertraline (ZOLOFT) 25 mg tablet Take 25 mg by mouth once daily. Yes cyanocobalamin 1,000 mcg/mL Inject intramuscularly. Yes ALPRAZolam (XANAX) 0.5 mg tablet Yes pramipexole (MIRAPEX) 0.125 mg tablet Take 0.125 mg by mouth three times daily. one tab daily Yes HYDROcodone-chlorpheniramine (TUSSIONEX) 10-8 mg/5 mL suspension Take by mouth every 12 hours as needed. Patient taking differently: Take 2 mL by mouth two times a day. Yes Ipratropium Broad Top (ATROVENT) 21 mcg (0.03 %) nasal spray Use 2 Sprays in the nose every 8 hours as needed (FOR RUNNY NOSE). levalbuterol tartrate HFA (XOPENEX HFA) 45 mcg/actuation inhaler Inhale 2 Puffs as instructed every 6 hours as needed for wheezing/shortness of breath. Patient not taking: Reported on 09/22/2024 No medication comments found. ALLERGIES Allergen Reactions Codeine Itching, Rash Phenobarbital Hives, Itching, Rash Sulfamethoxazole-Tr* Hives Sulfa (Sulfonamide * Rash Objective PHYSICAL EXAM: General: alert and oriented and healthy appearance. Pertinent negatives noted - not distressed. Skin: normal color, no rash or lesions. HEENT: EOM intact, pupils equal round and pupils reactive to light. Pertinent negatives noted - no carotid bruit. Cardiovascular: regular rate and rhythm, normal S1 and S2, no rub, murmurs, or gallop. Respiratory: normal breath sounds, no wheezes or crackles. No chest wall deformity or tenderness. Abdomen: bowel sounds present and soft. Pertinent negatives noted - not tender. Extremities: no deformity, no edema or tenderness, no joint swelling or clubbing. Neurological: normal cognition and motor skills. Gait normal. No weakness or sensory deficit. PAIN ASSESSMENT: VITALS: BP 140/60 Pulse 120 Temp (Src) 97.4 (Temporal) Resp 12 Ht 5' 0 (1.52m) Wt 132 lb (59.9kg) SpO2 95% BMI 25.78 kg/(m^2). Diagnostic tests reviewed for today's visit: Lab Value Units Date High Low HB 13.1 g/dL 09/24/2024 15.5 11.5 HCT 41.4 % 09/24/2024 46.0 36.0 WBC 11.09 k/uL 09/24/2024 11.00 3.70 PLT 362 k/uL 09/24/2024 400 150 NA No results within date range. K No results within date range. GLUC No results within date range. BUN No results within date range. CREAT No results within date range. PTSEC No results within date range. INR No results within date range. APTT No results within date range. ALT No results within date range. AST No results within date range. TBILI No results within date range. TSH No results within date range. Lab Value Units Date High Low HCGQT No results within date range. UHCG No results within date range. HCG, BODY* No results within date range. Lab Value Units Date High Low ABORHD No results within date range. ABSCREEN No results within date range. No results found for: HBA1C No results found for this or any previous visit (from the past 8760 hours). No results found for this or any previous visit (from the past 47246 hours). Instructions Given to Patient: Instructions located in the after visit summary. Patient given verbal and written preop instructions and voices comprehension and compliance. Recording using Delivery Agent software for draft documentation of the visit was discussed with the patient/authorized inbound customer service representative; all questions welcomed and answered. Patient/authorized inbound customer service representative agreed to proceed SIGNATURE: Vanessa Martinez APRN.CNP PATIENT NAME: Sulaiman Estes DATE: December 13, 2024 TIME: 9:24 AM PAGER/CONTACT #: [1] Social History Tobacco Use Smoking status: Former Types: Cigarettes Smokeless tobacco: Never Vaping Use Vaping status: Never Used Substance Use Topics Alcohol use: Not Currently Drug use: Never T [facility] 12-13-2024 History and physical note Images from the original note were not included. [facility] HISTORY AND PHYSICAL EXAMINATION SERVICE DATE: 12/13/2024 SERVICE TIME: 10:00 AM PRIMARY CARE PHYSICIAN: Silvana Arrieta, DO Assessment Patient has the following medical conditions which may affect dina-operative course: 1. Headaches (R51.9) - Headaches associated with prednisone use; resolved with Tylenol. 2. Severe persistent asthma without complication (HCC) (J45.50) 3. Asthma with chronic obstructive pulmonary disease (COPD) (HCC) (J44.89) - Severe, persistent asthma with history of being untreated for 17 years, now with COPD. - Using inhalers: Spiriva, Symbicort, and Dupixent; prednisone for inflammation and itch. - Spirometry in August showed moderate airflow obstruction with normal lung volumes. - Chest CT in June showed no acute process. - Follows Pulmonology - Aware of procedure. Office Visit with Brian Mondragon MD (12/07/2024) 4. Pulmonary nodules (R91.8) - Chest CT in June showed no acute pulmonary process. CT CHEST WO IVCON (07/14/2024 8:42 AM) IMPRESSION: No acute pulmonary process is identified. Stable nodular opacities within the lungs, when compared to the prior examination. No miesha lymphadenopathy is seen within the chest. 5. Post-operative nausea and vomiting (R11.2) - Reports from prior procedures. Requesting antiemetics for control of N/V. 6. Hyperlipidemia, unspecified hyperlipidemia type (E78.5) - Denies - Patient not currently on any medications. 7. LPRD (laryngopharyngeal reflux disease) (K21.9) - Previously treated with Prilosec; advised to continue on day of procedure. 8. Laryngeal spasm (J38.5) - Laryngeal spasms occur after coughing spells; advised to inform anesthesia team prior to any procedure. ANESTHESIA FINDINGS: Intubation History: No history of difficult intubation. No abnormal airway history Significant Anesthesia Considerations: + history of laryngeal spasms after coughing. potential postop nausea/vomiting Airway History: No history of difficult airway No abnormal airway history Davis Activity Status Index: METS: Walk indoors, such as around the house (1.75 METs) Do light work around the house, such as dusting or washing dishes (2.70 METs) Take care of self; that is eating, dressing, bathing, using the toilet (2.75 METs) Walk a block or two on level ground (2.75 METs) Do moderate work around the house, such as vacuuming, sweeping floors, or carrying in groceries (3.50 METs) Climb a flight of stairs or walk up a hill (5.50 METs) DASI Score: 18.95 Patient denies any chest pain or undue shortness of breath with the above physical activity. Clinical Frailty Scale: 3. Well, with treated comorbid disease STOP-Bang Score: Patient over 50 years old Denies snoring loudly Denies feeling tired, fatigued, or sleepy during the daytime Has not been observed to stop breathing or choking/gasping during sleep Denies having high blood pressure BMI less than or equal to 35 kg/m^2 Does not have a large neck Non-male patient STOP-Bang Score: 1 I - PHYSICAL EVALUATION AIRWAY Patient intubated: No. Tracheostomy tube not present Mallampati: II. TM distance: >3 FB. Neck ROM: full ROM without neurological symptoms. Mouth opening: adequate. Short neck: no. Thick neck: no DENTAL Dental findings: missing tooth/teeth. II - ANESTHESIA PLAN Anesthetic plan additional comments: *PACC/TCI - anesthesia choice. Beta Aretha Monitoring Plan Post Procedure Analgesic Plan Prepared for Surgery: optimally prepared for surgery. CONSULTS: Patient does not require consults for optimization at this time Planned Anesthetic: anesthesia choice The Following Tests/Procedures Have Been Initiated: No orders of the defined types were placed in this encounter. REASON FOR VISIT: Sulaiman Estes is a 69 year old female who is scheduled for Procedure(s): NASAL/SINUS ENDOSCOPY, SURGICAL; W/ DESTRUCTION BY RF ABLATION, POSTERIOR NASAL NERVE (Bilateral) ABLATION, INFERIOR TURBINATES, BY TISSUE VOLUME REDUCTION; SUBMUCOSAL (Bilateral) ENDOSCOPIC SEPTOPLASTY (N/A) at the request of Dr. Corey Miranda for consultation. My final recommendation will be communicated back to the requesting physician by way of shared medical record or letter. Subjective The patient has the following: COVID-19 Immunization Status This patient has no relevant Health Maintenance data. CHIEF COMPLAINT: pre op HPI: Sulaiman Estes is a 69-year-old female with a history of severe asthma, chronic cough, and chronic non-allergic rhinitis, presenting for preoperative evaluation. Sulaiman has a history of severe asthma, chronic cough, and chronic non-allergic rhinitis. She reports a persistent cough that occurs throughout the day but not at night. She experiences laryngeal spasms following coughing spells, which are relieved by lying down. She is currently taking inhalers, including Spiriva and Symbicort, and recently started Dupixent on 11/26/2023. She is also on prednisone for inflammation and itching. She has a rescue inhaler (albuterol) but does not use it. She denies using supplemental oxygen. REVIEW OF SYSTEMS: General: No weight loss, malaise or fevers. Neurological: Positive for: headaches. Negative for: delirium, dementia, impaired sensorium, peripheral neuropathy, seizures, TIA and strokes. Respiratory: Positive for: asthma, COPD and current cough. Negative for: bronchitis, bronchodilator used daily for the last 3 months, dyspnea, home oxygen, orthopnea, pneumonia within 6 weeks, tobacco use, URI < 2 weeks and obstructive sleep apnea. Cardiovascular: Denies any heart palpitations, edema, chest pain, worsening shortness of breath, syncope, activity intolerance, or dizziness. Positive for: hyperlipidemia Negative for: abdominal aortic aneurysm, AICD/PPM, angina, anticoagulation therapy, arrhythmia, atrial fibrillation, CAD, chest pain, CHF, congenital heart defect, DVT/PE, hypertension, recent MA, murmur/valvular heart disease, PTCA, PVD, open heart surgery and valve surgery. GI: Negative for: abdominal pain, GERD, GI bleed <30 days, hepatitis, liver disease, nausea, vomiting and ETOH >2 drinks/day. : denies CKD Negative for: on dialysis, dysuria, flank pain, frequent urination, hematuria, renal failure and urinary tract infection. Endocrine: Negative for: diabetes mellitus, hyperthyroidism and hypothyroidism. Hematology: Negative for: anemia, bruises/bleeds easily, factor V Leiden, hemophilia, thrombocytopenia, von Willebrand disease, transfusion of at least 4 units within 72 hours prior to surgery and chronic anti-coagulation/platelet meds. Oncology: Negative for: CA metastasis, chemo within 30 days, disseminated cancer and radiotherapy within 90 days. Psych: Positive for: anxiety and depression. Musculoskeletal: Negative for joint pain or swelling, back pain or muscle pain. Skin: Negative for lesions, rash and itching. Implanted Devices: No implanted devices. PAST MEDICAL HISTORY Diagnosis Date Sinus tachycardia PAST SURGICAL HISTORY Procedure Laterality Date REPAIR ROTATOR CUFF,ACUTE Bilateral 2011, 2012 REVISION OF UPPER EYELID VAGINAL HYSTERECTOMY FAMILY HISTORY Problem Relation Age of Onset Asthma Mother Anesthesia Problems No Family History SOCIAL HISTORY[1] Prior to Admission medications as of 12/13/24 0939 Medication Sig Last Dose Taking predniSONE (DELTASONE) 10 mg tablet Take 4 tablets daily for 5 days then 2 tablets daily for 5 days then 1 tablet daily for 5 days then stop. Yes Omeprazole Magnesium (PRILOSEC OTC) 20 mg tablet Take 1 tablet by mouth once daily. Yes mupirocin (BACTROBAN) 2 % ointment Patient to mix one 22g tube with 1L of saline and rinse nose twice a day. Seven 22g tubes equals 1 mos supply. . Yes dupilumab (DUPIXENT PEN) 300 mg/2 mL pen injection Inject 300 mg (1 pen) subcutaneously every 2 weeks. Yes budesonide-formoterol (SYMBICORT) 160-4.5 mcg/actuation inhaler Inhale 2 puffs as instructed two times a day. Yes tiotropium (SPIRIVA) 18 mcg inhalation capsule Inhale 1 capsule as instructed once daily. Yes sertraline (ZOLOFT) 25 mg tablet Take 25 mg by mouth once daily. Yes cyanocobalamin 1,000 mcg/mL Inject intramuscularly. Yes ALPRAZolam (XANAX) 0.5 mg tablet Yes pramipexole (MIRAPEX) 0.125 mg tablet Take 0.125 mg by mouth three times daily. one tab daily Yes HYDROcodone-chlorpheniramine (TUSSIONEX) 10-8 mg/5 mL suspension Take by mouth every 12 hours as needed. Patient taking differently: Take 2 mL by mouth two times a day. Yes Ipratropium Broad Top (ATROVENT) 21 mcg (0.03 %) nasal spray Use 2 Sprays in the nose every 8 hours as needed (FOR RUNNY NOSE). levalbuterol tartrate HFA (XOPENEX HFA) 45 mcg/actuation inhaler Inhale 2 Puffs as instructed every 6 hours as needed for wheezing/shortness of breath. Patient not taking: Reported on 09/22/2024 No medication comments found. ALLERGIES Allergen Reactions Codeine Itching, Rash Phenobarbital Hives, Itching, Rash Sulfamethoxazole-Tr* Hives Sulfa (Sulfonamide * Rash Objective PHYSICAL EXAM: General: alert and oriented and healthy appearance. Pertinent negatives noted - not distressed. Skin: normal color, no rash or lesions. HEENT: EOM intact, pupils equal round and pupils reactive to light. Pertinent negatives noted - no carotid bruit. Cardiovascular: regular rate and rhythm, normal S1 and S2, no rub, murmurs, or gallop. Respiratory: normal breath sounds, no wheezes or crackles. No chest wall deformity or tenderness. Abdomen: bowel sounds present and soft. Pertinent negatives noted - not tender. Extremities: no deformity, no edema or tenderness, no joint swelling or clubbing. Neurological: normal cognition and motor skills. Gait normal. No weakness or sensory deficit. PAIN ASSESSMENT: VITALS: BP 140/60 Pulse 120 Temp (Src) 97.4 (Temporal) Resp 12 Ht 5' 0 (1.52m) Wt 132 lb (59.9kg) SpO2 95% BMI 25.78 kg/(m^2). Diagnostic tests reviewed for today's visit: Lab Value Units Date High Low HB 13.1 g/dL 09/24/2024 15.5 11.5 HCT 41.4 % 09/24/2024 46.0 36.0 WBC 11.09 k/uL 09/24/2024 11.00 3.70 PLT 362 k/uL 09/24/2024 400 150 NA No results within date range. K No results within date range. GLUC No results within date range. BUN No results within date range. CREAT No results within date range. PTSEC No results within date range. INR No results within date range. APTT No results within date range. ALT No results within date range. AST No results within date range. TBILI No results within date range. TSH No results within date range. Lab Value Units Date High Low HCGQT No results within date range. UHCG No results within date range. HCG, BODY* No results within date range. Lab Value Units Date High Low ABORHD No results within date range. ABSCREEN No results within date range. No results found for: HBA1C No results found for this or any previous visit (from the past 8760 hours). No results found for this or any previous visit (from the past 31455 hours). Instructions Given to Patient: Instructions located in the after visit summary. Patient given verbal and written preop instructions and voices comprehension and compliance. Recording using Delivery Agent software for draft documentation of the visit was discussed with the patient/authorized inbound customer service representative; all questions welcomed and answered. Patient/authorized inbound customer service representative agreed to proceed SIGNATURE: Vanessa Martinez APRN.CNP PATIENT NAME: Sulaiman Estes DATE: December 13, 2024 TIME: 9:24 AM PAGER/CONTACT #: [1] Social History Tobacco Use Smoking status: Former Types: Cigarettes Smokeless tobacco: Never Vaping Use Vaping status: Never Used Substance Use Topics Alcohol use: Not Currently Drug use: Never documented in this encounter [facility] 12-10-2024 Instructions Vanessa Martinez APRN.CNP - 12/10/2024 12:08 PM EDT Images from the original note were not included. [facility] PATIENT PREOPERATIVE INSTRUCTIONS Corey Miranda MD has scheduled you for your procedure at this surgery center: [facility]: [phone] --[id number] [place] [address] Location is near [facility]. Please read below carefully for your personalized instructions. Arrival Time for Surgery: - The Surgery Center or hospital where you are having surgery will call the afternoon before surgery (or Thursday for Thursday surgery) with a scheduled arrival time. - If you have not heard by 4 pm, please contact the surgery center above. Dietary Restrictions: - No solid food after midnight. - You may have 12 ounces of clear liquids (water, clear juices such as apple juice or gatorade, carbonated beverages, clear tea, black coffee, jello) until 2 hours before scheduled arrival at facility. - Do not drink any alcohol after midnight the night before your surgery. - no milk/creamer or other additives like honey - no pulp juices Medications: Unless instructed differently below, stay on all of your medications until your surgery. If you start any new medications after today's visit, please contact your surgeon. Pre-Surgery Med Instructions Medication Instructions predniSONE (DELTASONE) 10 mg tablet If you normally take this medication in the morning, take the morning of surgery. Omeprazole Magnesium (PRILOSEC OTC) 20 mg tablet If you normally take this medication in the morning, take the morning of surgery. mupirocin (BACTROBAN) 2 % ointment Per surgeon's instructions dupilumab (DUPIXENT PEN) 300 mg/2 mL pen injection Continue as needed budesonide-formoterol (SYMBICORT) 160-4.5 mcg/actuation inhaler Use day of surgery. tiotropium (SPIRIVA) 18 mcg inhalation capsule Use day of surgery. cyanocobalamin 1,000 mcg/mL Do not take the day of surgery ALPRAZolam (XANAX) 0.5 mg tablet If you normally take this medication in the morning, take the morning of surgery. Please inform your surgical team. pramipexole (MIRAPEX) 0.125 mg tablet If you normally take this medication in the morning, take the morning of surgery. HYDROcodone-chlorpheniramine (TUSSIONEX) 10-8 mg/5 mL suspension If you normally take this medication in the morning, take the morning of surgery. Sertraline (Zoloft) If you normally take this medication in the morning, take the morning of surgery. If you are currently using a [id number] injectable or oral medication for diabetes or weight loss such as Dulaglutide (Trulicity), Exenatide (Byetta, Bydureon), Liraglutide (Victoza, Saxenda), Semaglutide (Ozempic, Wegovy, Rybelsus), or Tirzepatide (Mounjaro), the medicine should be stopped at least 7 days before surgery. These medicines can cause food to remain in your stomach for a very long time and increase the risks from surgery and anesthesia. Not stopping the medication for a long enough time may result in your surgery being rescheduled. If you start any new medications after today's visit, please contact the surgeon's office. Blood Thinning Medications: - Stop NSAIDS (Ibuprofen, Advil, Aleve, Motrin, Celebrex, Mobic, etc.) 7 days before surgery, as directed by your surgeon. - Stop Aspirin 7 days before surgery, as directed by your surgeon. - Stop herbal supplements 7 days before surgery. - You may take Tylenol (Acetaminophen) or any of your pain medications that do not contain aspirin or NSAIDS as needed. Important Reminders: - If you use CPAP/BIPAP, bring the machine with you to the surgery center. - If you are prescribed inhalers for breathing, continue using them. -Please be sure to brush your teeth and you can use mouth wash or rinse your mouth if dry. - Candy, mints, and tobacco products are NOT permitted the morning of surgery. - Hearing aids, dentures and glasses may be worn the morning of surgery. - If you have dentures or partials, please have a case to place them in or leave at home day of surgery. - NO jewelry, body piercings, makeup, hairpins or contacts are to be worn the day of surgery. If you develop symptoms such as a fever, cold, or flu, or have other changes to your health within TWO DAYS of scheduled surgery or the morning of surgery, please contact the surgery center above. Personal Belongings: -Please have photo ID and insurance cards. -If you do not have a copy of advance directives on file with us, please bring a copy with you on the day of surgery. - Leave ALL valuables and money at home or with family members. For Outpatient Procedures: - YOU MUST HAVE A RESPONSIBLE TRANSFER OPERATOR TAKE YOU HOME. A TRAVERSE ROD ASSEMBLER OR SOUND INSTALLATION WORKER CANNOT BE MADE A RESPONSIBLE TRANSFER OPERATOR. - We recommend that a responsible person stays with you overnight to take care of you. - You cannot stay in a hotel alone after outpatient surgery. You will not be permitted to have your surgery, if you do not have someone to take care of you. Please be aware that emergency situations arise, which may delay or change your surgical time. If this happens, we will notify you as soon as possible and regret any inconvenience. If you already have an Advance Directive, please fax a copy to [phone] or email to for it to be added to your chart. If you do not have an Advance Directive, you can find the appropriate form and more information at [email or web address]. We recommend that you complete the Advance Directive form found on the website and bring it with you the day of your surgery. It can be witnessed and scanned into your chart that day. Vanessa Martinez APRN.VEGETABLE FARM MANAGER documented in this encounter [facility] 12-07-2024 Instructions Brian Mondragon MD - 12/07/2024 11:13 AM EDT ASSESSMENT AND PLAN: I have collected the history from the patient and chart. I have personally examined the patient, and have also independently reviewed the imaging and any available laboratory data. I addressed the questions of the patient, and patient has expressed understanding and acceptance of my answers. 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 Spirometry 09/22/2024 - Moderate airflow obstruction, FEV1 64%, NO Significant bronchodilator response. Lung volumes 09/22/2024 - Normal DLCO Normal Exhaled NO 09/22/2024 - [address] CHEST 07/14/2024 -- IMPRESSION: No acute pulmonary process is identified. Stable nodular opacities within the lungs, when compared to the prior examination. No miesha lymphadenopathy is seen within the chest. There are stable nodular opacities seen within the lungs. For example, there is a stable, approximately 1.2 x 0.6 cm nodular opacity seen within the right apex (series 5, image #28). There is a stable, approximately 1.1 x 0.5 cm nodular density seen within the right upper lobe (series 5, image #50). Other pulmonary nodules are also stable. For example, there is a stable, approximately 6 mm groundglass attenuation nodule seen within the left apex (series 5, image #32). There is no pneumothorax or endobronchial lesion. Plan: - Stop Trelegy 09/2024 Stop Protonix Stop pepcid Started Symbicort 160/4.5 - 2 puffs twice daily 09/2024 - continue - Please rinse your mouth very thoroughly and spit after each use. - Continue to use albuterol (Proair / Ventolin) as needed for shortness of breath/Chest tightness, Cough and/or Wheezing - Avoid asthma triggers Started Spiriva - one puff once daily 09/2024 - continue - Please call me with any signs of exacerbations/URI as discussed during the visit -- Start Omeprazole 20 mg daily Chronic pansinusitis [J32.4] Check CT sinus 09/2024 Minimal opacity along the posterior margin of the dominant right sphenoid sinus, but otherwise essentially clear paranasal sinuses. No secondary changes to suggest sequelae of chronic sinusitis. Latest Ref Rng 09/24/2024 IgE <114.0 kU/l 22.5 Latest Ref Rng 09/24/2024 Abs Eosin <0.46 k/uL 0.16 Start Dupixent for Severe steroid dependent asthma and chronic rhinosinusitis - 11/25/2024 Prednisone 10 mg - 12/07/2024 Take 4 tablets daily for 5 days then 2 tablets daily for 5 days then 1 tablet daily for 5 days then stop. Total 35 tabs Call me with updates after you finish this course. (R91.8) Pulmonary nodules (Z87.891) History of smoking 10-25 pack years Comment: CT CHEST 06/2024 compared to 04/2022 stable bilateral nodules ? Dipnech. Stable overall with no evidence of changes or new nodules Plan: - Agree with a CT scan annually 06/2025 Immunization history review: Pneumovax -- Recommended Prevnar 13 -- Not indicated Prevnar 20 -- recommended Influenza -- Recommend annually RSV Vaccine - Recommended Pulmonary Rehab -- Indicated Follow Up: Return in about 3 months (around 03/09/2025). Brian Mondragon MD Pulmonary and Critical Care Medicine Staff Director of Chronic Cough Clinic Mentally Impaired Teacherpony worker and Pulmonary Rehabilitation - [facility] 12/07/2024 documented in this encounter [facility] 12-07-2024 History of Presen t illness Narrative Images from the original note were not included. PULMONARY MEDICINE CONSULT FOLLOW UP NOTE CHRONIC COUGH CLINIC Patient Name: Sulaiman Estes PRIMARY CARE PHYSICIAN: No primary care provider on file. My final recommendations will be communicated to the requesting health care provider by way of the shared medical record for internal providers or letter via the [employer] for external providers. ASSESSMENT AND PLAN: I have collected the history from the patient and chart. I have personally examined the patient, and have also independently reviewed the imaging and any available laboratory data. I addressed the questions of the patient, and patient has expressed understanding and acceptance of my answers. (J45.50) Severe persistent asthma without complication (HCC) (primary encounter diagnosis) (J44.89) Asthma with chronic obstructive pulmonary disease (COPD) (HCC) (J45.991) Cough variant asthma (HCC) (R05.3) Chronic cough (Z79.51) shelter current use of inhaled steroid Comment: Symptoms are consistent with cough variant asthma with airflow obstruction. Spirometry 09/22/2024 - Moderate airflow obstruction, FEV1 64%, NO Significant bronchodilator response. Lung volumes 09/22/2024 - Normal DLCO Normal Exhaled NO 09/22/2024 - [address] CHEST 07/14/2024 -- IMPRESSION: No acute pulmonary process is identified. Stable nodular opacities within the lungs, when compared to the prior examination. No miesha lymphadenopathy is seen within the chest. There are stable nodular opacities seen within the lungs. For example, there is a stable, approximately 1.2 x 0.6 cm nodular opacity seen within the right apex (series 5, image #28). There is a stable, approximately 1.1 x 0.5 cm nodular density seen within the right upper lobe (series 5, image #50). Other pulmonary nodules are also stable. For example, there is a stable, approximately 6 mm groundglass attenuation nodule seen within the left apex (series 5, image #32). There is no pneumothorax or endobronchial lesion. Plan: - Stop Trelegy 09/2024 Stop Protonix Stop pepcid Started Symbicort 160/4.5 - 2 puffs twice daily 09/2024 - continue - Please rinse your mouth very thoroughly and spit after each use. - Continue to use albuterol (Proair / Ventolin) as needed for shortness of breath/Chest tightness, Cough and/or Wheezing - Avoid asthma triggers Started Spiriva - one puff once daily 09/2024 - continue - Please call me with any signs of exacerbations/URI as discussed during the visit -- Start Omeprazole 20 mg daily Chronic pansinusitis [J32.4] Check CT sinus 09/2024 Minimal opacity along the posterior margin of the dominant right sphenoid sinus, but otherwise essentially clear paranasal sinuses. No secondary changes to suggest sequelae of chronic sinusitis. Latest Ref Rng 09/24/2024 IgE <114.0 kU/l 22.5 Latest Ref Rng 09/24/2024 Abs Eosin <0.46 k/uL 0.16 Start Dupixent for Severe steroid dependent asthma and chronic rhinosinusitis - 11/25/2024 Prednisone 10 mg - 12/07/2024 Take 4 tablets daily for 5 days then 2 tablets daily for 5 days then 1 tablet daily for 5 days then stop. Total 35 tabs Call me with updates after you finish this course. (R91.8) Pulmonary nodules (Z87.891) History of smoking 10-25 pack years Comment: CT CHEST 06/2024 compared to 04/2022 stable bilateral nodules ? Dipnech. Stable overall with no evidence of changes or new nodules Plan: - Agree with a CT scan annually 06/2025 Immunization history review: Pneumovax -- Recommended Prevnar 13 -- Not indicated Prevnar 20 -- recommended Influenza -- Recommend annually RSV Vaccine - Recommended Pulmonary Rehab -- Indicated Follow Up: Return in about 3 months (around 03/09/2025). Brian Mondragon MD Pulmonary and Critical Care Medicine Staff Director of Chronic Cough Clinic Mentally Impaired Teacherpony worker and Pulmonary Rehabilitation - [facility] 12/07/2024 - CHIEF COMPLAINT: Chronic Cough HISTORY OF PRESENT ILLNESS: 09/22/2024 Sulaiman Estes is a 69 year old female, with a medical history of Depression/anxiety, chronic rhinitis, GERD, who is here for evaluation and management of chronic cough. ENT EVAL 09/15/2024 Brian Tate MD She has a chronic cough. She does worse initially after an injection but then does better. She has episodes of laryngeal spasm and cannot catch her breath. Since then she has had a URI and sinus infection that responded eventually to steroids and antibiotics. Overall she was better but not a dramatic improvement. The itching sensation has improved. I talked to her about repeat nerve blocks or Botox and we will arrange Botox of laryngeal spasm in the near future. She has chronic rhinitis and is getting in to see Dr. Miranda ALLERGY EVAL 07/06/2024 Ian Martins MD 1) Chronic cough - suspect multifactorial from post nasal drip, GERD, bronchospasm (asthma/COPD) and persistent neurogenic cough - continue with treatment for neurogenic cough with ENT - trial gradually wean off hydrocodone-chlorpheniramine - continue management for GERD, COPD/Asthma, rhinitis as below 2) Chronic non rhinitis - hx of allergies s/p AIT - inhalant panel negative for component testing for dog confirming non-allergic rhinitis - atrovent nasal spray PRN symptoms - continue loratadine and flonase daily 3) LPRD/GERD - continue protonix - optimize diet and lifestyle modifications 4) COPD/asthma - continue management per pulmonary - wixela BID - Use albuterol inhaler 2 puffs every 4 hours as needed for asthma symptoms (cough, SOB, wheeze) or 30 minutes prior to prolonged exercise. - Patient advised to call if requiring albuterol more than twice a week or more than two times at night as this may indicate need for medication adjustment. - Recommend annual influenza shot vaccine during flu season. 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 Martins for evaluation and recommendations regarding management of chronic cough. Sulaiman Estes is a 68 year old female with a history of GERD, bronchospasm (asthma / COPD), post nasal drainage, and allergic rhinitis, presents with a 15 year history of chronic cough, triggered primarily by exposure to smells. Has had extensive workup for cough. Only relief is hydrocodone syrup. Recently put on a trial of gabapentin for possible neurogenic cough but discontinued because it made her COPD worse. Can't tolerate Lyrica. Her laryngeal exam is unremarkable. 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 I will refer her to Dr. Tate for sinus and PND assessment, as well as discussion of possible SLN blocks and or Botox injections for cough control. Symptoms review: Symptoms onset: x 17 years Progression: same Characteristics: dry cough. Never wakes her up at night. Worse part, itching in her throat. Triggers: certain smells (grass, alcohol, bleach, perfumes) Relieving factors: laying down and cough syrup with hydrocodone. Associated symptoms: Vomiting, lose her voice, constant runny nose. Urine incontinence with coughing. Swallowing difficulties: No Globus sensation: No Treatments attempted: Inhalers Trelegy 100 - feels breathing so much easier Advair PPI Protonix + pepcid Neuromodulators gabapentin -->wheezing and sick x 1.5 months Lyrica --> made her sick Elavil x several years --> did not help Prednisone ~ 1 week ago for sinus infection. 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 Pets at home dogs Patient Entered Questionnaires 11/17/2024 09/13/2024 07/14/2024 [place] Cough Physical Sum Score 4.13 3.63 3.5 Psychological Sum Score 4.57 3.43 3.43 Social Sum Score 6 3.5 3.25 Total Score 14.7 (Lower scores are indicative of increased impact or lower quality of life. ) 10.56 (Lower scores are indicative of increased impact or lower quality of life. ) 10.18 (Lower scores are indicative of increased impact or lower quality of life. ) Visual analogue scale (VAS) 09/22/2024 - Patient reported score (20/100) with the 5 ml Hydrocodone BID 12/07/2024 - 45/100 on 2.5 ml of hydrocodone BID Interval HPI: 12/07/2024 -- Patient is here for follow up, reports - Cough: - Worsening cough x4 weeks, rated 4-5/10 in severity. - Cough is dry 99% of the time. - Wakes up at night due to coughing, occurring 4 times in the past month. - Cough has worsened with tapering of hydrocodone, currently at 2.5 mL in the morning and 2 mL in the evening, down from 5 mL BID. - Denies use of albuterol inhaler. - Denies chest pain, leg swelling, nausea, emesis, diarrhea, hematochezia, urinary issues, skin rash, dizziness, or syncope. Chest Itching: - Reports horrible itchiness inside the chest. - Describes spasms in the chest, a sensation experienced for years but previously alleviated by hydrocodone. Asthma: - Current medications include Symbicort inhaler in the morning and at 17:00, Spiriva at noon, and Dupixent injections every 2 weeks (started on 11/25). - Denies issues with inhalers but feels they are not effective. - Denies recent use of prednisone. - Reports wheezing when using inhalers. - Experiences dyspnea with heavy exertion, such as carrying a baby up the stairs. - Sinuses are currently clogged. - Denies recent acid reflux symptoms. Sleep Disturbances: - Difficulty sleeping, waking up at 03:45 and unable to return to sleep. - No recent changes in medication except for starting meloxicam 2-3 weeks ago for rib and chest bone inflammation from coughing. - Upcoming surgery for deviated septum and nerve issue on 01/03. MMRC Dyspnea Scale: 12/07/2024 0. Not troubled by breathlessness except on strenuous exercise Short of breath when hurrying or walking up a slight hill Walks slower than contemporaries on the level because of breathlessness, or has to stop for breath when walking at own pace Stops for breath after about 100 m or after a few minutes on the level Too breathless to leave the house, or breathless when dressing or undressing Previous Work-Up Pulmonary: CT Chest 07/18/2024 IMPRESSION: No acute pulmonary process is identified. Stable nodular opacities within the lungs, when compared to the prior examination. No miesha lymphadenopathy is seen within the chest. Methacholine challenge NA PFTs 09/22/2024 PRE-BRONCH POST-BRONCH Joana LLN Pred ULN %Pred ZScore Joana %Pred %Chg ZScore SPIROMETRY FVC 2.19 1.74 2.44 3.16 89 -0.58 2.05 83 -5 -0.92 FEV1 1.32 1.37 1.94 2.48 67 -1.78 1.25 64 -3 -1.97 FEV1/FVC 0.60 0.67 0.80 0.90 75 -2.38 0.61 76 1 -2.31 FEFMax 4.64 3.81 5.35 6.88 86 -0.76 5.01 93 7 -0.36 FEF50 0.70 1.29 2.89 4.50 24 -2.24 0.47 16 -32 -2.48 FIF50 2.68 1.76 -34 FEF50/FIF50 0.26 90-100 0.27 2 FIVC 2.11 1.97 -6 BML16-84 0.39 0.87 1.83 3.17 21 -2.88 0.27 14 -30 -3.31 ExpiredTime 13.45 10.87 -19 TimeToFEFMax 0.10 0.07 -31 RAUL 0.09 0.06 -31 VolExtrap% 4 3 -26 LUNG VOLUMES FRC(Pleth) 1.85 1.71 2.57 3.43 72 -1.37 ERV 0.05 0.81 6 RV(Pleth) 1.79 1.34 1.96 2.59 91 -0.46 SVC 2.20 1.74 2.44 3.16 90 -0.57 IC 2.06 1.63 126 TLC(Pleth) 3.87 3.67 4.55 5.43 85 -1.26 RV/TLC(Pleth) 46 33 42 51 109 0.71 LUNG DIFFUSION DLCOunc 17.85 13.29 19.46 25.63 91 -0.43 DLCOStdPB 17.63 13.29 19.46 25.63 90 -0.49 VA 3.28 3.41 4.51 5.61 72 -1.84 Kco 5.45 3.30 4.31 5.46 126 1.64 PFTs 2/*2022 PRE-BRONCH POST-BRONCH Pre LLN Pred ULN %Pred Post %Pred %Chg SPIROMETRY FVC (L) 2.18 1.99 2.67 3.38 81 2.20 82 0 FEV1 (L) 1.32 1.56 2.10 2.62 62 1.38 65 3 FEV1/FVC 0.60 0.67 0.79 0.90 76 0.63 79 4 PEF L/s (L/sec) 5.25 3.96 5.50 7.03 95 5.39 98 2 FEF50 (L/sec) 0.72 1.34 2.95 4.56 24 0.83 28 15 FIF50 (L/sec) 2.22 2.05 -7 FEF50/FIF50 0.33 90-100 0.40 24 FIVC (L) 2.12 2.13 0 EQP79-92 (L/sec) 0.40 0.93 1.92 3.27 20 0.56 29 40 Time (sec) 12.58 11.27 -10 FET PEF (sec) 0.05 0.05 -2 RAUL (L) 0.05 0.05 7 Vol Extrap % (%) 2 2 7 Nitric Oxide Test Date Oral Exhaled Nitric Oxide (ppb) 09/22/2024 12.0 GI: EGD NA pH probe monitoring NA Allergy: Skin/serum testing Latest Ref Rn 06/23/2022 03/03/2024 [place] Grass IgE <0.35 kU/l <0.35 [place] Grass Class Class 0 Class 0 Cat Dander IgE <0.35 kU/l <0.35 <0.35 Cat Dander Class Class 0 Class 0 Class 0 Cockroach IgE <0.35 kU/l <0.35 Cockroach Class Class 0 Class 0 Short Ragweed IgE <0.35 kU/l <0.35 <0.35 Short Ragweed Class Class 0 Class 0 Class 0 Dog Dander IgE <0.35 kU/l <0.35 <0.35 Dog Dander Class Class 0 Class 0 Class 0 Elm Tree IgE <0.35 <0.35 Elm Tree Class Class 0 Class 0 D. farinae IgE <0.35 kU/l <0.35 <0.35 D. farinae Class Class 0 Class 0 Class 0 D. pteronyssinus IgE <0.35 kU/l <0.35 D. pteronyssinus Class Class 0 Class 0 David Grass IgE <0.35 kU/l <0.35 David Grass Class Class 0 Class 0 Irizarry's Quarters IgE <0.35 kU/l <0.35 <0.35 Irizarry's Quarters Class Class 0 Class 0 Class 0 Alternaria tenuis IgE <0.35 kU/l <0.35 <0.35 Alternaria tenuis Class Class 0 Class 0 Class 0 Aspergillus fumigatus IgE <0.35 kU/l <0.35 <0.35 Aspergillus fumigatus Class Class 0 Class 0 Class 0 Cladosporium herbarum IgE <0.35 kU/l <0.35 <0.35 Cladosporium herbarum Class Class 0 Class 0 Class 0 [place] Tree IgE <0.35 kU/l <0.35 <0.35 [place] Tree Class Class 0 Class 0 Class 0 [place] Tree IgE <0.35 kU/l <0.35 [place] Tree Class Class 0 Class 0 Mouse Urine IgE <0.35 kU/l <0.35 Mouse Urine-Class Class 0 Class 0 [id number] Ghassan Grass <0.35 kU/l <0.35 <0.35 Ghasasn Grass Class Class 0 Class 0 Class 0 [place] Tree IgE <0.35 kU/l <0.35 [place] Tree Class Class 0 Class 0 [place] Tree IgE <0.35 kU/l <0.35 [place] Tree Class Class 0 Class 0 [place] Tree IgE <0.35 kU/l <0.35 <0.35 [place] Tree Class Class 0 Class 0 Class 0 [place] Tree IgE <0.35 kU/l <0.35 [place] Tree Class Class 0 Class 0 [place]ori IgE <0.35 kU/l <0.35 [place]ori Class Class 0 Class 0 [place] IgE <0.35 kU/l <0.35 [place] Class Class 0 Class 0 Pigweed IgE <0.35 kU/l <0.35 Pigweed Class Class 0 Class 0 [place] IgE <0.35 kU/l <0.35 Cocklebur Class Class 0 Class 0 Sheep [place] IgE <0.35 kU/l <0.35 Sheep [place] Class Class 0 Class 0 [place] Elder IgE <0.35 kU/l <0.35 [place] Elder Class Class 0 Class 0 Citizen [place] Plantain IgE <0.35 kU/l <0.35 <0.35 [place] Plantain Class Class 0 Class 0 Class 0 [place] Grass IgE <0.35 kU/l <0.35 [place] Grass Class Class 0 Class 0 P. chrysogenum IgE <0.35 kU/l <0.35 P. chrysogenum Class Class 0 Class 0 House Dust (H-S) IgE <0.35 kU/l <0.35 House Dust (H-S) Class Class 0 Class 0 WBC 3.70 - 11.00 k/uL 7.54 RBC 3.90 - 5.20 m/uL 4.50 Hemoglobin 11.5 - 15.5 g/dL 12.9 Hematocrit 36.0 - 46.0 % 39.5 MCV 80.0 - 100.0 fL 87.8 MCH 26.0 - 34.0 pg 28.7 MCHC 30.5 - 36.0 g/dL 32.7 RDW-CV 11.5 - 15.0 % 11.9 Platelet Count 150 - 400 k/uL 307 MPV 9.0 - 12.7 fL 9.7 Neut% % 40.0 Abs Neut (ANC) 1.45 - 7.50 k/uL 3.02 Lymph% % 45.8 Abs Lymph 1.00 - 4.00 k/uL 3.45 [place]% % 8.8 Abs [place] <0.87 k/uL 0.66 Eosin% % 4.4 Abs Eosin <0.46 k/uL 0.33 Baso% % 0.9 Abs Baso <0.11 k/uL 0.07 Immature Gran % % 0.1 IMMATURE GRANS (ABS) <0.10 k/uL <0.03 NRBC /100 WBC 0.0 Absolute nRBC <0.01 k/uL <0.01 DTYPE Auto rCan f1 <0.10 kU/L <0.10 rCan f2 <0.10 kU/L <0.10 rCan f3 <0.10 kU/L <0.10 rCan f4 <0.10 kU/L <0.10 rCan f5 <0.10 kU/L <0.10 rCan F6 <0.10 kU/L <0.10 IgE <114.0 kU/l 32.2 PAST MEDICAL HISTORY Diagnosis Date Sinus tachycardia No past surgical history on file. FAMILY HISTORY Problem Relation Age of Onset Asthma Mother Social History Tobacco Use Smoking status: Former Types: Cigarettes Smokeless tobacco: Never Substance Use Topics Alcohol use: Not Currently Drug use: Never ALLERGIES: ALLERGIES Allergen Reactions Codeine Itching, Rash Phenobarbital Hives, Itching, Rash Sulfamethoxazole-Tr* Hives Sulfa (Sulfonamide * Rash CURRENT OUTPATIENT MEDICATIONS: mupirocin (BACTROBAN) 2 % ointment Patient to mix one 22g tube with 1L of saline and rinse nose twice a day. Seven 22g tubes equals 1 mos supply. . dupilumab (DUPIXENT PEN) 300 mg/2 mL pen injection Inject 300 mg (1 pen) subcutaneously every 2 weeks. budesonide-formoterol (SYMBICORT) 160-4.5 mcg/actuation inhaler Inhale 2 puffs as instructed two times a day. tiotropium (SPIRIVA) 18 mcg inhalation capsule Inhale 1 capsule as instructed once daily. Ipratropium Broad Top (ATROVENT) 21 mcg (0.03 %) nasal spray Use 2 Sprays in the nose every 8 hours as needed (FOR RUNNY NOSE). sertraline (ZOLOFT) 25 mg tablet Take 25 mg by mouth once daily. levalbuterol tartrate HFA (XOPENEX HFA) 45 mcg/actuation inhaler Inhale 2 Puffs as instructed every 6 hours as needed for wheezing/shortness of breath. (Patient not taking: Reported on 09/22/2024) cyanocobalamin 1,000 mcg/mL Inject intramuscularly. ALPRAZolam (XANAX) 0.5 mg tablet pramipexole (MIRAPEX) 0.125 mg tablet Take 0.125 mg by mouth three times daily. one tab daily HYDROcodone-chlorpheniramine (TUSSIONEX) 10-8 mg/5 mL suspension Take by mouth every 12 hours as needed. REVIEW OF SYSTEMS Constitutional: (+) malaise Ears/Nose/Mouth/Throat: (+) nasal congestion Cardiovascular: (-) peripheral edema, (-) chest pain Respiratory: (+) cough, (+) exertional dyspnea, (+) wheezing, (+) chest pruritus, (-) sputum production Gastrointestinal: (+) nausea, (-) vomiting, (-) diarrhea, (-) blood in stool, (-) heartburn Genitourinary: (-) dysuria Musculoskeletal: (+) chest wall spasms Skin: (-) rash Neurological: (-) dizziness, (-) syncope Psychiatric: (+) insomnia The remainder of the ROS was negative. PHYSICAL EXAMINATION: VITAL SIGNS: BP 165/90 Pulse 103 Ht 5' .66 (1.54m) Wt 133 lb (60.3kg) SpO2 98% BMI 25.40 kg/(m^2). General appearance: well appearing, alert, and in no acute distress Skin: skin color, texture, turgor normal, no rashes or lesions Eyes: Anicteric sclera. Pupils are equally round and reactive to light. Extraocular movements are intact. ENT: No oral thrush or sinus pressure Heme/Lymph:Supple, no adenopathy Lungs: lungs clear to auscultation no wheezing or rhonchi Heart: RRR without murmur, gallop, or rubs. No ectopy GI: Abdomen soft, non-tender. Bowel sounds normal. No masses, organomegaly Musculoskeletal: No significant peripheral edema, or skin discoloration. Good capillary refill. PSYCH: Alert and Oriented x 3. Neuro: Gait Normal - age appropriate, No gross neurological focal deficits, sensation grossly normal Written and verbal health teaching given to patient, patient verbalizes understanding and agrees with treatment plan. Electronically Signed: Brian Mondragon MD 12/07/2024 documented in this encounter [facility] 12-07-2024 Note HNO ID: [id number] Author: BRIAN MONDRAGON MD Service: ? Author Type: Physician Type: Progress Notes Filed: 12/07/2024 11:13 Note Text: PULMONARY MEDICINE CONSULT FOLLOW UP NOTE CHRONIC COUGH CLINIC Patient Name: Sulaiman Estes PRIMARY CARE PHYSICIAN: No primary care provider on file. My final recommendations will be communicated to the requesting health care provider by way of the shared medical record for internal providers or letter via the [employer] for external providers. ASSESSMENT AND PLAN: I have collected the history from the patient and chart. I have personally examined the patient, and have also independently reviewed the imaging and any available laboratory data. I addressed the questions of the patient, and patient has expressed understanding and acceptance of my answers. (J45.50) Severe persistent asthma without complication (HCC) (primary encounter diagnosis) (J44.89) Asthma with chronic obstructive pulmonary disease (COPD) ([facility]) (J45.991) Cough variant asthma ([facility]) (R05.3) Chronic cough (Z79.51) shelter current use of inhaled steroid Comment: Symptoms are consistent with cough variant asthma with airflow obstruction. Spirometry 09/22/2024 - Moderate airflow obstruction, FEV1 64%, NO Significant bronchodilator response. Lung volumes 09/22/2024 - Normal DLCO Normal Exhaled NO 09/22/2024 - [address] CHEST 07/14/2024 -- IMPRESSION: No acute pulmonary process is identified. Stable nodular opacities within the lungs, when compared to the prior examination. No miesha lymphadenopathy is seen within the chest. There are stable nodular opacities seen within the lungs. For example, there is a stable, approximately 1.2 x 0.6 cm nodular opacity seen within the right apex (series 5, image #28). There is a stable, approximately 1.1 x 0.5 cm nodular density seen within the right upper lobe (series 5, image #50). Other pulmonary nodules are also stable. For example, there is a stable, approximately 6 mm groundglass attenuation nodule seen within the left apex (series 5, image #32). There is no pneumothorax or endobronchial lesion. Plan: - Stop Trelegy 09/2024 Stop Protonix Stop pepcid Started Symbicort 160/4.5 - 2 puffs twice daily 09/2024 - continue - Please rinse your mouth very thoroughly and spit after each use. - Continue to use albuterol (Proair / Ventolin) as needed for shortness of breath/Chest tightness, Cough and/or Wheezing - Avoid asthma triggers Started Spiriva - one puff once daily 09/2024 - continue - Please call me with any signs of exacerbations/URI as discussed during the visit -- Start Omeprazole 20 mg daily Chronic pansinusitis [J32.4] Check CT sinus 09/2024 Minimal opacity along the posterior margin of the dominant right sphenoid sinus, but otherwise essentially clear paranasal sinuses. No secondary changes to suggest sequelae of chronic sinusitis. Latest Ref Rng 09/24/2024 IgE <114.0 kU/l 22.5 Latest Ref Rng 09/24/2024 Abs Eosin <0.46 k/uL 0.16 Start Dupixent for Severe steroid dependent asthma and chronic rhinosinusitis - 11/25/2024 Prednisone 10 mg - 12/07/2024 Take 4 tablets daily for 5 days then 2 tablets daily for 5 days then 1 tablet daily for 5 days then stop. Total 35 tabs Call me with updates after you finish this course. (R91.8) Pulmonary nodules (Z87.891) History of smoking 10-25 pack years Comment: CT CHEST 06/2024 compared to 04/2022 stable bilateral nodules ? Dipnech. Stable overall with no evidence of changes or new nodules Plan: - Agree with a CT scan annually 06/2025 Immunization history review: Pneumovax -- Recommended Prevnar 13 -- Not indicated Prevnar 20 -- recommended Influenza -- Recommend annually RSV Vaccine - Recommended Pulmonary Rehab -- Indicated Follow Up: Return in about 3 months (around 03/09/2025). Brian Mondragon MD Pulmonary and Critical Care Medicine Staff Director of Chronic Cough [facility] Mentally Impaired [employer] worker and Pulmonary Rehabilitation - [facility] 12/07/2024 CHIEF COMPLAINT: Chronic Cough HISTORY OF PRESENT ILLNESS: 09/22/2024 Sulaiman Estes is a 69 year old female, with a medical history of Depression/anxiety, chronic rhinitis, GERD, who is here for evaluation and management of chronic cough. ENT EVAL 09/15/2024 Brian Tate MD She has a chronic cough. She does worse initially after an injection but then does better. She has episodes of laryngeal spasm and cannot catch her breath. Since then she has had a URI and sinus infection that responded eventually to steroids and antibiotics. Overall she was better but not a dramatic improvement. The itching sensation has improved. I talked to her about repeat nerve blocks or Botox and we will arrange Botox of laryngeal spasm in the near future. (more content not included)... [facility] 12-05-2024 History of Presen t illness Narrative [facility] Specialty Refill Assessment Medication(s): Dupixent Patient's current medication list and adherence status to current therapy were reviewed by Specialty Pharmacy clinical pharmacist to identify any new drug interactions or non-compliance to therapy. Therapy continues to be appropriate for disease, patient response, and medical condition. Verification of therapeutic benefit and effectiveness with current therapy was completed. Adverse events, barriers in adherence, and side effects were assessed and addressed if applicable. Will proceed with refill with no changes in therapy - patient progressing towards achieving therapeutic goals based on medication-specific laboratory parameters, disease state markers and outcomes. Office/provider notes have been reviewed prior to dispensing the medication. Electro Winning Operator Assessment Patient confirmed: Yes Med/dose confirmed: Yes Supplies needed: No supplies needed Missed doses: No Estimated days supply on hand: 0 Next cycle/dose due: 12/10/24 Copay amount: 0 Payment confirmed: Yes Delivery method: FedEx Signature required: No Delivery address: [address] [place] [id number] Delivery date: 12/08/24 Questions or concerns for the pharmacist?: No Did you have any side effects believed to be related to this medication, that resulted in hospitalization?: No Meds Previous to this Encounter[1] [facility] SPECIAL[facility] CLINICAL ASSESSMENT - INFLAMMATORY CONDITIONS V6: Assessment to use: Refill Date of influenza vaccination reminder: 11/24/2024 Date of most recent vaccination assessment: 11/24/2024 Treatment Plan Information: Dupixent 300 mg/2 mL: Inject 600 mg (2 pens) subcutaneously on day one, then inject 300 mg (1 pen) subcutaneously every 2 weeks. (J45.50) Severe persistent asthma without complication (HCC) (primary encounter diagnosis) Dupilumab (Dupixent) - IL-4 Inhibitor Monitor for signs/symptoms of hypersensitivity reactions and ocular adverse effects (consider eye exam in patients with signs/symptoms of keratitis or unresolved conjunctivitis); signs of infection (particularly parasitic [helminth] in pediatric patients <12 years); signs/symptoms of arthralgia (consider rheumatological evaluation if occurs); pulmonary function in patients treated for asthma. Current Outpatient Medications on File Prior to Visit: mupirocin (BACTROBAN) 2 % ointment, Patient to mix one 22g tube with 1L of saline and rinse nose twice a day. Seven 22g tubes equals 1 mos supply. . dupilumab (DUPIXENT PEN) 300 mg/2 mL pen injection, Inject 600 mg (2 pens) subcutaneously on day one, then inject 300 mg (1 pen) subcutaneously every 2 weeks. dupilumab (DUPIXENT PEN) 300 mg/2 mL pen injection, Inject 300 mg (1 pen) subcutaneously every 2 weeks. budesonide-formoterol (SYMBICORT) 160-4.5 mcg/actuation inhaler, Inhale 2 puffs as instructed two times a day. tiotropium (SPIRIVA) 18 mcg inhalation capsule, Inhale 1 capsule as instructed once daily. Ipratropium Broad Top (ATROVENT) 21 mcg (0.03 %) nasal spray, Use 2 Sprays in the nose every 8 hours as needed (FOR RUNNY NOSE). sertraline (ZOLOFT) 25 mg tablet, Take 25 mg by mouth once daily. levalbuterol tartrate HFA (XOPENEX HFA) 45 mcg/actuation inhaler, Inhale 2 Puffs as instructed every 6 hours as needed for wheezing/shortness of breath. (Patient not taking: Reported on 09/22/2024) cyanocobalamin 1,000 mcg/mL, Inject intramuscularly. ALPRAZolam (XANAX) 0.5 mg tablet, pramipexole (MIRAPEX) 0.125 mg tablet, Take 0.125 mg by mouth three times daily. one tab daily HYDROcodone-chlorpheniramine (TUSSIONEX) 10-8 mg/5 mL suspension, Take by mouth every 12 hours as needed. No current facility-administered medications on file prior to visit. Est. Tx Plan Start Date: No information available Estimated Start Date Info: 11/25/24 Est. Estimated Treatment Duration: Until loss of efficacy and/or no longer tolerated. Mikaela Low [facility], Inflammatory/Allergy P:[phone] [1] Current Outpatient Medications on File Prior to Visit Medication Sig mupirocin (BACTROBAN) 2 % ointment Patient to mix one 22g tube with 1L of saline and rinse nose twice a day. Seven 22g tubes equals 1 mos supply. . dupilumab (DUPIXENT PEN) 300 mg/2 mL pen injection Inject 300 mg (1 pen) subcutaneously every 2 weeks. budesonide-formoterol (SYMBICORT) 160-4.5 mcg/actuation inhaler Inhale 2 puffs as instructed two times a day. tiotropium (SPIRIVA) 18 mcg inhalation capsule Inhale 1 capsule as instructed once daily. Ipratropium Broad Top (ATROVENT) 21 mcg (0.03 %) nasal spray Use 2 Sprays in the nose every 8 hours as needed (FOR RUNNY NOSE). sertraline (ZOLOFT) 25 mg tablet Take 25 mg by mouth once daily. levalbuterol tartrate HFA (XOPENEX HFA) 45 mcg/actuation inhaler Inhale 2 Puffs as instructed every 6 hours as needed for wheezing/shortness of breath. (Patient not taking: Reported on 09/22/2024) cyanocobalamin 1,000 mcg/mL Inject intramuscularly. ALPRAZolam (XANAX) 0.5 mg tablet pramipexole (MIRAPEX) 0.125 mg tablet Take 0.125 mg by mouth three times daily. one tab daily HYDROcodone-chlorpheniramine (TUSSIONEX) 10-8 mg/5 mL suspension Take by mouth every 12 hours as needed. No current facility-administered medications on file prior to visit. documented in this encounter [facility] 12-05-2024 Note HNO ID: [id number] Author: ?, ?, ? Service: ? Author Type: ? Type: Progress Notes Filed: 12/05/2024 12:13 Note Text: [facility] Specialty Refill Assessment Medication(s): Dupixent Patient's current medication list and adherence status to current therapy were reviewed by Specialty Pharmacy clinical pharmacist to identify any new drug interactions or non-compliance to therapy. Therapy continues to be appropriate for disease, patient response, and medical condition. Verification of therapeutic benefit and effectiveness with current therapy was completed. Adverse events, barriers in adherence, and side effects were assessed and addressed if applicable. Will proceed with refill with no changes in therapy - patient progressing towards achieving therapeutic goals based on medication-specific laboratory parameters, disease state markers and outcomes. Office/provider notes have been reviewed prior to dispensing the medication. Electro Winning Operator Assessment Patient confirmed: Yes Med/dose confirmed: Yes Supplies needed: No supplies needed Missed doses: No Estimated days supply on hand: 0 Next cycle/dose due: 12/10/24 Copay amount: 0 Payment confirmed: Yes Delivery method: FedEx Signature required: No Delivery address: [address] [place] [id number] Delivery date: 12/08/24 Questions or concerns for the pharmacist?: No Did you have any side effects believed to be related to this medication, that resulted in hospitalization?: No Meds Previous to this Encounter[1] [facility] SPECIALTY CLINICAL ASSESSMENT - INFLAMMATORY CONDITIONS V6: Assessment to use: Refill Date of influenza vaccination reminder: 11/24/2024 Date of most recent vaccination assessment: 11/24/2024 Treatment Plan Information: Dupixent 300 mg/2 mL: Inject 600 mg (2 pens) subcutaneously on day one, then inject 300 mg (1 pen) subcutaneously every 2 weeks. (J45.50) Severe persistent asthma without complication (HCC) (primary encounter diagnosis) Dupilumab (Dupixent) - IL-4 Inhibitor Monitor for signs/symptoms of hypersensitivity reactions and ocular adverse effects (consider eye exam in patients with signs/symptoms of keratitis or unresolved conjunctivitis); signs of infection (particularly parasitic [helminth] in pediatric patients <12 years); signs/symptoms of arthralgia (consider rheumatological evaluation if occurs); pulmonary function in patients treated for asthma. Current Outpatient Medications on File Prior to Visit: mupirocin (BACTROBAN) 2 % ointment, Patient to mix one 22g tube with 1L of saline and rinse nose twice a day. Seven 22g tubes equals 1 mos supply. . dupilumab (DUPIXENT PEN) 300 mg/2 mL pen injection, Inject 600 mg (2 pens) subcutaneously on day one, then inject 300 mg (1 pen) subcutaneously every 2 weeks. dupilumab (DUPIXENT PEN) 300 mg/2 mL pen injection, Inject 300 mg (1 pen) subcutaneously every 2 weeks. budesonide-formoterol (SYMBICORT) 160-4.5 mcg/actuation inhaler, Inhale 2 puffs as instructed two times a day. tiotropium (SPIRIVA) 18 mcg inhalation capsule, Inhale 1 capsule as instructed once daily. Ipratropium Broad Top (ATROVENT) 21 mcg (0.03 %) nasal spray, Use 2 Sprays in the nose every 8 hours as needed (FOR RUNNY NOSE). sertraline (ZOLOFT) 25 mg tablet, Take 25 mg by mouth once daily. levalbuterol tartrate HFA (XOPENEX HFA) 45 mcg/actuation inhaler, Inhale 2 Puffs as instructed every 6 hours as needed for wheezing/shortness of breath. (Patient not taking: Reported on 09/22/2024) cyanocobalamin 1,000 mcg/mL, Inject intramuscularly. ALPRAZolam (XANAX) 0.5 mg tablet, pramipexole (MIRAPEX) 0.125 mg tablet, Take 0.125 mg by mouth three times daily. one tab daily HYDROcodone-chlorpheniramine (TUSSIONEX) 10-8 mg/5 mL suspension, Take by mouth every 12 hours as needed. No current facility-administered medications on file prior to visit. Est. Tx Plan Start Date: No information available Estimated Start Date Info: 11/25/24 Est. Estimated Treatment Duration: Until loss of efficacy and/or no longer tolerated. Mikaela Low [facility], Inflammatory/Allergy P:[phone] [1] Current Outpatient Medications on File Prior to Visit Medication Sig mupirocin (BACTROBAN) 2 % ointment Patient to mix one 22g tube with 1L of saline and rinse nose twice a day. Seven 22g tubes equals 1 mos supply. . dupilumab (DUPIXENT PEN) 300 mg/2 mL pen injection Inject 300 mg (1 pen) subcutaneously every 2 weeks. budesonide-formoterol (SYMBICORT) 160-4.5 mcg/actuation inhaler Inhale 2 puffs as instructed two times a day. tiotropium (SPIRIVA) 18 mcg inhalation capsule Inhale 1 capsule as instructed once daily. Ipratropium Broad Top (ATROVENT) 21 mcg (0.03 %) nasal spray Use 2 Sprays in the nose every 8 hours as needed (FOR RUNNY NOSE). sertraline (ZOLOFT) 25 mg tablet Take 25 mg by mouth once daily. levalbuterol tartrate HFA (XOPENEX HFA) 45 mcg/actuation inhaler Inhale 2 Puffs (more content not included)... [facility] 11-22-2024 Telephone encounter Note Called and left message for patient regarding surgical scheduling. [facility] 11-22-2024 Miscellaneous Notes Called and left message for patient regarding surgical scheduling. documented in this encounter [facility] 11-21-2024 Telephone encounter Note Spoke with patient Let her know that the [facility] appt will be scheduled when they reach out to schedule her surgery She reports she was told to use the ointment in the nose, noit to put in a rinse Let her know that I will clarify with Dr Miranda on Thu and let her know [facility] Work Phone: 11-21-2024 Miscellaneous Notes Spoke with patient Let her know that the [facility] appt will be scheduled when they reach out to schedule her surgery She reports she was told to use the ointment in the nose, noit to put in a rinse Let her know that I will clarify with Dr Miranda on Thu and let her know documented in this encounter [facility] 11-18-2024 History of Presen t illness Narrative Images from the original note were not included. SECTION OF RHINOLOGY, SINUS AND SKULL BASE SURGERY Head and Neck Beals, [facility] INITIAL VISIT NOTE This patient is a new patient. They are seen at the request of: No referring provider defined for this encounter. CC: runny nose HPI: Sulaiman Estes is a 69 year old female presenting for evaluation of runny nose. Pt is currently taking Dupixent 300 mg once weekly and using ipratropium bromide 2 sprays each side every 8 hours PRN. Pt was ordered the dupixent for cough variant asthma and copd. Pt has no allergies. Pt has not started the dupixent, she also does not use the ipratropium nasal spray because it gives her headaches. Pt states it does help when she uses. But she gets a headache after she uses. Pt has tried other nasal sprays like astelin and flonase for over a year they have not helped at all. Just had a CT scan and it looked okay. She has had the runny nose for many years. She states it has been worse over the past 5 years. She states she gets 4-5 antibitoics per years. Pt states that most of the time the antibiotics does not work but steroids do help. Pt states she feels like she has a lot of inflammation in her nose, and her nose hurts. Pt gets a lot of facial pressure and pain. She endorses frequent drainage with changes in environment, temperature and posture. She endorses lack of sense of smell. SNOT-22 Nasal Score Ear/Facial Score Sleep Score Function Score Emotion Score Total Score 11/17/2024 18 7 5 3 8 41 06/20/2024 22 10 6 10 11 59 05/22/2024 19 7 5 8 8 47 PAST MEDICAL HISTORY: PAST MEDICAL HISTORY Diagnosis Date Sinus tachycardia PAST SURGICAL HISTORY: No past surgical history on file. FAMILY HISTORY Problem Relation Age of Onset Asthma Mother Social History Tobacco Use Smoking status: Former Types: Cigarettes Smokeless tobacco: Never Substance Use Topics Alcohol use: Not Currently Drug use: Never MEDICATIONS: Current Outpatient Medications Medication Sig dupilumab (DUPIXENT PEN) 300 mg/2 mL pen injection Inject 600 mg subcutaneously one time only for 1 dose. dupilumab (DUPIXENT PEN) 300 mg/2 mL pen injection Inject 300 mg subcutaneously every 2 weeks. budesonide-formoterol (SYMBICORT) 160-4.5 mcg/actuation inhaler Inhale 2 puffs as instructed two times a day. tiotropium (SPIRIVA) 18 mcg inhalation capsule Inhale 1 capsule as instructed once daily. Ipratropium Broad Top (ATROVENT) 21 mcg (0.03 %) nasal spray Use 2 Sprays in the nose every 8 hours as needed (FOR RUNNY NOSE). sertraline (ZOLOFT) 25 mg tablet Take 25 mg by mouth once daily. levalbuterol tartrate HFA (XOPENEX HFA) 45 mcg/actuation inhaler Inhale 2 Puffs as instructed every 6 hours as needed for wheezing/shortness of breath. (Patient not taking: Reported on 09/22/2024) cyanocobalamin 1,000 mcg/mL Inject intramuscularly. ALPRAZolam (XANAX) 0.5 mg tablet pramipexole (MIRAPEX) 0.125 mg tablet Take 0.125 mg by mouth three times daily. one tab daily HYDROcodone-chlorpheniramine (TUSSIONEX) 10-8 mg/5 mL suspension Take by mouth every 12 hours as needed. No current facility-administered medications for this visit. ALLERGIES: ALLERGIES Allergen Reactions Codeine Itching, Rash Phenobarbital Hives, Itching, Rash Sulfamethoxazole-Tr* Hives Sulfa (Sulfonamide * Rash PHYSICAL EXAM: GENERAL: No acute distress, calm and cooperative, alert and oriented. HEAD/FACE: Normocephalic, atraumatic, facial structures stable and symmetric. EYES: Extraocular movements intact. No ocular lesions noted. EARS: No auricular deformity noted. ORAL CAVITY/OROPHARYNX: No mucosal lesions noted, tongue/uvula midline, tonsils unremarkable. NECK: No obvious masses, full range of motion present. RESPIRATORY: Unlabored breathing on room air. Voice is strong. No stridor or other noisy breathing. NEUROLOGIC: Cranial nerves 3-12 are grossly intact. PROCEDURE NOTE: Procedure: Nasal endoscopy Indication: Rhinorrhea Findings: After topical application of lidocaine and Afrin sprays for anesthesia and decongestion, rigid nasal endoscopy was performed. This revealed Left sided MM is clear. Anterior septal crusting visualized. Right sided Anterior septal crusting visualized. R MM clear. Significant Right sided septal deviation. Bilateral ITH. The patient tolerated the procedure well. ASSESSMENT: Sulaiman Estes is a 69 year old female with: Right sided septal deviation Bilateral ITH Vasomotor Rhinitis PLAN: Nasal endoscopy today demonstrated Bilateral anterior septal crusting, Right sided septal deviation. Discussed with possibility of septoplasty and RihnAer with pt. Dr. Miranda would recommend. Discussed the different benefits, risks, alternatives, and personnel of undergoing the procedure with patient. Informed consent was not obtained. Start Mupirocin ointment Medical Decision Making: Problems: Moderate: New problem with uncertain prognosis Risk: Moderate: Drug management High: Decision on elective major surgery w/ risk factors Medical Decision Making Level: 4 - Moderate By signing my name below, I, Estuardo Rubio, attest that this documentation has been prepared under the direction and in the presence of Dr. Corey Miranda Electronically Signed, Estuardo RubioOwenmarino November 18, 2024 10:13 AM I agree with the Chief Complaint, ROS, and Past Histories independently gathered by the clinical accounting support specialist and the remaining scribed note accurately describes my personal service to the patient. Disclosure: Dr. Miranda receives payments from [employer]/or [employer] for conducting educational activities and/or consulting. An [employer] and/or [employer] product may be used in your care. Dr. Miranda does not receive any money for products he/she or any other [facility] physicians prescribe or use. Dr. Miranda's choice on which product to use in your case was not influenced by his/her relationship with [employer]/or [employer]. Your physician selected the product that in his or her hands is believed to be the best option for your treatment. documented in this encounter [facility] 11-18-2024 Note HNO ID: [id number] Author: COREY MIRANDA MD Service: ? Author Type: Physician Type: Progress Notes Filed: 11/18/2024 14:14 Note Text: SECTION OF RHINOLOGY, SINUS AND SKULL BASE SURGERY Head and Neck Beals, [facility] INITIAL VISIT NOTE This patient is a new patient. They are seen at the request of: No referring provider defined for this encounter. CC: runny nose HPI: Sulaiman Estes is a 69 year old female presenting for evaluation of runny nose. Pt is currently taking Dupixent 300 mg once weekly and using ipratropium bromide 2 sprays each side every 8 hours PRN. Pt was ordered the dupixent for cough variant asthma and copd. Pt has no allergies. Pt has not started the dupixent, she also does not use the ipratropium nasal spray because it gives her headaches. Pt states it does help when she uses. But she gets a headache after she uses. Pt has tried other nasal sprays like astelin and flonase for over a year they have not helped at all. Just had a CT scan and it looked okay. She has had the runny nose for many years. She states it has been worse over the past 5 years. She states she gets 4-5 antibitoics per years. Pt states that most of the time the antibiotics does not work but steroids do help. Pt states she feels like she has a lot of inflammation in her nose, and her nose hurts. Pt gets a lot of facial pressure and pain. She endorses frequent drainage with changes in environment, temperature and posture. She endorses lack of sense of smell. SNOT-22 Nasal Score Ear/Facial Score Sleep Score Function Score Emotion Score Total Score 11/17/2024 18 7 5 3 8 41 06/20/2024 22 10 6 10 11 59 05/22/2024 19 7 5 8 8 47 PAST MEDICAL HISTORY: PAST MEDICAL HISTORY Diagnosis Date Sinus tachycardia PAST SURGICAL HISTORY: No past surgical history on file. FAMILY HISTORY Problem Relation Age of Onset Asthma Mother Social History Tobacco Use Smoking status: Former Types: Cigarettes Smokeless tobacco: Never Substance Use Topics Alcohol use: Not Currently Drug use: Never MEDICATIONS: Current Outpatient Medications Medication Sig dupilumab (DUPIXENT PEN) 300 mg/2 mL pen injection Inject 600 mg subcutaneously one time only for 1 dose. dupilumab (DUPIXENT PEN) 300 mg/2 mL pen injection Inject 300 mg subcutaneously every 2 weeks. budesonide-formoterol (SYMBICORT) 160-4.5 mcg/actuation inhaler Inhale 2 puffs as instructed two times a day. tiotropium (SPIRIVA) 18 mcg inhalation capsule Inhale 1 capsule as instructed once daily. Ipratropium Broad Top (ATROVENT) 21 mcg (0.03 %) nasal spray Use 2 Sprays in the nose every 8 hours as needed (FOR RUNNY NOSE). sertraline (ZOLOFT) 25 mg tablet Take 25 mg by mouth once daily. levalbuterol tartrate HFA (XOPENEX HFA) 45 mcg/actuation inhaler Inhale 2 Puffs as instructed every 6 hours as needed for wheezing/shortness of breath. (Patient not taking: Reported on 09/22/2024) cyanocobalamin 1,000 mcg/mL Inject intramuscularly. ALPRAZolam (XANAX) 0.5 mg tablet pramipexole (MIRAPEX) 0.125 mg tablet Take 0.125 mg by mouth three times daily. one tab daily HYDROcodone-chlorpheniramine (TUSSIONEX) 10-8 mg/5 mL suspension Take by mouth every 12 hours as needed. No current facility-administered medications for this visit. ALLERGIES: ALLERGIES Allergen Reactions Codeine Itching, Rash Phenobarbital Hives, Itching, Rash Sulfamethoxazole-Tr* Hives Sulfa (Sulfonamide * Rash PHYSICAL EXAM: GENERAL: No acute distress, calm and cooperative, alert and oriented. HEAD/FACE: Normocephalic, atraumatic, facial structures stable and symmetric. EYES: Extraocular movements intact. No ocular lesions noted. EARS: No auricular deformity noted. ORAL CAVITY/OROPHARYNX: No mucosal lesions noted, tongue/uvula midline, tonsils unremarkable. NECK: No obvious masses, full range of motion present. RESPIRATORY: Unlabored breathing on room air. Voice is strong. No stridor or other noisy breathing. NEUROLOGIC: Cranial nerves 3-12 are grossly intact. PROCEDURE NOTE: Procedure: Nasal endoscopy Indication: Rhinorrhea Findings: After topical application of lidocaine and Afrin sprays for anesthesia and decongestion, rigid nasal endoscopy was performed. This revealed Left sided MM is clear. Anterior septal crusting visualized. Right sided Anterior septal crusting visualized. R MM clear. Significant Right sided septal deviation. Bilateral ITH. The patient tolerated the procedure well. ASSESSMENT: Sulaiman Estes is a 69 year old female with: Right sided septal deviation Bilateral ITH Vasomotor Rhinitis PLAN: Nasal endoscopy today demonstrated Bilateral anterior septal crusting, Right sided septal deviation. Discussed with possibility of septoplasty and RihnAer with pt. Dr. Miranda would recommend. Discussed the different benefits, risks, alternatives, and personnel of undergoing the procedure with patient. In (more content not included)... [facility] 11-18-2024 History of Presen t illness Narrative [facility] received prescription(s) for Dupixent from Dr. Brian Mondragon's office. Benefits investigation was conducted, indicating that a prior authorization is required by patient's insurance plan with [employer]. Encounter will be updated once prior authorization has been submitted by [facility]. Mikaela Low, [facility], Inflammatory/Allergy P:[phone] documented in this encounter [facility] 11-18-2024 Note HNO ID: [id number] Author: ?, ?, ? Service: ? Author Type: ? Type: Progress Notes Filed: 11/18/2024 08:22 Note Text: [facility] received prescription(s) for Dupixent from Dr. Brian Mondragon's office. Benefits investigation was conducted, indicating that a prior authorization is required by patient's insurance plan with [employer]. Encounter will be updated once prior authorization has been submitted by [facility]. Mikaela Low, [facility], Inflammatory/Allergy P:[phone] [facility] 11-18-2024 Note HNO ID: [id number] Author: MISHEL TEIXEIRA RPh Service: ? Author Type: Pharmacist Type: Progress Notes Filed: 11/23/2024 14:22 Note Text: [facility] received prescription(s) for Dupixent from Dr. Modnragon's office. Benefits investigation was conducted, indicating that a prior authorization is required. PA was initiated and pending review. Plan Name: WILLY Plan Agent/March: [facility] [id number] Phone/Fax: - / - Case: [id number] Timeline: URGENT Mishel Teixeira, PharmD Clinical Pharmacist, [employer] [facility] ; Pool: P [facility] Pool #: [id number] [facility] 11-18-2024 Note HNO ID: [id number] Author: MISHEL TEIXEIRA RPh Service: ? Author Type: Pharmacist Type: Progress Notes Filed: 11/23/2024 15:25 Note Text: [facility] received prescription(s) for Dupixent from Dr. Mondragon's office. Benefits investigation was conducted, indicating that a prior authorization is required. PA was approved with details listed below. Plan Name: WILLY Plan Agent/March: CM [id number] Phone/Fax: - / - PA reference number: [id number] Approval Dates: 10/24/24 - 05/22/25 Prescriptions will now be processed through [facility] for determination of next steps. Mishel Teixeira PharmD Clinical Pharmacist, [employer] [facility] ; Pool: P [facility] Pool #: [id number] [facility] 11-18-2024 Note HNO ID: [id number] Author: LAWANDA BHATT RPh Service: ? Author Type: Pharmacist Type: Progress Notes Filed: 11/24/2024 10:36 Note Text: [facility] received prescription(s) for Dupixent from Dr. Mondragon's office. Benefits investigation was conducted, indicating that a prior authorization is required. JUDE was approved with details listed below: Plan Name: WILLY Plan Agent/March: AMY [id number] Phone/Fax: - / - JUDE reference number: [id number] Approval Dates: 10/24/24 - 05/22/25 Pt's copay is $25.42. Shipment has been arranged, and pt will receive medication(s) on 11/25/24. Pt has been instructed to follow-up with clinic to confirm start date. A full drug interaction report was conducted. I reviewed with Sulaiman Estes appropriate dose and dosing frequency, administration directions (Inject 600 mg (2 pens) subcutaneously on day one, then inject 300 mg (1 pen) subcutaneously every 2 weeks.), potential side effects, ability to self-administer and proper storage and handling requirements. S/he expressed understanding of the information we provided today, and received our contact information for the pharmacy if s/he had any other questions. Office/provider notes have been reviewed prior to dispensing the medication. PAST MEDICAL HISTORY Diagnosis Date Sinus tachycardia Current Outpatient Medications on File Prior to Visit Medication Sig mupirocin (BACTROBAN) 2 % ointment Patient to mix one 22g tube with 1L of saline and rinse nose twice a day. Seven 22g tubes equals 1 mos supply. . dupilumab (DUPIXENT PEN) 300 mg/2 mL pen injection Inject 600 mg (2 pens) subcutaneously on day one, then inject 300 mg (1 pen) subcutaneously every 2 weeks. dupilumab (DUPIXENT PEN) 300 mg/2 mL pen injection Inject 300 mg (1 pen) subcutaneously every 2 weeks. budesonide-formoterol (SYMBICORT) 160-4.5 mcg/actuation inhaler Inhale 2 puffs as instructed two times a day. tiotropium (SPIRIVA) 18 mcg inhalation capsule Inhale 1 capsule as instructed once daily. Ipratropium Broad Top (ATROVENT) 21 mcg (0.03 %) nasal spray Use 2 Sprays in the nose every 8 hours as needed (FOR RUNNY NOSE). sertraline (ZOLOFT) 25 mg tablet Take 25 mg by mouth once daily. levalbuterol tartrate HFA (XOPENEX HFA) 45 mcg/actuation inhaler Inhale 2 Puffs as instructed every 6 hours as needed for wheezing/shortness of breath. (Patient not taking: Reported on 09/22/2024) cyanocobalamin 1,000 mcg/mL Inject intramuscularly. ALPRAZolam (XANAX) 0.5 mg tablet pramipexole (MIRAPEX) 0.125 mg tablet Take 0.125 mg by mouth three times daily. one tab daily HYDROcodone-chlorpheniramine (TUSSIONEX) 10-8 mg/5 mL suspension Take by mouth every 12 hours as needed. No current facility-administered medications on file prior to visit. ALLERGIES Allergen Reactions Codeine Itching, Rash Phenobarbital Hives, Itching, Rash Sulfamethoxazole-Tr* Hives Sulfa (Sulfonamide * Rash Problem List Noted Noted By Resolved Resolved By Severe persistent asthma without complication ([facility]) 09/22/2024 Brian Mondragon MD No Asthma with chronic obstructive pulmonary disease (COPD) ([facility]) 09/22/2024 Brian Mondragon MD No History of smoking 10-25 pack years 09/22/2024 Brian Mondragon MD No Pulmonary nodules 09/22/2024 Brian Mondragon MD No intermediate manager current use of inhaled steroid 09/22/2024 Brian Mondragon MD No Cough variant asthma ([facility]) 09/22/2024 Brian Mondragon MD No Chronic pansinusitis 09/22/2024 Brian Mondragon MD No LPRD (laryngopharyngeal reflux disease) 03/02/2024 Ian Martins MD No Chronic cough 03/02/2024 Ian Martins MD No Chronic rhinitis 03/02/2024 Ian Martins MD No Electro Winning Operator Assessment Patient confirmed: Yes Med/dose confirmed: Yes Supplies needed: Alcohol swabs, Sharps container, Welcome packet, Bandages Copay amount: 25.42 Payment confirmed: Yes Delivery method: FedEx Signature required: Waived on patient request Delivery address: [facility] [address] Delivery date: 11/25/24 Questions or concerns for the pharmacist?: No Did you have any side effects believed to be related to this medication, that resulted in hospitalization?: No [facility] CLINICAL ASSESSMENT - INFLAMMATORY CONDITIONS V6: Assessment to use: Initial Patient device teaching: No Teaching not complete reason: Clinical pharmacist assessed and patient understands injection technique and is appropriate candidate for self-injection Sun precaution recommendations (increased BCC risk in RA patients): N/A Diagnosis: Yes Prior therapy and current medication list (including drug interaction assessment): Yes Comorbidities: Yes Allergies: Yes Medical history: Yes Ability to properly self-adminster medication: Yes Therapeutic goals based on possible outcomes of therapy: Yes Does the patient have any additional functional limitations, dietary needs, or safety measures?: No (more content not included)... [facility] 11-14-2024 Telephone encounter Note Last seen 09/22/24. Plan: - Stop Trelegy Stop Protonix Stop pepcid Start Symbicort 160/4.5 - 2 puffs twice daily Start Spiriva - one puff once daily Chronic pansinusitis [J32.4] Check CT sinus Plan to check CBC with diff and IgE Plan to start Dupixent for Severe steroid dependent asthma and chronic rhinosinusitis (R91.8) Pulmonary nodules (Z87.891) History of smoking 10-25 pack years Plan: - Agree with a CT scan annually [facility] 11-14-2024 Miscellaneous Notes Last seen 09/22/24. Plan: - Stop Trelegy Stop Protonix Stop pepcid Start Symbicort 160/4.5 - 2 puffs twice daily Start Spiriva - one puff once daily Chronic pansinusitis [J32.4] Check CT sinus Plan to check CBC with diff and IgE Plan to start Dupixent for Severe steroid dependent asthma and chronic rhinosinusitis (R91.8) Pulmonary nodules (Z87.891) History of smoking 10-25 pack years Plan: - Agree with a CT scan annually documented in this encounter [facility] 10-11-2024 History of Presen t illness Narrative Radiology Service Progress Note PATIENT NAME: Sulaiman Estes DATE OF SERVICE: October 11, 2024 TIME: 2:45 PM PATIENT IDENTITY VERIFICATION COMPLETED USING TWO (2) IDENTIFIERS: Name and Date of confirmed by patient verbally. FALL SCREENING: Has the patient had 2 falls in the last year or 1 fall with injury or currently using an Ambulatory Assistive Device (Walker, Cane, Wheelchair, Crutches, etc.)? No PATIENT GENDER DATA: Assigned female at . status: : No status: NO. PATIENT RELEVANT IMPLANT DATA REVIEWED: Yes PATIENT PRESENTS WITH AN IMPLANTABLE OR ATTACHED RESIDENTIAL HOUSEKEEPER: No RADIOLOGY DEPARTMENT: CT; Exam(s) Completed: Sinus PERIPHERAL IV DATA: Not applicable SIGNED BY: RT Caryn(Jonathon) October 11, 2024 2:45 PM documented in this encounter [facility] 10-11-2024 Note HNO ID: [id number] Author: FATOUMATA COX RT(Jonathon) Service: ? Author Type: Electro Winning Operator Type: Progress Notes Filed: 10/11/2024 14:45 Note Text: Radiology Service Progress Note PATIENT NAME: Sulaiman Estes DATE OF SERVICE: October 11, 2024 TIME: 2:45 PM PATIENT IDENTITY VERIFICATION COMPLETED USING TWO (2) IDENTIFIERS: Name and Date of confirmed by patient verbally. FALL SCREENING: Has the patient had 2 falls in the last year or 1 fall with injury or currently using an Ambulatory Assistive Device (Walker, Cane, Wheelchair, Crutches, etc.)? No PATIENT GENDER DATA: Assigned female at . status: : No status: NO. PATIENT RELEVANT IMPLANT DATA REVIEWED: Yes PATIENT PRESENTS WITH AN IMPLANTABLE OR ATTACHED RESIDENTIAL HOUSEKEEPER: No RADIOLOGY DEPARTMENT: CT; Exam(s) Completed: Sinus PERIPHERAL IV DATA: Not applicable SIGNED BY: RT Caryn(R) October 11, 2024 2:45 PM [facility] 09-22-2024 Instructions Brian Mondragon MD - 09/22/2024 10:38 AM EDT ASSESSMENT AND PLAN: I have collected the history from the patient and chart. I have personally examined the patient, and have also independently reviewed the imaging and any available laboratory data. I addressed the questions of the patient, and patient has expressed understanding and acceptance of my answers. 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 Spirometry 09/22/2024 - Moderate airflow obstruction, FEV1 64%, NO Significant bronchodilator response. Lung volumes 09/22/2024 - Normal DLCO Normal Exhaled NO 09/22/2024 - [address] CHEST 07/14/2024 -- IMPRESSION: No acute pulmonary process is identified. Stable nodular opacities within the lungs, when compared to the prior examination. No miesha lymphadenopathy is seen within the chest. There are stable nodular opacities seen within the lungs. For example, there is a stable, approximately 1.2 x 0.6 cm nodular opacity seen within the right apex (series 5, image #28). There is a stable, approximately 1.1 x 0.5 cm nodular density seen within the right upper lobe (series 5, image #50). Other pulmonary nodules are also stable. For example, there is a stable, approximately 6 mm groundglass attenuation nodule seen within the left apex (series 5, image #32). There is no pneumothorax or endobronchial lesion. Plan: - Stop Trelegy Stop Protonix Stop pepcid Start Symbicort 160/4.5 - 2 puffs twice daily - Please rinse your mouth very thoroughly and spit after each use. - Continue to use albuterol (Proair / Ventolin) as needed for shortness of breath/Chest tightness, Cough and/or Wheezing - Avoid asthma triggers Start Spiriva - one puff once daily - Please call me with any signs of exacerbations/URI as discussed during the visit Chronic pansinusitis [J32.4] Check CT sinus Plan to check CBC with diff and IgE Plan to start Dupixent for Severe steroid dependent asthma and chronic rhinosinusitis (R91.8) Pulmonary nodules (Z87.891) History of smoking 10-25 pack years Comment: CT CHEST 06/2024 compared to 04/2022 stable bilateral nodules ? Dipnech. Stable overall with no evidence of changes or new nodules Plan: - Agree with a CT scan annually Immunization history review: Pneumovax -- Recommended Prevnar 13 -- Not indicated Prevnar 20 -- recommended Influenza -- Recommend annually RSV Vaccine - Recommended Pulmonary Rehab -- Indicated Follow Up: Return in about 4 months (around 01/23/2025). Brian Mondragon MD Pulmonary and Critical Care Medicine Staff Director of Chronic Cough Clinic Mentally Impaired Teacherp[employer] worker and Pulmonary Rehabilitation - [facility] 09/22/2024 documented in this encounter [facility] 09-22-2024 Note HNO ID: [id number] Author: LONNIE BUSH RRT Service: ? Author Type: Registered Resp Therapist Type: Procedures Filed: 09/22/2024 09:31 Note Text: RESPIRATORY THERAPY ORAL EXHALED NITRIC OXIDE SERVICE DATE: 09/22/2024 SERVICE TIME: 9:31 AM Oral Exhaled Nitric Oxide measurement: 12.0 (ppb) Normal: Adult <25 ppb, pediatric (<12 years) <20 ppb High Normal / Increased: Adult 25-50 ppb, pediatric (<12 years) 20-35 ppb Moderately raised exhaled Nitric Oxide may indicate underlying inflammation, but note that: Cold and influenza can raise exhaled Nitric Oxide and some patients have higher baseline exhaled Nitric Oxide levels than others. High: Adult >50 ppb, pediatric (<12 years) >35 ppb Indicative of ongoing eosinophilic inflammation. Symptomatic patient likely to respond to steroids. Possible causes (if already on steroids): Poor compliance, recent allergen exposure, steroid dose inadequate, and steroid resistance. Note that not all patients with high exhaled nitric oxide levels display symptoms. Oral Exhaled Nitric Oxide measurement (Previous Encounters) Test Date Oral Exhaled Nitric Oxide (ppb) 09/22/2024 12.0 NAME: Lonnie Bush RRT PATIENT NAME: Sulaiman Estes DATE: September 22, 2024 TIME: 9:31 AM [facility] 09-22-2024 Procedure note Associated Ord er(s): NITRIC OXIDE, EXHALED RESPIRATORY THERAPY ORAL EXHALED NITRIC OXIDE SERVICE DATE: 09/22/2024 SERVICE TIME: 9:31 AM Oral Exhaled Nitric Oxide measurement: 12.0 (ppb) Normal: Adult <25 ppb, pediatric (<12 years) <20 ppb High Normal / Increased: Adult 25-50 ppb, pediatric (<12 years) 20-35 ppb Moderately raised exhaled Nitric Oxide may indicate underlying inflammation, but note that: Cold and influenza can raise exhaled Nitric Oxide and some patients have higher baseline exhaled Nitric Oxide levels than others. High: Adult >50 ppb, pediatric (<12 years) >35 ppb Indicative of ongoing eosinophilic inflammation. Symptomatic patient likely to respond to steroids. Possible causes (if already on steroids): Poor compliance, recent allergen exposure, steroid dose inadequate, and steroid resistance. Note that not all patients with high exhaled nitric oxide levels display symptoms. Oral Exhaled Nitric Oxide measurement (Previous Encounters) Test Date Oral Exhaled Nitric Oxide (ppb) 09/22/2024 12.0 NAME: Lonnie Bush RRT PATIENT NAME: Sulaiman Estes DATE: September 22, 2024 TIME: 9:31 AM [facility] 09-22-2024 Procedure note Associated Ord er(s): NITRIC OXIDE, EXHALED RESPIRATORY THERAPY ORAL EXHALED NITRIC OXIDE SERVICE DATE: 09/22/2024 SERVICE TIME: 9:31 AM Oral Exhaled Nitric Oxide measurement: 12.0 (ppb) Normal: Adult <25 ppb, pediatric (<12 years) <20 ppb High Normal / Increased: Adult 25-50 ppb, pediatric (<12 years) 20-35 ppb Moderately raised exhaled Nitric Oxide may indicate underlying inflammation, but note that: Cold and influenza can raise exhaled Nitric Oxide and some patients have higher baseline exhaled Nitric Oxide levels than others. High: Adult >50 ppb, pediatric (<12 years) >35 ppb Indicative of ongoing eosinophilic inflammation. Symptomatic patient likely to respond to steroids. Possible causes (if already on steroids): Poor compliance, recent allergen exposure, steroid dose inadequate, and steroid resistance. Note that not all patients with high exhaled nitric oxide levels display symptoms. Oral Exhaled Nitric Oxide measurement (Previous Encounters) Test Date Oral Exhaled Nitric Oxide (ppb) 09/22/2024 12.0 NAME: Lonnie Bush RRT PATIENT NAME: Sulaiman Estes DATE: September 22, 2024 TIME: 9:31 AM documented in this encounter [facility] 09-22-2024 Note HNO ID: [id number] Author: BRIAN MONDRAGON MD Service: ? Author Type: Physician Type: Progress Notes Filed: 09/22/2024 10:38 Note Text: PULMONARY MEDICINE CONSULT CHRONIC COUGH CLINIC Patient Name: Sulaiman Estes PRIMARY CARE PHYSICIAN: No primary care provider on file. REASON FOR CONSULT: New Consult - Chronic Cough REQUESTING PROVIDER: Cielo Jeffries MD My final recommendations will be communicated to the requesting health care provider by way of the shared medical record for internal providers or letter via the [employer] for external providers. ASSESSMENT AND PLAN: I have collected the history from the patient and chart. I have personally examined the patient, and have also independently reviewed the imaging and any available laboratory data. I addressed the questions of the patient, and patient has expressed understanding and acceptance of my answers. 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 Spirometry 09/22/2024 - Moderate airflow obstruction, FEV1 64%, NO Significant bronchodilator response. Lung volumes 09/22/2024 - Normal DLCO Normal Exhaled NO 09/22/2024 - [address] CHEST 07/14/2024 -- IMPRESSION: No acute pulmonary process is identified. Stable nodular opacities within the lungs, when compared to the prior examination. No miesha lymphadenopathy is seen within the chest. There are stable nodular opacities seen within the lungs. For example, there is a stable, approximately 1.2 x 0.6 cm nodular opacity seen within the right apex (series 5, image #28). There is a stable, approximately 1.1 x 0.5 cm nodular density seen within the right upper lobe (series 5, image #50). Other pulmonary nodules are also stable. For example, there is a stable, approximately 6 mm groundglass attenuation nodule seen within the left apex (series 5, image #32). There is no pneumothorax or endobronchial lesion. Plan: - Stop Trelegy Stop Protonix Stop pepcid Start Symbicort 160/4.5 - 2 puffs twice daily - Please rinse your mouth very thoroughly and spit after each use. - Continue to use albuterol (Proair / Ventolin) as needed for shortness of breath/Chest tightness, Cough and/or Wheezing - Avoid asthma triggers Start Spiriva - one puff once daily - Please call me with any signs of exacerbations/URI as discussed during the visit Chronic pansinusitis [J32.4] Check CT sinus Plan to check CBC with diff and IgE Plan to start Dupixent for Severe steroid dependent asthma and chronic rhinosinusitis (R91.8) Pulmonary nodules (Z87.891) History of smoking 10-25 pack years Comment: CT CHEST 06/2024 compared to 04/2022 stable bilateral nodules ? Dipnech. Stable overall with no evidence of changes or new nodules Plan: - Agree with a CT scan annually Immunization history review: Pneumovax -- Recommended Prevnar 13 -- Not indicated Prevnar 20 -- recommended Influenza -- Recommend annually RSV Vaccine - Recommended Pulmonary Rehab -- Indicated Follow Up: Return in about 4 months (around 01/23/2025). 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 ENT EVAL 09/15/2024 Brian Tate MD She has a chronic cough. She does worse initially after an injection but then does better. She has episodes of laryngeal spasm and cannot catch her breath. Since then she has had a URI and sinus infection that responded eventually to steroids and antibiotics. Overall she was better but not a dramatic improvement. The itching sensation has improved. I talked to her about repeat nerve blocks or Botox and we will arrange Botox of laryngeal spasm in the near future. She has chronic rhinitis and is getting in to see Dr. Miranda ALLERGY EVAL 07/06/2024 Ian Martins MD 1) Chronic cough - suspect multifactorial from post nasal drip, GERD, bronchospasm (asthma/COPD) and persistent neurogenic cough - continue with treatment for neurogenic cough with ENT - trial gradually wean off hydrocodone-chlorpheniramine - continue management for GERD, COPD/Asthma, rhinitis as below 2) Chronic non rhinitis - hx of allergies s/p AIT - inhalant panel negative (more content not included)... [facility] 09-22-2024 History of Presen t illness Narrative Images from the original note were not included. PULMONARY MEDICINE CONSULT CHRONIC COUGH CLINIC Patient Name: Sulaiman Estes PRIMARY CARE PHYSICIAN: No primary care provider on file. REASON FOR CONSULT: New Consult - Chronic Cough REQUESTING PROVIDER: Cielo Jeffries MD My final recommendations will be communicated to the requesting health care provider by way of the shared medical record for internal providers or letter via the [employer] for external providers. ASSESSMENT AND PLAN: I have collected the history from the patient and chart. I have personally examined the patient, and have also independently reviewed the imaging and any available laboratory data. I addressed the questions of the patient, and patient has expressed understanding and acceptance of my answers. 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 Spirometry 09/22/2024 - Moderate airflow obstruction, FEV1 64%, NO Significant bronchodilator response. Lung volumes 09/22/2024 - Normal DLCO Normal Exhaled NO 09/22/2024 - [address] CHEST 07/14/2024 -- IMPRESSION: No acute pulmonary process is identified. Stable nodular opacities within the lungs, when compared to the prior examination. No miesha lymphadenopathy is seen within the chest. There are stable nodular opacities seen within the lungs. For example, there is a stable, approximately 1.2 x 0.6 cm nodular opacity seen within the right apex (series 5, image #28). There is a stable, approximately 1.1 x 0.5 cm nodular density seen within the right upper lobe (series 5, image #50). Other pulmonary nodules are also stable. For example, there is a stable, approximately 6 mm groundglass attenuation nodule seen within the left apex (series 5, image #32). There is no pneumothorax or endobronchial lesion. Plan: - Stop Trelegy Stop Protonix Stop pepcid Start Symbicort 160/4.5 - 2 puffs twice daily - Please rinse your mouth very thoroughly and spit after each use. - Continue to use albuterol (Proair / Ventolin) as needed for shortness of breath/Chest tightness, Cough and/or Wheezing - Avoid asthma triggers Start Spiriva - one puff once daily - Please call me with any signs of exacerbations/URI as discussed during the visit Chronic pansinusitis [J32.4] Check CT sinus Plan to check CBC with diff and IgE Plan to start Dupixent for Severe steroid dependent asthma and chronic rhinosinusitis (R91.8) Pulmonary nodules (Z87.891) History of smoking 10-25 pack years Comment: CT CHEST 06/2024 compared to 04/2022 stable bilateral nodules ? Dipnech. Stable overall with no evidence of changes or new nodules Plan: - Agree with a CT scan annually Immunization history review: Pneumovax -- Recommended Prevnar 13 -- Not indicated Prevnar 20 -- recommended Influenza -- Recommend annually RSV Vaccine - Recommended Pulmonary Rehab -- Indicated Follow Up: Return in about 4 months (around 01/23/2025). Brian Mondragon MD Pulmonary and Critical Care Medicine Staff Director of Chronic Cough [facility] Mentally Impaired Teacherpony worker and Pulmonary Rehabilitation - [facility] 09/22/2024 - CHIEF COMPLAINT: Chronic Cough HISTORY OF PRESENT ILLNESS: 09/22/2024 Sulaiman Estes is a 69 year old female, with a medical history of Depression/anxiety, chronic rhinitis, GERD, who is here for evaluation and management of chronic cough. ENT EVAL 09/15/2024 Brian Tate MD She has a chronic cough. She does worse initially after an injection but then does better. She has episodes of laryngeal spasm and cannot catch her breath. Since then she has had a URI and sinus infection that responded eventually to steroids and antibiotics. Overall she was better but not a dramatic improvement. The itching sensation has improved. I talked to her about repeat nerve blocks or Botox and we will arrange Botox of laryngeal spasm in the near future. She has chronic rhinitis and is getting in to see Dr. Miranda ALLERGY EVAL 07/06/2024 Ian Martins MD 1) Chronic cough - suspect multifactorial from post nasal drip, GERD, bronchospasm (asthma/COPD) and persistent neurogenic cough - continue with treatment for neurogenic cough with ENT - trial gradually wean off hydrocodone-chlorpheniramine - continue management for GERD, COPD/Asthma, rhinitis as below 2) Chronic non rhinitis - hx of allergies s/p AIT - inhalant panel negative for component testing for dog confirming non-allergic rhinitis - atrovent nasal spray PRN symptoms - continue loratadine and flonase daily 3) LPRD/GERD - continue protonix - optimize diet and lifestyle modifications 4) COPD/asthma - continue management per pulmonary - wixela BID - Use albuterol inhaler 2 puffs every 4 hours as needed for asthma symptoms (cough, SOB, wheeze) or 30 minutes prior to prolonged exercise. - Patient advised to call if requiring albuterol more than twice a week or more than two times at night as this may indicate need for medication adjustment. - Recommend annual influenza shot vaccine during flu season. 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 Martins for evaluation and recommendations regarding management of chronic cough. Sulaiman Estes is a 68 year old female with a history of GERD, bronchospasm (asthma / COPD), post nasal drainage, and allergic rhinitis, presents with a 15 year history of chronic cough, triggered primarily by exposure to smells. Has had extensive workup for cough. Only relief is hydrocodone syrup. Recently put on a trial of gabapentin for possible neurogenic cough but discontinued because it made her COPD worse. Can't tolerate Lyrica. Her laryngeal exam is unremarkable. 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 I will refer her to Dr. Tate for sinus and PND assessment, as well as discussion of possible SLN blocks and or Botox injections for cough control. Symptoms review: Symptoms onset: x 17 years Progression: same Characteristics: dry cough. Never wakes her up at night. Worse part, itching in her throat. Triggers: certain smells (grass, alcohol, bleach, perfumes) Relieving factors: laying down and cough syrup with hydrocodone. Associated symptoms: Vomiting, lose her voice, constant runny nose. Urine incontinence with coughing. Swallowing difficulties: No Globus sensation: No Treatments attempted: Inhalers Trelegy 100 - feels breathing so much easier Advair PPI Protonix + pepcid Neuromodulators gabapentin -->wheezing and sick x 1.5 months Lyrica --> made her sick Elavil x several years --> did not help Prednisone ~ 1 week ago for sinus infection. 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 Pets at home dogs Patient Entered Questionnaires 09/13/2024 07/14/2024 06/20/2024 [place] Cough Physical Sum Score 3.63 3.5 3.5 Psychological Sum Score 3.43 3.43 2.57 Social Sum Score 3.5 3.25 2.75 Total Score 10.56 (Lower scores are indicative of increased impact or lower quality of life. ) 10.18 (Lower scores are indicative of increased impact or lower quality of life. ) 8.82 (Lower scores are indicative of increased impact or lower quality of life. ) Visual analogue scale (VAS) 09/22/2024 - Patient reported score (20/100) with the Hydrocodone MMRC Dyspnea Scale: 09/22/2024 0. Not troubled by breathlessness except on strenuous exercise Short of breath when hurrying or walking up a slight hill Walks slower than contemporaries on the level because of breathlessness, or has to stop for breath when walking at own pace Stops for breath after about 100 m or after a few minutes on the level Too breathless to leave the house, or breathless when dressing or undressing Previous Work-Up Pulmonary: CT Chest 07/18/2024 IMPRESSION: No acute pulmonary process is identified. Stable nodular opacities within the lungs, when compared to the prior examination. No miesha lymphadenopathy is seen within the chest. Methacholine challenge NA PFTs 09/22/2024 PRE-BRONCH POST-BRONCH Joana LLN Pred ULN %Pred ZScore Joana %Pred %Chg ZScore SPIROMETRY FVC 2.19 1.74 2.44 3.16 89 -0.58 2.05 83 -5 -0.92 FEV1 1.32 1.37 1.94 2.48 67 -1.78 1.25 64 -3 -1.97 FEV1/FVC 0.60 0.67 0.80 0.90 75 -2.38 0.61 76 1 -2.31 FEFMax 4.64 3.81 5.35 6.88 86 -0.76 5.01 93 7 -0.36 FEF50 0.70 1.29 2.89 4.50 24 -2.24 0.47 16 -32 -2.48 FIF50 2.68 1.76 -34 FEF50/FIF50 0.26 90-100 0.27 2 FIVC 2.11 1.97 -6 FOE95-08 0.39 0.87 1.83 3.17 21 -2.88 0.27 14 -30 -3.31 ExpiredTime 13.45 10.87 -19 TimeToFEFMax 0.10 0.07 -31 RAUL 0.09 0.06 -31 VolExtrap% 4 3 -26 LUNG VOLUMES FRC(Pleth) 1.85 1.71 2.57 3.43 72 -1.37 ERV 0.05 0.81 6 RV(Pleth) 1.79 1.34 1.96 2.59 91 -0.46 SVC 2.20 1.74 2.44 3.16 90 -0.57 IC 2.06 1.63 126 TLC(Pleth) 3.87 3.67 4.55 5.43 85 -1.26 RV/TLC(Pleth) 46 33 42 51 109 0.71 LUNG DIFFUSION DLCOunc 17.85 13.29 19.46 25.63 91 -0.43 DLCOStdPB 17.63 13.29 19.46 25.63 90 -0.49 VA 3.28 3.41 4.51 5.61 72 -1.84 Kco 5.45 3.30 4.31 5.46 126 1.64 PFTs 2/*2022 PRE-BRONCH POST-BRONCH Pre LLN Pred ULN %Pred Post %Pred %Chg SPIROMETRY FVC (L) 2.18 1.99 2.67 3.38 81 2.20 82 0 FEV1 (L) 1.32 1.56 2.10 2.62 62 1.38 65 3 FEV1/FVC 0.60 0.67 0.79 0.90 76 0.63 79 4 PEF L/s (L/sec) 5.25 3.96 5.50 7.03 95 5.39 98 2 FEF50 (L/sec) 0.72 1.34 2.95 4.56 24 0.83 28 15 FIF50 (L/sec) 2.22 2.05 -7 FEF50/FIF50 0.33 90-100 0.40 24 FIVC (L) 2.12 2.13 0 UJD43-71 (L/sec) 0.40 0.93 1.92 3.27 20 0.56 29 40 Time (sec) 12.58 11.27 -10 FET PEF (sec) 0.05 0.05 -2 RAUL (L) 0.05 0.05 7 Vol Extrap % (%) 2 2 7 Nitric Oxide Test Date Oral Exhaled Nitric Oxide (ppb) 09/22/2024 12.0 GI: EGD NA pH probe monitoring NA Allergy: Skin/serum testing Latest Ref Rn 06/23/2022 03/03/2024 [place] Grass IgE <0.35 kU/l <0.35 [place] Grass Class Class 0 Class 0 Cat Dander IgE <0.35 kU/l <0.35 <0.35 Cat Dander Class Class 0 Class 0 Class 0 Cockroach IgE <0.35 kU/l <0.35 Cockroach Class Class 0 Class 0 Short Ragweed IgE <0.35 kU/l <0.35 <0.35 Short Ragweed Class Class 0 Class 0 Class 0 Dog Dander IgE <0.35 kU/l <0.35 <0.35 Dog Dander Class Class 0 Class 0 Class 0 Elm Tree IgE <0.35 <0.35 Elm Tree Class Class 0 Class 0 D. farinae IgE <0.35 kU/l <0.35 <0.35 D. farinae Class Class 0 Class 0 Class 0 D. pteronyssinus IgE <0.35 kU/l <0.35 D. pteronyssinus Class Class 0 Class 0 David Grass IgE <0.35 kU/l <0.35 David Grass Class Class 0 Class 0 Irizarry's Quarters IgE <0.35 kU/l <0.35 <0.35 Irizarry's Quarters Class Class 0 Class 0 Class 0 Alternaria tenuis IgE <0.35 kU/l <0.35 <0.35 Alternaria tenuis Class Class 0 Class 0 Class 0 Aspergillus fumigatus IgE <0.35 kU/l <0.35 <0.35 Aspergillus fumigatus Class Class 0 Class 0 Class 0 Cladosporium herbarum IgE <0.35 kU/l <0.35 <0.35 Cladosporium herbarum Class Class 0 Class 0 Class 0 [place] Tree IgE <0.35 kU/l <0.35 <0.35 [place] Tree Class Class 0 Class 0 Class 0 [place] Tree IgE <0.35 kU/l <0.35 [place] Tree Class Class 0 Class 0 Mouse Urine IgE <0.35 kU/l <0.35 Mouse Urine-Class Class 0 Class 0 [id number] Ghassan Grass <0.35 kU/l <0.35 <0.35 Ghassan Grass Class Class 0 Class 0 Class 0 [place] Tree IgE <0.35 kU/l <0.35 [place] Tree Class Class 0 Class 0 [place] Tree IgE <0.35 kU/l <0.35 [place] Tree Class Class 0 Class 0 [place] Tree IgE <0.35 kU/l <0.35 <0.35 [place] Tree Class Class 0 Class 0 Class 0 [place] Tree IgE <0.35 kU/l <0.35 [place] Tree Class Class 0 Class 0 [place]ori IgE <0.35 kU/l <0.35 [place]ori Class Class 0 Class 0 [place] IgE <0.35 kU/l <0.35 [place] Class Class 0 Class 0 Pigweed IgE <0.35 kU/l <0.35 Pigweed Class Class 0 Class 0 [place] IgE <0.35 kU/l <0.35 Cocklebur Class Class 0 Class 0 Sheep [place] IgE <0.35 kU/l <0.35 Sheep [place] Class Class 0 Class 0 [place] Elder IgE <0.35 kU/l <0.35 [place] Elder Class Class 0 Class 0 Citizen Of [place] Plantain IgE <0.35 kU/l <0.35 <0.35 Citizen [place] Plantain Class Class 0 Class 0 Class 0 [place] Grass IgE <0.35 kU/l <0.35 [place] Grass Class Class 0 Class 0 P. chrysogenum IgE <0.35 kU/l <0.35 P. chrysogenum Class Class 0 Class 0 House Dust (H-S) IgE <0.35 kU/l <0.35 House Dust (H-S) Class Class 0 Class 0 WBC 3.70 - 11.00 k/uL 7.54 RBC 3.90 - 5.20 m/uL 4.50 Hemoglobin 11.5 - 15.5 g/dL 12.9 Hematocrit 36.0 - 46.0 % 39.5 MCV 80.0 - 100.0 fL 87.8 MCH 26.0 - 34.0 pg 28.7 MCHC 30.5 - 36.0 g/dL 32.7 RDW-CV 11.5 - 15.0 % 11.9 Platelet Count 150 - 400 k/uL 307 MPV 9.0 - 12.7 fL 9.7 Neut% % 40.0 Abs Neut (ANC) 1.45 - 7.50 k/uL 3.02 Lymph% % 45.8 Abs Lymph 1.00 - 4.00 k/uL 3.45 [place]% % 8.8 Abs [place] <0.87 k/uL 0.66 Eosin% % 4.4 Abs Eosin <0.46 k/uL 0.33 Baso% % 0.9 Abs Baso <0.11 k/uL 0.07 Immature Gran % % 0.1 IMMATURE GRANS (ABS) <0.10 k/uL <0.03 NRBC /100 WBC 0.0 Absolute nRBC <0.01 k/uL <0.01 DTYPE Auto rCan f1 <0.10 kU/L <0.10 rCan f2 <0.10 kU/L <0.10 rCan f3 <0.10 kU/L <0.10 rCan f4 <0.10 kU/L <0.10 rCan f5 <0.10 kU/L <0.10 rCan F6 <0.10 kU/L <0.10 IgE <114.0 kU/l 32.2 PAST MEDICAL HISTORY Diagnosis Date Sinus tachycardia History reviewed. No pertinent surgical history. FAMILY HISTORY Problem Relation Age of Onset Asthma Mother Social History Tobacco Use Smoking status: Former Types: Cigarettes Smokeless tobacco: Never Substance Use Topics Alcohol use: Not Currently Drug use: Never ALLERGIES: ALLERGIES Allergen Reactions Codeine Itching, Rash Phenobarbital Hives, Itching, Rash Sulfamethoxazole-Tr* Hives Sulfa (Sulfonamide * Rash CURRENT OUTPATIENT MEDICATIONS: rjyxnxyvdge-kqbvhozyo-vbmwvxmp (TRELEGY ELLIPTA) 100-62.5-25 mcg inhalation powder Inhale 1 puff as instructed once daily. Ipratropium Broad Top (ATROVENT) 21 mcg (0.03 %) nasal spray Use 2 Sprays in the nose every 8 hours as needed (FOR RUNNY NOSE). sertraline (ZOLOFT) 25 mg tablet Take 25 mg by mouth once daily. mometasone (NASONEX) 50 mcg/actuation nasal spray USE 2 SPRAYS NASALLY ONCE DAILY levalbuterol tartrate HFA (XOPENEX HFA) 45 mcg/actuation inhaler Inhale 2 Puffs as instructed every 6 hours as needed for wheezing/shortness of breath. pantoprazole DR (PROTONIX) 40 mg tablet Take 40 mg by mouth once daily. cyanocobalamin 1,000 mcg/mL Inject intramuscularly. ALPRAZolam (XANAX) 0.5 mg tablet pramipexole (MIRAPEX) 0.125 mg tablet Take 0.125 mg by mouth three times daily. one tab daily HYDROcodone-chlorpheniramine (TUSSIONEX) 10-8 mg/5 mL suspension Take by mouth every 12 hours as needed. REVIEW OF SYSTEMS Constitutional:NO EVIDENCE OF ACUTE DISTRESS HEENT: ++ headaches - Dry eyes, ++ Dry mouth ++ runny nose RESPIRATORY: dry cough, occasional wheezing, SOB/E, chest tightness -- CARDIOVASCULAR: Negative for chest pain, leg swelling or palpitations. GASTROINTESTINAL: No nausea, vomiting, or diarrhea and Negative for abdominal discomfort, blood in stools or black stools or change in bowel habits GENITOURINARY: urine incontinence with coughing LEARNING CENTER INSTRUCTOR: Negative for abnormal vaginal bleeding, abnormal vaginal discharge MUSCULOSKELETAL: Negative for joint pain or swelling, back pain or muscle pain. NEUROLOGIC:Negative for focal numbness or weakness, dizziness or syncope. SKIN:Negative for lesions, rash, and itching. The remainder of the ROS was negative, apart from what is mentioned in HPI/Symptom review PHYSICAL EXAMINATION: VITAL SIGNS: BP 147/82 Pulse 120 Temp (Src) 98.4 (Temporal) Resp 16 Wt 146 lb 2.6 oz (66.3kg) SpO2 99% General appearance: well appearing, alert, and in no acute distress Skin: skin color, texture, turgor normal, no rashes or lesions Eyes: Anicteric sclera. Pupils are equally round and reactive to light. Extraocular movements are intact. ENT: No oral thrush or sinus pressure Heme/Lymph:Supple, no adenopathy Lungs: lungs clear to auscultation no wheezing or rhonchi Heart: RRR without murmur, gallop, or rubs. No ectopy GI: Abdomen soft, non-tender. Bowel sounds normal. No masses, organomegaly Musculoskeletal: No significant peripheral edema, or skin discoloration. Good capillary refill. PSYCH: Alert and Oriented x 3. Neuro: Gait Normal. No gross neurological focal deficits, sensation grossly normal Written and verbal health teaching given to patient, patient verbalizes understanding and agrees with treatment plan. Electronically Signed: Brian Mondragon MD September 22, 2024 documented in this encounter [facility] 09-21-2024 Telephone encounter Note Images from the original note were not included. Bennie Tate, Additional info needed. Please see below. [facility] 09-21-2024 Miscellaneous Notes Images from the original note were not included. Bennie Tate, Additional info needed. Please see below. documented in this encounter [facility] 09-15-2024 Note HNO ID: [id number] Author: BRIAN TATE MD Service: ? Author Type: Physician Type: Progress Notes Filed: 09/15/2024 15:48 Note Text: Otolaryngology Virtual Established Patient Visit Impression and Plan: She has a chronic cough. She does worse initially after an injection but then does better. She has episodes of laryngeal spasm and cannot catch her breath. Since then she has had a URI and sinus infection that responded eventually to steroids and antibiotics. Overall she was better but not a dramatic improvement. The itching sensation has improved. I talked to her about repeat nerve blocks or Botox and we will arrange Botox of laryngeal spasm in the near future. She has chronic rhinitis and is getting in to see Dr. Miranda Total Time Spent: 15 minutes Follow up: Return next Botox. Call sooner if problems develop. Brian Tate MD This is a virtual visit. It required patient-provider interaction for the medical decision making as documented below Persons Present: patient Chief Complaint/Reason: chronic cough and loss of voice No chief complaint on file. 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 She does have episodes that sound like laryngospasm with paroxysms of cough, so if the third injection is not successful than we can consider Botox. She has had some nasal obstruction with a septal deviation to the right and no response to Flonase. We briefly discussed septal surgery but we will discuss in the future if she wants to consider. Atrovent helps when her nose is running. She is on reflux treatment and Pepcid has recently been added. She will supplement with vitamins Physical Exam: Video Exam (if completed, performed via video enabled technology: General: alert and appropriate, in no distress and well-hydrated, well nourished Voice: Speech with no dysarthria; Cranial Nerve Exam: II: Pupillary reflexes normal III, IV, : EOM normal V: 1,2,3: unable to test VII: Normal strength in all divisions. VIII: Hearing grossly normal. IX, X: a little raspy voice XI: unable to test XII: Tongue mobility normal Head: normocephalic, no abnormality or lesion noted Ears: hearing grossly normal Nose: external nose normal without rhinorrhea Neck: no self-reported cervical adenopathy Respiratory: breathing non-labored Chest: equal chest rise with normal respiratory effort intermittent cough History reviewed (electronic chart updated): PAST MEDICAL HISTORY Diagnosis Date Sinus tachycardia No past surgical history on file. FAMILY HISTORY Problem Relation Age of Onset Asthma Mother Social History Tobacco Use Smoking status: Former Types: Cigarettes Smokeless tobacco: Never Substance Use Topics Alcohol use: Not Currently Drug use: Never Current Outpatient Medications Medication Sig lygmcyinxzd-dvkuglzho-lulvfaud (TRELEGY ELLIPTA) 100-62.5-25 mcg inhalation powder Inhale 1 puff as instructed once daily. Ipratropium Broad Top (ATROVENT) 21 mcg (0.03 %) nasal spray Use 2 Sprays in the nose every 8 hours as needed (FOR RUNNY NOSE). sertraline (ZOLOFT) 25 mg tablet Take 25 mg by mouth once daily. mometasone (NASONEX) 50 mcg/actuation nasal spray USE 2 SPRAYS NASALLY ONCE DAILY levalbuterol tartrate HFA (XOPENEX HFA) 45 mcg/actuation inhaler Inhale 2 Puffs as instructed every 6 hours as needed for wheezing/shortness of breath. pantoprazole DR (PROTONIX) 40 mg tablet Take 40 mg by mouth once daily. cyanocobalamin 1,000 mcg/mL Inject intramuscularly. ALPRAZolam (XANAX) 0.5 mg tablet pramipexole (MIRAPEX) 0.125 mg tablet Take 0.125 mg by mouth three times daily. one tab daily HYDROcodone-chlorpheniramine (TUSSIONEX) 10-8 mg/5 mL suspension Take by mouth every 12 hours as needed. No current facility-administered medications for this visit. ALLERGIES Allergen Reactions Codeine Itching, Rash Phenobarbital Hives, Itching, Rash Sulfamethoxazole-Tr* Hives Sulfa (Sulfonamide * Rash Data Reviewed: My last note [facility] 09-05-2024 Telephone encounter Note 07/21/24 Procedure: The patient was identified and a time out was called Left and right thyrohyoid space in region of superior laryngeal nerve branches of vagus nerves were injected with 2.0ml (1mL of 1% lidocaine and 1.0 mL kenalog 40) Tolerated well [facility] 09-05-2024 Miscellaneous Notes 07/21/24 Procedure: The patient was identified and a time out was called Left and right thyrohyoid space in region of superior laryngeal nerve branches of vagus nerves were injected with 2.0ml (1mL of 1% lidocaine and 1.0 mL kenalog 40) Tolerated well documented in this encounter [facility] 08-03-2024 Telephone encounter Note Patient request medication refill Medication Name: Trelelgy Ellipta Last Ordered:07/26/2024 Last Office Visit:05/23/2024 Next Office Visit: NONE Preferred Pharmacy: [facility] If patient is overdue for a visit please send a message to PSS team requesting scheduling. If refill request is for antibiotics or steroids, please send High Priority message to Clinical Pool. [facility] 08-03-2024 Miscellaneous Notes Patient request medication refill Medication Name: Trelelgy Ellipta Last Ordered:07/26/2024 Last Office Visit:05/23/2024 Next Office Visit: NONE Preferred Pharmacy: [facility] If patient is overdue for a visit please send a message to PSS team requesting scheduling. If refill request is for antibiotics or steroids, please send High Priority message to Clinical Pool. documented in this encounter [facility] 07-26-2024 Telephone encounter Note I called Ms Estes to update on stability of CT of the chest and discuss that this is likely related to an indolent infection such as VY Nodules have not changed over the years, she has a history of smoking in the past. CT of the chest ordered in 1 year Cielo Jeffries MD July 26, 2024 4:14 PM [facility] 07-26-2024 Miscellaneous Notes I called Ms Estes to update on stability of CT of the chest and discuss that this is likely related to an indolent infection such as VY Nodules have not changed over the years, she has a history of smoking in the past. CT of the chest ordered in 1 year Cielo Jeffries MD July 26, 2024 4:14 PM documented in this encounter [facility] 07-22-2024 Telephone encounter Note Patient returning call. Please call her at [phone] [facility] 07-22-2024 Miscellaneous Notes Patient returning call. Please call her at [phone] Called and left voicemail for patient to return call. Angela Meier RN July 22, 2024 2:34 PM Call provider services for [place] for anymore injections. Also an appeal and post authorization for previous injections. Please call them at [phone]. Christina Weldon documented in this encounter [facility] 07-22-2024 Telephone encounter Note Called and left voicemail for patient to return call. Angela Meier RN July 22, 2024 2:34 PM [facility] 07-22-2024 Telephone encounter Note Call provider services for PA for anymore injections. Also an appeal and post authorization for previous injections. Please call them at [phone]. Christina Weldon [facility] 07-21-2024 Instructions Brian Tate MD - 07/21/2024 2:01 PM EDT There have been a few recent articles describing long-term risks of proton pump inhibitor therapy. Although it is difficult to determine the risk for an individual patient and there are some inconsistencies in the studies, the major potential concerns are related to increased risk of fractures and the potential in senior sticking proton pump inhibitors having a slight increased risk of dementia. Because of this we use proton pump inhibitors cautiously but realize that ongoing gastroesophageal or laryngal pharyngeal reflux may also be very harmful let alone cause a number of symptoms. While you're on a proton pump inhibitor, you should probably take vitamin B complex and calcium and folate rich diet, a multivitamin with vitamin D and consider using probiotics. This is particularly true if you on longer-term therapy. If you need to come off a proton pump inhibitor and you've been on them for a long time and is valuable to taper gradually as there may be rebound increase acid production if you stop suddenly. [facility] REFLUX LARYNGITIS LARYNGOPHARYNGEAL REFLUX Changes in voice and hoarseness can be the result of a number of different causes. One of the more common causes is gastroesophageal reflux disease (GERD). GERD occurs when stomach acid regurgitates back up in the esophagus (swallowing tube). When the acid reaches the throat we refer to this as laryngopharyngeal reflux (LPR). This reflux can cause inflammation and swelling in the throat or in the larynx (voice box) and can result in a number of different symptoms. These include mild hoarseness which is typically worse in the morning, a sense of a foreign body or lump in the throat, a sense of mucous sticking a need to frequently clear the throat. It can also be associated with a chronic cough. Oftentimes, LPR irritation in the throat and larynx is mistaken for sinus drainage because of the sensation of mucous. LPR tends to become more prominent as people age, is often related to the timing and type of the diet, and may be the source of chronic symptoms. LPR reflux may also be the cause of low grade sorethroat and chronic cough, particularly cough that wakes people up in the middle of the night. Approximately 50% of people with significant LPR have no symptoms of heartburn or stomach upset. The diagnosis of LPR as a cause of throat symptoms is usually based on classic symptoms and physical finding of inflammation in the throat in locations consistent with LPR (back part of the voicebox). Often the patient is treated for LPR without any further testing. More significant testing is usually not needed. However, on some occasion, some additional tests may be required such as a swallowing study with barium, an endoscopic evaluation of the esophagus and stomach, or a probe that measures acidity (pH) in the throat and esophagus. The most important treatment of LPR is dietary control. A somewhat blander diet, smaller but more frequent meals, avoidance of alcohol, tobacco and caffeine, and not eating within 3-4 hours of bedtime are the most important factors. Avoidance of acidic and fatty foods and mint are also important. Elevation of the head of the bed and avoidance of tight, binding clothing is of value. A person with reflux who is overweight should reduce weight, and reducing stress also frequently improves the symptoms. A number of ydvb-pyt-[id number] and prescription medications can be used to decrease LPR related throat symptoms. These include antacids such as Tums, Maalox, or Mylanta, stomach acid reducers such as Tagamet or Zantac, and the strongest acid blockers, proton pump inhibitors such as Prilosec, Protonix or Nexium. Regular use of the prescribed medication for at least 2 months while observing dietary control is critical. Humidification, hydration, mucous thinners and avoidance of throat clearing are all of value for those people who have significant throat symptoms from gastroesophageal reflux. Untreated LPR can lead to chronic swelling of the vocal folds, ulcerations of the vocal folds and formation of masses known as granulomas. LPR can also make asthma worse. [facility] LARYNGOPHARYNGEAL REFLUX (LPR) OR SILENT REFLUX A common cause of hoarseness or voice changes is gastroesophageal reflux disease (GERD). GERD occurs when stomach acid flows back up into the esophagus (swallowing tube). When the acid reaches the throat, it is called laryngopharyngeal reflux (LPR) or silent reflux. It is called silent because most people with LPR have no heartburn or stomach upset. Possible Signs and Symptoms: Hoarseness Chronic cough Sensation of lump in the throat Vocal fold swelling and irritation Frequent throat clearing Vocal fold lesions or ulcerations Mucous sticking in the throat Worsening of asthma Low grade sore throat Worsening of sinus drainage Lifestyle changes If you are overweight, talk with your health care provider about losing weight. If you smoke, quit! Your health care provider may have ideas to help you quit. Dietary guidelines Eat smaller, more frequent meals rather than large one. Avoid food or liquids for 2-3 hours before lying down (no bedtime snacks!) Avoid or limit the following: Caffeinated products: coffee, tea, sodas, chocolate Red sauces and salsa Fatty, fried, or greasy foods Citric juices: orange, grapefruit Spicy foods Mints: peppermint, spearmint Alcohol Physical measures Elevate the head of the bed 6 inches by placing blocks under the legs of the head of the bed. Using extra pillows is NOT a good alternative. Avoid lifting heavy objects. Avoid bending forward at the waist. Avoid wearing tight fitting clothing. PPI medications (Nexium, Prilosec, Omeprazole, etc) need to be taken on an empty stomach, 45 minutes before meals. These medications act by preventing acid production, not by neutralizing acid already present in the stomach. documented in this encounter [facility] 07-21-2024 Note HNO ID: [id number] Author: BRIAN TATE MD Service: ? 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 She does have episodes that sound like laryngospasm with paroxysms of cough, so if the third injection is not successful than we can consider Botox. She has had some nasal obstruction with a septal deviation to the right and no response to Flonase. We briefly discussed septal surgery but we will discuss in the future if she wants to consider. Atrovent helps when her nose is running. She is on reflux treatment and Pepcid has recently been added. 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 She initially did worse but is now 95% better. We proceeded with a second SLN block today. She has chronic rhinitis with a past history of allergies and shots with no response. She more recently she had IgE negative response. She also has gustatory rhinitis. She has tried a number of different nasal sprays buy they cause headaches. Examination shows Nasal septal deviation to the right, moderate. Moderate left inferior turbinate hypertrophy. No purulence or polyps. She has not tried ipratropium bromide that she is going to use as needed before eating if she is in company or going out. She is on reflux treatment and has had her dose increased to bid recently ALLERGIES Allergen Reactions Codeine Itching, Rash Phenobarbital Hives, Itching, Rash Sulfamethoxazole-Tr* Hives Sulfa (Sulfonamide * Rash Current Outpatient Medications Medication Sig Ipratropium Broad Top (ATROVENT) 21 mcg (0.03 %) nasal spray Use 2 Sprays in the nose every 8 hours as needed (FOR RUNNY NOSE). sertraline (ZOLOFT) 25 mg tablet Take 25 mg by mouth once daily. fluticasone-salmeterol (ADVAIR, WIXELA) 250-50 mcg/dose inhaler Inhale 1 Puff as instructed two times a day. levalbuterol tartrate HFA (XOPENEX HFA) 45 mcg/actuation inhaler Inhale 2 Puffs as instructed every 6 hours as needed for wheezing/shortness of breath. pantoprazole DR (PROTONIX) 40 mg tablet Take 40 mg by mouth once daily. cyanocobalamin 1,000 mcg/mL Inject intramuscularly. ALPRAZolam (XANAX) 0.5 mg tablet pramipexole (MIRAPEX) 0.125 mg tablet Take 0.125 mg by mouth three times daily. one tab daily HYDROcodone-chlorpheniramine (TUSSIONEX) 10-8 mg/5 mL suspension Take by mouth every 12 hours as needed. mometasone (NASONEX) 50 mcg/actuation nasal spray USE 2 SPRAYS NASALLY ONCE DAILY No current facility-administered medications for this visit. PAST MEDICAL HISTORY Diagnosis Date Sinus tachycardia No past surgical history on file. Social History: Social History Tobacco Use Smoking status: Former Types: Cigarettes Smokeless tobacco: Never Substance Use Topics Alcohol use: Not Currently Drug use: Never PHYSICAL EXAM: On physical examination Sulaiman Estes is a well-developed, well nourished female. The voice is a little raspy. Cranial nerves II-XII are grossly intact Mental status revealed patient to be alert and oriented. Mood is appropriate. Details of the physical examination: HEAD AND FACE: Physical examination of the head, neck, external nose, external ears, mouth and face fails to demonstrate any significant abnormality or asymmetry to critical face to face observation. Skin and scalp are normal. NOSE: ORAL CAVITY/OROPHARYNX: No masses or lesions LARYNX: Recommend flexible laryngoscopy with stroboscopy NECK: No adenopathy LCQ: Patient Entered Questionnaires 05/22/2024 06/20/2024 07/14/2024 [place] Cough Physical Sum Score 4.25 3.5 3.5 Psychological Sum Score 3.14 2.57 3.43 Social Sum Score 4 2.75 3.25 Total Score 11.39 (Lower scores are indicative of increased impact or lower quality of life. ) 8.82 (Lower scores are indicative of increased impact or lower quality of life. ) 10.18 (Lower scores are indicative of increased impact or lower quality of life. 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 I have recommended wither botox or SLN block and he wished to (more content not included)... 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 She does have episodes that sound like laryngospasm with paroxysms of cough, so if the third injection is not successful than we can consider Botox. She has had some nasal obstruction with a septal deviation to the right and no response to Flonase. We briefly discussed septal surgery but we will discuss in the future if she wants to consider. Atrovent helps when her nose is running. She is on reflux treatment and Pepcid has recently been added. 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 She initially did worse but is now 95% better. We proceeded with a second SLN block today. She has chronic rhinitis with a past history of allergies and shots with no response. She more recently she had IgE negative response. She also has gustatory rhinitis. She has tried a number of different nasal sprays buy they cause headaches. Examination shows Nasal septal deviation to the right, moderate. Moderate left inferior turbinate hypertrophy. No purulence or polyps. She has not tried ipratropium bromide that she is going to use as needed before eating if she is in company or going out. She is on reflux treatment and has had her dose increased to bid recently ALLERGIES Allergen Reactions Codeine Itching, Rash Phenobarbital Hives, Itching, Rash Sulfamethoxazole-Tr* Hives Sulfa (Sulfonamide * Rash Current Outpatient Medications Medication Sig Ipratropium Broad Top (ATROVENT) 21 mcg (0.03 %) nasal spray Use 2 Sprays in the nose every 8 hours as needed (FOR RUNNY NOSE). sertraline (ZOLOFT) 25 mg tablet Take 25 mg by mouth once daily. fluticasone-salmeterol (ADVAIR, WIXELA) 250-50 mcg/dose inhaler Inhale 1 Puff as instructed two times a day. levalbuterol tartrate HFA (XOPENEX HFA) 45 mcg/actuation inhaler Inhale 2 Puffs as instructed every 6 hours as needed for wheezing/shortness of breath. pantoprazole DR (PROTONIX) 40 mg tablet Take 40 mg by mouth once daily. cyanocobalamin 1,000 mcg/mL Inject intramuscularly. ALPRAZolam (XANAX) 0.5 mg tablet pramipexole (MIRAPEX) 0.125 mg tablet Take 0.125 mg by mouth three times daily. one tab daily HYDROcodone-chlorpheniramine (TUSSIONEX) 10-8 mg/5 mL suspension Take by mouth every 12 hours as needed. mometasone (NASONEX) 50 mcg/actuation nasal spray USE 2 SPRAYS NASALLY ONCE DAILY No current facility-administered medications for this visit. PAST MEDICAL HISTORY Diagnosis Date Sinus tachycardia No past surgical history on file. Social History: Social History Tobacco Use Smoking status: Former Types: Cigarettes Smokeless tobacco: Never Substance Use Topics Alcohol use: Not Currently Drug use: Never PHYSICAL EXAM: On physical examination Sulaiman Estes is a well-developed, well nourished female. The voice is a little raspy. Cranial nerves II-XII are grossly intact Mental status revealed patient to be alert and oriented. Mood is appropriate. Details of the physical examination: HEAD AND FACE: Physical examination of the head, neck, external nose, external ears, mouth and face fails to demonstrate any significant abnormality or asymmetry to critical face to face observation. Skin and scalp are normal. NOSE: ORAL CAVITY/OROPHARYNX: No masses or lesions LARYNX: Recommend flexible laryngoscopy with stroboscopy NECK: No adenopathy LCQ: Patient Entered Questionnaires 05/22/2024 06/20/2024 07/14/2024 [place] Cough Physical Sum Score 4.25 3.5 3.5 Psychological Sum Score 3.14 2.57 3.43 Social Sum Score 4 2.75 3.25 Total Score 11.39 (Lower scores are indicative of increased impact or lower quality of life. ) 8.82 (Lower scores are indicative of increased impact or lower quality of life. ) 10.18 (Lower scores are indicative of increased impact or lower quality of life. 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 I have recommended wither botox or SLN block and he wished to proceed to a block. Pre-operative diagnosis: Vagal nerve sensitivity, Sensory neuropathy, chronic cough Post-operative diagnosis: Vagal nerve sensitivity, Sensory neuropathy, chronic cough Procedure: Bilateral Vagal (Superior laryngeal branch) nerve blockade Indication: vagal nerve sensitivity with laryngeal spasm and chronic refractory cough Procedure: The patient was identified and a time out was called Left and right thyrohyoid space in region of superior laryngeal nerve branches of vagus nerves were injected with 2.0ml (1mL of 1% lidocaine and 1.0 mL kenalog 40) Tolerated well I personally performed the procedure Brian Tate MD UNIVERSAL PROTOCOL / SAFETY CHECKLIST Procedure to be Performed: Bilateral superior laryngeal nerve blocks Sign In: A Moment of CARE was completed. Appropriate PPE (Personal Protective Equipment) worn by all providers involved with the procedure. Personnel directly involved with the procedure wore the appropriate PPE (Personal Protective Equipment). Patient/Surrogate Stated/Verified: Patient name, Date of , Relevant allergies, and The intended procedure Time Out Communication: Intended patient and procedure match the source documents. Consent documented and matches the intended procedure. No relevant labs, photos, and/or imaging studies were applicable for review. No correct side/site applicable for marking and visibility. Medications required for procedure verified. No fire risk assessment and interventions applicable. No implant(s) inserted. Sign Out: SIGN OUT (optional for EMERGENT procedures): No specimen collected. No instruments, equipment or retained foreign bodies applicable. Post-procedure follow-up management communicated and Plan of Care Visit completed when applicable. Brian Tate MD documented in this encounter [facility] 07-14-2024 History of Presen t illness Narrative Radiology Service Progress Note PATIENT NAME: Sulaiman Estes DATE OF SERVICE: July 14, 2024 TIME: 12:41 PM PATIENT IDENTITY VERIFICATION COMPLETED USING TWO (2) IDENTIFIERS: Name and Date of confirmed by patient verbally. FALL SCREENING: Has the patient had 2 falls in the last year or 1 fall with injury or currently using an Ambulatory Assistive Device (Walker, Cane, Wheelchair, Crutches, etc.)? No PATIENT GENDER DATA: Assigned female at . status: : No status: NO. PATIENT RELEVANT IMPLANT DATA REVIEWED: Not Applicable PATIENT PRESENTS WITH AN IMPLANTABLE OR ATTACHED RESIDENTIAL HOUSEKEEPER: No RADIOLOGY DEPARTMENT: CT; Exam(s) Completed: Chest PERIPHERAL IV DATA: Not applicable SIGNED BY: RT Caryn(Jonathon) July 14, 2024 12:41 PM documented in this encounter [facility] 07-14-2024 Note HNO ID: [id number] Author: FATOUMATA COX RT(Jonathon) Service: ? Author Type: Electro Winning Operator Type: Progress Notes Filed: 07/14/2024 12:41 Note Text: Radiology Service Progress Note PATIENT NAME: Sulaiman Estes DATE OF SERVICE: July 14, 2024 TIME: 12:41 PM PATIENT IDENTITY VERIFICATION COMPLETED USING TWO (2) IDENTIFIERS: Name and Date of confirmed by patient verbally. FALL SCREENING: Has the patient had 2 falls in the last year or 1 fall with injury or currently using an Ambulatory Assistive Device (Walker, Cane, Wheelchair, Crutches, etc.)? No PATIENT GENDER DATA: Assigned female at . status: : No status: NO. PATIENT RELEVANT IMPLANT DATA REVIEWED: Not Applicable PATIENT PRESENTS WITH AN IMPLANTABLE OR ATTACHED RESIDENTIAL HOUSEKEEPER: No RADIOLOGY DEPARTMENT: CT; Exam(s) Completed: Chest PERIPHERAL IV DATA: Not applicable SIGNED BY: RT Caryn(R) July 14, 2024 12:41 PM [facility] 06-23-2024 Note HNO ID: [id number] Author: BRIAN TATE MD Service: ? 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 She initially did worse but is now 95% better. We proceeded with a second SLN block today. She has chronic rhinitis with a past history of allergies and shots with no response. She more recently she had IgE negative response. She also has gustatory rhinitis. She has tried a number of different nasal sprays buy they cause headaches. Examination shows Nasal septal deviation to the right, moderate. Moderate left inferior turbinate hypertrophy. No purulence or polyps. She has not tried ipratropium bromide that she is going to use as needed before eating if she is in company or going out. 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 This worsened a few years ago following a respiratory tract infection. She has been followed by allergy immunology, and pulmonary medicine and they have not been able to get her cough under control. She has also had an EGD and a GI workup and treated for reflux. She is on pulmonary inhalers. She is not on any medications which would be associated with chronic cough. Dr Rubin has given her a trial of neuromodulators with gabapentin. And she has tried tramadol with mild improvement. 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 She also will have episodes of incontinence wit the cough and at times it seems paroxysmal which might suggest laryngospasm. She has also responded to tramadol. I discussed with her that long-term use of tramadol for chronic cough could predispose to opioid dependence. I also discussed with her superior laryngeal nerve blocks, that consists of a series of 3 injections, with a steroid and local anesthetic. - Informed consent obtained. - First round of SLN injection today tolerated well. She will come back in one and 2 months for repeat injections If not effective we can consider Botox for laryngospasm ALLERGIES Allergen Reactions Codeine Itching, Rash Phenobarbital Hives, Itching, Rash Sulfamethoxazole-Tr* Hives Sulfa (Sulfonamide * Rash Current Outpatient Medications Medication Sig Ipratropium Broad Top (ATROVENT) 21 mcg (0.03 %) nasal spray Use 2 Sprays in the nose every 8 hours as needed (FOR RUNNY NOSE). sertraline (ZOLOFT) 25 mg tablet Take 25 mg by mouth once daily. fluticasone-salmeterol (ADVAIR, WIXELA) 250-50 mcg/dose inhaler Inhale 1 Puff as instructed two times a day. mometasone (NASONEX) 50 mcg/actuation nasal spray USE 2 SPRAYS NASALLY ONCE DAILY levalbuterol tartrate HFA (XOPENEX HFA) 45 mcg/actuation inhaler Inhale 2 Puffs as instructed every 6 hours as needed for wheezing/shortness of breath. pantoprazole DR (PROTONIX) 40 mg tablet Take 40 mg by mouth once daily. cyanocobalamin 1,000 mcg/mL Inject intramuscularly. ALPRAZolam (XANAX) 0.5 mg tablet pramipexole (MIRAPEX) 0.125 mg tablet Take 0.125 mg by mouth three times daily. one tab daily HYDROcodone-chlorpheniramine (TUSSIONEX) 10-8 mg/5 mL suspension Take by mouth every 12 hours as needed. No current facility-administered medications for this visit. PAST MEDICAL HISTORY Diagnosis Date Sinus tachycardia No past surgical history on file. Social History: Social History Tobacco Use Smoking status: Former Types: Cigarettes Smokeless tobacco: Never Substance Use Topics Alcohol use: Not Currently Drug use: Never PHYSICAL EXAM: On physical examination Sulaiman Estes is a well-developed, well nourished female. The voice is mildly raspy. Cranial nerves II-XII are grossly intact Mental status revealed patient to be alert and oriented. Mood is appropriate. Details of the physical examination: HEAD AND FACE: Physical examination of the head, neck, external nose, external ears, mouth and face fails to demonstrate any significant abnormality or asymmetry to critical face to face observation. Skin and scalp are normal. NOSE:Nasal septal deviation to the right, moderate. Moderate left inferior turbinate hy (more content not included)... 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 She initially did worse but is now 95% better. We proceeded with a second SLN block today. She has chronic rhinitis with a past history of allergies and shots with no response. She more recently she had IgE negative response. She also has gustatory rhinitis. She has tried a number of different nasal sprays buy they cause headaches. Examination shows Nasal septal deviation to the right, moderate. Moderate left inferior turbinate hypertrophy. No purulence or polyps. She has not tried ipratropium bromide that she is going to use as needed before eating if she is in company or going out. 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 This worsened a few years ago following a respiratory tract infection. She has been followed by allergy immunology, and pulmonary medicine and they have not been able to get her cough under control. She has also had an EGD and a GI workup and treated for reflux. She is on pulmonary inhalers. She is not on any medications which would be associated with chronic cough. Dr Rubin has given her a trial of neuromodulators with gabapentin. And she has tried tramadol with mild improvement. She does feel that hydrocodone works and has been on it for years and is aware of chcf use issues. She also will have episodes of incontinence wit the cough and at times it seems paroxysmal which might suggest laryngospasm. She has also responded to tramadol. I discussed with her that long-term use of tramadol for chronic cough could predispose to opioid dependence. I also discussed with her superior laryngeal nerve blocks, that consists of a series of 3 injections, with a steroid and local anesthetic. - Informed consent obtained. - First round of SLN injection today tolerated well. She will come back in one and 2 months for repeat injections If not effective we can consider Botox for laryngospasm ALLERGIES Allergen Reactions Codeine Itching, Rash Phenobarbital Hives, Itching, Rash Sulfamethoxazole-Tr* Hives Sulfa (Sulfonamide * Rash Current Outpatient Medications Medication Sig Ipratropium Broad Top (ATROVENT) 21 mcg (0.03 %) nasal spray Use 2 Sprays in the nose every 8 hours as needed (FOR RUNNY NOSE). sertraline (ZOLOFT) 25 mg tablet Take 25 mg by mouth once daily. fluticasone-salmeterol (ADVAIR, WIXELA) 250-50 mcg/dose inhaler Inhale 1 Puff as instructed two times a day. mometasone (NASONEX) 50 mcg/actuation nasal spray USE 2 SPRAYS NASALLY ONCE DAILY levalbuterol tartrate HFA (XOPENEX HFA) 45 mcg/actuation inhaler Inhale 2 Puffs as instructed every 6 hours as needed for wheezing/shortness of breath. pantoprazole DR (PROTONIX) 40 mg tablet Take 40 mg by mouth once daily. cyanocobalamin 1,000 mcg/mL Inject intramuscularly. ALPRAZolam (XANAX) 0.5 mg tablet pramipexole (MIRAPEX) 0.125 mg tablet Take 0.125 mg by mouth three times daily. one tab daily HYDROcodone-chlorpheniramine (TUSSIONEX) 10-8 mg/5 mL suspension Take by mouth every 12 hours as needed. No current facility-administered medications for this visit. PAST MEDICAL HISTORY Diagnosis Date Sinus tachycardia No past surgical history on file. Social History: Social History Tobacco Use Smoking status: Former Types: Cigarettes Smokeless tobacco: Never Substance Use Topics Alcohol use: Not Currently Drug use: Never PHYSICAL EXAM: On physical examination Sulaiman Estes is a well-developed, well nourished female. The voice is mildly raspy. Cranial nerves II-XII are grossly intact Mental status revealed patient to be alert and oriented. Mood is appropriate. Details of the physical examination: HEAD AND FACE: Physical examination of the head, neck, external nose, external ears, mouth and face fails to demonstrate any significant abnormality or asymmetry to critical face to face observation. Skin and scalp are normal. NOSE:Nasal septal deviation to the right, moderate. Moderate left inferior turbinate hypertrophy. No purulence or polyps ORAL CAVITY/OROPHARYNX: no masses or lesions NECK: No masses, good landmarks LCQ: Patient Entered Questionnaires 05/22/2024 06/20/2024 [place] Cough Physical Sum Score 4.25 3.5 Psychological Sum Score 3.14 2.57 Social Sum Score 4 2.75 Total Score 11.39 (Lower scores are indicative of increased impact or lower quality of life. ) 8.82 (Lower scores are indicative of increased impact or lower quality of life. ) CHARTS REVIEWED: My last 2 notes and strobe Brian Tate MD The patient has a history of chronic cough, laryngeal hypersensitivity and vagal neuropathy and has failed neuromodulaors. I have recommended wither botox or SLN block and he wished to proceed to a block. Pre-operative diagnosis: Vagal nerve sensitivity, Sensory neuropathy, chronic cough Post-operative diagnosis: Vagal nerve sensitivity, Sensory neuropathy, chronic cough Procedure: Bilateral Vagal (Superior laryngeal branch) nerve blockade Indication: vagal nerve sensitivity with laryngeal spasm and chronic refractory cough Procedure: The patient was identified and a time out was called Left and right thyrohyoid space in region of superior laryngeal nerve branches of vagus nerves were injected with 2.0ml (1mL of 1% lidocaine and 1.0 mL kenalog 40) Tolerated well I personally performed the procedure Brian Tate MD UNIVERSAL PROTOCOL / SAFETY CHECKLIST Procedure to be Performed: Bilateral superior laryngeal nerve blocks Sign In: A Moment of CARE was completed. Appropriate PPE (Personal Protective Equipment) worn by all providers involved with the procedure. Personnel directly involved with the procedure wore the appropriate PPE (Personal Protective Equipment). Patient/Surrogate Stated/Verified: Patient name, Date of , Relevant allergies, and The intended procedure Time Out Communication: Intended patient and procedure match the source documents. Consent documented and matches the intended procedure. No relevant labs, photos, and/or imaging studies were applicable for review. No correct side/site applicable for marking and visibility. Medications required for procedure verified. No fire risk assessment and interventions applicable. No implant(s) inserted. Sign Out: SIGN OUT (optional for EMERGENT procedures): No specimen collected. No instruments, equipment or retained foreign bodies applicable. Post-procedure follow-up management communicated and Plan of Care Visit completed when applicable. Brian Tate MD documented in this encounter [facility] 06-22-2024 Note HNO ID: [id number] Author: IAN MARTINS MD Service: ? Author Type: Physician Type: Progress Notes Filed: 07/06/2024 14:16 Note Text: VIRTUAL VISIT PROGRESS NOTE This is a virtual visit using [employer] Zoom Video Visit. It required patient-provider interaction for the medical decision making as documented below. I have communicated my name and active licensure. The patient's identity and physical location were verified at the time of this visit. Either the patient or their legal inbound customer service representative has been informed of the risks and benefits of -- and alternatives to -- treatment through a remote evaluation and consents to proceed with the evaluation remotely. Location: [place] Sulaiman Estes is a 68 year old patient here for follow up. Interval history - June 22, 2024 She tried azelastine nasal spray which caused headache and did not help. She recently took augmentin for sinus infections. She tried gabapentin with no change in symptoms, felt wheezing was worse. Saw Dr. Chacon Referred to Dr Chavarria - has had one set injections , she is working with insurance for approval of next injections. She stopped cough medicine for the injection with return of cough, then after first injection cough worsened. Saw pulmonary and advised to resume cough. She is scheduled with Dr Mondragon for chronic cough center in August. Patient History, ROS and Physical exam reviewed and electronic chart updated June 22, 2024. The below documentation was copied from my (Ian Martins MD MPH) previous notes for review of history from previous visits. I have reviewed and verified all information during the patient visit and made updates where appropriate. The documentation was copied from note dated March 02, 2024 Sulaiman Estes is a 68 year old patient who presents with chief complaint: chronic cough Chronic cough x 15 years with significant work up, only thing that really seems to help is hydrocodone cough syrup. Cough can be associated with losing her voice. Wheezing is expiratory. Laying flat. Worse with exercise in the beginning but less when continuing exercise. Dx COPD, follows with pulmonary, chest CT with stable nodules. Hx 20 PY smoking history (quit 34 years ago). Answers submitted by the patient for this visit: Allergy Review of Symptoms (Submitted on 03/02/2024) Itchy Eyes: Yes Photophobia (light sensitivity): Yes Nasal Congestion: Yes Runny Nose: Yes all the time, no seasonal variation. Anterior rhinitis. Worse in October and November. Itchy Nose: Yes Itchy throat: Yes A cough: Yes Wheezing: Yes Headaches: Yes Dry skin: Yes Hx of allergy testing locally, did allergy shots which did not help. Main symptoms was recurrent cough. Did immunotherapy for 2 years. Then had allergy testing 7 years later, tried immunotherapy again for 2 years again with no relief. Only thing that controls the cough is the cough medicine - hydrocodone-chlorpheniramine. Tried inhalers with no relief. For rhinitis has tried claritin, flonase 4-5 sinus infections in the last year. Antibiotics 4-5 times per year, typically will help. 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 ENT found deviated septum, no polyps. Laryngology for superior laryngeal nerve block and [employer] evaluation. She has had EGD in past, showed evidence gastritis. Was started on protonix daily for 6 months, then stopped. After a few months got an infection and cough started. Saw pulmonary and restarted protonix. Patient Entered Data 03/02/2024 Collateral History Allergic rhinitis Yes Skin tested Yes Have asthma Yes Eczema / Dermatitis No Sinus infections Yes Nasal Polyps Not Sure Urticaria / Hives Yes Angioedema No Food Allergy No Stinging insect allergy No Penicillin allergy No 03/02/2024 Environmental Exposure Pets Dog Mouse infestation No Cockroach infestation No Mold or Mildew No Air conditioning Yes Dust mite covers Yes Cigarette / Cigar smoke No Vaping No HISTORY REVIEWED (electronic chart updated): Current Outpatient Medications Medication Sig sertraline (ZOLOFT) 25 mg tablet Take 25 mg by mouth once daily. fluticasone-salmeterol (ADVAIR, WIXELA) 250-50 mcg/dose inhaler Inhale 1 Puff as instructed two times a day. ipratropium bromide (ATROVENT) 42 mcg (0.06 %) nasal spray Use 2 Sprays in the nose three times a day as needed (runny nose). gabapentin (NEURONTIN) 300 mg capsule Take 1 capsule by mouth daily at bedtime for 90 days. (Patient not taking: Reported on 05/03/2024) mometasone (NASONEX) 50 mcg/actuation nasal spray USE 2 SPRAYS NASALLY ONCE DAILY levalbuterol tartrate HFA (XOPENEX HFA) 45 mcg/actuation inhaler Inhale 2 Puffs as instructed every 6 hours as needed for wheezing/shortness of breath. pantoprazole DR (PROTONIX) 40 mg tablet Take 40 mg by mouth once daily. cyanocobalamin 1,000 mcg/mL Inject intramuscularly. ALPRAZolam (XANAX) 0.5 mg tablet pramipexole ( (more content not included)... [facility] 06-22-2024 History of Presen t illness Narrative VIRTUAL VISIT PROGRESS NOTE This is a virtual visit using [employer] Zoom Video Visit. It required patient-provider interaction for the medical decision making as documented below. I have communicated my name and active licensure. The patient's identity and physical location were verified at the time of this visit. Either the patient or their legal inbound customer service representative has been informed of the risks and benefits of -- and alternatives to -- treatment through a remote evaluation and consents to proceed with the evaluation remotely. Location: [place] Estes is a 68 year old patient here for follow up. Interval history - June 22, 2024 She tried azelastine nasal spray which caused headache and did not help. She recently took augmentin for sinus infections. She tried gabapentin with no change in symptoms, felt wheezing was worse. Saw Dr. Chacon Referred to Dr Chavarria - has had one set injections , she is working with insurance for approval of next injections. She stopped cough medicine for the injection with return of cough, then after first injection cough worsened. Saw pulmonary and advised to resume cough. She is scheduled with Dr Mondargon for chronic cough center in August. Patient History, ROS and Physical exam reviewed and electronic chart updated June 22, 2024. The below documentation was copied from my (Ian Martins MD MPH) previous notes for review of history from previous visits. I have reviewed and verified all information during the patient visit and made updates where appropriate. The documentation was copied from note dated March 02, 2024 Sulaiman Estes is a 68 year old patient who presents with chief complaint: chronic cough Chronic cough x 15 years with significant work up, only thing that really seems to help is hydrocodone cough syrup. Cough can be associated with losing her voice. Wheezing is expiratory. Laying flat. Worse with exercise in the beginning but less when continuing exercise. Dx COPD, follows with pulmonary, chest CT with stable nodules. Hx 20 PY smoking history (quit 34 years ago). Answers submitted by the patient for this visit: Allergy Review of Symptoms (Submitted on 03/02/2024) Itchy Eyes: Yes Photophobia (light sensitivity): Yes Nasal Congestion: Yes Runny Nose: Yes all the time, no seasonal variation. Anterior rhinitis. Worse in October and November. Itchy Nose: Yes Itchy throat: Yes A cough: Yes Wheezing: Yes Headaches: Yes Dry skin: Yes Hx of allergy testing locally, did allergy shots which did not help. Main symptoms was recurrent cough. Did immunotherapy for 2 years. Then had allergy testing 7 years later, tried immunotherapy again for 2 years again with no relief. Only thing that controls the cough is the cough medicine - hydrocodone-chlorpheniramine. Tried inhalers with no relief. For rhinitis has tried claritin, flonase 4-5 sinus infections in the last year. Antibiotics 4-5 times per year, typically will help. 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 ENT found deviated septum, no polyps. Laryngology for superior laryngeal nerve block and [employer]ATOR evaluation. She has had EGD in past, showed evidence gastritis. Was started on protonix daily for 6 months, then stopped. After a few months got an infection and cough started. Saw pulmonary and restarted protonix. Patient Entered Data 03/02/2024 Collateral History Allergic rhinitis Yes Skin tested Yes Have asthma Yes Eczema / Dermatitis No Sinus infections Yes Nasal Polyps Not Sure Urticaria / Hives Yes Angioedema No Food Allergy No Stinging insect allergy No Penicillin allergy No 03/02/2024 Environmental Exposure Pets Dog Mouse infestation No Cockroach infestation No Mold or Mildew No Air conditioning Yes Dust mite covers Yes Cigarette / Cigar smoke No Vaping No HISTORY REVIEWED (electronic chart updated): Current Outpatient Medications Medication Sig sertraline (ZOLOFT) 25 mg tablet Take 25 mg by mouth once daily. fluticasone-salmeterol (ADVAIR, WIXELA) 250-50 mcg/dose inhaler Inhale 1 Puff as instructed two times a day. ipratropium bromide (ATROVENT) 42 mcg (0.06 %) nasal spray Use 2 Sprays in the nose three times a day as needed (runny nose). gabapentin (NEURONTIN) 300 mg capsule Take 1 capsule by mouth daily at bedtime for 90 days. (Patient not taking: Reported on 05/03/2024) mometasone (NASONEX) 50 mcg/actuation nasal spray USE 2 SPRAYS NASALLY ONCE DAILY levalbuterol tartrate HFA (XOPENEX HFA) 45 mcg/actuation inhaler Inhale 2 Puffs as instructed every 6 hours as needed for wheezing/shortness of breath. pantoprazole DR (PROTONIX) 40 mg tablet Take 40 mg by mouth once daily. cyanocobalamin 1,000 mcg/mL Inject intramuscularly. ALPRAZolam (XANAX) 0.5 mg tablet pramipexole (MIRAPEX) 0.125 mg tablet Take 0.125 mg by mouth three times daily. one tab daily HYDROcodone-chlorpheniramine (TUSSIONEX) 10-8 mg/5 mL suspension Take by mouth every 12 hours as needed. No current facility-administered medications for this visit. ALLERGIES Allergen Reactions Codeine Itching, Rash Phenobarbital Hives, Itching, Rash Sulfamethoxazole-Tr* Hives Sulfa (Sulfonamide * Rash PAST MEDICAL HISTORY Diagnosis Date Sinus tachycardia No past surgical history on file. Social History Socioeconomic History Marital status: Tobacco Use Smoking status: Former Types: Cigarettes Smokeless tobacco: Never Substance and Sexual Activity Alcohol use: Not Currently Drug use: Never FAMILY HISTORY Problem Relation Age of Onset Asthma Mother Physical video exam: General: alert and appropriate, in no distress, well-hydrated, well nourished and happy, smiling, interactive Skin: no rash noted Head: normocephalic, no abnormality or lesion noted Eyes: no injection and visual acuity is grossly normal Ears: external ears normal, no mastoid tenderness Nose: external nose normal without rhinorrhea Respiratory: breathing non-labored and no grunting/flaring/retractions Chest: equal chest rise with normal respiratory effort Labs: 05/07/2022 06/23/2022 03/03/2024 Bermuda Grass IgE <0.35 Bermuda Grass Class Class 0 Cat Dander IgE <0.35 <0.35 Cat Dander Class Class 0 Class 0 Cockroach IgE <0.35 Cockroach Class Class 0 Short Ragweed IgE <0.35 <0.35 Short Ragweed Class Class 0 Class 0 Dog Dander IgE <0.35 <0.35 Dog Dander Class Class 0 Class 0 Elm Tree IgE <0.35 Elm Tree Class Class 0 D. farinae IgE <0.35 <0.35 D. farinae Class Class 0 Class 0 D. pteronyssinus IgE <0.35 D. pteronyssinus Class Class 0 David Grass IgE <0.35 David Grass Class Class 0 Irizarry's Quarters IgE <0.35 <0.35 Irizarry's Quarters Class Class 0 Class 0 Alternaria tenuis IgE <0.35 <0.35 Alternaria tenuis Class Class 0 Class 0 Aspergillus fumigatus IgE <0.35 <0.35 Aspergillus fumigatus Class Class 0 Class 0 Cladosporium herbarum IgE <0.35 <0.35 Cladosporium herbarum Class Class 0 Class 0 [place] Tree IgE <0.35 <0.35 [place] Tree Class Class 0 Class 0 Highland/Pecan Tree IgE <0.35 Highland/Pecan Tree Class Class 0 Mouse Urine IgE <0.35 Mouse Urine-Class Class 0 [id number] Ghassan Grass <0.35 <0.35 Ghassan Grass Class Class 0 Class 0 [place] Tree IgE <0.35 [place] Tree Class Class 0 [place] Tree IgE <0.35 [place] Tree Class Class 0 [place] Tree IgE <0.35 <0.35 [place] Tree Class Class 0 Class 0 [place] Tree IgE <0.35 [place] Tree Class Class 0 Liguori IgE <0.35 Liguori Class Class 0 [place] IgE <0.35 [place] Class Class 0 Pigweed IgE <0.35 Pigweed Class Class 0 Cocklebur IgE <0.35 Cocklebur Class Class 0 Sheep [place] IgE <0.35 Sheep [place] Class Class 0 Rough [place] Elder IgE <0.35 Rough [place] Elder Class Class 0 Citizen Of [place] Plantain IgE <0.35 <0.35 Citizen [place] Plantain Class Class 0 Class 0 September Grass IgE <0.35 September Grass Class Class 0 P. chrysogenum IgE <0.35 P. chrysogenum Class Class 0 House Dust (H-S) IgE <0.35 House Dust (H-S) Class Class 0 WBC 6.84 7.54 RBC 4.20 4.50 Hemoglobin 12.1 12.9 Hematocrit 37.1 39.5 MCV 88.3 87.8 MCH 28.8 28.7 MCHC 32.6 32.7 RDW-CV 12.0 11.9 Platelet Count 321 307 MPV 9.8 9.7 Neut% 35.7 40.0 Abs Neut (ANC) 2.44 3.02 Lymph% 47.1 45.8 Abs Lymph 3.22 3.45 Pasco% 10.1 8.8 Abs [place] 0.69 0.66 Eosin% 6.1 4.4 Abs Eosin 0.42 0.33 Baso% 0.9 0.9 Abs Baso 0.06 0.07 Immature Gran % 0.1 0.1 IMMATURE GRANS (ABS) <0.03 <0.03 NRBC 0.0 0.0 Absolute nRBC <0.01 <0.01 DTYPE Auto Auto rCan f1 <0.10 rCan f2 <0.10 rCan f3 <0.10 rCan f4 <0.10 rCan f5 <0.10 rCan F6 <0.10 IgE 32.2 Assessment and Plan: 1) Chronic cough - suspect multifactorial from post nasal drip, GERD, bronchospasm (asthma/COPD) and persistent neurogenic cough - continue with treatment for neurogenic cough with ENT - trial gradually wean off hydrocodone-chlorpheniramine - continue management for GERD, COPD/Asthma, rhinitis as below 2) Chronic non rhinitis - hx of allergies s/p AIT - inhalant panel negative for component testing for dog confirming non-allergic rhinitis - atrovent nasal spray PRN symptoms - continue loratadine and flonase daily 3) LPRD/GERD - continue protonix - optimize diet and lifestyle modifications 4) COPD/asthma - continue management per pulmonary - wixela BID - Use albuterol inhaler 2 puffs every 4 hours as needed for asthma symptoms (cough, SOB, wheeze) or 30 minutes prior to prolonged exercise. - Patient advised to call if requiring albuterol more than twice a week or more than two times at night as this may indicate need for medication adjustment. - Recommend annual influenza shot vaccine during flu season. Discussed medication dosage, usage, side effects, and goals of treatment in detail. Ian Martins MD MPH HUMZA BRADLEY documented in this encounter [facility] 06-21-2024 Telephone encounter Note Sulaiman is calling Brian Tate MD today to request Insurance Authorization [employer] member services is calling. [phone] Case #[id number] All need prior authorizations. Previous injection on 05/26/24 should have been authorized first and needs to have a post authorization done. Future injection on 06/23/24 needs to have an authorization done before the patient can have it done. Please call the patient when this has been completed. [phone] Patient has been identified by name and birthdate. Duration of symptoms: N/A Person calling: [employer] Was an appointment scheduled: No Katie Grossman [facility] 06-21-2024 Miscellaneous Notes Sulaiman is calling Brian Tate MD today to request Insurance Authorization [employer] member services is calling. [phone] Case #[id number] All need prior authorizations. Previous injection on 05/26/24 should have been authorized first and needs to have a post authorization done. Future injection on 06/23/24 needs to have an authorization done before the patient can have it done. Please call the patient when this has been completed. [phone] Patient has been identified by name and birthdate. Duration of symptoms: N/A Person calling: John Was an appointment scheduled: Doretha Grossman documented in this encounter [facility] 06-01-2024 Telephone encounter Note ----- Message from Gisele Larose sent at 06/01/2024 3:04 PM EST ----- Regarding: FW: Chronic cough - not amenable to many treatments Internal referral - just wanted to check what testing would be needed before forwarding to scheduling. Thank you! ----- Message ----- From: Odilia Holder DO Sent: 06/01/2024 2:49 PM EST To: Cielo Jeffries MD; Cindy Conn, NAYELY; Gisele Barker Subject: RE: Chronic cough - not amenable to many trina# Thanks for reaching out, happy to help. Looping in Gisele and Cindy who can assist with coordinating a visit with one of the chronic cough physicians Odilia Beckett ----- Message ----- From: Cielo Jeffries MD Sent: 06/01/2024 1:23 PM EST To: Odilia Holder DO Subject: Chronic cough - not amenable to many treatme# Good afternoon Dr. Holder, My name is Shahab, I am one of the pulmonologists here with [facility]. I am reaching out regarding my patients Ms. Sulaiman Estes This lady has had debilitating chronic cough, for which she is on cough syrup containing opioids (its only thing that seems to be helping for her). Treatments in the past included inhalers, gabapentin, pregabalin, and TCAs. None of those offered any relief She follows up with Dr. Chacon from [facility], she was seen by ENT for injections. She did have 1 last month, which exacerbated her cough. She is scheduled for follow-up injections later this month LAMA-LABA combination seems to cause a lot of side effects. We did stick to ICS-LABA I promised her I would reach out to the chronic cough program, see if there is anything that could be offered to help. Please let me know if I should schedule her with someone in this program if they are able to offer other insight and help in this regard, I am afraid I reached the maximum I can do from my standpoint. Thank you very much [facility] 06-01-2024 Miscellaneous Notes ----- Message from Gisele Larose sent at 06/01/2024 3:04 PM EST ----- Regarding: FW: Chronic cough - not amenable to many treatments Internal referral - just wanted to check what testing would be needed before forwarding to scheduling. Thank you! ----- Message ----- From: Odilia Holder DO Sent: 06/01/2024 2:49 PM EST To: Cielo Jeffries MD; Cindy Conn, NAYELY; Gisele Barker Subject: RE: Chronic cough - not amenable to many trina# Thanks for reaching out, happy to help. Looping in Gisele and Cindy who can assist with coordinating a visit with one of the chronic cough physicians Odilia Beckett ----- Message ----- From: Cielo Jeffries MD Sent: 06/01/2024 1:23 PM EST To: Odilia Holder DO Subject: Chronic cough - not amenable to many treatme# Good afternoon Dr. Holder, My name is Shahab, I am one of the pulmonologists here with [facility]. I am reaching out regarding my patients Ms. Sulaiman Estes This lady has had debilitating chronic cough, for which she is on cough syrup containing opioids (its only thing that seems to be helping for her). Treatments in the past included inhalers, gabapentin, pregabalin, and TCAs. None of those offered any relief She follows up with Dr. Chacon from [facility], she was seen by ENT for injections. She did have 1 last month, which exacerbated her cough. She is scheduled for follow-up injections later this month LAMA-LABA combination seems to cause a lot of side effects. We did stick to ICS-LABA I promised her I would reach out to the chronic cough program, see if there is anything that could be offered to help. Please let me know if I should schedule her with someone in this program if they are able to offer other insight and help in this regard, I am afraid I reached the maximum I can do from my standpoint. Thank you very much documented in this encounter [facility] 06-01-2024 Telephone encounter Note I called Ms. Estes to discuss inhalers further. She had side effects with Stiolto Respimat, in the past she did have significant body aches and side effects with an oral Ellipta prompting us to switch to ICS-LABA which she tolerated well. She does note that this inhaler combination is not helping much with her COPD. Regarding her chronic cough, she did have injections with ENT, she notes that her cough has gotten worse after those that she had to go back to taking her cough syrup with opioids. She was tried on several medications in the past including gabapentin, pregabalin, and TCAs. None of these help with her cough I told her that I would reach out to the chronic cough program, see if there is anything else that could be offered. All questions answered Cielo Jeffries MD June 01, 2024 1:20 PM [facility] Work Phone: 06-01-2024 Miscellaneous Notes I called Ms. Estes to discuss inhalers further. She had side effects with Stiolto Respimat, in the past she did have significant body aches and side effects with an oral Ellipta prompting us to switch to ICS-LABA which she tolerated well. She does note that this inhaler combination is not helping much with her COPD. Regarding her chronic cough, she did have injections with ENT, she notes that her cough has gotten worse after those that she had to go back to taking her cough syrup with opioids. She was tried on several medications in the past including gabapentin, pregabalin, and TCAs. None of these help with her cough I told her that I would reach out to the chronic cough program, see if there is anything else that could be offered. All questions answered Cielo Jeffries MD June 01, 2024 1:20 PM documented in this encounter [facility] 05-31-2024 Telephone encounter Note All of these symptoms would be consistent with our diagnosis of a neurogenic cough and hyper sensitivity. Neurogenic cough can fluctuate in intensity. I would not expect that that a nerve block would be the cause of the worsening symptoms and is probably just more the natural fluctuation of the disease. If you recall, I did tell you that many patients do not get a response after the first injection and it may take up to 3 injections to have a response. In addition one fourth of people will not respond to the nerve injections at all. Given your longer pathway of various trials and treatments, this still seems to be the best next option. I would recommend that you complete the next 2 injections. If they are completely ineffective we can consider Botox injections. Unfortunately, none of the myriad of treatments for chronic cough are universally effective. That is part of the reason there is so much interest in Pharma for developing new drugs to treat cough. Brian Tate MD [facility] Work Phone: 05-31-2024 Miscellaneous Notes All of these symptoms would be consistent with our diagnosis of a neurogenic cough and hyper sensitivity. Neurogenic cough can fluctuate in intensity. I would not expect that that a nerve block would be the cause of the worsening symptoms and is probably just more the natural fluctuation of the disease. If you recall, I did tell you that many patients do not get a response after the first injection and it may take up to 3 injections to have a response. In addition one fourth of people will not respond to the nerve injections at all. Given your longer pathway of various trials and treatments, this still seems to be the best next option. I would recommend that you complete the next 2 injections. If they are completely ineffective we can consider Botox injections. Unfortunately, none of the myriad of treatments for chronic cough are universally effective. That is part of the reason there is so much interest in Pharma for developing new drugs to treat cough. Brian Tate MD documented in this encounter [facility] 05-26-2024 Note HNO ID: [id number] Author: BRIAN TATE MD Service: ? 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 This worsened a few years ago following a respiratory tract infection. She has been followed by allergy immunology, and pulmonary medicine and they have not been able to get her cough under control. She has also had an EGD and a GI workup and treated for reflux. She is on pulmonary inhalers. She is not on any medications which would be associated with chronic cough. Dr Rubin has given her a trial of neuromodulators with gabapentin. And she has tried tramadol with mild improvement. She does feel that hydrocodone works and has been on it for years and is aware of chcf use issues. She also will have episodes of incontinence wit the cough and at times it seems paroxysmal which might suggest laryngospasm. She has also responded to tramadol. I discussed with her that long-term use of tramadol for chronic cough could predispose to opioid dependence. I also discussed with her superior laryngeal nerve blocks, that consists of a series of 3 injections, with a steroid and local anesthetic. - Informed consent obtained. - First round of SLN injection today tolerated well. She will come back in one and 2 months for repeat injections If not effective we can consider Botox for laryngospasm HPI: 15 to 20-year history of chronic cough. Thorough pulmonary, allergy, speech, GI workups. Has had a trial of gabapentin and tramadol. Endorses cough-related incontinence. Saw Dr. Torres on 04/17/22: Assessment/Plan: ASSESSMENT/PLAN: 1. 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 It is daily. Has known allergies, allergy tx didn't help though. Has had endoscopy which was negative. Has some swallowing dysfunction with liquids after coughing. No unintended weight loss. No odynophagia, or changes in symptoms. Smoked for 10 years and quit many years ago. Has become unbearable since she caught a viral illness in December 2021 from her granddaughter. Has also seen Dr. Chacon on 05/03/24: IMPRESSION AND PLAN: Consultation requested by Dr. Martins for evaluation and recommendations regarding management of chronic cough. Sulaiman Estes is a 68 year old female with a history of GERD, bronchospasm (asthma / COPD), post nasal drainage, and allergic rhinitis, presents with a 15 year history of chronic cough, triggered primarily by exposure to smells. Has had extensive workup for cough. Only relief is hydrocodone syrup. Recently put on a trial of gabapentin for possible neurogenic cough but discontinued because it made her COPD worse. Can't tolerate Lyrica. Her laryngeal exam is unremarkable. 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 I will refer her to Dr. Tate for sinus and PND assessment, as well as discussion of possible SLN blocks and or Botox injections for cough control. PROCEDURE: The patient was sprayed with 2% lidocaine and 1% phenylephrine. After an approximate amount of time for vasoconstriction and anesthesia to be achieved, a flexible fiberoptic laryngoscope was inserted into the nasal cavity, nasopharynx, down to the oropharynx. A laryngeal function study which included videoendoscopy with stroboscopy was performed. FINDINGS: Findings revealed that the epiglottis, AE folds, vallecula, and pyriform sinuses appeared normal. No cobblestoning or erythema was appreciated along the posterior oropharyngeal wall. Inspection of the larynx revealed there were no lesions, tumor, masses, ulcerations or areas of leukoplakia identified. The subglottis was patent, no evidence of any stenosis was appreciated. Range of motion of the vocal folds is within normal limits bilaterally. There is no edema or eryhtema. The vocal folds appear with good color. The edges are straight. During phonation, the pattern of glottal closure is complete. Amplitude of vibration and mucosal waves are within normal limits bilaterally. The scope was withdrawn and the patient tolerated the procedure well. ALLERGIES Allergen Reactions Codeine Itching, Rash Phen (more content not included)... 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 This worsened a few years ago following a respiratory tract infection. She has been followed by allergy immunology, and pulmonary medicine and they have not been able to get her cough under control. She has also had an EGD and a GI workup and treated for reflux. She is on pulmonary inhalers. She is not on any medications which would be associated with chronic cough. Dr Rubin has given her a trial of neuromodulators with gabapentin. And she has tried tramadol with mild improvement. She does feel that hydrocodone works and has been on it for years and is aware of chcf use issues. She also will have episodes of incontinence wit the cough and at times it seems paroxysmal which might suggest laryngospasm. She has also responded to tramadol. I discussed with her that long-term use of tramadol for chronic cough could predispose to opioid dependence. I also discussed with her superior laryngeal nerve blocks, that consists of a series of 3 injections, with a steroid and local anesthetic. - Informed consent obtained. - First round of SLN injection today tolerated well. She will come back in one and 2 months for repeat injections If not effective we can consider Botox for laryngospasm HPI: 15 to 20-year history of chronic cough. Thorough pulmonary, allergy, speech, GI workups. Has had a trial of gabapentin and tramadol. Endorses cough-related incontinence. Saw Dr. Torres on 04/17/22: Assessment/Plan: ASSESSMENT/PLAN: 1. 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 It is daily. Has known allergies, allergy tx didn't help though. Has had endoscopy which was negative. Has some swallowing dysfunction with liquids after coughing. No unintended weight loss. No odynophagia, or changes in symptoms. Smoked for 10 years and quit many years ago. Has become unbearable since she caught a viral illness in December 2021 from her granddaughter. Has also seen Dr. Chacon on 05/03/24: IMPRESSION AND PLAN: Consultation requested by Dr. Martins for evaluation and recommendations regarding management of chronic cough. Sulaiman Estes is a 68 year old female with a history of GERD, bronchospasm (asthma / COPD), post nasal drainage, and allergic rhinitis, presents with a 15 year history of chronic cough, triggered primarily by exposure to smells. Has had extensive workup for cough. Only relief is hydrocodone syrup. Recently put on a trial of gabapentin for possible neurogenic cough but discontinued because it made her COPD worse. Can't tolerate Lyrica. Her laryngeal exam is unremarkable. 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 I will refer her to Dr. Tate for sinus and PND assessment, as well as discussion of possible SLN blocks and or Botox injections for cough control. PROCEDURE: The patient was sprayed with 2% lidocaine and 1% phenylephrine. After an approximate amount of time for vasoconstriction and anesthesia to be achieved, a flexible fiberoptic laryngoscope was inserted into the nasal cavity, nasopharynx, down to the oropharynx. A laryngeal function study which included videoendoscopy with stroboscopy was performed. FINDINGS: Findings revealed that the epiglottis, AE folds, vallecula, and pyriform sinuses appeared normal. No cobblestoning or erythema was appreciated along the posterior oropharyngeal wall. Inspection of the larynx revealed there were no lesions, tumor, masses, ulcerations or areas of leukoplakia identified. The subglottis was patent, no evidence of any stenosis was appreciated. Range of motion of the vocal folds is within normal limits bilaterally. There is no edema or eryhtema. The vocal folds appear with good color. The edges are straight. During phonation, the pattern of glottal closure is complete. Amplitude of vibration and mucosal waves are within normal limits bilaterally. The scope was withdrawn and the patient tolerated the procedure well. ALLERGIES Allergen Reactions Codeine Itching, Rash Phenobarbital Hives, Itching, Rash Sulfamethoxazole-Tr* Hives Sulfa (Sulfonamide * Rash Current Outpatient Medications Medication Sig sertraline (ZOLOFT) 25 mg tablet Take 25 mg by mouth once daily. mometasone (NASONEX) 50 mcg/actuation nasal spray USE 2 SPRAYS NASALLY ONCE DAILY levalbuterol tartrate HFA (XOPENEX HFA) 45 mcg/actuation inhaler Inhale 2 Puffs as instructed every 6 hours as needed for wheezing/shortness of breath. pantoprazole DR (PROTONIX) 40 mg tablet Take 40 mg by mouth once daily. cyanocobalamin 1,000 mcg/mL Inject intramuscularly. ALPRAZolam (XANAX) 0.5 mg tablet pramipexole (MIRAPEX) 0.125 mg tablet Take 0.125 mg by mouth three times daily. one tab daily fluticasone-salmeterol (ADVAIR, WIXELA) 250-50 mcg/dose inhaler Inhale 1 Puff as instructed two times a day. ipratropium bromide (ATROVENT) 42 mcg (0.06 %) nasal spray Use 2 Sprays in the nose three times a day as needed (runny nose). gabapentin (NEURONTIN) 300 mg capsule Take 1 capsule by mouth daily at bedtime for 90 days. (Patient not taking: Reported on 05/03/2024) HYDROcodone-chlorpheniramine (TUSSIONEX) 10-8 mg/5 mL suspension Take by mouth every 12 hours as needed. No current facility-administered medications for this visit. PAST MEDICAL HISTORY Diagnosis Date Sinus tachycardia No past surgical history on file. Social History: Social History Tobacco Use Smoking status: Former Types: Cigarettes Smokeless tobacco: Never Substance Use Topics Alcohol use: Not Currently Drug use: Never PHYSICAL EXAM: On physical examination Sulaiman Estes is a well-developed, well nourished female. The voice is normal. Cranial nerves II-XII are grossly intact Mental status revealed patient to be alert and oriented. Mood is appropriate. Details of the physical examination: HEAD AND FACE: Physical examination of the head, neck, external nose, external ears, mouth and face fails to demonstrate any significant abnormality or asymmetry to critical face to face observation. Skin and scalp are normal. ORAL CAVITY/OROPHARYNX: No masses or lesions LARYNX: Reveiwed the stroboscopy as obtained by Dr. Chacon with the patient which shows normal vocal fold motion, no masses, no significant inflammation and normal vocal fold vibration. NECK: No masses or adenopathy. UNIVERSAL PROTOCOL / SAFETY CHECKLIST Procedure to be Performed: Bilateral Superior Laryngeal Nerve Blocks Sign In: A Moment of CARE was completed. Personnel directly involved with the procedure wore the appropriate PPE (Personal Protective Equipment). Patient/Surrogate Stated/Verified: PATIENT VERIFIED(optional for EMERGENT procedures): Patient name, Date of , Relevant allergies, and The intended procedure Time Out Communication: Intended patient and procedure match the source documents. Consent documented and matches the intended procedure. Sign Out: SIGN OUT (optional for EMERGENT procedures): No specimen collected. Marc Bailey MD LCQ: Patient Entered Questionnaires 05/22/2024 [place] Cough Physical Sum Score 4.25 Psychological Sum Score 3.14 Social Sum Score 4 Total Score 11.39 (Lower scores are indicative of increased impact or lower quality of life. ) CHARTS REVIEWED: Note and strobe by Dr. Chacon, note from Dr. Torres, multiple notes by pulmonary medicine and allergy. Multiple chest CTs and she has an additional 1 scheduled in the future., Chest x-ray The patient has a history of chronic cough, laryngeal hypersensitivity and vagal neuropathy and has failed neuromodulaors. I have recommended wither botox or SLN block and he wished to proceed to a block. Pre-operative diagnosis: Vagal nerve sensitivity, Sensory neuropathy, chronic cough Post-operative diagnosis: Vagal nerve sensitivity, Sensory neuropathy, chronic cough Procedure: Bilateral Vagal (Superior laryngeal branch) nerve blockade Indication: vagal nerve sensitivity with laryngeal spasm and chronic refractory cough Procedure: The patient was identified and a time out was called Left and right thyrohyoid space in region of superior laryngeal nerve branches of vagus nerves were injected with 2.0ml (1mL of 1% lidocaine and 1.0 mL kenalog 40) Tolerated well I personally performed the procedure Brian Tate MD UNIVERSAL PROTOCOL / SAFETY CHECKLIST Procedure to be Performed: Bilateral superior laryngeal nerve blocks Sign In: A Moment of CARE was completed. Personnel directly involved with the procedure wore the appropriate PPE (Personal Protective Equipment). No special equipment needed. Patient/Surrogate Stated/Verified: PATIENT VERIFIED(optional for EMERGENT procedures): Patient name, Date of , Relevant allergies, and The intended procedure Time Out Communication: Intended patient and procedure match the source documents. Consent documented and matches the intended procedure. No relevant labs, photos, and/or imaging studies were applicable for review. No correct side/site applicable for marking and visibility. Medications required for procedure verified. No fire risk assessment and interventions applicable. No implant(s) inserted. Sign Out: SIGN OUT (optional for EMERGENT procedures): No specimen collected. No instruments, equipment or retained foreign bodies applicable. Post-procedure follow-up management communicated and Plan of Care Visit completed when applicable. Given the patient's history and physical examination, the above procedure was recommended. We reviewed the risks, benefits, alternatives, and what to expect from the procedure and informed consent was obtained from the patient. The patient wished to proceed. I performed or was present for the march portions or the entirety of the procedure. MD Marc Lowe MD in the service for Brian Tate MD May 26, 2024 I participated in the history and physical exam of Sulaiman Estes. I discussed the management of Sulaiman Estes with the resident. I reviewed the note and agree with the documented findings and plan of care. Brian Tate MD Medical Decision Making: Problems: Low: Stable chronic illness Data: Unique source(s) for external note(s) reviewed: 3+ Unique test result(s) reviewed: 3+ Risk: Moderate: Drug management Medical Decision Making Level: 4 - Moderate documented in this encounter [facility] 05-23-2024 Note HNO ID: [id number] Author: CIELO JEFFRIES MD Service: ? Author Type: Physician Type: Progress Notes Filed: 05/23/2024 14:05 Note Text: PULMONARY CLINIC Return Visit This is a virtual visit using [employer] Video Visit. It required patient-provider interaction for the medical decision making as documented below. I have communicated my name and active licensure. The patient's identity and physical location were verified at the time of this visit. Either the patient or their legal inbound customer service representative has been informed of the risks and benefits of -- and alternatives to -- treatment through a remote evaluation and consents to proceed with the evaluation remotely. Provider Location: [facility] Facility Patient Location: Patient Home or Place of Residence HPI: Ms. Estes is a 68 year old female with a history of environmental allergies, and a 20 PY smoking history (quit 36 years ago) who was initially seen in 04/2022 for ongoing cough and dyspnea that has progressed since 12/2021. At the time of her initial visit, spirometry showed obstruction that didn't resolve with bronchodilators. She was started on Anoro Ellipta and levalbuterol as needed. An X-ray then showed right apical lung densities, and that was followed by a CT of the chest showing bilateral pulmonary nodules Right apical nodule measuring 12 X 7 mm Two right upper lobe nodules measuring 8 and 7 mm respectively Two nodules in the left upper lobe: apical nodule measuring 7 mm and 5 mm posterior nodule Anoro Ellipta was stopped by the patient last time due to preceived side effects, she was maintained on fluticasone-salmeterol She was recently evaluated by allergy medicine, without convincing presence of allergies. She was evaluated by Dr. Liat Trujillo, and referred to ENT for further evaluation for nerve block/Botox injections She was recently switched to Stiolto Respimat Interval HPI Since last visit in 09/2022, Ms. Estes notes that she has had recurrent upper respiratory infections, with ongoing wheezing. Over the past year, she has required 3 prednisone bursts for breathing problems. She notes that ICS has been helpful during the summer months when she is exposed to grass, which seems to dry her cough mainly. However she was not very keen on the soreness that ICS caused, and the twice daily dosing. Her cough is extensively been evaluated, she was tried on several medications including gabapentin (which did not help, rather gave her side effects). She is still taking cough syrup to control this problem She notes that she has been using Stiolto for the past 3 days, no notable difference or side effects. She notes that she is still wheezing PAST MEDICAL HISTORY: PAST MEDICAL HISTORY Diagnosis Date Sinus tachycardia No past surgical history on file. MEDICATIONS: sertraline (ZOLOFT) 25 mg tablet Take 25 mg by mouth once daily. fluticasone-salmeterol (ADVAIR, WIXELA) 250-50 mcg/dose inhaler Inhale 1 Puff as instructed two times a day. ipratropium bromide (ATROVENT) 42 mcg (0.06 %) nasal spray Use 2 Sprays in the nose three times a day as needed (runny nose). gabapentin (NEURONTIN) 300 mg capsule Take 1 capsule by mouth daily at bedtime for 90 days. (Patient not taking: Reported on 05/03/2024) mometasone (NASONEX) 50 mcg/actuation nasal spray USE 2 SPRAYS NASALLY ONCE DAILY levalbuterol tartrate HFA (XOPENEX HFA) 45 mcg/actuation inhaler Inhale 2 Puffs as instructed every 6 hours as needed for wheezing/shortness of breath. pantoprazole DR (PROTONIX) 40 mg tablet Take 40 mg by mouth once daily. cyanocobalamin 1,000 mcg/mL Inject intramuscularly. ALPRAZolam (XANAX) 0.5 mg tablet pramipexole (MIRAPEX) 0.125 mg tablet Take 0.125 mg by mouth three times daily. one tab daily HYDROcodone-chlorpheniramine (TUSSIONEX) 10-8 mg/5 mL suspension Take by mouth every 12 hours as needed. ALLERGIES: ALLERGIES Allergen Reactions Codeine Itching, Rash Phenobarbital Hives, Itching, Rash Sulfamethoxazole-Tr* Hives Sulfa (Sulfonamide * Rash SOCIAL HISTORY: Social History Tobacco Use Smoking status: Former Types: Cigarettes Smokeless tobacco: Never Substance Use Topics Alcohol use: Not Currently Drug use: Never FAMILY HISTORY: FAMILY HISTORY Problem Relation Age of Onset Asthma Mother VIDEO EXAM: GENERAL: alert and appropriate, in no distress SKIN: no rash noted HEAD: normocephalic, no abnormality or lesion noted EYES: no injection and visual acuity is grossly normal NECK: full ROM, no cervical LNs noted RESPIRATORY: breathing non-labored CHEST: equal chest rise with normal respiratory effort NEUROLOGIC: no obvious deficit DATA: Diagnostic tests reviewed for today's visit, films/specimens were personally reviewed by me: Most recent lab and imaging results Echocardiogram Last Echocardiogram No resulted procedures found. Labs: NT PRO BNP No results found for: PBN (more content not included)... [facility] 05-23-2024 History of Presen t illness Narrative Images from the original note were not included. PULMONARY CLINIC Return Visit This is a virtual visit using [employer] Video Visit. It required patient-provider interaction for the medical decision making as documented below. I have communicated my name and active licensure. The patient's identity and physical location were verified at the time of this visit. Either the patient or their legal inbound customer service representative has been informed of the risks and benefits of -- and alternatives to -- treatment through a remote evaluation and consents to proceed with the evaluation remotely. Provider Location: [facility] Facility Patient Location: Patient Home or Place of Residence HPI: Ms. Estes is a 68 year old female with a history of environmental allergies, and a 20 PY smoking history (quit 36 years ago) who was initially seen in 04/2022 for ongoing cough and dyspnea that has progressed since 12/2021. At the time of her initial visit, spirometry showed obstruction that didn't resolve with bronchodilators. She was started on Anoro Ellipta and levalbuterol as needed. An X-ray then showed right apical lung densities, and that was followed by a CT of the chest showing bilateral pulmonary nodules Right apical nodule measuring 12 X 7 mm Two right upper lobe nodules measuring 8 and 7 mm respectively Two nodules in the left upper lobe: apical nodule measuring 7 mm and 5 mm posterior nodule Anoro Ellipta was stopped by the patient last time due to preceived side effects, she was maintained on fluticasone-salmeterol She was recently evaluated by allergy medicine, without convincing presence of allergies. She was evaluated by Dr. Liat Trujillo, and referred to ENT for further evaluation for nerve block/Botox injections She was recently switched to Stiolto Respimat Interval HPI Since last visit in 09/2022, Ms. Estes notes that she has had recurrent upper respiratory infections, with ongoing wheezing. Over the past year, she has required 3 prednisone bursts for breathing problems. She notes that ICS has been helpful during the summer months when she is exposed to grass, which seems to dry her cough mainly. However she was not very keen on the soreness that ICS caused, and the twice daily dosing. Her cough is extensively been evaluated, she was tried on several medications including gabapentin (which did not help, rather gave her side effects). She is still taking cough syrup to control this problem She notes that she has been using Stiolto for the past 3 days, no notable difference or side effects. She notes that she is still wheezing PAST MEDICAL HISTORY: PAST MEDICAL HISTORY Diagnosis Date Sinus tachycardia No past surgical history on file. MEDICATIONS: sertraline (ZOLOFT) 25 mg tablet Take 25 mg by mouth once daily. fluticasone-salmeterol (ADVAIR, WIXELA) 250-50 mcg/dose inhaler Inhale 1 Puff as instructed two times a day. ipratropium bromide (ATROVENT) 42 mcg (0.06 %) nasal spray Use 2 Sprays in the nose three times a day as needed (runny nose). gabapentin (NEURONTIN) 300 mg capsule Take 1 capsule by mouth daily at bedtime for 90 days. (Patient not taking: Reported on 05/03/2024) mometasone (NASONEX) 50 mcg/actuation nasal spray USE 2 SPRAYS NASALLY ONCE DAILY levalbuterol tartrate HFA (XOPENEX HFA) 45 mcg/actuation inhaler Inhale 2 Puffs as instructed every 6 hours as needed for wheezing/shortness of breath. pantoprazole DR (PROTONIX) 40 mg tablet Take 40 mg by mouth once daily. cyanocobalamin 1,000 mcg/mL Inject intramuscularly. ALPRAZolam (XANAX) 0.5 mg tablet pramipexole (MIRAPEX) 0.125 mg tablet Take 0.125 mg by mouth three times daily. one tab daily HYDROcodone-chlorpheniramine (TUSSIONEX) 10-8 mg/5 mL suspension Take by mouth every 12 hours as needed. ALLERGIES: ALLERGIES Allergen Reactions Codeine Itching, Rash Phenobarbital Hives, Itching, Rash Sulfamethoxazole-Tr* Hives Sulfa (Sulfonamide * Rash SOCIAL HISTORY: Social History Tobacco Use Smoking status: Former Types: Cigarettes Smokeless tobacco: Never Substance Use Topics Alcohol use: Not Currently Drug use: Never FAMILY HISTORY: FAMILY HISTORY Problem Relation Age of Onset Asthma Mother VIDEO EXAM: GENERAL: alert and appropriate, in no distress SKIN: no rash noted HEAD: normocephalic, no abnormality or lesion noted EYES: no injection and visual acuity is grossly normal NECK: full ROM, no cervical LNs noted RESPIRATORY: breathing non-labored CHEST: equal chest rise with normal respiratory effort NEUROLOGIC: no obvious deficit DATA: Diagnostic tests reviewed for today's visit, films/specimens were personally reviewed by me: Most recent lab and imaging results Echocardiogram Last Echocardiogram No resulted procedures found. Labs: NT PRO BNP No results found for: PBNP Chemistries No results found for: NA, K, CHLOR, CO2, BUN, CREAT, EGFROTH, GLUC, ANION Liver Function No results found for: AST, ALT, ALKPHOS, TBILI CBC Lab Results Component Value Date HB 12.9 06/23/2022 HB 12.1 05/07/2022 HCT 39.5 06/23/2022 HCT 37.1 05/07/2022 WBC 7.54 06/23/2022 WBC 6.84 05/07/2022 PLT 307 06/23/2022 PLT 321 05/07/2022 PFT: Last Spirometry SPIROMETRY WITH DILATOR IF OBSTRUCTED Collected: 06/23/2022 11:33 AM (Final result) Narrative: [facility] [address] 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 4 puffs levalbuterol (180 mg) given by MDI via holding chamber. HR pre =109 /min, HR post =120 /min. Anoro last used 8am, Xopenex 2-3 weeks ago.//KLW IMPRESSION: Spirometry indicates moderate obstruction. There was not a significant bronchodilator response. Electronically Signed On 06-23-2022 14:58:55 EST by Johnny Ignacio ID: [id number] Name: SULAIMAN ESTES Race: White Ht: 60.63 in Wt: 139.77 lbs Age: 66 Gender: Female : 1955 Dx: Smoking Hx: Non-smoker Doctor: CIELO JEFFRIES Test Date: 06/23/2022 Site: Tech: Leno Weiss PRE-BRONCH POST-BRONCH Pre LLN Pred ULN %Pred Post %Pred %Chg SPIROMETRY FVC (L) 2.18 1.99 2.67 3.38 81 2.20 82 0 FEV1 (L) 1.32 1.56 2.10 2.62 62 1.38 65 3 FEV1/FVC 0.60 0.67 0.79 0.90 76 0.63 79 4 PEF L/s (L/sec) 5.25 3.96 5.50 7.03 95 5.39 98 2 FEF50 (L/sec) 0.72 1.34 2.95 4.56 24 0.83 28 15 FIF50 (L/sec) 2.22 2.05 -7 FEF50/FIF50 0.33 90-100 0.40 24 FIVC (L) 2.12 2.13 0 PEC80-85 (L/sec) 0.40 0.93 1.92 3.27 20 0.56 29 40 Time (sec) 12.58 11.27 -10 FET PEF (sec) 0.05 0.05 -2 RAUL (L) 0.05 0.05 7 Vol Extrap % (%) 2 2 7 Comments: ATS/ERS acceptability and repeatability standards for spirometry met. 4 puffs levalbuterol (180 mg) given by MDI via holding chamber. HR pre =109 /min, HR post =120 /min. Anoro last used 8am, Xopenex 2-3 weeks ago.//KLW IMAGING CT Chest Last CT/CTA Chest/Lungs CT CHEST WO IVCON Exam End: 06/22/2023 1:12 PM (Final result) Narrative: * * *Final Report* * * DATE OF EXAM: Jun 22 2023 1:12PM [facility] 0541 - CT CHEST WO IVCON / PROCEDURE REASON: Lung nodules * * * * Physician Interpretation * * * * EXAMINATION: CHEST CT WITHOUT CONTRAST CLINICAL HISTORY: Nodules. Technique: Spiral CT acquisition of the chest from the thoracic inlet to the upper abdomen without contrast. MQ: [id number] CT Radiation dose: Integrated Dose-length product (DLP) for this visit = 152 mGy*cm CT Dose Reduction Employed: Automated exposure control(AEC) and iterative recon Comparison: CT chest on 01/01/2023 RESULT: Limitations: None. Lines, tubes, and devices: None. Lung parenchyma and airways: The central airways are patent. There is diffuse bronchial wall thickening in the bilateral lungs. There is a stable 6 mm solid nodule in the left lower lobe, series 6 image 68. A few solid nodules in the right lung measuring up to 3 mm, series 6 images 52,74, 90 and 105, unchanged compared to prior study. Multiple nodular opacities demonstrated in the right lung, series 6 images 26, 43, 48 and 60, grossly unchanged. In the left lung, seen are a few groundglass densities, series 6 images 27, 62-25. All these nodular opacities or groundglass densities have been unchanged. No definite new nodules seen. No masses. No new consolidations. Pleural space: No pleural effusion. No pleural thickening. Lower neck, lymph nodes, and mediastinum: The imaged thyroid gland is normal. No lymphadenopathy in the supraclavicular, axillary, mediastinal, or hilar regions. Heart, pericardium, and thoracic vessels: The thoracic aorta and main pulmonary artery are normal in caliber. The cardiac chambers are normal in size. Punctate coronary artery atherosclerotic calcifications are noted, although the study is not optimized for coronary assessment. No pericardial effusion or thickening. Bones and soft tissues: No destructive bone lesion. There are suture anchors in the humeral heads. Chest wall soft tissue is unremarkable. Upper abdomen: No abnormality in the imaged upper abdomen. Production Sanitizer (topogram) images: No additional findings. Impression: IMPRESSION: Stable bilateral nodules, nodular opacities or groundglass densities. No new nodules identified. No lymphadenopathy is seen in the chest. Team Automobile Assembler: PSCB Transcribe Date/Time: Jun 23 2023 8:25A Dictated by : OC SMITH MD This examination was interpreted and the report reviewed and electronically signed by: OC SMITH MD on Jun 23 2023 11:02AM EST Assessment and Plan: Sulaiman Estes is a 68 year old female who presents for evaluation of 1. Chronic obstructive pulmonary disease, unspecified COPD type (HCC) - ICD9: 496, ICD10: J44.9 (primary diagnosis) 2. Chronic cough - ICD9: 786.2, ICD10: R05.3 -- Unclear cause for chronic cough, she has been extensively evaluated and treated with inhaled medicine, Nasacort and gabapentin (which caused side effects) -- We discussed that regarding COPD, we can continue Stiolto Respimat. She had problems with Anoro Ellipta in the past, we discussed giving this medicine [facility] to assess for full effects. -- If Stiolto Respimat is not offering substantial respiratory relief, this can be stepped up to Trelegy Ellipta or Bretzri, or alternatively adding an ICS to Stiolto -- Follow up in 4-5 months I spent a total of 30 minutes on the date of the service which included preparing to see the patient, [id number] patient care, completing clinical documentation, performing a medically appropriate examination, counseling and educating the patient/family/caregiver, independently interpreting results (not separately reported), and communicating results to the patient/family/caregiver Cielo Jeffries MD May 2351:57 PM [facility] documented in this encounter [facility] 05-03-2024 History of Presen t illness Narrative [facility] Liat Chacon, Ph.D NAME: Sulaiman Estes CLINIC NO: [id number] DATE OF SERVICE: May 02, 2024 IMPRESSION AND PLAN: Consultation requested by Dr. Martins for evaluation and recommendations regarding management of chronic cough. Sulaiman Estes is a 68 year old female with a history of GERD, bronchospasm (asthma / COPD), post nasal drainage, and allergic rhinitis, presents with a 15 year history of chronic cough, triggered primarily by exposure to smells. Has had extensive workup for cough. Only relief is hydrocodone syrup. Recently put on a trial of gabapentin for possible neurogenic cough but discontinued because it made her COPD worse. Can't tolerate Lyrica. Her laryngeal exam is unremarkable. 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 I will refer her to Dr. Tate for sinus and PND assessment, as well as discussion of possible SLN blocks and or Botox injections for cough control. HISTORY OF PRESENT PROBLEM: Sulaiman Estes is a 68 year old patient who presents with chief complaint of chronic cough Chronic cough x 15 years with significant work up, only thing that really seems to help is hydrocodone cough syrup. Coughs mostly during the day. 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 Frequent coughing fits. Tried inhalers with no relief. Cough can be associated with losing her voice. Worse with exercise in the beginning but less when continuing exercise. Wheezing is expiratory. No hoarseness. No difficulty swallowing. She took gabapentin for 6 weeks but discontinued because she developed a wheeze. She is taking Protonix at bedtime. Dx COPD, follows with pulmonary, chest CT with stable nodules. Hx 20 PY smoking history (quit 34 years ago). Frequent sinus infections. 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 [place] Cough Questionnaire: 1- Physical Summation Score: 35/8 = 4.37 2- Psychosocial Summation Score: 34/7 = 4.85 3- Social Summation Score: 21/4 = 5.25 Total Score: (1+2+3) = 14.47 Mild >17 Moderate severity 12-17 Severe <12 Minimal important change is 1.3 Good response >2 PAST MEDICAL HISTORY Diagnosis Date Sinus tachycardia Current Outpatient Medications on File Prior to Visit Medication Sig sertraline (ZOLOFT) 25 mg tablet Take 25 mg by mouth once daily. fluticasone-salmeterol (ADVAIR, WIXELA) 250-50 mcg/dose inhaler Inhale 1 Puff as instructed two times a day. ipratropium bromide (ATROVENT) 42 mcg (0.06 %) nasal spray Use 2 Sprays in the nose three times a day as needed (runny nose). mometasone (NASONEX) 50 mcg/actuation nasal spray USE 2 SPRAYS NASALLY ONCE DAILY levalbuterol tartrate HFA (XOPENEX HFA) 45 mcg/actuation inhaler Inhale 2 Puffs as instructed every 6 hours as needed for wheezing/shortness of breath. pantoprazole DR (PROTONIX) 40 mg tablet Take 40 mg by mouth once daily. cyanocobalamin 1,000 mcg/mL Inject intramuscularly. ALPRAZolam (XANAX) 0.5 mg tablet pramipexole (MIRAPEX) 0.125 mg tablet Take 0.125 mg by mouth three times daily. one tab daily HYDROcodone-chlorpheniramine (TUSSIONEX) 10-8 mg/5 mL suspension Take by mouth every 12 hours as needed. gabapentin (NEURONTIN) 300 mg capsule Take 1 capsule by mouth daily at bedtime for 90 days. (Patient not taking: Reported on 05/03/2024) No current facility-administered medications on file prior to visit. PROCEDURE: The patient was sprayed with 2% lidocaine and 1% phenylephrine. After an approximate amount of time for vasoconstriction and anesthesia to be achieved, a flexible fiberoptic laryngoscope was inserted into the nasal cavity, nasopharynx, down to the oropharynx. A laryngeal function study which included videoendoscopy with stroboscopy was performed. FINDINGS: Findings revealed that the epiglottis, AE folds, vallecula, and pyriform sinuses appeared normal. No cobblestoning or erythema was appreciated along the posterior oropharyngeal wall. Inspection of the larynx revealed there were no lesions, tumor, masses, ulcerations or areas of leukoplakia identified. The subglottis was patent, no evidence of any stenosis was appreciated. Range of motion of the vocal folds is within normal limits bilaterally. There is no edema or eryhtema. The vocal folds appear with good color. The edges are straight. During phonation, the pattern of glottal closure is complete. Amplitude of vibration and mucosal waves are within normal limits bilaterally. The scope was withdrawn and the patient tolerated the procedure well. I reviewed the video with Sulaiman Estes. Liat Chacon, PhD, CCC-RAND BUTTING MACHINE OPERATOR documented in this encounter [facility] 05-03-2024 Note HNO ID: [id number] Author: LIAT CHACON, PhD, CCC-RAND BUTTING MACHINE OPERATOR Service: ? Author Type: Speech Language Pathologist Type: Progress Notes Filed: 05/03/2024 08:51 Note Text: [facility] Liat Chacon, Ph.D NAME: Sulaiman Tucker [facility] NO: [id number] DATE OF SERVICE: May 02, 2024 IMPRESSION AND PLAN: Consultation requested by Dr. Martins for evaluation and recommendations regarding management of chronic cough. Sulaiman Estes is a 68 year old female with a history of GERD, bronchospasm (asthma / COPD), post nasal drainage, and allergic rhinitis, presents with a 15 year history of chronic cough, triggered primarily by exposure to smells. Has had extensive workup for cough. Only relief is hydrocodone syrup. Recently put on a trial of gabapentin for possible neurogenic cough but discontinued because it made her COPD worse. Can't tolerate Lyrica. Her laryngeal exam is unremarkable. 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 I will refer her to Dr. Tate for sinus and PND assessment, as well as discussion of possible SLN blocks and or Botox injections for cough control. HISTORY OF PRESENT PROBLEM: Sulaiman Estes is a 68 year old patient who presents with chief complaint of chronic cough Chronic cough x 15 years with significant work up, only thing that really seems to help is hydrocodone cough syrup. Coughs mostly during the day. 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 Frequent coughing fits. Tried inhalers with no relief. Cough can be associated with losing her voice. Worse with exercise in the beginning but less when continuing exercise. Wheezing is expiratory. No hoarseness. No difficulty swallowing. She took gabapentin for 6 weeks but discontinued because she developed a wheeze. She is taking Protonix at bedtime. Dx COPD, follows with pulmonary, chest CT with stable nodules. Hx 20 PY smoking history (quit 34 years ago). Frequent sinus infections. 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 [place] Cough Questionnaire: 1- Physical Summation Score: 35/8 = 4.37 2- Psychosocial Summation Score: 34/7 = 4.85 3- Social Summation Score: 21/4 = 5.25 Total Score: (1+2+3) = 14.47 Mild >17 Moderate severity 12-17 Severe <12 Minimal important change is 1.3 Good response >2 PAST MEDICAL HISTORY Diagnosis Date Sinus tachycardia Current Outpatient Medications on File Prior to Visit Medication Sig sertraline (ZOLOFT) 25 mg tablet Take 25 mg by mouth once daily. fluticasone-salmeterol (ADVAIR, WIXELA) 250-50 mcg/dose inhaler Inhale 1 Puff as instructed two times a day. ipratropium bromide (ATROVENT) 42 mcg (0.06 %) nasal spray Use 2 Sprays in the nose three times a day as needed (runny nose). mometasone (NASONEX) 50 mcg/actuation nasal spray USE 2 SPRAYS NASALLY ONCE DAILY levalbuterol tartrate HFA (XOPENEX HFA) 45 mcg/actuation inhaler Inhale 2 Puffs as instructed every 6 hours as needed for wheezing/shortness of breath. pantoprazole DR (PROTONIX) 40 mg tablet Take 40 mg by mouth once daily. cyanocobalamin 1,000 mcg/mL Inject intramuscularly. ALPRAZolam (XANAX) 0.5 mg tablet pramipexole (MIRAPEX) 0.125 mg tablet Take 0.125 mg by mouth three times daily. one tab daily HYDROcodone-chlorpheniramine (TUSSIONEX) 10-8 mg/5 mL suspension Take by mouth every 12 hours as needed. gabapentin (NEURONTIN) 300 mg capsule Take 1 capsule by mouth daily at bedtime for 90 days. (Patient not taking: Reported on 05/03/2024) No current facility-administered medications on file prior to visit. PROCEDURE: The patient was sprayed with 2% lidocaine and 1% phenylephrine. After an approximate amount of time for vasoconstriction and anesthesia to be achieved, a flexible fiberoptic laryngoscope was inserted into the nasal cavity, nasopharynx, down to the oropharynx. A laryngeal function study which included videoendoscopy with stroboscopy was performed. FINDINGS: Findings revealed that the epiglottis, AE folds, vallecula, and pyriform sinuses appeared normal. No cobblestoning or erythema was appreciated along the posterior oropharyngeal wall. Inspection of the larynx revealed there were no lesions, tumor, masses, ulcerations or areas of leukoplakia identified. The subglottis was patent, no evidence of any stenosis was appreciated. Range of motion of the vocal folds is within normal limits bilaterally. There is no edema or eryhtema. The vocal folds appear with good color. The edges are straight. During phonation, the pattern of glottal closure is complete. Amplitude of vibration and mucosal waves are within normal limits bilaterally. The scope was withdrawn and the patient tolerated the procedure well. I reviewed the video with Sulaiman Estes. Liat Chacon, PhD, [facility]-[employer] BUTTING MACHINE OPERATOR [facility] 03-25-2024 Note Addended by: FATOUMATA HAQ on: 03/25/2024 08:26 AM Modules accepted: Orders [facility] 03-25-2024 Miscellaneous Notes Addended by: FATOUMATA HAQ on: 03/25/2024 08:26 AM Modules accepted: Orders [facility] [facility] Pharmacy comment: REQUEST FOR 90 DAYS PRESCRIPTION. Patient phones requesting refills as follows: Requested Prescriptions Pending Prescriptions Disp Refills ipratropium bromide (ATROVENT) 42 mcg (0.06 %) nasal spray 15 mL 4 Sig: Use 2 Sprays in the nose three times a day as needed (runny nose). Refused Prescriptions Disp Refills ipratropium bromide (ATROVENT) 42 mcg (0.06 %) nasal spray [Pharmacy Med Name: IPRATROPIUM 0.06% SPRAY] 2 Sig: USE 2 SPRAYS IN THE NOSE THREE TIMES A DAY NEEDED (RUNNY NOSE). Refused By: FATOUMATA HAQ Reason for Refusal: Records indicate that there is a valid prescription at the pharmacy Please review and advise. Fatoumata Haq RN documented in this encounter [facility] 03-25-2024 Telephone encounter Note [facility] Pharmacy comment: REQUEST FOR 90 DAYS PRESCRIPTION. Patient phones requesting refills as follows: Requested Prescriptions Pending Prescriptions Disp Refills ipratropium bromide (ATROVENT) 42 mcg (0.06 %) nasal spray 15 mL 4 Sig: Use 2 Sprays in the nose three times a day as needed (runny nose). Refused Prescriptions Disp Refills ipratropium bromide (ATROVENT) 42 mcg (0.06 %) nasal spray [Pharmacy Med Name: IPRATROPIUM 0.06% SPRAY] 2 Sig: USE 2 SPRAYS IN THE NOSE THREE TIMES A DAY NEEDED (RUNNY NOSE). Refused By: FATOUMATA HAQ Reason for Refusal: Records indicate that there is a valid prescription at the pharmacy Please review and advise. Fatoumata Haq RN [facility] 03-02-2024 Note HNO ID: [id number] Author: ?, ?, ? Service: ? Author Type: ? Type: Progress Notes Filed: 03/02/2024 13:57 Note Text: Patient has been scheduled for both [facility] 03-02-2024 History of Presen t illness Narrative Patient has been scheduled for both Distance Health Visit This is a virtual visit using [employer] Video Visit. It required patient-provider interaction for the medical decision making as documented below. I have communicated my name and active licensure. The patient's identity and physical location were verified at the time of this visit. Either the patient or their legal inbound customer service representative has been informed of the risks and benefits of -- and alternatives to -- treatment through a remote evaluation and consents to proceed with the evaluation remotely. This is a request for consultation by Cielo Jeffries [address] [facility] [id number] Consult requested for an opinion regarding the evaluation and treatment of the above. My final impression and recommendations will be communicated back to the requesting physician by way of the shared medical record or letter via [place] mail.. Sulaiman Estes is a 68 year old patient who presents with chief complaint: chronic cough Chronic cough x 15 years with significant work up, only thing that really seems to help is hydrocodone cough syrup. Cough can be associated with losing her voice. Wheezing is expiratory. Laying flat. Worse with exercise in the beginning but less when continuing exercise. Dx COPD, follows with pulmonary, chest CT with stable nodules. Hx 20 PY smoking history (quit 34 years ago). Answers submitted by the patient for this visit: Allergy Review of Symptoms (Submitted on 03/02/2024) Itchy Eyes: Yes Photophobia (light sensitivity): Yes Nasal Congestion: Yes Runny Nose: Yes all the time, no seasonal variation. Anterior rhinitis. Worse in October and November. Itchy Nose: Yes Itchy throat: Yes A cough: Yes Wheezing: Yes Headaches: Yes Dry skin: Yes Hx of allergy testing locally, did allergy shots which did not help. Main symptoms was recurrent cough. Did immunotherapy for 2 years. Then had allergy testing 7 years later, tried immunotherapy again for 2 years again with no relief. Only thing that controls the cough is the cough medicine - hydrocodone-chlorpheniramine. Tried inhalers with no relief. For rhinitis has tried claritin, flonase 4-5 sinus infections in the last year. Antibiotics 4-5 times per year, typically will help. 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 ENT found deviated septum, no polyps. Patient Entered Data 03/02/2024 Collateral History Allergic rhinitis Yes Skin tested Yes Have asthma Yes Eczema / Dermatitis No Sinus infections Yes Nasal Polyps Not Sure Urticaria / Hives Yes Angioedema No Food Allergy No Stinging insect allergy No Penicillin allergy No 03/02/2024 Environmental Exposure Pets Dog Mouse infestation No Cockroach infestation No Mold or Mildew No Air conditioning Yes Dust mite covers Yes Cigarette / Cigar smoke No Vaping No HISTORY REVIEWED (electronic chart updated): Current Outpatient Medications Medication Sig fluticasone-salmeterol (ADVAIR, WIXELA) 250-50 mcg/dose inhaler inhale 1 puff by mouth and into the lungs twice a day mometasone (NASONEX) 50 mcg/actuation nasal spray USE 2 SPRAYS NASALLY ONCE DAILY predniSONE (DELTASONE) 20 mg tablet Take 2 tablets by mouth once daily. Take with food levalbuterol tartrate HFA (XOPENEX HFA) 45 mcg/actuation inhaler Inhale 2 Puffs as instructed every 6 hours as needed for wheezing/shortness of breath. SAVELLA 12.5 mg (5)-25 mg(8)-50 mg(42) DsPk as directed. pantoprazole DR (PROTONIX) 40 mg tablet Take 40 mg by mouth once daily. cyanocobalamin 1,000 mcg/mL Inject intramuscularly. ALPRAZolam (XANAX) 0.5 mg tablet FLUoxetine (PROZAC) 20 mg capsule Take 20 mg by mouth once daily. one tab daily carvedilol (COREG) 3.125 mg tablet Take 3.125 mg by mouth twice daily with meals. Take one(1) tablet two(2) times daily. pramipexole (MIRAPEX) 0.125 mg tablet Take 0.125 mg by mouth three times daily. one tab daily ergocalciferol, vitamin D2, (CALCIFEROL ORAL) Take by mouth. one tab weekly 50,000 units HYDROcodone-chlorpheniramine (TUSSIONEX) 10-8 mg/5 mL suspension Take by mouth every 12 hours as needed. No current facility-administered medications for this visit. ALLERGIES Allergen Reactions Codeine Itching, Rash Phenobarbital Hives, Itching, Rash Sulfamethoxazole-Tr* Hives Sulfa (Sulfonamide * Rash PAST MEDICAL HISTORY Diagnosis Date Sinus tachycardia No past surgical history on file. Social History Socioeconomic History Marital status: Tobacco Use Smoking status: Former Types: Cigarettes Smokeless tobacco: Never Substance and Sexual Activity Alcohol use: Not Currently Drug use: Never FAMILY HISTORY Problem Relation Age of Onset Asthma Mother Physical video exam: General: alert and appropriate, in no distress, well-hydrated, well nourished and happy, smiling, interactive Skin: no rash noted Head: normocephalic, no abnormality or lesion noted Eyes: no injection and visual acuity is grossly normal Ears: external ears normal, no mastoid tenderness Nose: external nose normal without rhinorrhea Respiratory: breathing non-labored and no grunting/flaring/retractions Chest: equal chest rise with normal respiratory effort Labs: Latest Ref [facility] 06/23/2022 [id number] Ghassan Grass <0.35 kU/l <0.35 Ghassan Grass Class Class 0 Class 0 September Grass IgE <0.35 kU/l <0.35 September Grass Class Class 0 Class 0 Short Ragweed IgE <0.35 kU/l <0.35 Short Ragweed Class Class 0 Class 0 Citizen Of [place] Plantain IgE <0.35 kU/l <0.35 Citizen [place] Plantain Class Class 0 Class 0 [place] IgE <0.35 kU/l <0.35 [place] Class Class 0 Class 0 [place] Tree IgE <0.35 kU/l <0.35 [place] Tree Class Class 0 Class 0 [place] Tree IgE <0.35 kU/l <0.35 [place] Tree Class Class 0 Class 0 Cat Dander IgE <0.35 kU/l <0.35 Cat Dander Class Class 0 Class 0 Dog Dander IgE <0.35 kU/l <0.35 Dog Dander Class Class 0 Class 0 P. chrysogenum IgE <0.35 kU/l <0.35 P. chrysogenum Class Class 0 Class 0 Cladosporium herbarum IgE <0.35 kU/l <0.35 Cladosporium herbarum Class Class 0 Class 0 Aspergillus fumigatus IgE <0.35 kU/l <0.35 Aspergillus fumigatus Class Class 0 Class 0 Alternaria tenuis IgE <0.35 kU/l <0.35 Alternaria tenuis Class Class 0 Class 0 House Dust (H-S) IgE <0.35 kU/l <0.35 House Dust (H-S) Class Class 0 Class 0 D. farinae IgE <0.35 kU/l <0.35 D. farinae Class Class 0 Class 0 WBC 3.70 - 11.00 k/uL 7.54 RBC 3.90 - 5.20 m/uL 4.50 Hemoglobin 11.5 - 15.5 g/dL 12.9 Hematocrit 36.0 - 46.0 % 39.5 MCV 80.0 - 100.0 fL 87.8 MCH 26.0 - 34.0 pg 28.7 MCHC 30.5 - 36.0 g/dL 32.7 RDW-CV 11.5 - 15.0 % 11.9 Platelet Count 150 - 400 k/uL 307 MPV 9.0 - 12.7 fL 9.7 Neut% % 40.0 Abs Neut (ANC) 1.45 - 7.50 k/uL 3.02 Lymph% % 45.8 Abs Lymph 1.00 - 4.00 k/uL 3.45 [place]% % 8.8 Abs [place] <0.87 k/uL 0.66 Eosin% % 4.4 Abs Eosin <0.46 k/uL 0.33 Baso% % 0.9 Abs Baso <0.11 k/uL 0.07 Immature Gran % % 0.1 IMMATURE GRANS (ABS) <0.10 k/uL <0.03 NRBC /100 WBC 0.0 Absolute nRBC <0.01 k/uL <0.01 DTYPE Auto IgE <114.0 kU/l 32.2 Assessment and Plan: 1) Chronic cough - suspect multifactorial from post nasal drip, GERD, bronchospasm (asthma/COPD) and persistent neurogenic cough - trial gabapentin 300mg qhs for neurogenic cough - gradually wean off hydrocodone-chlorpheniramine - referral to Dr. Chacon for evaluation upper airway pathology contributing - continue management for GERD, COPD/Asthma, rhinitis as below 2) Chronic rhinitis - hx of allergies s/p AIT, recent inhalant serum panel unremarkable - repeat inhalant panel with component testing for dog - trial atrovent nasal spray PRN symptoms - continue loratadine and flonase daily 3) LPRD/GERD - continue protonix - optimize diet and lifestyle modifications 4) COPD/asthma - continue management per pulmonary - wixela BID - Use albuterol inhaler 2 puffs every 4 hours as needed for asthma symptoms (cough, SOB, wheeze) or 30 minutes prior to prolonged exercise. - Patient advised to call if requiring albuterol more than twice a week or more than two times at night as this may indicate need for medication adjustment. - Recommend annual influenza shot vaccine during flu season. Discussed medication dosage, usage, side effects, and goals of treatment in detail. Ian Martins MD [facility] March 02, 2024 documented in this encounter [facility] 03-02-2024 Note HNO ID: [id number] Author: IAN MARTINS MD Service: ? Author Type: Physician Type: Progress Notes Filed: 03/02/2024 12:57 Note Text: Distance Health Visit This is a virtual visit using [employer] Video Visit. It required patient-provider interaction for the medical decision making as documented below. I have communicated my name and active licensure. The patient's identity and physical location were verified at the time of this visit. Either the patient or their legal inbound customer service representative has been informed of the risks and benefits of -- and alternatives to -- treatment through a remote evaluation and consents to proceed with the evaluation remotely. This is a request for consultation by Cielo Jeffries [address] [facility] [id number] Consult requested for an opinion regarding the evaluation and treatment of the above. My final impression and recommendations will be communicated back to the requesting physician by way of the shared medical record or letter via [place] mail.. Sulaiman Estes is a 68 year old patient who presents with chief complaint: chronic cough Chronic cough x 15 years with significant work up, only thing that really seems to help is hydrocodone cough syrup. Cough can be associated with losing her voice. Wheezing is expiratory. Laying flat. Worse with exercise in the beginning but less when continuing exercise. Dx COPD, follows with pulmonary, chest CT with stable nodules. Hx 20 PY smoking history (quit 34 years ago). Answers submitted by the patient for this visit: Allergy Review of Symptoms (Submitted on 03/02/2024) Itchy Eyes: Yes Photophobia (light sensitivity): Yes Nasal Congestion: Yes Runny Nose: Yes all the time, no seasonal variation. Anterior rhinitis. Worse in October and November. Itchy Nose: Yes Itchy throat: Yes A cough: Yes Wheezing: Yes Headaches: Yes Dry skin: Yes Hx of allergy testing locally, did allergy shots which did not help. Main symptoms was recurrent cough. Did immunotherapy for 2 years. Then had allergy testing 7 years later, tried immunotherapy again for 2 years again with no relief. Only thing that controls the cough is the cough medicine - hydrocodone-chlorpheniramine. Tried inhalers with no relief. For rhinitis has tried claritin, flonase 4-5 sinus infections in the last year. Antibiotics 4-5 times per year, typically will help. 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 ENT found deviated septum, no polyps. Patient Entered Data 03/02/2024 Collateral History Allergic rhinitis Yes Skin tested Yes Have asthma Yes Eczema / Dermatitis No Sinus infections Yes Nasal Polyps Not Sure Urticaria / Hives Yes Angioedema No Food Allergy No Stinging insect allergy No Penicillin allergy No 03/02/2024 Environmental Exposure Pets Dog Mouse infestation No Cockroach infestation No Mold or Mildew No Air conditioning Yes Dust mite covers Yes Cigarette / Cigar smoke No Vaping No HISTORY REVIEWED (electronic chart updated): Current Outpatient Medications Medication Sig fluticasone-salmeterol (ADVAIR, WIXELA) 250-50 mcg/dose inhaler inhale 1 puff by mouth and into the lungs twice a day mometasone (NASONEX) 50 mcg/actuation nasal spray USE 2 SPRAYS NASALLY ONCE DAILY predniSONE (DELTASONE) 20 mg tablet Take 2 tablets by mouth once daily. Take with food levalbuterol tartrate HFA (XOPENEX HFA) 45 mcg/actuation inhaler Inhale 2 Puffs as instructed every 6 hours as needed for wheezing/shortness of breath. SAVELLA 12.5 mg (5)-25 mg(8)-50 mg(42) DsPk as directed. pantoprazole DR (PROTONIX) 40 mg tablet Take 40 mg by mouth once daily. cyanocobalamin 1,000 mcg/mL Inject intramuscularly. ALPRAZolam (XANAX) 0.5 mg tablet FLUoxetine (PROZAC) 20 mg capsule Take 20 mg by mouth once daily. one tab daily carvedilol (COREG) 3.125 mg tablet Take 3.125 mg by mouth twice daily with meals. Take one(1) tablet two(2) times daily. pramipexole (MIRAPEX) 0.125 mg tablet Take 0.125 mg by mouth three times daily. one tab daily ergocalciferol, vitamin D2, (CALCIFEROL ORAL) Take by mouth. one tab weekly 50,000 units HYDROcodone-chlorpheniramine (TUSSIONEX) 10-8 mg/5 mL suspension Take by mouth every 12 hours as needed. No current facility-administered medications for this visit. ALLERGIES Allergen Reactions Codeine Itching, Rash Phenobarbital Hives, Itching, Rash Sulfamethoxazole-Tr* Hives Sulfa (Sulfonamide * Rash PAST MEDICAL HISTORY Diagnosis Date Sinus tachycardia No past surgical history on file. Social History Socioeconomic History Marital status: Tobacco Use Smoking status: Former Types: Cigarettes Smokeless tobacco: Never Substance and Sexual Activity Alcohol use: Not Currently Drug use: Never FAMILY HISTORY Problem Relation Age of Onset Asthma Mother Physical video exam: General: alert and appropriate, in no distress, well-hydrated, well nourished and happy (more content not included)... [facility] 02-01-2024 Telephone encounter Note Refill request for advair/wixela Last ordered 08/18/23 ANTELMO 11/24/22 Advised on 12/21/23 to schedule 04/05/24 [facility] 02-01-2024 Miscellaneous Notes Refill request for advair/wixela Last ordered 08/18/23 ANTELMO 11/24/22 Advised on 12/21/23 to schedule 04/05/24 documented in this encounter [facility] 01-21-[address] Jeffries responded in separate encounter [facility] 01-21-[address] Jeffries responded in separate encounter documented in this encounter [facility] 12-21-2023 Telephone encounter Note Refill request for Nasonex. Last filled 07/22/2023 (3 refills). ANTELMO 11/24/2022. NOV NA. Will send patient my chart message to schedule follow up as they are an active user. Will also send staff message to clerical team to call patient to schedule follow up as well. Traci Huerta RN [facility] 12-21-2023 Miscellaneous Notes Refill request for Nasonex. Last filled 07/22/2023 (3 refills). ANTELMO 11/24/2022. NOV NA. Will send patient my chart message to schedule follow up as they are an active user. Will also send staff message to clerical team to call patient to schedule follow up as well. Traci Huerta RN documented in this encounter [facility] 07-22-2023 Miscellaneous Notes Refill request for Anoro. Last filled 03/06/2023 (11 refills). Traci Huerta RN documented in this encounter [facility] 07-03-2023 Miscellaneous Notes I called Ms Estes to update of stable CT results, no answer so a [employer] message was sent. Ct placed for 1 year Cielo Jeffries MD July 03, 2023 9:38 AM documented in this encounter [facility] 03-06-2023 Miscellaneous Notes Refill request for Anoro Last ordered 10/23/22 ANTELMO 11/24/22 documented in this encounter [facility] 01-01-2023 History of Presen t illness Narrative Radiology Service Progress Note PATIENT NAME: Sulaiman Estes DATE OF SERVICE: January 01, 2023 TIME: 4:00 PM PATIENT IDENTITY VERIFICATION COMPLETED USING TWO (2) IDENTIFIERS: Name and Date of confirmed by patient verbally. FALL SCREENING: Has the patient had 2 falls in the last year or 1 fall with injury or currently using an Ambulatory Assistive Device (Walker, Cane, Wheelchair, Crutches, etc.)? No PATIENT GENDER DATA: Female. status: : No status: NO. PATIENT RELEVANT IMPLANT DATA REVIEWED: Yes RADIOLOGY DEPARTMENT: CT; Exam(s) Completed: Chest PERIPHERAL IV DATA: Not applicable SIGNED BY: RT Caryn(R) January 01, 2023 4:00 PM documented in this encounter [facility] 11-24-2022 History of Presen t illness Narrative AMBULATORY TELEPHONE VISIT Sulaiman Estes has consented to this telephone encounter. Persons Present: patient Chief Complaint/Reason: cough HPI: office patient of Dr. Solis, nara was seen on 10/23/22, has been following for COPD and lung nodules. States has history of chronic cough, seemed to be under better control for the past few months. Recently experienced allergy and sinusitis symptoms (nasal congestion, headache, sinuses pain, green nasal discharge), started Zpack about two weeks ago, completed and had some improvement, less headache, less sinuses pain, drainage became clear. States accidentally chocked while eating a few days ago, experiencing increase in cough - clear sputum. Has more wheezing. States still having post nasal drip. Denies fever, chills, heartburn, chest pain States allergic to grass, trees, smoke, dust Airway management Anoro 1 puff daily Not using Xopenex Tussironex Data Reviewed: PFT 05/2022 PRE-BRONCH POST-BRONCH Pre LLN Pred ULN %Pred Post %Pred %Chg SPIROMETRY FVC (L) 2.18 1.99 2.67 3.38 81 2.20 82 0 FEV1 (L) 1.32 1.56 2.10 2.62 62 1.38 65 3 FEV1/FVC 0.60 0.67 0.79 0.90 76 0.63 79 4 PEF L/s (L/sec) 5.25 3.96 5.50 7.03 95 5.39 98 2 FEF50 (L/sec) 0.72 1.34 2.95 4.56 24 0.83 28 15 FIF50 (L/sec) 2.22 2.05 -7 FEF50/FIF50 0.33 90-100 0.40 24 FIVC (L) 2.12 2.13 0 CDO94-66 (L/sec) 0.40 0.93 1.92 3.27 20 0.56 29 40 Time (sec) 12.58 11.27 -10 FET PEF (sec) 0.05 0.05 -2 RAUL (L) 0.05 0.05 7 Vol Extrap % (%) 2 2 7 PFT 04/2022 PRE-BRONCH POST-BRONCH Pre LLN Pred ULN %Pred Post %Pred %Chg SPIROMETRY FVC (L) 2.03 1.99 2.67 3.38 75 2.11 79 3 FEV1 (L) 1.14 1.56 2.11 2.63 54 1.24 58 4 FEV1/FVC 0.56 0.67 0.79 0.90 71 0.59 74 3 PEF L/s (L/sec) 4.23 3.97 5.51 7.04 76 4.79 87 13 FEF50 (L/sec) 0.55 1.34 2.95 4.56 18 0.72 24 31 FIF50 (L/sec) 2.76 2.39 -13 FEF50/FIF50 0.20 90-100 0.30 51 FIVC (L) 1.81 2.00 10 HZS74-21 (L/sec) 0.36 0.94 1.92 3.27 18 0.49 25 34 Time (sec) 12.92 11.58 -10 FET PEF (sec) 0.05 0.06 6 RAUL (L) 0.04 0.05 18 Vol Extrap % (%) 2 2 13 LUNG DIFFUSION DLCOunc (ml/min/mmHg) 26.80 13.56 19.73 25.89 135 VA (L) 5.37 3.41 4.51 5.61 119 DLunc/VA (ml/min/mmHg/L) 4.99 3.21 4.52 5.84 110 BHT (sec) 15.67 IVC (L) 2.00 CT chest 09/23/22 Lung parenchyma and airways: Stable scattered pulmonary nodules with a inbound customer service representative measurements as follows. Stable 0.7 x 1.2 cm nodular density in the right apex with central bronchiectasis versus cavitation. Stable additional irregular 7 mm nodular density in the periphery of the right upper lobe (6, 37). 2 stable subjacent C6 and 7 mm nodular densities in the right upper lobe (6, 42). Stable 3 mm right upper lobe nodule (6, 49). Additional stable 1.1 cm nodular density in the right upper lobe (6, 55). Stable mild reticulation of the subpleural left upper lobe (6, 67). Stable 5 mm left lower lobe nodule (6, 76). Couple of additional stable subcentimeter pulmonary nodules. No new or enlarging pulmonary nodules. Pleural space: No pleural effusion. No pleural thickening. Lower neck, lymph nodes, and mediastinum: The imaged thyroid gland is normal. No lymphadenopathy in the supraclavicular, axillary, mediastinal, or hilar regions. Heart, pericardium, and thoracic vessels: There are scattered atherosclerotic calcifications of the visualized great vessels and thoracic aorta. The thoracic aorta and main pulmonary artery are normal in caliber. The cardiac chambers are normal in size. Coronary artery atherosclerotic calcifications are noted, although the study is not optimized for coronary assessment. No pericardial effusion or thickening. Bones and soft tissues: No destructive bone lesion. Upper abdomen: No abnormality in the imaged upper abdomen within the limits of noncontrast technique. IgE and IgE panels wnl, no eosinophilia Assessment/plan: Patient with COPD (moderate obstructive ventilatory defect) has been experiencing allergy and sinusitis symptoms, recently completed Zpack with improvement in sinus symptoms but now with increase in cough and some wheezing. Will continue Anoro and use Xopanex as needed for wheezing, will prescribe 5 days course of Prednisone 40 mg, continue antihistamines, will add Flonase. Discussed that she needs to schedule follow up CT chest at the end of November and to follow up with Dr. Jeffries in December. To call us back if no improvement in 2-3 days Total Time Spent: 25 minutes Kathleen Walker APRN.FRE[facility]OM documented in this encounter [facility] 10-23-2022 History of Presen t illness Narrative Images from the original note were not included. PULMONARY CLINIC Initial Visit This is a virtual visit using [employer] video visit. It required patient-provider interaction for the medical decision making as documented below. I have communicated my name and active licensure. The patient's identity and physical location were verified at the time of this visit. Either the patient or their legal inbound customer service representative has been informed of the risks and benefits of -- and alternatives to -- treatment through a remote evaluation and consents to proceed with the evaluation remotely. Provider Location: [facility] Facility Patient Location: Patient Home or Place of Residence HPI: Ms. Estes is a 66 year old female with a history of environmental allergies, and a 20 PY smoking history (quit 34 years ago) who was initially seen in 04/2022 for ongoing cough and dyspnea that has progressed since 12/2021. At the time of her initial visit, spirometry showed obstruction that didn't resolve with bronchodilators. She was started on Anoro Ellipta and levalbuterol as needed. An X-ray then showed right apical lung densities, and that was followed by a CT of the chest showing bilateral pulmonary nodules Right apical nodule measuring 12 X 7 mm Two right upper lobe nodules measuring 8 and 7 mm respectively Two nodules in the left upper lobe: apical nodule measuring 7 mm and 5 mm posterior nodule Anoro Ellipta was stopped by the patient last time due to preceived side effects Interval HPI Since last visit, Ms Estes notes that the side chest pain she believed was due to Anoro has actually occurred off of the medicine. She notes that she is able to walk around inside her house, however walking outside can cause some dyspnea. She felt that dyspnea improved on Anoro Ellipta in the past. Recent CT of the chest shows stability of lung nodules PAST MEDICAL HISTORY: PAST MEDICAL HISTORY Diagnosis Date Sinus tachycardia No past surgical history on file. MEDICATIONS: umeclidinium-vilanterol (ANORO ELLIPTA) 62.5-25 mcg/actuation inhaler Inhale 1 Inhalation as instructed once daily. SAVELLA 12.5 mg (5)-25 mg(8)-50 mg(42) DsPk as directed. pantoprazole DR (PROTONIX) 40 mg tablet Take 40 mg by mouth once daily. cyanocobalamin 1,000 mcg/mL Inject intramuscularly. ALPRAZolam (XANAX) 0.5 mg tablet FLUoxetine (PROZAC) 20 mg capsule Take 20 mg by mouth once daily. one tab daily carvedilol (COREG) 3.125 mg tablet Take 3.125 mg by mouth twice daily with meals. Take one(1) tablet two(2) times daily. pramipexole (MIRAPEX) 0.125 mg tablet Take 0.125 mg by mouth three times daily. one tab daily ergocalciferol, vitamin D2, (CALCIFEROL ORAL) Take by mouth. one tab weekly 50,000 units HYDROcodone-chlorpheniramine (TUSSIONEX) 10-8 mg/5 mL suspension Take by mouth every 12 hours as needed. levalbuterol tartrate HFA (XOPENEX HFA) 45 mcg/actuation inhaler Inhale 1-2 Puffs as instructed every 4 hours as needed for wheezing/shortness of breath. ALLERGIES: ALLERGIES Allergen Reactions Codeine Itching, Rash Phenobarbital Hives, Itching, Rash Sulfamethoxazole-Tr* Hives Sulfa (Sulfonamide * Rash SOCIAL HISTORY: Social History Tobacco Use Smoking status: Former Types: Cigarettes Smokeless tobacco: Never Substance Use Topics Alcohol use: Not Currently Drug use: Never FAMILY HISTORY: FAMILY HISTORY Problem Relation Age of Onset Asthma Mother VIDEO EXAM: GENERAL: alert and appropriate, in no distress and well-hydrated, well nourished SKIN: no rash noted HEAD: normocephalic, no abnormality or lesion noted EYES: no injection and visual acuity is grossly normal EARS: hearing grossly normal NOSE: external nose normal without rhinorrhea NECK: full ROM, no cervical LNs noted RESPIRATORY: breathing non-labored CHEST: equal chest rise with normal respiratory effort NEUROLOGIC: no obvious deficit DATA: Diagnostic tests reviewed for today's visit, films/specimens were personally reviewed by me: Most recent lab and imaging results Echocardiogram Last Echocardiogram No resulted procedures found. Labs: NT PRO BNP No results found for: PBNP Chemistries No results found for: NA, K, CHLOR, CO2, BUN, CREAT, EGFROTH, GLUC, ANION Liver Function No results found for: AST, ALT, ALKPHOS, TBILI CBC Lab Results Component Value Date HB 12.9 06/23/2022 HB 12.1 05/07/2022 HCT 39.5 06/23/2022 HCT 37.1 05/07/2022 WBC 7.54 06/23/2022 WBC 6.84 05/07/2022 PLT 307 06/23/2022 PLT 321 05/07/2022 PFT: Last Spirometry SPIROMETRY WITH DILATOR IF OBSTRUCTED Collected: 06/23/2022 11:33 AM (Final result) Narrative: [facility] [address] 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 4 puffs levalbuterol (180 mg) given by MDI via holding chamber. HR pre =109 /min, HR post =120 /min. Anoro last used 8am, Xopenex 2-3 weeks ago.//KLW IMPRESSION: Spirometry indicates moderate obstruction. There was not a significant bronchodilator response. Electronically Signed On 06-23-2022 14:58:55 EST by Johnny Ignacio ID: [id number] Name: SULAIMAN ESTES Race: White Ht: 60.63 in Wt: 139.77 lbs Age: 66 Gender: Female : 1955 Dx: Smoking Hx: Non-smoker Doctor: CIELO JEFFRIES Test Date: 06/23/2022 Site: Tech: Leno Weiss PRE-BRONCH POST-BRONCH Pre LLN Pred ULN %Pred Post %Pred %Chg SPIROMETRY FVC (L) 2.18 1.99 2.67 3.38 81 2.20 82 0 FEV1 (L) 1.32 1.56 2.10 2.62 62 1.38 65 3 FEV1/FVC 0.60 0.67 0.79 0.90 76 0.63 79 4 PEF L/s (L/sec) 5.25 3.96 5.50 7.03 95 5.39 98 2 FEF50 (L/sec) 0.72 1.34 2.95 4.56 24 0.83 28 15 FIF50 (L/sec) 2.22 2.05 -7 FEF50/FIF50 0.33 90-100 0.40 24 FIVC (L) 2.12 2.13 0 WXF17-67 (L/sec) 0.40 0.93 1.92 3.27 20 0.56 29 40 Time (sec) 12.58 11.27 -10 FET PEF (sec) 0.05 0.05 -2 RAUL (L) 0.05 0.05 7 Vol Extrap % (%) 2 2 7 Comments: ATS/ERS acceptability and repeatability standards for spirometry met. 4 puffs levalbuterol (180 mg) given by MDI via holding chamber. HR pre =109 /min, HR post =120 /min. Anoro last used 8am, Xopenex 2-3 weeks ago.//KLW IMAGING CT Chest Last CT/CTA Chest/Lungs CT CHEST WO IVCON Exam End: 09/23/2022 8:24 AM (Final result) Narrative: * * *Final Report* * * DATE OF EXAM: Sep 23 2022 8:23AM [facility] [id number] - CT CHEST WO IVCON / PROCEDURE REASON: Lung nodules * * * * Physician Interpretation * * * * EXAMINATION: CHEST CT WITHOUT CONTRAST CLINICAL HISTORY: Lung nodule Technique: Spiral CT acquisition of the chest from the thoracic inlet to the upper abdomen without contrast. MQ: [id number] CT Radiation dose: Integrated Dose-length product (DLP) for this visit = 143 mGy*cm CT Dose Reduction Employed: Automated exposure control(AEC) and iterative recon Comparison: CT chest dated May 23, 2022 RESULT: Limitations: None. Lines, tubes, and devices: None. Lung parenchyma and airways: Stable scattered pulmonary nodules with a inbound customer service representative measurements as follows. Stable 0.7 x 1.2 cm nodular density in the right apex with central bronchiectasis versus cavitation. Stable additional irregular 7 mm nodular density in the periphery of the right upper lobe (6, 37). 2 stable subjacent C6 and 7 mm nodular densities in the right upper lobe (6, 42). Stable 3 mm right upper lobe nodule (6, 49). Additional stable 1.1 cm nodular density in the right upper lobe (6, 55). Stable mild reticulation of the subpleural left upper lobe (6, 67). Stable 5 mm left lower lobe nodule (6, 76). Couple of additional stable subcentimeter pulmonary nodules. No new or enlarging pulmonary nodules. Pleural space: No pleural effusion. No pleural thickening. Lower neck, lymph nodes, and mediastinum: The imaged thyroid gland is normal. No lymphadenopathy in the supraclavicular, axillary, mediastinal, or hilar regions. Heart, pericardium, and thoracic vessels: There are scattered atherosclerotic calcifications of the visualized great vessels and thoracic aorta. The thoracic aorta and main pulmonary artery are normal in caliber. The cardiac chambers are normal in size. Coronary artery atherosclerotic calcifications are noted, although the study is not optimized for coronary assessment. No pericardial effusion or thickening. Bones and soft tissues: No destructive bone lesion. Upper abdomen: No abnormality in the imaged upper abdomen within the limits of noncontrast technique. Production Sanitizer (topogram) images: No additional findings. Impression: IMPRESSION: Stable pulmonary nodules. No new or enlarging pulmonary nodules. No suspect intrathoracic lymphadenopathy. Team Automobile Assembler: MIKE Transcribe Date/Time: Sep 24 2022 9:58A Dictated by : KENDELL BRADEN MD This examination was interpreted and the report reviewed and electronically signed by: KENDELL BRADEN MD on Sep 24 2022 10:05AM EST Assessment and Plan: Sulaiman Estes is a 67 year old female who presents for evaluation of 1. Shortness of breath - ICD9: 786.05, ICD10: R06.02 (primary diagnosis) 2. Chronic obstructive pulmonary disease, unspecified COPD type (HCC) - ICD9: 496, ICD10: J44.9 3. Lung nodules - ICD9: 793.19, ICD10: R91.8 - Anoro Ellipta started again - Repeat CT ordered for 3 months in November I spent a total of 30 minutes on the date of the service which included preparing to see the patient, [id number] patient care, and completing clinical documentation Cielo Jeffries MD October 24:03 PM [facility] documented in this encounter [facility] 09-23-2022 History of Presen t illness Narrative Radiology Service Progress Note PATIENT NAME: Sulaiman Estes DATE OF SERVICE: September 23, 2022 TIME: 2:08 PM PATIENT IDENTITY VERIFICATION COMPLETED USING TWO (2) IDENTIFIERS: Name and Date of confirmed by patient verbally. FALL SCREENING: Has the patient had 2 falls in the last year or 1 fall with injury or currently using an Ambulatory Assistive Device (Walker, Cane, Wheelchair, Crutches, etc.)? No PATIENT GENDER DATA: Female. status: : No status: NO. PATIENT RELEVANT IMPLANT DATA REVIEWED: Yes RADIOLOGY DEPARTMENT: CT; Exam(s) Completed: Chest PERIPHERAL IV DATA: Not applicable SIGNED BY: RT Caryn(R) September 23, 2022 2:08 PM documented in this encounter [facility] 07-22-2022 History of Presen t illness Narrative Per Dr. Call, Sulaiman was provided with Powerstep Original Inserts, size 7-7.5 Womens, and instructed/educated in its application, wear, and care. All questions were answered, and patient was able to demonstrate competence with the necessary skills to utilize the above equipment. Anika Montiel RN Images from the original note were not included. Initial Podiatric Office Visit: Chief Complaint: This 66 year old female who presents with chief complaint:b/l foot and heel pain HPI Patient presents to clinic for evaluation of b/l feet. Patient has pain in b/l foot and heel that has been present for 1-1.5 months. She states the pain is present when she first wakes up or after work. 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 She is now using joshi Cushioned heel lifts Ice/ heat Ibuprofen/tylenol Nothing really helps other than rest. PAIN EVALUATION 07/16/2022 1048 Pain Level: 6 Pain Location: Other: See Comment Description: Aching;Dull;Pressure;Pulsating;R adiating;Sharp;Stiffness;Throbbi ng;Tightness Duration Units: Months Frequency: Intermittent Intervention/Comfort measure: Relaxation;Cold;Heat;Massage;Sup port surface Comments: Both feet. Mainly my heels. No results found for: HBA1C PCP: No primary care provider on file. PAST MEDICAL HISTORY Diagnosis Date Sinus tachycardia Current Outpatient Medications Medication Sig SAVELLA 12.5 mg (5)-25 mg(8)-50 mg(42) DsPk as directed. pantoprazole DR (PROTONIX) 40 mg tablet Take 40 mg by mouth once daily. cyanocobalamin 1,000 mcg/mL Inject intramuscularly. ALPRAZolam (XANAX) 0.5 mg tablet carvedilol (COREG) 3.125 mg tablet Take 3.125 mg by mouth twice daily with meals. Take one(1) tablet two(2) times daily. pramipexole (MIRAPEX) 0.125 mg tablet Take 0.125 mg by mouth three times daily. one tab daily ergocalciferol, vitamin D2, (CALCIFEROL ORAL) Take by mouth. one tab weekly 50,000 units HYDROcodone-chlorpheniramine (TUSSIONEX) 10-8 mg/5 mL suspension Take by mouth every 12 hours as needed. levalbuterol tartrate HFA (XOPENEX HFA) 45 mcg/actuation inhaler Inhale 1-2 Puffs as instructed every 4 hours as needed for wheezing/shortness of breath. umeclidinium-vilanterol (ANORO ELLIPTA) 62.5-25 mcg/actuation inhaler Inhale 1 Inhalation as instructed once daily. (Patient not taking: Reported on 07/22/2022) FLUoxetine (PROZAC) 20 mg capsule Take 20 mg by mouth once daily. one tab daily No current facility-administered medications for this visit. ALLERGIES Allergen Reactions Codeine Itching, Rash Phenobarbital Hives, Itching, Rash Sulfamethoxazole-Tr* Hives Sulfa (Sulfonamide * Rash No past surgical history on file. FAMILY HISTORY Problem Relation Age of Onset Asthma Mother Social History Tobacco Use Smoking status: Former Types: Cigarettes Smokeless tobacco: Never Substance Use Topics Alcohol use: Not Currently Drug use: Never REVIEW OF SYSTEMS GENERAL: Negative for Malaise, significant weight loss, fever RESPIRATORY: Negative for cough, wheezing and shortness of breath CARDIOVASCULAR: Negative for chest pain, leg swelling and palpitations GI: Negative for abdominal discomfort, blood in stools or black stools and change in bowel habits : Negative for dysuria, frequency and incontinence MUSCULOSKELETAL: Negative for joint pain or swelling, back pain, and muscle pain. SKIN: Negative for lesions, rash, and itching. HEMATOLOGY/LYMPHOLOGY Negative for prolonged bleeding, bruising easily, and swollen nodes. ENDOCRINE: Negative for cold or heat intolerance, polyuria, polydipsia and goiter. NEURO: negative Physical Exam: Constitutional: Pt is a well developed 66 year old female who is alert, oriented and cooperative Eyes: Following during examination. No redness or drainage. Respiratory: RR normal and nonlabored. Even breathing. No evidence of distress or shortness of breath. Psychology: Patient is engaged during conversation. Normal affect and mood. Does not appear depressed or anxious during encounter. Vascular: Dorsalis pedis and posterior tibial pulses palpable as b/l Capillary Fill time < 5 seconds to digits 1-5 b/l Skin temperature warm to warm proximal to distal b/l Hair growth present to digits Neurological: intact light touch/epicritic sensation - tinel b/l Intact protective sensation no significant neurological deficits Dermatological: Nails 1-5 b/l appear normal. Webspaces clean and dry 1-4 b/l. Skin appears well hydrated and supple. good color, texture, turgor. No open lesions present. No callosities present. Musculoskeletal/Orthopaedic: Patient has pain to palpation of b/l medial arch of b/l feet. Lesser pain with palpation to medial calcaneal tubercle Foot type is neutral structurally AJ ROM is full with knee extended and flexed 1st MPJ is full when loaded and no pain or crepitus are noted with ROM. MTJ, STJ are full and free of pain and crepitus. +5/5 muscle strength dorsiflexion, plantarflexion, inversion, eversion b/l Radiographs: 3 views b/l foot ordered July 22, 2022: I have personally reviewed and interpreted these XR myself: no acute pathology. Small heel spur of left lower extremity ASSESSMENT: (M72.2) Plantar fasciitis (primary encounter diagnosis) PLAN: 1. History and physical examination performed. 2. XR reviewed with patient and interpreted today 3. Discussed b/l heel pain. Recommend stretching, icing, inserts. Will call in mobic. 4. She has more arch pain so I think the inserts will help. If she continues with tubercle pain, could consider injection 5. If pain fails to improve, consider injection Dc Call [facility] [address] [facility] [address] Dept: [phone] Dept AMB ROOMING INTAKE FLOWSHEET DATA Pain Pain Level: 6 Pain Location: Other: See Comment Description: Aching, Dull, Pressure, Pulsating, Radiating, Sharp, Stiffness, Throbbing, Tightness Duration Units: Months Frequency: Intermittent Intervention/Comfort measure: Relaxation, Cold, Heat, Massage, Support surface Comments: Both feet. Mainly my heels. Patient presents with: Left Foot - New, Pain Right Foot - New, Pain Patient states left is worse than right. Imelda Keys LPN documented in this encounter [facility] 07-22-2022 Instructions Dc Call - 07/22/2022 9:44 AM EDT Images from the original note were not included. What is Plantar Fasciitis? Plantar fasciitis is the most common cause of heel pain. The pain is caused by inflammation of the plantar fascia. If you strain your plantar fascia, it becomes weak, swollen and irritated (inflamed). The resulting pain may be isolated in the heel or may appear at different points on the bottom of the foot, from time to time; it may occur in one foot or both. Some think that plantar fasciitis pain is caused by irritation of nerves from tissue swelling or inflammation, but it is debatable. Plantar fasciitis is common in middle-aged people; it also occurs in younger people who are on their feet a lot, such as athletes or soldiers. The plantar fascia is a strong band of connective tissue that extends from the base of the toes, along the bottom of the foot, to the bottom of the heel (calcaneous bone); it acts like a bowstring to maintain the arch of the foot. What are heel spurs? The inflammatory reaction of the heel bone may produce spike-like projections of new bone, called heel spurs. The spurs sometimes show on X-rays. They neither cause the initial pain nor do they cause the initial problem. However, later, having to walk on spurs may cause sharp pain. What causes plantar fasciitis? Plantar fasciitis is caused by straining the ligament that supports your arch. Repeated strain can cause tiny tears in the ligament. These lead to pain and swelling. During walking, the plantar fascia experiences tension up to twice the body weight with each step. While this is normal, those who spend much time on their feet, such as nurses, divisional human resources director/waiters, and mail carriers, often experience plantar fasciitis. Athletes involved in tennis or other racquet sports, race walking, jogging or running also show a higher incidence of plantar fasciitis than do those participating in other activities. Thus, it's clear that plantar fasciitis is predominantly an overuse injury. In fact, any activity that results in prolonged tension and stress on the plantar fascia may cause plantar fasciitis. It is possible that changes in footwear may play a role in causing plantar fasciitis, no matter what activity is occurring. Those who are overweight are prone to plantar fasciitis. This is true even for sedentary people who get little physical activity. Abnormalities of the foot and ankle joints may predispose some individuals to development of plantar fasciitis (specifically, over pronation of the subtalar joint). Contributing Factors * Flat feet * Toe running, hill running * Sudden weight increase * High-arched, rigid feet * Soft terrain, e.g. running on sand * Obesity * Pronated feet (rolled inward) * Sudden increase in activity * Family tendency * Poor shoe support * Worn out or poorly fitted shoes * Increasing age * Walking, standing or running for long periods of time, especially on hard surfaces. How is the Injury Treated? Rest Your Feet: Limit, or if possible, stop activities that are causing your heel pain. Try to avoid running or walking on hard surfaces, such as concrete. Use pain as your guide. If your foot is too painful, rest it. Ice: Ice the sore area for 30 to 60 minutes, several times a day, to reduce inflammation and relieve pain. Apply a plastic bag of crushed ice (or a bag of frozen peas) over a towel. Ice the sore area for 15 minutes after activity/exercise. Application of heat is not generally recommended, as heat expands the bone and connective tissue, perhaps exerting greater pressure on nerves and thereby increasing pain. If heat is used, follow it with ice. Medication: If your condition developed recently, anti-inflammatory/analgesic medication, combined with heel pads (see below) may be all that is necessary to relieve pain and to reduce inflammation. If no pain relief has occurred after 2-3 weeks, however, your doctor may inject either cortisone or local anesthetic directly into the tender area. Exercises: Do simple exercises, such as calf stretches and towel stretches (see below) several times a day, especially when you first get up in the morning. These can help your ligament become more flexible and strengthen the muscles that support your arch. Shoes: Poorly fitting shoes can cause plantar fasciitis. The best type of shoe to wear is a good walking or running shoe with good shock absorption and excellent arch support. You should choose the one that fits the best. [place] with your athletic shoes to find a pair that is comfortable and causes fewer symptoms. Put your shoes on as soon as you get out of bed; going barefoot or wearing slippers may make your pain worse. Good brands include (but are not limited to): [employer] Balance, Asics, Saucony, SAS and Mervidhya s. Taping: Your doctor may tape your foot to maintain the arch. This takes some of the tension off the plantar fascia. Weight Loss: If your weight is putting extra stress on your feet, your doctor may encourage you to try a weight-loss program. Orthotics: An orthotic insole is a molded piece of rubber, plastic, or other material that you insert into your shoe. It corrects the alignment of your foot and cushions your foot from excessive pounding. These may be prescription or non-prescription. Prescription orthotics are custom-fitted and may fit better and control pain better, but are very expensive. Night Splints: A night splint holds the foot with the toes pointed up and the ankle at a 90-degree angle. This position applies a constant, gentle stretch to the plantar fascia. Corticosteroid Shots: Steroids may be injected into the tender area to reduce inflammation. REHAB Exercises to stretch the plantar fascia, the calf muscles, and the Achilles tendon. Tightness of the muscles of the calves may contribute to plantar fasciitis, so stretching the calf muscles is important to rehabilitation, as is stretching of the plantar fascia itself. Plantar fascial stretches Assisted Dorsiflexion/Plantar Fascia Stretch: Sit on the floor or ground, barefoot, with both legs outstretched. Use a towel or elastic band and wrap it around the ball (and not the toes) of the affected foot. Use the towel or elastic band to provide resistance to upward movement of the forefoot. Pull foot upward (toward your body) with the help of the elastic band or towel, and then return to the starting position. Ten repetitions are recommended. Perform the sequence at least three times a day. Alternate Plantar Fascia Stretch: Sit upright in a chair, barefoot. Place the ankle of the affected foot on your opposite knee. Using the same hand as the affected foot, reach across and grab the toes. Flex the ankle toward and pull the toes toward the wild. To test the stretch, place the thumb of your hand on the bottom of the foot. You should be able to feel the cord-like plantar fascia, running the length of the foot. Hold the stretch for a count of 10, then relax. Repeat 10 times. Do the sequence at least three times a day. Achilles/Calf Stretches Strengthening the muscles of the calves may contribute to successful rehabilitation of plantar fasciitis, as well as prevent reoccurrence. The exercises below will help strengthen the calf muscles. Calf and Achilles Tendon Stretch (Gastrocnemius Stretch): Face a wall, standing an arm's length away. Place one foot back. Place both hands on the wall. Bend the elbows and knee of your forward leg, keeping the heel of the backward foot on the floor and keeping your body straight (aligned), until your forehead nearly touches the wall, or until significant stretch is felt in the muscles of the calf of the backward leg. Hold this position for 10 to 15 seconds. Extend elbows (straighten your arms and stand upright again) and maintain this position for 10 seconds. Repeat this cycle 15 to 20 times. Switch legs and repeat the exercise. Powerstep Original Full length. Can purchase at [employer] here in [place], [employer] in [place] or [place]. Also can find in [employer] in [facility]. Powersteps can also be purchased online, starting around $25.00 If you have a metatarsal or dancer pad for your feet apply the pad directly to the insole so you can interchange between your shoes. Find a shoe with a removable insole and take this out and replace with your powerstep insole. Always bring powersteps with you when shopping for shoes so that you can make sure that everything fits well together documented in this encounter [facility] 07-08-2022 Miscellaneous Notes Please see phone encounter from 07/07/2022 regarding same issue. Resolved. Traci Huerta RN documented in this encounter [facility] 06-23-2022 History of Presen t illness Narrative PULM FUNCTION SMARTBLOCK: Provider: Cielo Jeffries MD Spirometry w/BD: 1 documented in this encounter [facility] 06-23-2022 Instructions Cielo Jeffries MD - 06/23/2022 11:24 AM EST -The most likely cause for your nodules could be related to an infection that you had. There is always a possibility for lung cancer, however it is less likely in this scenario. We will repeat the imaging in three months and dending on what we find, we will decide on a plan -We will repeat the breathing tests today to see if the obstruction resolved -Your cough could be related to an underlying allergy process with airway reactivity or asthma. Generally inhales help with that. We will do some blood work today to see if you could benefit form a stronger medication that can address the allergies -Depending on these tests I might change your inhalers to have something with a steroid in it -I will see you in three months after your CT scan as a virtual visit documented in this encounter [facility] 06-23-2022 History of Presen t illness Narrative Images from the original note were not included. PULMONARY CLINIC Return Visit June 23, 2022 HPI: Ms. Estes is a 66 year old female with a history of environmental allergies, and a 20 PY smoking history (quit 34 years ago) who was initially seen in 04/2022 for ongoing cough and dyspnea that has progressed since 12/2021. At the time of her initial visit, spirometry showed obstruction that didn't resolve with bronchodilators. She was started on Anoro Ellipta and levalbuterol as needed. An X-ray then showed right apical lung densities, and that was followed by a CT of the chest showing bilateral pulmonary nodules Right apical nodule measuring 12 X 7 mm Two right upper lobe nodules measuring 8 and 7 mm respectively Two nodules in the left upper lobe: apical nodule measuring 7 mm and 5 mm posterior nodule Interval HPI Since last visit, the patient had a PET scan showing low level FDG uptake in the right upper lobe nodules (max SUV 0.9) as well las the left upper lobe nodules. She mentions that her respiratory symptoms have improved, especially dyspnea on exertion. Her cough hasn't improved much and she still uses hydrocodone-chlorpheniramine consistently. She has been using Anoro Ellipta daily and was wondering whether she could stop it She denies hemoptysis, unintentional weight loss or recent infections. She denies fever, chills and night sweats. 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 This was long ago A complete ROS was performed all others systems are negative PAST MEDICAL HISTORY: PAST MEDICAL HISTORY Diagnosis Date Sinus tachycardia No past surgical history on file. MEDICATIONS: umeclidinium-vilanterol (ANORO ELLIPTA) 62.5-25 mcg/actuation inhaler Inhale 1 Inhalation as instructed once daily. FLUoxetine (PROZAC) 20 mg capsule Take 20 mg by mouth once daily. one tab daily carvedilol (COREG) 3.125 mg tablet Take 3.125 mg by mouth twice daily with meals. Take one(1) tablet two(2) times daily. pramipexole (MIRAPEX) 0.125 mg tablet Take 0.125 mg by mouth three times daily. one tab daily ergocalciferol, vitamin D2, (CALCIFEROL ORAL) Take by mouth. one tab weekly 50,000 units HYDROcodone-chlorpheniramine (TUSSIONEX) 10-8 mg/5 mL suspension Take by mouth every 12 hours as needed. levalbuterol tartrate HFA (XOPENEX HFA) 45 mcg/actuation inhaler Inhale 1-2 Puffs as instructed every 4 hours as needed for wheezing/shortness of breath. ALLERGIES: ALLERGIES No Known Allergies SOCIAL HISTORY: Social History Tobacco Use Smoking status: Former Types: Cigarettes Smokeless tobacco: Never FAMILY HISTORY: FAMILY HISTORY Problem Relation Age of Onset Asthma Mother PHYSICAL EXAM: VITALS: 06/23/22 1049 BP: 138/77 BP Site: Right Arm BP Position: Sitting BP Cuff Size: Regular Adult Pulse: 94 Resp: 18 Temp: 36.5 C (97.7 F) TempSrc: Skin SpO2: 98% Weight: 63.4 kg (139 lb 12.4 oz) General appearance: Alert, NAD Ears/Nose/Mouth/Throat: Non-cyanotic lips. Respiratory: Lungs clear to auscultation. No wheezing, rhonchi, rales. Diaphragmatic excursion and chest wall symmetry appear equal and normal. No accessory muscle use. Cardiovascular: RRR without gallop, or rubs. Abdomen/GI: Abdomen soft, non-tender, non-distended. Extremities: No clubbing or cyanosis of fingers. No cracking, pitting or petechiae on fingers. Musculoskeletal: Spine shows no kyphosis or scoliosis. Muscles show no clear abnormality. Skin: No petechiae, ecchymoses, rash noted. Neuro: Oriented X 3. Normal mood and affect. DATA: Diagnostic tests reviewed for today's visit, films/specimens were personally reviewed by me: Most recent lab and imaging results Labs: Hemoglobin (g/dL) Date Value 05/07/2022 12.1 Hematocrit (%) Date Value 05/07/2022 37.1 WBC (k/uL) Date Value 05/07/2022 6.84 PFT: Last Spirometry SPIROMETRY WITH DILATOR IF OBSTRUCTED Collected: 05/07/2022 8:54 AM (Final result) Narrative: [facility] [address] 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 4 puffs Albuterol (360 mcg) delivered by MDI via holding chamber. HR Pre=98/min, HR Post=97/min. DLCO-ATS/ERS acceptability and repeatability standards for DLCO met. DLCO is not hemoglobin corrected. No prescribed inhalers. IMPRESSION: Spirometry indicates moderately severe obstruction. There was not a significant bronchodilator response. The diffusing capacity is normal. Electronically Signed On 05-07-2022 11:05:33 EST by Johnny Ignacio ID: [id number] Name: CONSUELO ESTESTHIJohana Tucker Race: White Ht: 60.63 in Wt: 139.33 lbs Age: 66 Gender: Female : 1955 Dx: Chronic cough Smoking Hx: Non-smoker Doctor: CIELO JEFFRIES Test Date: 05/07/2022 Site: Tech: Abhishek Leno PRE-BRONCH POST-BRONCH Pre LLN Pred ULN %Pred Post %Pred %Chg SPIROMETRY FVC (L) 2.03 1.99 2.67 3.38 75 2.11 79 3 FEV1 (L) 1.14 1.56 2.11 2.63 54 1.24 58 4 FEV1/FVC 0.56 0.67 0.79 0.90 71 0.59 74 3 PEF L/s (L/sec) 4.23 3.97 5.51 7.04 76 4.79 87 13 FEF50 (L/sec) 0.55 1.34 2.95 4.56 18 0.72 24 31 FIF50 (L/sec) 2.76 2.39 -13 FEF50/FIF50 0.20 90-100 0.30 51 FIVC (L) 1.81 2.00 10 VUN87-06 (L/sec) 0.36 0.94 1.92 3.27 18 0.49 25 34 Time (sec) 12.92 11.58 -10 FET PEF (sec) 0.05 0.06 6 RAUL (L) 0.04 0.05 18 Vol Extrap % (%) 2 2 13 LUNG DIFFUSION DLCOunc (ml/min/mmHg) 26.80 13.56 19.73 25.89 135 VA (L) 5.37 3.41 4.51 5.61 119 DLunc/VA (ml/min/mmHg/L) 4.99 3.21 4.52 5.84 110 BHT (sec) 15.67 IVC (L) 2.00 Comments: ATS/ERS acceptability and repeatability standards for spirometry met. 4 puffs Albuterol (360 mcg) delivered by MDI via holding chamber. HR Pre=98/min, HR Post=97/min. DLCO-ATS/ERS acceptability and repeatability standards for DLCO met. DLCO is not hemoglobin corrected. No prescribed inhalers. IMAGING CT Chest 04/[address]/CTA Chest/Lungs CT CHEST WO IVCON Exam End: 05/23/2022 10:39 AM (Final result) Narrative: * * *Final Report* * * DATE OF EXAM: May 23 2022 10:39AM [facility] 0541 - CT CHEST WO IVCON / PROCEDURE REASON: Lung nodules * * * * Physician Interpretation * * * * EXAMINATION: CHEST CT WITHOUT CONTRAST CLINICAL HISTORY: This study is done for further evaluation of nodular density seen on chest x-ray Technique: Spiral CT acquisition of the chest from the thoracic inlet to the upper abdomen without contrast. MQ: [id number] CT Radiation dose: Integrated Dose-length product (DLP) for this visit = 144 mGy*cm CT Dose Reduction Employed: Automated exposure control(AEC) and iterative recon Comparison: Chest x-ray 05/07/2022 RESULT: Limitations: None. Lines, tubes, and devices: None. Lung parenchyma and airways: Bilateral pulmonary nodules. For example: *1.2 x 0.7 cm nodular density right lung apex (6:27) *2 adjacent nodules in the right upper lobe which correspond to the density seen on chest x-ray which measure 8 mm and 7 mm (6:47) *5 mm nodule adjacent to blood vessels in the posterior left upper lobe (6:76) *7 mm nodule left lung apex (6:29) No consolidation. Central airways are patent. Pleural space: No pleural effusion. No pleural thickening. Lower neck, lymph nodes, and mediastinum: The imaged thyroid gland is normal. No lymphadenopathy in the supraclavicular, axillary, mediastinal, or hilar regions. Heart, pericardium, and thoracic vessels: The thoracic aorta and main pulmonary artery are normal in caliber. The cardiac chambers are normal in size. Mild coronary artery atherosclerotic calcifications are noted, although the study is not optimized for coronary assessment. No pericardial effusion or thickening. Bones and soft tissues: No destructive bone lesion. Chest wall is unremarkable. Upper abdomen: No abnormality in the imaged upper abdomen. Production Sanitizer (topogram) images: No additional findings. Impression: IMPRESSION: 1. Bilateral pulmonary nodules 2. No thoracic lymphadenopathy Incidental Finding: Follow-up Acuity: Incidental Finding: Solid >8 mm Routing Code: RI_1 Recommendation: Consult to Lung Nodule Clinic - [id number] Time Frame: at the discretion of the clinical team. Comments: Follow-up for this incidentally detected lung nodule with PET/CT or Biopsy within 4 weeks, or Chest CT exam in 3 months is recommended. Team Automobile Assembler: MIKE Transcribe Date/Time: May 23 2022 10:44A Dictated by : CHRISTELLE HAINES MD This examination was interpreted and the report reviewed and electronically signed by: CHRISTELLE HAINES MD on May 23 2022 10:57AM EST Assessment and Plan: Sulaiman Estes is a 66 year old female who presents for evaluation of 1. Lung nodules - ICD9: 793.19, ICD10: R91.8 (primary diagnosis) 2. Chronic obstructive pulmonary disease, unspecified COPD type (HCC) - ICD9: 496, ICD10: J44.9 3. Shortness of breath - ICD9: 786.05, ICD10: R06.02 4. Chronic cough - ICD9: 786.2, ICD10: R05.3 -Regarding pulmonary nodules, given prior smoking (20 PY), there is an underlying risk for cancer. The patient, however had an infection at the time prior to her current presentation. We will repeat the imaging in 3 months, if not resolved by then then we will assess for potential biopsy -Repeat spirometry today. The patient was hoping to be off of Anoro Ellipta although she feels much better in comparison to two months before. -Repeat CBC with diff (absolute eosinophil count of 420), IgE and inhalant allergens with history of allergies. If IgE elevated could possibly benefit form biologics. Could also potentially switch inhalers to LABA-ICS -Follow up in three months as virtual visit Cielo Jeffries MD June 2338:42 PM [facility] documented in this encounter [facility] 06-17-2022 Note HNO ID: [id number] Author: Sherice Rios RT(R) Service: Nuclear Medicine Author Type: Technologist Type: Progress Notes Filed: 06/17/2022 8:15 AM Note Text: RADIOLOGY SERVICE PROGRESS NOTE SERVICE DATE: 06/17/2022 SERVICE TIME: 8:15 AM PATIENT IDENTITY VERIFICATION COMPLETED USING TWO (2) STANDARD IDENTIFIERS: Name and Date of confirmed by patient verbally FALL SCREENING: Has the patient had 2 falls in the last year or 1 fall with injury or currently using an Ambulatory Assistive Device (Walker, Cane, Wheelchair, Crutches, etc.)? No PATIENT GENDER DATA: .female : No ALLERGIES: Reviewed and unchanged MEDICATIONS REVIEWED: No PATIENT RELEVANT IMPLANT DATA REVIEWED: Not Applicable CREATININE: No results found for: CREAT, EGFROTH, EGFRAA P.O.C.T. RESULTS: N/A June 17, [address] PERFORMED: No IV SITE: Ambulatory: NM only - direct IV injection in the Right antecubital site POST EXAM PIV STATUS: Not applicable PROCEDURE TYPE: NM INJECT: PET/CT BODY SCAN. 11.2 mCi F18 FDG. No other medications given.. ADMINISTRATION TIME: 0810 PATIENT DISCHARGED TO: Ambulatory patient, left NM department area. A Diagnostic radioactive procedure has taken place, with no further precautions necessary other than routine body substance precautions. More information regarding radiation safety can be found using this link: [email or web address] [email or web address] %[email or web address]-%20Diagnostic%20Nuclear%20Me dicine%[email or web address] SIGNATURE: Sherice Rios RT(R) PATIENT NAME: Sulaiman Estes DATE: June 17, 2022 TIME: 8:15 AM PAGER/CONTACT #: [facility] 06-17-2022 History of Presen t illness Narrative RADIOLOGY SERVICE PROGRESS NOTE SERVICE DATE: 06/17/2022 SERVICE TIME: 8:15 AM PATIENT IDENTITY VERIFICATION COMPLETED USING TWO (2) STANDARD IDENTIFIERS: Name and Date of confirmed by patient verbally FALL SCREENING: Has the patient had 2 falls in the last year or 1 fall with injury or currently using an Ambulatory Assistive Device (Walker, Cane, Wheelchair, Crutches, etc.)? No PATIENT GENDER DATA: .female : No ALLERGIES: Reviewed and unchanged MEDICATIONS REVIEWED: No PATIENT RELEVANT IMPLANT DATA REVIEWED: Not Applicable CREATININE: No results found for: CREAT, EGFROTH, EGFRAA P.O.C.T. RESULTS: N/A June 17, [address] PERFORMED: No IV SITE: Ambulatory: NM only - direct IV injection in the Right antecubital site POST EXAM PIV STATUS: Not applicable PROCEDURE TYPE: NM INJECT: PET/CT BODY SCAN. 11.2 mCi F18 FDG. No other medications given.. ADMINISTRATION TIME: 0810 PATIENT DISCHARGED TO: Ambulatory patient, left NM department area. A Diagnostic radioactive procedure has taken place, with no further precautions necessary other than routine body substance precautions. More information regarding radiation safety can be found using this link: [email or web address] [email or web address]-%20Diagnostic%20N uclear%20Medicine%20Procedures.p df SIGNATURE: RT Jamarcus(R) PATIENT NAME: Sulaiman Estes DATE: June 17, 2022 TIME: 8:15 AM PAGER/CONTACT #: documented in this encounter [facility] 06-02-2022 History of Presen t illness Narrative Incidental Lung Nodule Enrollment Enrolled in Lung Nodule program: No Lung Nodule outreach: No outreach - Pulmonary Lung Nodule Program Location: [place] This outreach encounter was initiated for incidental lung nodule noted 05/23/[address] chest. Patient already following nodules with Dr Jeffries (see telephone encounter 05/26/22) documented in this encounter [facility] 05-26-2022 Miscellaneous Notes I called Ms Estes to inform of the CT results, and of the differential including lung cancer (in the setting of smoking) or possible infection/inflammation. PET scan ordered for further evaluation, appointment scheduled for 06/23 Cielo Jeffries MD May 26, 2022 3:48 PM documented in this encounter [facility] 05-23-2022 History of Presen t illness Narrative Radiology Service Progress Note PATIENT NAME: Sulaiman Estes DATE OF SERVICE: May 23, 2022 TIME: 11:23 AM PATIENT IDENTITY VERIFICATION COMPLETED USING TWO (2) IDENTIFIERS: Name and Date of confirmed by patient verbally. FALL SCREENING: Has the patient had 2 falls in the last year or 1 fall with injury or currently using an Ambulatory Assistive Device (Walker, Cane, Wheelchair, Crutches, etc.)? No PATIENT GENDER DATA: Female. status: : No status: NO. PATIENT RELEVANT IMPLANT DATA REVIEWED: Yes RADIOLOGY DEPARTMENT: CT; Exam(s) Completed: Chest PERIPHERAL IV DATA: Not applicable SIGNED BY: RT Caryn(R) May 23, 2022 11:23 AM documented in this encounter [facility] 05-08-2022 History of Presen t illness Narrative Outside information received from [facility] via fax. Placed on Dr. Jeffries desk. Iris Lozoya Ma documented in this encounter [facility] 05-08-2022 Miscellaneous Notes Images from the original note were not included. Cielo Jeffries MD You 2 minutes ago (10:41 AM) HN Morning, I sent the patient a My Chart reply and ordered the CT Thank Cielo Jeffries MD 1 hour ago (9:16 AM) Please advise on XR results and any follow up thank you Traci Huerta RN documented in this encounter [facility] 05-07-2022 History of Presen t illness Narrative Radiology Service Progress Note PATIENT NAME: Sulaiman Estes DATE OF SERVICE: May 07, 2022 TIME: 10:25 AM PATIENT IDENTITY VERIFICATION COMPLETED USING TWO (2) IDENTIFIERS: Name and Date of confirmed by patient verbally. FALL SCREENING: Has the patient had 2 falls in the last year or 1 fall with injury or currently using an Ambulatory Assistive Device (Walker, Cane, Wheelchair, Crutches, etc.)? No PATIENT GENDER DATA: Female. status: : No status: NO. PATIENT RELEVANT IMPLANT DATA REVIEWED: Yes RADIOLOGY DEPARTMENT: General X-ray: Exam(s) Completed: Chest X-Ray PERIPHERAL IV DATA: Not applicable SIGNED BY: RT Vianney(R) May 07, 2022 10:25 AM documented in this encounter [facility] 05-07-2022 History of Presen t illness Narrative PULM FUNCTION SMARTBLOCK: Provider: Cielo Jeffries MD Spirometry w/BD: 1 DLCO: 1 documented in this encounter [facility] 05-07-2022 Instructions Cielo Jeffries MD - 05/07/2022 9:52 AM EST -You have airway obstruction, this can result form prior smoking, and it can cause cough, shortness of breath and feelings of inability to exhale properly -We started a new called Xopenex (Levalbuterol) to be used as needed every four hours for cough and shortness of breath -I will see you in four weeks with repeat testing to see if your cough improves with this inhaler -We will do an X-ray today and a blood test, I will let you know the results once I have them documented in this encounter [facility] 05-07-2022 History of Presen t illness Narrative Images from the original note were not included. PULMONARY CLINIC Initial Visit May 07, 2022 I had the pleasure of seeing Sulaiman Estes in consultation at the request of Jared Torres for chronic cough. Summary of this visit and my recommendations will be relayed to the referring physician by way of electronic communication or by mail. PCP: No Pcp Referring Provider: Jared Torres HPI: Ms Estes is a 66 YO woman, with 20 PY smoking history (quit 34 years ago) who is here today for evaluation of chronic cough and mild dyspnea The patient mentions that she had this cough for almost 15 years, improved slightly with PPIs however worsened recently after a URI she caught from her grand child in December What alarmed her was the fact that she had dyspnea and was having difficulties in regular walking, however she has improved significantly from that time She has had nasal drip during certain seasons, mentions that she was on Flonase for a year and that didn't help with her chronic cough. She also mentions that she was on inhaled steroids in the past and that didn't significantly help. It seems the only constant medication that showed some improvement in cough was PPIs She mentions that sometimes whenever she is ill she has the feeling that she cannot empty out air from her lungs, she denies chest pain, hemoptysis, significant sputum production. She denies fever, chills and night sweats A complete ROS was performed all others systems are negative PAST MEDICAL HISTORY: PAST MEDICAL HISTORY Diagnosis Date Sinus tachycardia History reviewed. No pertinent surgical history. MEDICATIONS: FLUoxetine (PROZAC) 20 mg capsule Take 20 mg by mouth once daily. one tab daily carvedilol (COREG) 3.125 mg tablet Take 3.125 mg by mouth twice daily with meals. Take one(1) tablet two(2) times daily. pramipexole (MIRAPEX) 0.125 mg tablet Take 0.125 mg by mouth three times daily. one tab daily ergocalciferol, vitamin D2, (CALCIFEROL ORAL) Take by mouth. one tab weekly 50,000 units HYDROcodone-chlorpheniramine (TUSSIONEX) 10-8 mg/5 mL suspension Take by mouth every 12 hours as needed. levalbuterol tartrate HFA (XOPENEX HFA) 45 mcg/actuation inhaler Inhale 1-2 Puffs as instructed every 4 hours as needed for wheezing/shortness of breath. ALLERGIES: ALLERGIES No Known Allergies SOCIAL HISTORY: Social History Tobacco Use Smoking status: Former Types: Cigarettes Smokeless tobacco: Never FAMILY HISTORY: FAMILY HISTORY Problem Relation Age of Onset Asthma Mother PHYSICAL EXAM: VITALS: 05/07/22 0850 BP: 132/75 BP Site: Right Arm BP Position: Sitting BP Cuff Size: Regular Adult Pulse: 85 Resp: 18 Temp: 36.3 C (97.3 F) TempSrc: Temporal SpO2: 98% Weight: 63.2 kg (139 lb 5.3 oz) Height: 154 cm (5' 0.63) General appearance: Alert, NAD Ears/Nose/Mouth/Throat: Non-cyanotic lips. Respiratory: Lungs clear to auscultation, prolonged expiratory phase. No wheezing, rhonchi, rales. Diaphragmatic excursion and chest wall symmetry appear equal and normal. No accessory muscle use. Cardiovascular: RRR without gallop, or rubs. Abdomen/GI: Abdomen soft, non-tender, non-distended. Extremities: No clubbing or cyanosis of fingers. Musculoskeletal: Spine shows no kyphosis or scoliosis. Muscles show no clear abnormality. Skin: No petechiae, ecchymoses, rash noted. Neuro: Oriented X 3. Normal mood and affect. DATA: Diagnostic tests reviewed for today's visit, films/specimens were personally reviewed by me: Most recent lab and imaging results NT PRO BNP No results found for: PBNP Chemistries No results found for: NA, K, CHLOR, CO2, BUN, CREAT, EGFROTH, GLUC, ANION Liver Function No results found for: AST, ALT, ALKPHOS, TBILI CBC Lab Results Component Value Date HB 12.1 05/07/2022 HCT 37.1 05/07/2022 WBC 6.84 05/07/2022 PLT 321 05/07/2022 PFT: Last Spirometry SPIROMETRY WITH DILATOR IF OBSTRUCTED Collected: 05/07/2022 8:54 AM (Final result) Narrative: [facility] [address] 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 4 puffs Albuterol (360 mcg) delivered by MDI via holding chamber. HR Pre=98/min, HR Post=97/min. DLCO-ATS/ERS acceptability and repeatability standards for DLCO met. DLCO is not hemoglobin corrected. No prescribed inhalers. IMPRESSION: Spirometry indicates moderately severe obstruction. There was not a significant bronchodilator response. The diffusing capacity is normal. Electronically Signed On 05-07-2022 11:05:33 EST by Johnny Ignacio ID: [id number] Name: SULAIMAN ESTES Race: White Ht: 60.63 in Wt: 139.33 lbs Age: 66 Gender: Female : 1955 Dx: Chronic cough Smoking Hx: Non-smoker Doctor: CIELO JEFFRIES Test Date: 05/07/2022 Site: Tech: Leno Weiss PRE-BRONCH POST-BRONCH Pre LLN Pred ULN %Pred Post %Pred %Chg SPIROMETRY FVC (L) 2.03 1.99 2.67 3.38 75 2.11 79 3 FEV1 (L) 1.14 1.56 2.11 2.63 54 1.24 58 4 FEV1/FVC 0.56 0.67 0.79 0.90 71 0.59 74 3 PEF L/s (L/sec) 4.23 3.97 5.51 7.04 76 4.79 87 13 FEF50 (L/sec) 0.55 1.34 2.95 4.56 18 0.72 24 31 FIF50 (L/sec) 2.76 2.39 -13 FEF50/FIF50 0.20 90-100 0.30 51 FIVC (L) 1.81 2.00 10 GRB34-88 (L/sec) 0.36 0.94 1.92 3.27 18 0.49 25 34 Time (sec) 12.92 11.58 -10 FET PEF (sec) 0.05 0.06 6 RAUL (L) 0.04 0.05 18 Vol Extrap % (%) 2 2 13 LUNG DIFFUSION DLCOunc (ml/min/mmHg) 26.80 13.56 19.73 25.89 135 VA (L) 5.37 3.41 4.51 5.61 119 DLunc/VA (ml/min/mmHg/L) 4.99 3.21 4.52 5.84 110 BHT (sec) 15.67 IVC (L) 2.00 Comments: ATS/ERS acceptability and repeatability standards for spirometry met. 4 puffs Albuterol (360 mcg) delivered by MDI via holding chamber. HR Pre=98/min, HR Post=97/min. DLCO-ATS/ERS acceptability and repeatability standards for DLCO met. DLCO is not hemoglobin corrected. No prescribed inhalers. Assessment and Plan: Sulaiman Estes is a 66 year old female who presents for evaluation of 1. Chronic obstructive pulmonary disease, unspecified COPD type (HCC) - ICD9: 496, ICD10: J44.9 (primary diagnosis) 2. Chronic cough - ICD9: 786.2, ICD10: R05.3 3. Ex-smoker - ICD9: V15.82, ICD10: Z87.891 -The patient has an obstruction pattern on spirometry that doesn't reverse with bronchodilators. In the light of previous smoking, this could indicate presence of COPD. The patient mentions that her dyspnea has significantly improved recently, and that she would be open to trying a short acting bronchodilator to see if it helps resolve cough and dyspnea -A Chest X-ray was ordered to rule out parenchymal causes for cough -The patient will continue taking PPIs -Follow up in 4 weeks with spirometry and diffusion Cielo Jeffries MD May 0738:38 AM [facility] documented in this encounter [facility] 04-17-2022 History of Presen t illness Narrative OTOLARYNGOLOGY-HEAD AND NECK SURGERY CC: Consultation requested by self for an opinion regarding chronic cough. My final recommendations will be communicated back to the requesting physician by way of shared Medical record or letter to requesting physician via US mail. Assessment/Plan: ASSESSMENT/PLAN: 1. 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 It is daily. Has known allergies, allergy tx didn't help though. Has had endoscopy which was negative. Has some swallowing dysfunction with liquids after coughing. No unintended weight loss. No odynophagia, or changes in symptoms. Smoked for 10 years and quit many years ago. Has become unbearable since she caught a viral illness in December 2021 from her granddaughter. NB: patient became tearful when I suggested that the need to see student services rep and that I could only evaluate from the larynx and above. We discussed the necessity of obtaining a full workup. ALLERGIES No Known Allergies No current outpatient medications on file. No current facility-administered medications for this visit. No past medical history on file. No past surgical history on file. Social History: No family history on file. ROS: GENERAL: No weight loss, malaise or fevers. HEENT: Negative for frequent or significant headaches, No changes in hearing or vision, No nasal bleeding, congestion or rhinorrhea, No sore throat or change in voice NECK: Negative for lumps, goiter, pain and significant neck swelling RESPIRATORY: Negative for cough, hemoptysis, wheezing or shortness of breath NEUROLOGIC: Negative for focal numbness or weakness, headaches and dizziness or syncope. SKIN: Negative for lesions, rash, and itching. PHYSICAL EXAM: On physical examination Sulaiman Estes is a well-developed, well nourished female. Her speech is nl and her voice is nl. Mental status revealed patient to be alert and oriented. Mood is appropriate. Details of the physical examination: CRANIAL NERVE EXAM: II: Pupillary reflexes normal III, IV, : EOM normal V: 1,2,3: normal sensation VII: Normal strength in all divisions. VIII: Hearing grossly normal. IX, X: palatal elevation and sensation XI: Shoulder strength normal XII: Tongue mobility normal HEAD AND FACE: Physical examination of the head, neck, external nose, external ears, mouth and face fails to demonstrate any significant abnormality or asymmetry to critical face to face observation. Skin and scalp are normal. EARS: RT Canal: patent RT Drum: intact LT Canal: patent LT Drum: intact NOSE: Examination of the nasal cavity revealed a septum which is dns to the R. The mucosa is pink, and the visible turbinates are normal on anterior rhinoscopy. There is no purulence or polyps. MASTICATION: The teeth appear nl. The lips and gums are without lesions. ORAL CAVITY AND OROPHARYNX: The oral mucosa, hard and soft palates, tongue, tonsil area, and posterior pharyngeal wall are without lesions. LARYNX: Mirror laryngoscopy provided inadequate information as it could not be tolerated, thus a flexible fiber laryngoscopy needed to be performed. The fiberoptic exam is documented below. NECK: The neck appears symmetric without scars. On palpation, there are no masses or lymphadenopathy. The thyroid is not palpable and was free of masses. No salivary gland masses or hypertrophy is noted. REVIEW OF RADIOLOGICAL FILMS AND RECORDS: None Jared Torres MD This note was partially generated using [employer] voice recognition system. Please note that occasional breaking machine operator errors may be made. PROCEDURE: Flexible Laryngoscopy DIAGNOSIS: chronic cough INDICATIONS: Mirror laryngoscopy could not be tolerated and a full examination of the upper aerodigestive tract was required. PROCEDURE: Topical anesthesia and vasoconstriction was applied with phenylephrine and 4% lidocaine to both sides of the nose. After waiting an appropriate period of time for anesthesia/vasoconstriction to become effective, a flexible laryngoscope was passed through the both sides of the nose. Nasopharynx, oropharynx, hypopharynx and larynx were examined. FINDINGS: The visualized nasal cavity, nasopharynx and oropharynx were normal without any lesions or masses visualized. No masses or lesions were visualized at the base of tongue, vallecula, epiglottis, aryepiglottic folds, pyriform sinuses, and lateral pharyngeal claudio. True vocal fold movement was intact bilaterally. No lesions visualized. The patient's airway was widely patent with no evidence of obstruction. Pt tolerated the procedure well, and there were no complications. The procedure was performed by me. Jared Torres MD documented in this encounter [facility] Evaluation note No assessment inform ation available [facility] Work Phone: Evaluation note Diagnosis Chronic cough- Primary [facility]ough [facility]ough [facility] Diagnosis Chronic obstructive pulmonary disease, unspecified COPD type (HCC)- Primary Chronic cough Cough Ex-smoker Personal history of tobacco use, presenting hazards to health [facility] Diagnosis Lung nodules- Primary Other nonspecific abnormal finding of lung field [facility] Diagnosis Lung nodules- Primary Other nonspecific abnormal finding of lung field Chronic obstructive pulmonary disease, unspecified COPD type (HCC) [facility] Diagnosis Lung nodule- Primary Solitary [facility]ule [facility] Lung nodules Other nonspecific abnormal finding of lung field [facility] Lung nodules- Primary Other nonspecific abnormal finding of lung field Chronic obstructive pulmonary disease, unspecified COPD type (HCC) Shortness of breath Chronic cough Cough [facility] Shortness of breath [facility] Diagnosis Bilateral foot pain- Primary Pain in limb [facility] Diagnosis Plantar fasciitis- Primary Plantar fascial fibromatosis [facility] Diagnosis Lung nodules- Primary Other nonspecific abnormal finding of lung field [facility] Diagnosis Shortness of breath- Primary Chronic obstructive pulmonary disease, unspecified COPD type (HCC) Lung nodules Other nonspecific abnormal finding of lung field [facility] Diagnosis COPD with exacerbation (HCC)- Primary Obstructive chronic bronchitis with exacerbation Allergy, sequela Lung nodules Other nonspecific abnormal finding of lung field [facility] Diagnosis Lung nodule- Primary Solitary pulmonary nodule [facility] Diagnosis Lung nodules- Primary Other nonspecific abnormal finding of lung field [facility] Diagnosis Lung nodules Other nonspecific abnormal finding of lung field [facility] Diagnosis Lung nodules Other nonspecific abnormal finding of lung field [facility] Diagnosis Chronic cough Cough [facility] Diagnosis Lung nodules Other nonspecific abnormal finding of lung field [facility] Diagnosis Chronic obstructive pulmonary disease, unspecified COPD type (HCC) [facility] Diagnosis Lung nodules- Primary Other nonspecific abnormal finding of lung field [facility] Diagnosis Chronic obstructive pulmonary disease, unspecified COPD type (HCC) [facility] Diagnosis Chronic obstructive pulmonary disease, unspecified COPD type (HCC)- Primary [facility] Diagnosis Chronic obstructive pulmonary disease, unspecified COPD type (HCC) [facility] Diagnosis Chronic cough- Primary Cough Allergy, sequela Chronic rhinitis LPRD (laryngopharyngeal reflux disease) Other diseases of larynx Hoarse voice quality Dysphonia Wheezing Chronic pharyngitis Gastroesophageal reflux disease, unspecified whether esophagitis present [facility] Diagnosis Thrush- Primary Candidiasis of mouth [facility] Diagnosis Chronic obstructive pulmonary disease, unspecified COPD type (HCC) [facility] Diagnosis Chronic rhinitis- Primary Chronic cough Cough [facility] Diagnosis Chronic obstructive pulmonary disease, unspecified COPD type (HCC)- Primary Chronic cough Cough [facility] Diagnosis Chronic cough- Primary Cough LPRD (laryngopharyngeal reflux disease) Other diseases of larynx Seasonal allergic rhinitis due to pollen Sensory neuropathy Unspecified hereditary and idiopathic peripheral neuropathy Vagal nerve sensitivity Disorders of pneumogastric (10th) nerve Laryngospasm Laryngeal spasm [facility]- Primary [facility] Chronic cough- Primary Cough Vagal nerve sensitivity Disorders of pneumogastric (10th) nerve Laryngospasm Laryngeal spasm Seasonal allergic rhinitis due to pollen LPRD (laryngopharyngeal reflux disease) Other diseases of larynx Sensory neuropathy Unspecified hereditary and idiopathic peripheral neuropathy Nasal septal deviation Deviated nasal septum [facility] Diagnosis Chronic rhinitis- Primary Hoarse voice quality Dysphonia Chronic pharyngitis Wheezing LPRD (laryngopharyngeal reflux disease) Other diseases of larynx Gastroesophageal reflux disease, unspecified whether esophagitis present Chronic cough Cough [facility] Diagnosis Lung nodules Other nonspecific abnormal finding of lung field [facility] Diagnosis Chronic cough- Primary Cough Vagal nerve sensitivity Disorders of pneumogastric (10th) nerve Laryngospasm Laryngeal spasm Sensory neuropathy Unspecified hereditary and idiopathic peripheral neuropathy LPRD (laryngopharyngeal reflux disease) Other diseases of larynx Seasonal allergic rhinitis due to pollen [facility] Diagnosis Chronic obstructive pulmonary disease, unspecified COPD type (HCC)- Primary [facility] Diagnosis Lung nodules- Primary Other nonspecific abnormal finding of lung field [facility] Diagnosis Chronic obstructive pulmonary disease, unspecified COPD type (HCC) [facility] Diagnosis Chronic cough- Primary Cough [facility] Diagnosis Chronic cough- Primary Cough [facility] Diagnosis Severe persistent asthma without complication (HCC)- Primary Asthma with chronic obstructive pulmonary disease (COPD) (HCC) Chronic obstructive asthma, unspecified Pulmonary nodules Other nonspecific abnormal finding of lung field History of smoking 10-25 pack years Personal history of tobacco use, 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 note* Diagnosis Severe persistent asthma without complication (HCC)- Primary [facility] Diagnosis Nasal crusting- Primary Other diseases of nasal cavity and sinuses Hypertrophy of inferior nasal turbinate Hypertrophy of nasal turbinates Deviated nasal septum Rhinorrhea Other diseases of nasal cavity and sinuses Vasomotor rhinitis Allergic rhinitis, cause unspecified [facility]* Diagnosis Severe persistent asthma without complication (HCC)- Primary Hypertrophy of inferior nasal turbinate Hypertrophy of nasal turbinates Deviated nasal septum Rhinorrhea Other diseases of nasal cavity and sinuses Vasomotor rhinitis Allergic rhinitis, cause unspecified documented in this encounter 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 note* Diagnosis Headaches- Primary Severe persistent asthma without complication ([facility]) Pulmonary nodules Other nonspecific abnormal finding of lung field Post-operative nausea and vomiting Nausea with vomiting Hyperlipidemia, unspecified hyperlipidemia type Asthma with chronic obstructive pulmonary disease (COPD) (HCC) Chronic obstructive asthma, unspecified LPRD (laryngopharyngeal reflux disease) Other diseases of larynx Laryngeal spasm Hypertrophy of inferior nasal turbinate Hypertrophy of nasal turbinates Deviated nasal septum Rhinorrhea Other diseases of nasal cavity and sinuses Vasomotor rhinitis Allergic rhinitis, cause unspecified [facility]* Diagnosis Severe persistent asthma without complication (HCC)- Primary Hypertrophy of inferior nasal turbinate Hypertrophy of nasal turbinates Deviated nasal septum Rhinorrhea Other diseases of nasal cavity and sinuses Vasomotor rhinitis Allergic rhinitis, cause unspecified [facility] Diagnosis Chronic cough Cough Hypertrophy of inferior nasal turbinate Hypertrophy of nasal turbinates Deviated nasal septum Rhinorrhea Other diseases of nasal cavity and sinuses Vasomotor rhinitis Allergic rhinitis, cause unspecified [facility] Diagnosis Post-op pain- Primary Other acute postoperative pain documented in this encounter [facility] for referral (narrative)* Outpatient Procedure (Routine) - Pending Review Specialty Diagnoses / Procedures Referred By Gerardo gamez Referred To [facility] Diagnoses Chronic obstructive pulmonary disease, unspecified COPD type (HCC) Procedures SPIROMETRY WITH DILATOR IF OBSTRUCTED BRNCDILAT RSPSE SPMTRY PRE&POST-BRNCDILAT ADMN Cielo Jeffries MD [address] [place] [address] [place] [address] Referral ID Status Reason Start Date Expiration Date Visits Requested Visits Authorized [id number] Pending Review Auto-Generat ed Referral 06/07/2022 06/06/2023 1 1 * Outpatient Procedure (Routine) - Closed Specialty Diagnoses / Procedures Referred By Gerardo gamez Referred To [facility] Diagnoses Chronic cough Procedures LUNG DIFFUSION CAPACITY (DLCO) DIFFUSING CAPACITY Cielo Jeffries MD [address] [place] [address] [place] [address] Referral ID Status Reason Start Date Expiration Date V isits Requested Visits Authorized [id number] Closed Auto-Generate d Referral 05/07/2022 06/06/2023 1 1 * Outpatient Procedure (Routine) - Closed Specialty Diagnoses / Procedures Referred By Gerardo gamez Referred To [facility] Diagnoses Chronic cough Procedures SPIROMETRY WITH DILATOR IF OBSTRUCTED BRNCDILAT RSPSE SPMTRY PRE&POST-BRNCDILAT ADMN Cielo Jeffries MD [address] [id number] [facility] [place] [address] [place] [address] Referral ID Status Reason Start Date Expiration Date V isits Requested Visits Authorized [id number] Closed Auto-Generate d Referral 05/07/2022 06/06/2023 1 1 [facility] for referral (narrative)* Diagnostic Procedure Only (Urgent) - Pending Review Specialty Diagnoses / Procedures Referred By Contac t Referred To Contact MOLECULAR & FUNCTIONAL IMAGING Diagnoses Lung nodules Procedures NM PET/CT SKULL-THIGH INITIAL PET IMAGING CT ATTENUATION SKULL BASE MID-THIGH Cielo Jeffries MD [address] [place] [address] Molecular & Functional Imaging [address] [place] [address] Referral ID Status Reason Start Date Expiration Date Visits Requested Visits Authorized [id number] Pending Review Auto-Generat ed Referral 05/26/2022 06/25/2023 1 1 [facility] for referral (narrative)* Diagnostic Procedure Only (Urgent) - Closed Specialty Diagnoses / Procedures Referred By Contac t Referred To Contact [facility] Diagnoses Lung nodules Procedures NM PET/CT SKULL-THIGH INITIAL PET IMAGING CT ATTENUATION SKULL BASE MID-THIGH Cielo Jeffries MD [address] [place] [address] Molecular & Functional Imaging [address] [place] [address] Referral ID Status Reason Start Date Expiration Date V isits Requested Visits Authorized [id number] Closed Auto-Generate d Referral 05/27/2022 07/11/2022 1 1 [facility] for referral (narrative)* Outpatient Procedure (Routine) - Closed Specialty Diagnoses / Procedures Referred By Contac t Referred [facility] Diagnoses Shortness of breath Procedures SPIROMETRY WITH DILATOR IF OBSTRUCTED BRNCDILAT RSPSE SPMTRY PRE&POST-BRNCDILAT ADMN Cielo Jeffries MD [address] [place] [address] [facility] [place] [address] [place] [address] Referral ID Status Reason Start Date Expiration Date V isits Requested Visits Authorized [id number] Closed Auto-Generate d Referral 06/23/2022 04/26/2023 1 1 * MRI/CT (Routine) - Pending Review Specialty Diagnoses / Procedures Referred By Contac t Referred To Contact CT IMAGING Diagnoses Lung nodules Procedures CT CHEST WO IVCON DIAGNOSTIC COMPUTED TOMOGRAPHY THORAX W/O CNTRST Cielo Jeffries MD [address] [facility] [id number] Imaging Referral ID Status Reason Start Date Expiration Date Visits Requested Visits Authorized [id number] Pending Review Auto-Generat ed Referral 09/20/2022 07/23/2023 1 1 [facility] for referral (narrative)* Diagnostic Procedure Only (Routine) - Pending Review Specialty Diagnoses / Procedures Referred By Contac t Referred To Contact XR IMAGING Diagnoses Bilateral foot pain Procedures XR FOOT GENERAL 3V AP/LAT/OBL BILATERAL RADEX FOOT COMPLETE MINIMUM 3 VIEWS [place] [address] [place] [address] Xr Imaging Referral ID Status Reason Start Date Expiration Date Visits Requested Visits Authorized [id number] Pending Review Auto-Generat ed Referral 07/18/2022 08/17/2023 1 1 [facility] for referral (narrative)* Diagnostic Procedure Only (Routine) - Closed Specialty Diagnoses / Procedures Referred By Contac t Referred To Contact XR IMAGING Diagnoses Pain in joint involving ankle and foot, unspecified laterality Procedures XR FOOT GENERAL 3V AP/LAT/OBL BILATERAL RADEX FOOT COMPLETE MINIMUM 3 VIEWS Dc Call [address] [place] [address] Xr Imaging Referral ID Status Reason Start Date Expiration Date V isits Requested Visits Authorized [id number] Closed Auto-Generate d Referral 07/22/2022 08/21/2023 1 1 [facility] for referral (narrative)* Outpatient Procedure (Routine) - New Request Specialty Diagnoses / Procedures Referred By Contac t Referred To Contact [facility] Diagnoses Chronic cough Procedures NITRIC OXIDE, EXHALED NITRIC OXIDE GAS DETERMINATION Tanna Escudero APRN.VEGETABLE FARM MANAGER [address] [place] [address] [address] Referral ID Status Reason Start Date Expiration Date Visits Requested Visits Authorized [id number] New Request Auto-Generat ed Referral 06/01/2024 07/01/2025 1 1 * Outpatient Procedure (Routine) - New Request Specialty Diagnoses / Procedures Referred By Contac t Referred To [facility] Diagnoses Chronic cough Procedures LUNG VOLUMES Tanna Escudero APRN.VEGETABLE FARM MANAGER [address] [place] [address] [address] Referral ID Status Reason Start Date Expiration Date Visits Requested Visits Authorized [id number] New Request Auto-Generat ed Referral 06/01/2024 07/01/2025 1 1 * Outpatient Procedure (Routine) - New Request Specialty Diagnoses / Procedures Referred By Contac t Referred To [facility] Diagnoses Chronic cough Procedures LUNG DIFFUSION CAPACITY (DLCO) DIFFUSING CAPACITY Tanna Escudero APRN.VEGETABLE FARM MANAGER [address] [place] [address] [address] Referral ID Status Reason Start Date Expiration Date Visits Requested Visits Authorized [id number] New Request Auto-Generat ed Referral 06/01/2024 07/01/2025 1 1 * Outpatient Procedure (Routine) - New Request Specialty Diagnoses / Procedures Referred By Gerardo gamez Referred [facility] Diagnoses Chronic cough Procedures SPIROMETRY WITH DILATOR IF OBSTRUCTED BRNCDILAT RSPSE SPMTRY PRE&POST-BRNCDILAT ADMN Tanna Escudero APRN.VEGETABLE FARM MANAGER [address] [place] [address] [facility] [place] [address] [place] [address] Referral ID Status Reason Start Date Expiration Date Visits Requested Visits Authorized [id number] New Request Auto-Generat ed Referral 06/01/2024 07/01/2025 1 1 [facility] for visit Narrative* Diagnostic Procedure Only (Urgent) - Closed Specialty Diagnoses / Procedures Referred By Gerardo gamez Referred To Contact [facility] Diagnoses Lung nodules Procedures NM PET/CT SKULL-THIGH INITIAL PET IMAGING CT ATTENUATION SKULL BASE MID-THIGH Cielo Jeffries MD [address] [facility] [facility] [address] [place] [address] Molecular & Functional Imaging [address] [place] [address] Referral ID Status Reason Start Date Expiration Date V isits Requested Visits Authorized [id number] Closed Auto-Generate d Referral 05/27/2022 07/11/2022 1 1 [facility] for visit Narrative* Auth/Cert (Routine) Specialty Diagnoses / Procedures Referred By Gerardo gamez Referred To Contact [facility] Diagnoses Hypertrophy of inferior nasal turbinate Deviated nasal septum Rhinorrhea Vasomotor rhinitis Hypertrophy of inferior nasal turbinate [J34.3] Deviated nasal septum [J34.2] Rhinorrhea [J34.89] Vasomotor rhinitis [J30.0] Procedures NASAL/SINUS NDSC DSTRJ RF ABLATION PST NSL NRV ABLTJ SOF TISS INF TURBS UNI/BI SUPFC INTRAMURAL SEPTOPLASTY/SUBMUCOUS RESECJ W/WO CARTILAGE GRF NASAL/SINUS ENDOSCOPY, SURGICAL; W/ DESTRUCTION BY RF ABLATION, POSTERIOR NASAL NERVE ABLATION, INFERIOR TURBINATES, BY TISSUE VOLUME REDUCTION; SUBMUCOSAL ENDOSCOPIC SEPTOPLASTY Ambulatory Surgery [address] [place] [address] Referral ID Status Reason Start Date Expiration Date Visits Re quested Visits Authorized [id number] 1 1 [facility] Family History No Family History Records Found Relationship Condition Age at Onset Recorded Date/T nancy mother Alzheimer's disease Unknown father Optic atrophy Unknown Hyperlipidemia Unknown Advance Directives No Advanced Directives Records Found Advance Directive Response Recorded Date/ Time Living Will No December 27 3:55pm Power of Decontamination Technician No December 27, 2020 3:55pm Advance Directive Response Recorded Date/ Time Living Will No December 27 2:55pm Power of Decontamination Technician No December 27, 2020 2:55pm Reason for Referral Specialty Diagnoses / Procedures Referred By Gerardo gamez Referred To Contact Pulmonary and Critical Care Medicine Diagnoses Chronic cough Procedures CONSULT TO PULM/CRITICAL CARE OFFICE/OUTPATIENT [facility] 60-74 [place] [address] [phone] Referral ID Status Reason Start Date Expiration Date Visits Requested Visits Authorized [id number] Authorized PCP Requested Referral 2 04/17/2023 1 1 Specialty Diagnoses / Procedures Referred By Gerardo gamez Referred To Contact CT IMAGING Diagnoses Lung nodules Procedures CT CHEST WO IVCON DIAGNOSTIC COMPUTED TOMOGRAPHY THORAX W/O CNTRST Cielo Jeffries MD [phone] Imaging Referral ID Status Reason Start Date Expiration Date Visits Requested Visits Authorized [id number] Pending Review Auto-Generat ed Referral 05/08/2022 06/07/2023 1 1 Referral ID Status Reason Start Date Expiration Date Visits Requested Visits Authorized [id number] Pending Review Auto-Generat ed Referral 01/01/2023 10/31/2023 1 1 Specialty Diagnoses / Procedures Referred By Gerardo gamez Referred To Contact CT IMAGING Diagnoses Lung nodules Procedures CT CHEST WO IVCON DIAGNOSTIC COMPUTED TOMOGRAPHY THORAX W/O CNTRST Cielo Jeffries MD [phone] [place] [id number] Referral ID Status Reason Start Date Expiration Date Visits Requested Visits Authorized [id number] Pending Review Auto-Generat ed Referral 06/29/2023 03/06/2024 1 1 Referral ID Status Reason Start Date Expiration Date V isits Requested Visits Authorized [id number] Closed Auto-Generate d Referral 09/04/2022 10/19/2022 1 1 Referral ID Status Reason Start Date Expiration Date V isits Requested Visits Authorized [id number] Closed Auto-Generate d Referral 12/15/2022 01/29/2023 1 1 Referral ID Status Reason Start Date Expiration Date V isits Requested Visits Authorized [id number] Closed Auto-Generate d Referral 05/08/2022 06/23/2022 1 1 Referral ID Status Reason Start Date Expiration Date Visits Requested Visits Authorized [id number] Pending Review Auto-Generat ed Referral 07/02/2024 08/01/2024 1 1 Specialty Diagnoses / Procedures Referred By Contac t Referred To Contact Ent - Otolaryngology Diagnoses Chronic cough Procedures CONSULT TO ENT OFFICE/OUTPATIENT [facility] 60 [place] [address] [place] [address] Referral ID Status Reason Start Date Expiration Date Visits Requested Visits Authorized [id number] Authorized PCP Requested Referral 03/02/2024 03/02/2025 1 1 Chief Complaint and Reason for Visit Chief Complaint TACHYCARDIA Chief Complaint LEFT FOOT PAIN, INJU RY Summary Purpose Additional Source Comments Goals (unrecognized section and content) Goals may be documented in a n alternate sectionGoals may be documented in an alternate sectionGoals may be documented in an alternate section Source Comments (unrecognize d section and content) In the event this informatio n is protected by the Federal Confidentiality of Alcohol and Drug Abuse Patient Records regulations: The Federal rules restrict any use of the information to criminally investigate or prosecute any alcohol or drug abuse patient.[facility] the event this information is protected by the Federal Confidentiality of Alcohol and Drug Abuse Patient Records regulations: The Federal rules restrict any use of the information to criminally investigate or prosecute any alcohol or drug abuse patient.[facility] the event this information is protected by the Federal Confidentiality of Alcohol and Drug Abuse Patient Records regulations: The Federal rules restrict any use of the information to criminally investigate or prosecute any alcohol or drug abuse patient.[facility] the event this information is protected by the Federal Confidentiality of Alcohol and Drug Abuse Patient Records regulations: The Federal rules restrict any use of the information to criminally investigate or prosecute any alcohol or drug abuse patient.[facility] the event this information is protected by the Federal Confidentiality of Alcohol and Drug Abuse Patient Records regulations: The Federal rules restrict any use of the information to criminally investigate or prosecute any alcohol or drug abuse patient.[facility] the event this information is protected by the Federal Confidentiality of Alcohol and Drug Abuse Patient Records regulations: The Federal rules restrict any use of the information to criminally investigate or prosecute any alcohol or drug abuse patient.[facility] the event this information is protected by the Federal Confidentiality of Alcohol and Drug Abuse Patient Records regulations: The Federal rules restrict any use of the information to criminally investigate or prosecute any alcohol or drug abuse patient.[facility] the event this information is protected by the Federal Confidentiality of Alcohol and Drug Abuse Patient Records regulations: The Federal rules restrict any use of the information to criminally investigate or prosecute any alcohol or drug abuse patient.[facility] the event this information is protected by the Federal Confidentiality of Alcohol and Drug Abuse Patient Records regulations: The Federal rules restrict any use of the information to criminally investigate or prosecute any alcohol or drug abuse patient.[facility] the event this information is protected by the Federal Confidentiality of Alcohol and Drug Abuse Patient Records regulations: The Federal rules restrict any use of the information to criminally investigate or prosecute any alcohol or drug abuse patient.[facility] the event this information is protected by the Federal Confidentiality of Alcohol and Drug Abuse Patient Records regulations: The Federal rules restrict any use of the information to criminally investigate or prosecute any alcohol or drug abuse patient.[facility] the event this information is protected by the Federal Confidentiality of Alcohol and Drug Abuse Patient Records regulations: The Federal rules restrict any use of the information to criminally investigate or prosecute any alcohol or drug abuse patient.[facility] the event this information is protected by the Federal Confidentiality of Alcohol and Drug Abuse Patient Records regulations: The Federal rules restrict any use of the information to criminally investigate or prosecute any alcohol or drug abuse patient.[facility] the event this information is protected by the Federal Confidentiality of Alcohol and Drug Abuse Patient Records regulations: The Federal rules restrict any use of the information to criminally investigate or prosecute any alcohol or drug abuse patient.[facility]In the event this information is protected by the Federal Confidentiality of Alcohol and Drug Abuse Patient Records regulations: The Federal rules restrict any use of the information to criminally investigate or prosecute any alcohol or drug abuse patient.[facility]In the event this information is protected by the Federal Confidentiality of Alcohol and Drug Abuse Patient Records regulations: The Federal rules restrict any use of the information to criminally investigate or prosecute any alcohol or drug abuse patient.[facility]In the event this information is protected by the Federal Confidentiality of Alcohol and Drug Abuse Patient Records regulations: The Federal rules restrict any use of the information to criminally investigate or prosecute any alcohol or drug abuse patient.[facility]In the event this information is protected by the Federal Confidentiality of Alcohol and Drug Abuse Patient Records regulations: The Federal rules restrict any use of the information to criminally investigate or prosecute any alcohol or drug abuse patient.[facility]In the event this information is protected by the Federal Confidentiality of Alcohol and Drug Abuse Patient Records regulations: The Federal rules restrict any use of the information to criminally investigate or prosecute any alcohol or drug abuse patient.[facility]In the event this information is protected by the Federal Confidentiality of Alcohol and Drug Abuse Patient Records regulations: The Federal rules restrict any use of the information to criminally investigate or prosecute any alcohol or drug abuse patient.[facility]In the event this information is protected by the Federal Confidentiality of Alcohol and Drug Abuse Patient Records regulations: The Federal rules restrict any use of the information to criminally investigate or prosecute any alcohol or drug abuse patient.[facility]In the event this information is protected by the Federal Confidentiality of Alcohol and Drug Abuse Patient Records regulations: The Federal rules restrict any use of the information to criminally investigate or prosecute any alcohol or drug abuse patient.[facility]In the event this information is protected by the Federal Confidentiality of Alcohol and Drug Abuse Patient Records regulations: The Federal rules restrict any use of the information to criminally investigate or prosecute any alcohol or drug abuse patient.[facility]In the event this information is protected by the Federal Confidentiality of Alcohol and Drug Abuse Patient Records regulations: The Federal rules restrict any use of the information to criminally investigate or prosecute any alcohol or drug abuse patient.[facility]In the event this information is protected by the Federal Confidentiality of Alcohol and Drug Abuse Patient Records regulations: The Federal rules restrict any use of the information to criminally investigate or prosecute any alcohol or drug abuse patient.[facility]In the event this information is protected by the Federal Confidentiality of Alcohol and Drug Abuse Patient Records regulations: The Federal rules restrict any use of the information to criminally investigate or prosecute any alcohol or drug abuse patient.[facility]In the event this information is protected by the Federal Confidentiality of Alcohol and Drug Abuse Patient Records regulations: The Federal rules restrict any use of the information to criminally investigate or prosecute any alcohol or drug abuse patient.[facility]In the event this information is protected by the Federal Confidentiality of Alcohol and Drug Abuse Patient Records regulations: The Federal rules restrict any use of the information to criminally investigate or prosecute any alcohol or drug abuse patient.[facility]In the event this information is protected by the Federal Confidentiality of Alcohol and Drug Abuse Patient Records regulations: The Federal rules restrict any use of the information to criminally investigate or prosecute any alcohol or drug abuse patient.[facility]In the event this information is protected by the Federal Confidentiality of Alcohol and Drug Abuse Patient Records regulations: The Federal rules restrict any use of the information to criminally investigate or prosecute any alcohol or drug abuse patient.[facility]In the event this information is protected by the Federal Confidentiality of Alcohol and Drug Abuse Patient Records regulations: The Federal rules restrict any use of the information to criminally investigate or prosecute any alcohol or drug abuse patient.[facility]In the event this information is protected by the Federal Confidentiality of Alcohol and Drug Abuse Patient Records regulations: The Federal rules restrict any use of the information to criminally investigate or prosecute any alcohol or drug abuse patient.[facility]In the event this information is protected by the Federal Confidentiality of Alcohol and Drug Abuse Patient Records regulations: The Federal rules restrict any use of the information to criminally investigate or prosecute any alcohol or drug abuse patient.[facility]In the event this information is protected by the Federal Confidentiality of Alcohol and Drug Abuse Patient Records regulations: The Federal rules restrict any use of the information to criminally investigate or prosecute any alcohol or drug abuse patient.[facility]In the event this information is protected by the Federal Confidentiality of Alcohol and Drug Abuse Patient Records regulations: The Federal rules restrict any use of the information to criminally investigate or prosecute any alcohol or drug abuse patient.[facility]In the event this information is protected by the Federal Confidentiality of Alcohol and Drug Abuse Patient Records regulations: The Federal rules restrict any use of the information to criminally investigate or prosecute any alcohol or drug abuse patient.[facility]In the event this information is protected by the Federal Confidentiality of Alcohol and Drug Abuse Patient Records regulations: The Federal rules restrict any use of the information to criminally investigate or prosecute any alcohol or drug abuse patient.[facility]In the event this information is protected by the Federal Confidentiality of Alcohol and Drug Abuse Patient Records regulations: The Federal rules restrict any use of the information to criminally investigate or prosecute any alcohol or drug abuse patient.[facility]In the event this information is protected by the Federal Confidentiality of Alcohol and Drug Abuse Patient Records regulations: The Federal rules restrict any use of the information to criminally investigate or prosecute any alcohol or drug abuse patient.[facility]In the event this information is protected by the Federal Confidentiality of Alcohol and Drug Abuse Patient Records regulations: The Federal rules restrict any use of the information to criminally investigate or prosecute any alcohol or drug abuse patient.[facility]In the event this information is protected by the Federal Confidentiality of Alcohol and Drug Abuse Patient Records regulations: The Federal rules restrict any use of the information to criminally investigate or prosecute any alcohol or drug abuse patient.[facility]In the event this information is protected by the Federal Confidentiality of Alcohol and Drug Abuse Patient Records regulations: The Federal rules restrict any use of the information to criminally investigate or prosecute any alcohol or drug abuse patient.[facility]In the event this information is protected by the Federal Confidentiality of Alcohol and Drug Abuse Patient Records regulations: The Federal rules restrict any use of the information to criminally investigate or prosecute any alcohol or drug abuse patient.[facility]In the event this information is protected by the Federal Confidentiality of Alcohol and Drug Abuse Patient Records regulations: The Federal rules restrict any use of the information to criminally investigate or prosecute any alcohol or drug abuse patient.[facility]In the event this information is protected by the Federal Confidentiality of Alcohol and Drug Abuse Patient Records regulations: The Federal rules restrict any use of the information to criminally investigate or prosecute any alcohol or drug abuse patient.[facility]In the event this information is protected by the Federal Confidentiality of Alcohol and Drug Abuse Patient Records regulations: The Federal rules restrict any use of the information to criminally investigate or prosecute any alcohol or drug abuse patient.[facility]In the event this information is protected by the Federal Confidentiality of Alcohol and Drug Abuse Patient Records regulations: The Federal rules restrict any use of the information to criminally investigate or prosecute any alcohol or drug abuse patient.[facility]In the event this information is protected by the Federal Confidentiality of Alcohol and Drug Abuse Patient Records regulations: The Federal rules restrict any use of the information to criminally investigate or prosecute any alcohol or drug abuse patient.[facility]In the event this information is protected by the Federal Confidentiality of Alcohol and Drug Abuse Patient Records regulations: The Federal rules restrict any use of the information to criminally investigate or prosecute any alcohol or drug abuse patient.[facility]In the event this information is protected by the Federal Confidentiality of Alcohol and Drug Abuse Patient Records regulations: The Federal rules restrict any use of the information to criminally investigate or prosecute any alcohol or drug abuse patient.[facility]In the event this information is protected by the Federal Confidentiality of Alcohol and Drug Abuse Patient Records regulations: The Federal rules restrict any use of the information to criminally investigate or prosecute any alcohol or drug abuse patient.[facility]In the event this information is protected by the Federal Confidentiality of Alcohol and Drug Abuse Patient Records regulations: The Federal rules restrict any use of the information to criminally investigate or prosecute any alcohol or drug abuse patient.[facility]In the event this information is protected by the Federal Confidentiality of Alcohol and Drug Abuse Patient Records regulations: The Federal rules restrict any use of the information to criminally investigate or prosecute any alcohol or drug abuse patient.[facility]In the event this information is protected by the Federal Confidentiality of Alcohol and Drug Abuse Patient Records regulations: The Federal rules restrict any use of the information to criminally investigate or prosecute any alcohol or drug abuse patient.[facility]In the event this information is protected by the Federal Confidentiality of Alcohol and Drug Abuse Patient Records regulations: The Federal rules restrict any use of the information to criminally investigate or prosecute any alcohol or drug abuse patient.[facility]In the event this information is protected by the Federal Confidentiality of Alcohol and Drug Abuse Patient Records regulations: The Federal rules restrict any use of the information to criminally investigate or prosecute any alcohol or drug abuse patient.[facility]In the event this information is protected by the Federal Confidentiality of Alcohol and Drug Abuse Patient Records regulations: The Federal rules restrict any use of the information to criminally investigate or prosecute any alcohol or drug abuse patient.[facility]In the event this information is protected by the Federal Confidentiality of Alcohol and Drug Abuse Patient Records regulations: The Federal rules restrict any use of the information to criminally investigate or prosecute any alcohol or drug abuse patient.[facility]In the event this information is protected by the Federal Confidentiality of Alcohol and Drug Abuse Patient Records regulations: The Federal rules restrict any use of the information to criminally investigate or prosecute any alcohol or drug abuse patient.[facility]In the event this information is protected by the Federal Confidentiality of Alcohol and Drug Abuse Patient Records regulations: The Federal rules restrict any use of the information to criminally investigate or prosecute any alcohol or drug abuse patient.[facility]In the event this information is protected by the Federal Confidentiality of Alcohol and Drug Abuse Patient Records regulations: The Federal rules restrict any use of the information to criminally investigate or prosecute any alcohol or drug abuse patient.[facility]In the event this information is protected by the Federal Confidentiality of Alcohol and Drug Abuse Patient Records regulations: The Federal rules restrict any use of the information to criminally investigate or prosecute any alcohol or drug abuse patient.[facility]In the event this information is protected by the Federal Confidentiality of Alcohol and Drug Abuse Patient Records regulations: The Federal rules restrict any use of the information to criminally investigate or prosecute any alcohol or drug abuse patient.[facility]In the event this information is protected by the Federal Confidentiality of Alcohol and Drug Abuse Patient Records regulations: The Federal rules restrict any use of the information to criminally investigate or prosecute any alcohol or drug abuse patient.[facility]In the event this information is protected by the Federal Confidentiality of Alcohol and Drug Abuse Patient Records regulations: The Federal rules restrict any use of the information to criminally investigate or prosecute any alcohol or drug abuse patient.[facility]In the event this information is protected by the Federal Confidentiality of Alcohol and Drug Abuse Patient Records regulations: The Federal rules restrict any use of the information to criminally investigate or prosecute any alcohol or drug abuse patient.[facility]In the event this information is protected by the Federal Confidentiality of Alcohol and Drug Abuse Patient Records regulations: The Federal rules restrict any use of the information to criminally investigate or prosecute any alcohol or drug abuse patient.[facility]In the event this information is protected by the Federal Confidentiality of Alcohol and Drug Abuse Patient Records regulations: The Federal rules restrict any use of the information to criminally investigate or prosecute any alcohol or drug abuse patient.[facility]In the event this information is protected by the Federal Confidentiality of Alcohol and Drug Abuse Patient Records regulations: The Federal rules restrict any use of the information to criminally investigate or prosecute any alcohol or drug abuse patient.[facility] HospitalIn the event this information is protected by the Federal Confidentiality of Alcohol and Drug Abuse Patient Records regulations: The Federal rules restrict any use of the information to criminally investigate or prosecute any alcohol or drug abuse patient.[facility] the event this information is protected by the Federal Confidentiality of Alcohol and Drug Abuse Patient Records regulations: The Federal rules restrict any use of the information to criminally investigate or prosecute any alcohol or drug abuse patient.[facility] the event this information is protected by the Federal Confidentiality of Alcohol and Drug Abuse Patient Records regulations: The Federal rules restrict any use of the information to criminally investigate or prosecute any alcohol or drug abuse patient.[facility] the event this information is protected by the Federal Confidentiality of Alcohol and Drug Abuse Patient Records regulations: The Federal rules restrict any use of the information to criminally investigate or prosecute any alcohol or drug abuse patient.[facility] the event this information is protected by the Federal Confidentiality of Alcohol and Drug Abuse Patient Records regulations: The Federal rules restrict any use of the information to criminally investigate or prosecute any alcohol or drug abuse patient.[facility] the event this information is protected by the Federal Confidentiality of Alcohol and Drug Abuse Patient Records regulations: The Federal rules restrict any use of the information to criminally investigate or prosecute any alcohol or drug abuse patient.[facility] the event this information is protected by the Federal Confidentiality of Alcohol and Drug Abuse Patient Records regulations: The Federal rules restrict any use of the information to criminally investigate or prosecute any alcohol or drug abuse patient.[facility] the event this information is protected by the Federal Confidentiality of Alcohol and Drug Abuse Patient Records regulations: The Federal rules restrict any use of the information to criminally investigate or prosecute any alcohol or drug abuse patient.[facility] the event this information is protected by the Federal Confidentiality of Alcohol and Drug Abuse Patient Records regulations: The Federal rules restrict any use of the information to criminally investigate or prosecute any alcohol or drug abuse patient.[facility] the event this information is protected by the Federal Confidentiality of Alcohol and Drug Abuse Patient Records regulations: The Federal rules restrict any use of the information to criminally investigate or prosecute any alcohol or drug abuse patient.[facility] the event this information is protected by the Federal Confidentiality of Alcohol and Drug Abuse Patient Records regulations: The Federal rules restrict any use of the information to criminally investigate or prosecute any alcohol or drug abuse patient.[facility] Reason for Visit (unrecogniz ed section and content) Reason Comments New Patient Reason Comments Spirometry Specialty Diagnoses / Procedures Referred By Contac t Referred To Contact [facility] Diagnoses Chronic cough Procedures SPIROMETRY WITH DILATOR IF OBSTRUCTED BRNCDILAT RSPSE SPMTRY PRE&POST-BRNCDILAT ADMN Cielo Jfefries MD [address] [address] [facility] [address] [place] [address] Referral ID Status Reason Start Date Expiration Date V isits Requested Visits Authorized [id number] Closed Auto-Generate d Referral 05/07/2022 06/06/2023 1 1 Specialty Diagnoses / Procedures Referred By Contac t Referred To Contact [facility] Diagnoses Chronic cough Procedures LUNG DIFFUSION CAPACITY (DLCO) DIFFUSING CAPACITY Cielo Jeffries MD 9927 [facility] [address] [place] [address] [facility] [address] [place], [place] [id number] Referral ID Status Reason Start Date Expiration Date V isits Requested Visits Authorized [id number] Closed Auto-Generate d Referral 05/07/2022 06/06/2023 1 1 Reason Comments Cough Specialty Diagnoses / Procedures Referred By Contac t Referred To Contact Pulmonary and Critical Care Medicine Diagnoses Chronic cough Procedures CONSULT TO PULM/CRITICAL CARE OFFICE/OUTPATIENT NEW HIGH MDM 60-[place] [address] [place] [address] Referral ID Status Reason Start Date Expiration Date V isits Requested Visits Authorized [id number] Closed PCP Requested Referral 04/17/2022 04/17/2023 1 1 Reason Comments Results Patient Update Reason Comments Radiology NM Reason Comments COPD Specialty Diagnoses / Procedures Referred By Contac t Referred To Contact [facility] Diagnoses Shortness of breath Procedures SPIROMETRY WITH DILATOR IF OBSTRUCTED BRNCDILAT RSPSE SPMTRY PRE&POST-BRNCDILAT ADMN Cielo Jeffries MD [address] [place] [address] [facility] [place] [phone] Referral ID Status Reason Start Date Expiration Date V isits Requested Visits Authorized [id number] Closed Auto-Generate d Referral 06/23/2022 04/26/2023 1 1 Reason Comments Medication Problem Called pt. Will hold Anoro and see if symptoms improve. To use PRN Xopenex if needed. She will contact in 1 week to keep us informed with how she is feeling Reason Comments New Pain Reason Comments COPD Reason Comments Cough Reason Comments Radiology CT Specialty Diagnoses / Procedures Referred By Contac t Referred To Contact CT IMAGING Diagnoses Lung nodules Procedures CT CHEST WO IVCON DIAGNOSTIC COMPUTED TOMOGRAPHY THORAX W/O CNTRST Cielo Jeffries MD [address] [address] [address] [facility] Referral ID Status Reason Start Date Expiration Date V isits Requested Visits Authorized [id number] Closed Auto-Generate d Referral 09/04/2022 10/19/2022 1 1 Referral ID Status Reason Start Date Expiration Date V isits Requested Visits Authorized [id number] Closed Auto-Generate d Referral 12/15/2022 01/29/2023 1 1 Referral ID Status Reason Start Date Expiration Date V isits Requested Visits Authorized [id number] Closed Auto-Generate d Referral 05/08/2022 06/23/2022 1 1 Reason Comments Refill Request Reason Onset Date Comments Refill Request 07/21/2023 Reason Comments New Patient Evaluation Specialty Diagnoses / Procedures Referred By Contac t Referred To Contact Allergy Diagnoses Allergy, sequela Procedures CONSULT TO ALLERGY/IMMUNOLOGY OFFICE/OUTPATIENT [facility] MDM 60 MINUTES Cielo Jeffries MD [address] [place] [address] Referral ID Status Reason Start Date Expiration Date V isits Requested Visits Authorized [id number] Closed PCP Requested Referral 02/24/2024 02/23/2025 1 1 Reason Comments Med Change Request Specialty Diagnoses / Procedures Referred By Contac t Referred To Contact Ent - Otolaryngology Diagnoses Chronic cough Procedures CONSULT TO ENT OFFICE/OUTPATIENT [facility] MDM 60 [place] [address] [place] [address] Referral ID Status Reason Start Date Expiration Date V isits Requested Visits Authorized [id number] Closed PCP Requested Referral 03/02/2024 03/02/2025 1 1 Reason Comments Cough Chronic cough x 15 y ears. Reason Comments Injections Specialty Diagnoses / Procedures Referred By Contact Referred To Contact Ent - Otolaryngology / ENT-OTOLARYNGOLOGY Diagnoses SLN # 2 Procedures SLN # 2 Self Brian Tate MD [address] [place] [address] Phone: tel: fax: Referral ID Status Reason Start Date Expiration Date Visits Re quested Visits Authorized [id number] Closed 06/23/2024 09/21/2024 1 1 Reason Comments Established Patient Reason Comments Radiology CT Specialty Diagnoses / Procedures Referred By Contac t Referred To Contact CT IMAGING Diagnoses Lung nodules Procedures CT CHEST WO IVCON DIAGNOSTIC COMPUTED TOMOGRAPHY THORAX W/O CNTRST Cielo Jeffries MD [address] [address] Phone: tel: fax: [facility] [place] [address] Referral ID Status Reason Start Date Expiration Date V isits Requested Visits Authorized [id number] Closed Auto-Generate d Referral 07/02/2024 08/01/2024 1 1 Reason Comments Insurance Authorization Reason Comments Injections SLN Specialty Diagnoses / Procedures Referred By Contact Referred To Contact Ent - Otolaryngology / ENT-OTOLARYNGOLOGY Diagnoses SLN #3 Procedures INJECTABLE Self Brian Tate MD [address] [place] [address] Phone: tel: fax: Referral ID Status Reason Start Date Expiration Date Visits Re quested Visits Authorized [id number] Closed 07/21/2024 10/19/2024 1 1 Reason Comments Insurance Authorization Prior Auth Delay ed:Additional info needed Specialty Diagnoses / Procedures Referred By Contac t Referred To Contact [facility] Diagnoses Chronic cough Procedures SPIROMETRY WITH DILATOR IF OBSTRUCTED BRNCDILAT RSPSE SPMTRY PRE&POST-BRNCDILAT ADMN Tanna Escudero, RETAIL SUPPORT SPECIALIST.VEGETABLE FARM MANAGER [address] [place] [address] Phone: tel: fax: Respiratory [address] [address] Referral ID Status Reason Start Date Expiration Date V isits Requested Visits Authorized [id number] Closed Auto-Generate d Referral 06/01/2024 07/01/2025 1 1 Specialty Diagnoses / Procedures Referred By Contac t Referred To [facility] Diagnoses Chronic cough Procedures LUNG VOLUMES Tanna Escudero, RETAIL SUPPORT SPECIALIST.VEGETABLE FARM MANAGER [address] [place] [address] Phone: tel: fax: Respiratory [address] [address] Referral ID Status Reason Start Date Expiration Date V isits Requested Visits Authorized [id number] Closed Auto-Generate d Referral 06/01/2024 07/01/2025 1 1 Specialty Diagnoses / Procedures Referred By Contac t Referred To [facility] Diagnoses Chronic cough Procedures NITRIC OXIDE, EXHALED NITRIC OXIDE GAS DETERMINATION Tanna Escudero, RETAIL SUPPORT SPECIALIST.VEGETABLE FARM MANAGER [address] [place] [address] Phone: tel: fax: [facility] [address] [place] [address] Referral ID Status Reason Start Date Expiration Date V isits Requested Visits Authorized [id number] Closed Auto-Generate d Referral 06/01/2024 07/01/2025 1 1 Specialty Diagnoses / Procedures Referred By Contac t Ref[facility] Diagnoses Chronic cough Procedures LUNG DIFFUSION CAPACITY (DLCO) DIFFUSING CAPACITY Tanna Escudero, RETAIL SUPPORT SPECIALIST.VEGETABLE FARM MANAGER [address] [place] [address] Phone: tel: fax: Respiratory [address] [address] Referral ID Status Reason Start Date Expiration Date V isits Requested Visits Authorized [id number] Closed Auto-Generate d Referral 06/01/2024 07/01/2025 1 1 Reason Comments New Specialty Diagnoses / Procedures Referred By Contac t Referred To Contact CT IMAGING Diagnoses Chronic pansinusitis Procedures CT SINUS WO IVCON CT MAXILLOFACIAL W/O CONTRAST MATERIAL Brian Mondragon MD [address] [place] [address] Phone: tel: fax: [place] [address] Referral ID Status Reason Start Date Expiration Date V isits Requested Visits Authorized [id number] Closed Auto-Generate d Referral 09/22/2024 10/22/2025 1 1 Reason Onset Date Comments SPP Inflammatory Conditions - Treatment Referral 11/18/2024 [employer] Insurance Authorization 11/18/2024 [place] submi ssion pending Reason Comments Sinus Problem Reason Comments Schedule Surgery Reason Onset Date Comments SPP Inflammatory Conditions - Medication Refill 12/05/2024 [facility] Reason Comments Follow Up Reason Comments Consult surgery on 01/03/25 at [facility] Reason Onset Date Comments SPP Inflammatory Conditions - Medication Refill 12/29/2024 [facility] Care Teams (unrecognized sec tion and content) Nuisance Animal Damage Control Agent Relationship Specialty Start Date End Date Pcp, No PCP - General 11/09/21 05/27/22 Nuisance Animal Damage Control Agent Relationship Specialty Start Date End Date Pcp, No PCP - General 11/09/21 05/27/22 Nuisance Animal Damage Control Agent Relationship Specialty Start Date End Date Pcp, No PCP - General 11/09/21 05/27/22 Nuisance Animal Damage Control Agent Relationship Specialty Start Date End Date Pcp, No PCP - General 11/09/21 05/27/22 Nuisance Animal Damage Control Agent Relationship Specialty Start Date End Date Pcp, No PCP - General 11/09/21 05/27/22 Nuisance Animal Damage Control Agent Relationship Specialty Start Date End Date Pcp, No PCP - General 11/09/21 05/27/22 Nuisance Animal Damage Control Agent Relationship Specialty Start Date End Date Pcp, No PCP - General 11/09/21 05/27/22 Nuisance Animal Damage Control Agent Relationship Specialty Start Date End Date Pcp, No, RETAIL SUPPORT SPECIALIST PCP - General 11/09/21 05/27/22 Nuisance Animal Damage Control Agent Relationship Specialty Start Date End Date Pcp, No, RETAIL SUPPORT SPECIALIST PCP - General 11/09/21 05/27/22 Team Status: Active Member Role Status Dates Dr. Silvana Arrieta DO Family Provider Active Dr. Silvana Arrieta DO Primary Care Provider Active Team Status: Inactive Member Role Status Dates Dr. Silvana Arrieta DO Primary Care Provide r, Attending Provider, Referring Provider Active Nuisance Animal Damage Control Agent Relationship Specialty Start Date End Date Silvana Arrieta DO [address] [place], [place] [phone] PCP - General Family Medicine 11/30/24 Nuisance Animal Damage Control Agent Relationship Specialty Start Date End Date Silvana Arrieta DO [address] [place], [place] [id number] PCP - General Family Medicine 11/30/24 Nuisance Animal Damage Control Agent Relationship Specialty Start Date End Date Silvana Arrieta DO [address] [place], [place] [phone] PCP - General Family Medicine 11/30/24 Nuisance Animal Damage Control Agent Relationship Specialty Start Date End Date Silvana Arrieta DO [address] [place] [address] PCP - General Family Medicine 11/30/24 Nuisance Animal Damage Control Agent Relationship Specialty Start Date End Date Silvana Arrieta DO [address] [place] [address] PCP - General Family Medicine 11/30/24 Nuisance Animal Damage Control Agent Relationship Specialty Start Date End Date Silvana Arrieta DO [address] [place], [place] [address] PCP - General Family Medicine 11/30/24 Nuisance Animal Damage Control Agent Relationship Specialty Start Date End Date Silvana Arrieta DO [address] [place], [place] [id number] PCP - General Family Medicine 11/30/24 Nuisance Animal Damage Control Agent Relationship Specialty Start Date End Date Silvana Arrieta DO [address] [place], [place] [phone] PCP - General Family Medicine 11/30/24 INFORMATION SOURCE (unrecogn ized section and content) DATE CREATED AUTHOR 06/18/2022 [facility] DATE CREATED AUTHOR AUTHOR'S ORGANIZ ATION 09/03/2022 [facility] DATE CREATED AUTHOR AUTHOR'S ORGANIZ ATION 06/04/2024 [facility] DATE CREATED AUTHOR AUTHOR'S ORGANIZ ATION 01/13/2025 [facility] DATE CREATED AUTHOR AUTHOR'S ORGANIZ ATION 01/14/2025 [facility] Scheduled Active and Recently Administ ered Medications (unrecognized section and content) Medication Order 01/01/2025 01/02/2025 01/03/2025 acetaminophen 1,000 mg tab(s) (TYLENOL) (CANCELED) 1,000 mg, ORAL, PRE-OP ONCE, 1 dose, On Thu01/03/25 at 1000, Preprocedure 1006 (Given - Provid er: Vashti Garland RN) promethazine 12.5 mg tab(s) (PHENERGAN) (CANCELED) 12.5 mg, ORAL, PRE-OP ONCE, 1 dose, On Thu01/03/25 at 1000, Preprocedure 1007 (Given - Provid er: Vashti Garland RN) scopolamine (delivers 1 mg over 3 days) 1 patch (TRANSDERM-SCOP) (CANCELED)(Linked Group 1) 1 patch, TRANSDERMAL, EVERY 72 HOURS, First dose on Thu01/03/25 at 1000, Until Discontinued, Apply patch behind ear. Each time a new patch is needed it should be placed behind the alternate ear from the previous patch. Remove old patch. Each transdermal system contains 1.5 mg scopolamine base and delivers 1 mg over 3 days., Preprocedure 1003 (Given - Provid er: Vashti Garland RN) Continuous Medication Order 01/01/2025 01/02/2025 01/03/2025 lactated ringers iv infusion (CANCELED) 30 mL/hr, INTRAVENOUS, CONTINUOUS, Starting on Thu01/03/25 at 1000, Until Thu01/03/25 at 0936, Preprocedure 1007 (New Bag/Syring e/Bottle - Provider: Vashti Garland RN) lactated ringers iv infusion 30 mL/hr, INTRAVENOUS, CONTINUOUS, Starting on Thu01/03/25 at 1300, Until Thu01/04/25 at 0303 1245 (Rate Verify - Provider: Lisa Garcia RN) PRN Medication Order 01/01/2025 01/02/2025 01/03/2025 albuterol 2.5 mg /3 mL (0.083 %) 2.5 mg (PROVENTIL) 2.5 mg, INHALATION, EVERY 6 HOURS NEEDED, Starting on Thu01/03/25 at 1452, Until Thu01/04/25 at 0303, wheezing/shortness of breath bacitracin 500 unit/gram topical ointment (CANCELED) X (OR/PROCEDURE) PRN, Starting on Thu01/03/25 at 1206, Until Thu01/03/25 at 1247, Intraprocedure 1206 (Given - Provid er: Rut Allan MD - Comment: topical to bilateral loo splints bilateral nares) diphenhydrAMINE 25 mg injection (BENADRYL) 25 mg, INTRAVENOUS, NEEDED, 1 dose, Starting on Thu01/03/25 at 1250, Until Thu01/04/25 at 0303, Nausea/Vomiting - First Line - Parenteral fentaNYL 50 mcg/mL 50 mcg injection (SUBLIMAZE) 50 mcg, INTRAVENOUS, NEEDED, Starting on Thu01/03/25 at 1250, Until Thu01/04/25 at 0303, FIRST LINE THERAPY for moderate or severe pain, FIRST LINE THERAPY Every 5 minutes, To a Maximum Total Dose of 100 mcg Hold for respiratory rate less than 8 USE FOR MODERATE PAIN ONLY IF PATIENT IS UNABLE TO TOLERATE ORAL THERAPY 1310 (Given - Provid er: Lisa Garcia RN)1324 (Given - Provider: Lisa Garcia RN) HYDROmorphone 0.5 mg injection (DILAUDID) 0.5 mg, INTRAVENOUS, NEEDED, Starting on Thu01/03/25 at 1250, Until Thu01/04/25 at 0303, SECOND LINE THERAPY for moderate or severe pain, SECOND LINE THERAPY Every 30 minutes to Total Dose of 1 mg Hold for respiratory rate less than 8 USE FOR MODERATE PAIN ONLY IF PATIENT IS UNABLE TO TOLERATE ORAL THERAPY Caution: IV hydromorphone is approximately 8 times MORE POTENT than IV morphine. For example, hydromorphone 1mg IV = morphine 8mg IV lidocaine 1%-EPINEPHrine 1:100,000 injection (CANCELED) X (OR/PROCEDURE) PRN, Starting on Thu01/03/25 at 1126, Until Thu01/03/25 at 1247, Intraprocedure 1126 (Given - Provid er: Rut Allan MD - Comment: nasal injection) NaCl 0.9% irrigation solution (CANCELED) X (OR/PROCEDURE) PRN, Starting on Thu01/03/25 at 1121, Until Thu01/03/25 at 1247, Intraprocedure 1121 (Given - Provid er: Rut Allan MD) ondansetron (PF) 4 mg injection (ZOFRAN) 4 mg, INTRAVENOUS, NEEDED, 1 dose, Starting on Thu01/03/25 at 1250, Until Thu01/04/25 at 0303, Nausea/Vomiting - Second Line - Parenteral, Give IV push over 2 minutes oxyCODONE IR 5-10 mg tab(s) (ROXICODONE) 5-10 mg, ORAL, NEEDED, 1 dose, Starting on Thu01/03/25 at 1250, Until Thu01/04/25 at 0303, Moderate Pain (4-6) - Enteral oxymetazoline 0.05 % (GENASAL) (CANCELED) X (OR/PROCEDURE) PRN, Starting on Thu01/03/25 at 1120, Until Thu01/03/25 at 1247, Intraprocedure 1120 (Given - Provid er: Rut Allan MD) Linked Groups Order Group 1: scopolamine (delivers 1 mg over 3 days) 1 patch (TRANSDERM-SCOP) (CANCELED)Jump to med 1 patch, TRANSDERMAL, EVERY 72 HOURS, First dose on Thu01/03/25 at 1000, Until Discontinued, Apply patch behind ear. Each time a new patch is needed it should be placed behind the alternate ear from the previous patch. Remove old patch. Each transdermal system contains 1.5 mg scopolamine base and delivers 1 mg over 3 days., Preprocedure And scopolamine - REMOVE PATCH (CANCELED) EVERY 72 HOURS, Preprocedure, THIS IS USED ONLY TO DOCUMENT PATCH REMOVAL. Use Remvd Patch action. And scopolamine - VERIFY patch (CANCELED) EVERY 8 HOURS, Preprocedure, THIS IS USED ONLY TO DOCUMENT THAT THE PATCH IS VERIFIED ON OR OFF PER ORDER. Use Patch On or Patch Off action. FOR RECORDS PERTAINING TO PATIENTS WHO ARE OR HAVE BEEN ENROLLED IN A CHEMICAL DEPENDENCY/SUBSTANCEABUSE PROGRAM, SOME INFORMATION MAY BE OMITTED. This clinical summary was aggregated from multiple sources. Caution should be exercised in using it in the provision of clinical care. This summary normalizes information from multiple sources, and as a consequence, information in this document may materially change the coding, format and clinical context of patient data. In addition, data may be omitted in some cases. CLINICAL DECISIONS SHOULD BE BASED ON THE PRIMARY CLINICAL RECORDS. [employer] provides no warranty or guarantee of the accuracy or completeness of information in this document.
--- NOTE | 2025-01-19 07:00 | BD_ITS ---
PROCEDURE: DEXA BONE DENSITY STUDY 01/19/2025 REASON FOR EXAM: F, age 69 y/o . TECHNIQUE: Procedure Code: BDDBD Modality: DX Procedure: DEXA BONE DENSITY STUDY COMPARISON: None. FINDINGS: BMD and T-SCORES Lumbar spine: 0.699 g/cm2, T-score -3.2 Levels: L1 through L4 Left femoral neck: 0.484 g/cm2, T-score -3.3 Left total hip: 0.619 g/cm2, T-score -2.6 Right femoral neck: 0.470 g/cm2, T-score -3.4 Right total hip: 0.624 g/cm2, T-score -2.6 The World Health Organization has defined the following categories based on bone density: Normal bone density: T-score equal to or greater than -1.0 Osteopenia: T-score between -1.0 and -2.5 Osteoporosis: T-score equal to or less than -2.5 FRAX (or Comparable) Fracture Risk Assessment: 10 Year Probability of Fracture: Major Osteoporotic Fracture: 63% Hip Fracture: 27% (Note: FRAX is not to be reported in setting of normal range bone density, osteoporosis on DEXA, known history of osteoporosis, prior osteoporotic hip or vertebral fracture, or for any patient undergoing pharmacological treatment for bone loss.) The National Osteoporosis Foundation (NOF) recommends pharmacological treatment for patients with a FRAX 10-year risk of 3% or higher for a hip fracture, or 20% or higher for a major osteoporotic fracture, to prevent osteoporosis and reduce fracture risk. The patient does meet the pharmacological treatment recommendations for prevention of osteoporosis. BD/Dexa Bone Density Study IMPRESSION: There is osteoporosis of the lumbar spine and both hips. Recommend follow-up as clinically warranted. Reading Location: [place] [address]
== END | disposition home or self-care (01) ==
LOC: OPBI 06:55
PROVIDERS: PCP Family Medicine; Referring Provider Family Medicine; Visit Provider Family Medicine
DX: Z12.31 Encounter for screening mammogram for malignant neoplasm of breast (principal); M81.0 Age-related osteoporosis without current pathological fracture
CPT/HCPCS: 77063; 77067; 77080

== ENCOUNTER 2025-02-14 09:23 | Outpatient (CLI) | payer MEDICARE, SELFPAY ==
[2025-02-14] MEDS: 0.9% NaCl Peripheral Flush Adult IV (09:40)
[2025-02-14] MEDS: 0.9% NaCl IVPB Med Flush (100mL) 15 ML IV (09:40)
[2025-02-14 09:45] VITALS: BP 147/81; PULSE 119; RESP 16; TEMP 35.9; O2SAT 100; BMI 23.6
[2025-02-14 10:19] VITALS: BP 121/78; PULSE 110; RESP 16; TEMP 36.2; O2SAT 100
== END 2025-02-14 23:59 | disposition home or self-care (01) ==
LOC: MEDOUTP 09:24
PROVIDERS: PCP Family Medicine; Referring Provider Nurse Practitioner Family; Visit Provider Nurse Practitioner Family
DX: M81.0 Age-related osteoporosis without current pathological fracture (principal)
CPT/HCPCS: 96365; A4216; J3489